=== PATIENT | female | born 1940 | race Caucasian/White ===

== ENCOUNTER 2016-08-26 01:34 | Observation (INO) ==
[2016-08-26 03:38] LABS: Red Blood Count 4.05 M/mcL (3.82-4.97)
[2016-08-26 03:39] LABS: Basophils # 0.1 K/mcL (0.0-0.2); Basophils % 0.8 %; Eosinophils # 0.1 K/mcL (0.0-0.6); Eosinophils % 1.1 %; Hematocrit 39.9 % (35.3-44.9); Hemoglobin 12.7 g/dL (11.5-15.4); Immature Granulocytes % 0.4 % (0-4); Lymphocytes # 1.5 K/mcL (0.6-4.6); Lymphocytes % 18.5 %; Mean Corpuscular HGB Conc 31.8 g/dL (31.6-35.5); Mean Corpuscular Hemoglobin 31.4 pg (28.0-33.3); Mean Corpuscular Volume 98.5 fL (83.0-100.0); Mean Platelet Volume 11.1 fL (9.4-12.4); Monocytes # 0.7 K/mcL (0.0-1.3); Monocytes % 8.6 %; Neutrophils # 5.6 K/mcL (1.6-8.9); Platelet Count 274 K/mcL (140-400); Red Cell Distribution Width 13.9 % (11.5-14.5); Segmented Neutrophils % 70.6 %
[2016-08-26 03:44] LABS: INR 2.3; Prothrombin Time 25.5 Seconds (9.4-12.1)
[2016-08-26 03:52] LABS: Alanine Aminotransferase 31 Units/L (0-55); Albumin 3.9 g/dL (3.5-5.0); Alkaline Phosphatase 63 Units/L (38-126); Aspartate Amino Transferase 32 Units/L (5-34); BUN/Creatinine Ratio 20 (6-26); Bilirubin,Total 0.5 mg/dL (0.2-1.2); Blood Urea Nitrogen 15 mg/dL (7-20); Carbon Dioxide 26 mEq/L (19-29); Chloride 106 mEq/L (98-109); Globulin 3.9 g/dL (2.4-3.5); Glucose 121 mg/dL (70-99); Osmolality,Calculated 290 (280-300); Sodium 139 mEq/L (136-145); Total Protein 7.8 g/dL (6.0-8.3); eGFR For African Americans > 60 (> 60); eGFR For Non-African Americans > 60 (> 60)
[2016-08-26] MEDS ORDERED: Nitroglycerin 0.4 MG TAB.SUBL SL PRN (04:15)
[2016-08-26] MEDS ORDERED: Aspirin 81 MG TAB.CHEW PO ONE (04:15)
--- NOTE | 2016-08-26 04:15 | Emergency Department Note ---
Disposition Clinical Impression: COPD exacerbation, Hypoxia CHF exacerbation Qualifiers: Congestive heart failure type: unspecified congestive heart failure type Qualified Code(s): I50.9 - Heart failure, unspecified Disposition: Admitted As Inpatient Condition: Good Time of Disposition: 05:43 Chest Pain HPI - General Chief Complaint: ED Chest Pain Stated Complaint: chest pain/sob Time Seen by Provider: 08/26/16 04:11 Source: patient, other Limitations: no limitations Vital Signs Reviewed: Yes Nursing Notes Reviewed: Yes - History of Present Illness HPI Narrative: 75 year old female with HX of midepigastric pain that has been getting worse over the past few days. 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 Tim states she has incresed exertional dyspnea and is 89% on RA. Tim states that she has diaphoresis and nausea associated with the chest pain which is described as pressure with radiation across the chest under her bilateral breasts. Tim deines fevers, cough, or vomiting. Currently on an any anticoagulation therapy and has not tried nitro therapy before arrival. No stent placements. Severity scale (1-10): 9 - Related Data Home Medications Medication Instructions Recorded Confirmed Amiodarone [Cordarone] 12/27/15 Amlodipine/Atorvastatin [Caduet 5 12/27/15 mg-10 mg Tablet] ClonazePAM [Clonazepam] 12/27/15 Enalapril Maleate [Vasotec] 12/27/15 Furosemide [Lasix] 12/27/15 Hydrochlorothiazide 12/27/15 [Hydrochlorothiazide] Levothyroxine [Synthroid] 12/27/15 Metoprolol [Lopressor] 12/27/15 Warfarin [Coumadin] 12/27/15 Previous Rx's Medication Instructions Recorded Amoxicillin 875 mg PO BID #20 tablet 04/10/16 Ondansetron [Zofran ODT] 8 mg SL TID #8 tab.rapdis 04/10/16 Levofloxacin [Levaquin] 750 mg PO DAILY #10 tablet 04/14/16 PredniSONE [Prednisone] 50 mg PO DAILY #5 tablet 04/14/16 Ondansetron HCl [Zofran] 4 mg PO QID #15 tablet 08/08/16 Phenazopyridine HCl [Pyridium] 200 mg PO TIDAC #6 tab 08/08/16 Allergies Allergy/AdvReac Type Severity Reaction Status Date / Time No Known Allergies Allergy Verified 08/26/16 01:35 Constitutional: Denies: fever, chills, weakness, weight change Eyes: Denies: eye pain, eye discharge, vision change ENT ED: Denies: ear pain, throat pain, dental pain, hearing loss, epistaxis, congestion, dysphagia Cardiovascular: Reports: chest pain, dyspnea on exertion. Denies: palpitations , edema, syncope Respiratory: Denies: cough, dyspnea, wheezes, hemoptysis, stridor Gastrointestinal: Reports: nausea. Denies: abdominal pain, vomiting, diarrhea, constipation, hematemesis, melena, hematochezia Genitourinary: Denies: dysuria, frequency, hematuria, discharge Musculoskeletal: Denies: back pain, neck pain, arthralgia, myalgia Integumentary: Denies: rash, abrasion, lesions Neurological: Denies: headache, weakness, numbness, paresthesias, confusion, abnormal gait, vertigo Psychiatric: Denies: anxiety, depression, suicidal thoughts, homicidal thoughts , auditory hallucinations, visual hallucinations Endocrine: Denies: fatigue Hematological/Lymphatic: Denies: easy bleeding, easy bruising Allergic/Immunologic: Denies: facial swelling, urticaria Chest Pain PMH - Past Medical History Medical history: Reports: COPD, DVT, hyperlipidemia, hypertension, myocardial infarction Surgical history: Reports: non-contributory, coronary bypass (CABG), pacemaker/ AICD Psychiatric history: Reports: anxiety MUSHROOM GROWER history: Reports: no MUSHROOM GROWER history - Social History Smoking Status: Former smoker Alcohol use: Reports: none Drug use: Reports: none Physical Exam - General Limitations: no limitations General appearance: alert - Head Head exam: atraumatic, normocephalic, normal inspection - Eye Eye exam: Present: normal appearance, PERRL, EOMI - Expanded Eye Exam Pupils: Left: reactive - ENT ENT exam: normal exam, normal oropharynx, mucous membranes moist - Expanded ENT Exam External ear exam: Present: normal external inspection Mouth exam: Present: normal external inspection Teeth exam: Present: normal inspection Throat exam: Present: normal inspection - Neck Neck exam: Present: normal inspection, full ROM, trachea midline - Chest Chest inspection: Present: normal inspection, symmetric chest wall rise - Respiratory Respiratory exam: Present: normal lung sounds bilaterally - Cardiovascular Cardiovascular exam: Present: regular rate, normal rhythm, normal heart sounds - Abdominal Exam Abdominal exam: Present: soft, Non-Tender. Absent: tenderness, distention, guarding, rebound, rigidity - Extremities Exam Extremities exam: Present: normal inspection, full ROM. Absent: tenderness, pedal edema - Expanded Upper Extremity Exam Shoulder exam: Present: normal inspection, full ROM Arm exam: Present: normal inspection, full ROM Elbow exam: Present: normal inspection, full ROM Forearm/Wrist exam: Present: normal inspection, full ROM Hand exam: Present: normal inspection, full ROM Vascular exam: Normal: capillary refill, radial pulse - Expanded Lower Extremity Exam Hip/Pelvis exam: Present: normal inspection, full ROM Upper leg exam: Present: normal inspection, full ROM Knee exam: Present: normal inspection, full ROM Lower leg exam: Present: normal inspection, full ROM Ankle exam: Present: normal inspection, full ROM Foot/toe exam: Present: normal inspection, full ROM Neurovascular/Tendon exam: Absent: motor deficit, sensory deficit, tendon deficit - Back Exam Back exam: Present: normal inspection, full ROM. Absent: tenderness - Neurological Exam Neurological exam: Present: alert, oriented X3 - Expanded Neurological Exam Patient oriented to: Present: person, place, time Coma Scale Eye Opening: Spontaneous Coma Scale Motor Response: Obeys Commands Coma Scale Verbal Response: Oriented Coma Scale Total: 15 - Psychiatric Psychiatric exam: Present: normal affect, normal mood - Skin Skin exam: Present: warm, dry, intact, normal color Course Course Narrative: tim is hypertensive in the room as well as bradycardic secondary to medication treatment with metoprolol. 89% on RA, placed on 2LNC. ASA and nitro for pain therapy. - Consultations Consultation #1: discussed case with Dr. Pan and he accepts tim for admission. Tim agrees to plan. Time: 05:42 Vital Signs Temperature 97.6 F 08/26/16 01:36 Pulse Rate 72 08/26/16 01:36 Respiratory Rate 20 08/26/16 01:36 Blood Pressure 174/87 08/26/16 01:36 O2 Sat by Pulse Oximetry 93 08/26/16 01:36 Temperature 97.6 F 08/26/16 01:36 Pulse Rate 88 08/26/16 04:39 Respiratory Rate 18 08/26/16 04:39 Blood Pressure 162/82 08/26/16 04:39 O2 Sat by Pulse Oximetry 96 08/26/16 04:39 Oxygen Delivery Oxygen Delivery Nasal Cannula Chest Pain - Lab Data Result diagrams: 08/26/16 03:15 08/26/16 03:15 Lab Results 08/26/16 08/26/16 08/26/16 Range/Units 03:15 03:15 03:15 WBC 8.0 (4.3-11.1) K/mcL RBC 4.05 (3.82-4.97) M/mcL Hgb 12.7 (11.5-15.4) g/dL Hct 39.9 (35.3-44.9) % MCV 98.5 (83.0-100.0) fL MCH 31.4 (28.0-33.3) pg MCHC 31.8 (31.6-35.5) g/dL RDW 13.9 (11.5-14.5) % Plt Count 274 (140-400) K/mcL MPV 11.1 (9.4-12.4) fL Immature Gran % 0.4 (0-4) % Seg Neutrophils % 70.6 % Lymphocytes % 18.5 % Monocytes % 8.6 % Eosinophils % 1.1 % Basophils % 0.8 % Neutrophils # 5.6 (1.6-8.9) K/mcL Lymphocytes # 1.5 (0.6-4.6) K/mcL Monocytes # 0.7 (0.0-1.3) K/mcL Eosinophils # 0.1 (0.0-0.6) K/mcL Basophils # 0.1 (0.0-0.2) K/mcL PT (9.4-12.1) Seconds INR APTT (26.0-36.0) Seconds Sodium 139 (136-145) mEq/L Potassium 4.0 (3.5-4.5) mEq/L Chloride 106 (98-109) mEq/L Carbon Dioxide 26 (19-29) mEq/L BUN 15 (7-20) mg/dL Creatinine 0.75 (0.57-1.11) mg/dL Est GFR ( Amer) > 60 (> 60) Est GFR (Non-Af Amer) > 60 (> 60) BUN/Creatinine Ratio 20 (6-26) Glucose 121 H (70-99) mg/dL Calculated Osmolality 290 (280-300) Calcium 9.0 (8.6-10.8) mg/dL Total Bilirubin 0.5 (0.2-1.2) mg/dL AST 32 (5-34) Units/L ALT 31 (0-55) Units/L Alkaline Phosphatase 63 (38-126) Units/L Troponin I 0.01 (0-0.03) ng/mL B-Natriuretic Peptide (0-100) pg/mL Serum Total Protein 7.8 (6.0-8.3) g/dL Albumin 3.9 (3.5-5.0) g/dL Globulin 3.9 H (2.4-3.5) g/dL Albumin/Globulin Ratio 1.0 L (1.1-2.2) 08/26/16 08/26/16 Range/Units 03:15 03:15 WBC (4.3-11.1) K/mcL RBC (3.82-4.97) M/mcL Hgb (11.5-15.4) g/dL Hct (35.3-44.9) % MCV (83.0-100.0) fL MCH (28.0-33.3) pg MCHC (31.6-35.5) g/dL RDW (11.5-14.5) % Plt Count (140-400) K/mcL MPV (9.4-12.4) fL Immature Gran % (0-4) % Seg Neutrophils % % Lymphocytes % % Monocytes % % Eosinophils % % Basophils % % Neutrophils # (1.6-8.9) K/mcL Lymphocytes # (0.6-4.6) K/mcL Monocytes # (0.0-1.3) K/mcL Eosinophils # (0.0-0.6) K/mcL Basophils # (0.0-0.2) K/mcL PT 25.5 H (9.4-12.1) Seconds INR 2.3 APTT 40.0 H (26.0-36.0) Seconds Sodium (136-145) mEq/L Potassium (3.5-4.5) mEq/L Chloride (98-109) mEq/L Carbon Dioxide (19-29) mEq/L BUN (7-20) mg/dL Creatinine (0.57-1.11) mg/dL Est GFR ( Amer) (> 60) Est GFR (Non-Af Amer) (> 60) BUN/Creatinine Ratio (6-26) Glucose (70-99) mg/dL Calculated Osmolality (280-300) Calcium (8.6-10.8) mg/dL Total Bilirubin (0.2-1.2) mg/dL AST (5-34) Units/L ALT (0-55) Units/L Alkaline Phosphatase (38-126) Units/L Troponin I (0-0.03) ng/mL B-Natriuretic Peptide 672 H (0-100) pg/mL Serum Total Protein (6.0-8.3) g/dL Albumin (3.5-5.0) g/dL Globulin (2.4-3.5) g/dL Albumin/Globulin Ratio (1.1-2.2) - EKG Data EKG attestation: Yes I reviewed and interpreted this EKG. EKG results narrative: NSR with rate of 66. nO STEMI. normal intervals. no old ekg. 0149 Attestation Statement - Attestation Attestation: I personally interviewed and examined this patient and my medical decision- making was reviewed with the ED Resident Physician, Dr. Blanco. I agree with the documented findings, disposition and treatment plan as described except to the extent set forth below. Patient is a 75-year-old white female who arrives complaining of shortness of breath with hypoxia and mild epigastric pain. Patient has a history of COPD as well as coronary artery disease. Patient denies any prior history of CHF. Patient was in no acute distress on arrival to the ED. Agree with patient's physical exam findings as documented. Patient was found after lab evaluation and portal chest x-ray just to have acute exacerbation of CHF. Patient with elevated BNP as well as pulmonary edema on chest x-ray. Have initiated diuretics IV. Will admit patient for further evaluation and treatment.
[2016-08-26] MEDS ORDERED: Furosemide 40 MG/4 ML VIAL IVP ONE (04:18)
[2016-08-26] MEDS ORDERED: Ipratropium/Albuterol Neb 3 ML IH ONE (05:09)
[2016-08-26] MEDS ORDERED: methylPREDNISolone 125 MG/2 ML VIAL IVP ONE (05:09)
[2016-08-26] MEDS ORDERED: Acetaminophen 325 MG TABLET PO PRN (07:39)
[2016-08-26] MEDS ORDERED: Naloxone 0.4 MG/ML INJ IVP PRN (07:39)
--- NOTE | 2016-08-26 09:19 | Internal Med History&Physical ---
Date of Encounter: 08/26/16 Time of Encounter: 08:30 Assessment and Plan (1) CHF exacerbation Current visit: Yes Status: Acute Patient with acute CHF. Likely combined. Will get 2-D echocardiogram. Continue IV Lasix. Patient is clinically improving. Trend troponins. Telemetry monitoring. Patient also had associated chest pain. This has now resolved. She does not want stress testing at this time. 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 Qualifiers: Congestive heart failure type: combined Qualified Code(s): I50.43 - Acute on chronic combined systolic (congestive) and diastolic (congestive) heart failure (2) Essential hypertension Current visit: Yes Status: Chronic Blood pressure is elevated. Will monitor and adjust medications accordingly. For now continue her antihypertensive regimen. (3) Hyperlipidemia Current visit: Yes Status: Chronic Patient does not appear to be on any statins at this time. We will check lipid profile. Qualifiers: Hyperlipidemia type: mixed hyperlipidemia Qualified Code(s): E78.2 - Mixed hyperlipidemia (4) Chronic anticoagulation Current visit: Yes Status: Chronic On Coumadin therapy. INR 2.3. We will continue Coumadin. Internal Medicine - H&P: HPI Chief complaint: Shortness of breath and chest pain Admitted From: Emergency Dept Plans for Post Hospital Care: Home History of present illness: Ms. Navarrete is a 75 year old female patient with a history of COPD, DVT, hyperlipidemia, hypertension, [place], VSD repair, pacemaker and AICD in situ presented to the ER with complaints of shortness of breath. Symptoms began last night. She developed pain in her lower rib region bilaterally and then also began to have shortness of breath. She denies any palpitations. No cough or sputum production. She says her shortness of breath was persistent whether she was lying down or sitting up. Denies any pedal edema. In the ER she received IV Lasix with improvement in her symptoms. Her chest pain is now resolved. Her shortness of breath is also much improved. She follows up with cardiology as outpatient. She is on anticoagulation with Coumadin. Past Med Surg Social Fam HX - Past Medical History Attestation: Yes The following information was validated with the patient. Source: patient Medical history: COPD, DVT, hyperlipidemia, hypertension, myocardial infarction Psychiatric history: anxiety - Past Surgical History Surgical History: non-contributory, coronary bypass (CABG), pacemaker/AICD, other (VSD repair) - Social History Smoking Status: Former smoker Smokeless Tobacco Status: No Alcohol use: none Drug use: none - Family History Father Living Status: Age at : 88 Cause of : cancer Hx Family Respiratory Disorders: No Hx Family Cancer: Yes Hx Family GI Disorders: No Hx Family Genitourinary Disorders: No Hx Family Endocrine Disorder: Yes (diabetes) Hx Family Musculoskeletal Disorders: No Hx Family Neuromuscular Disorders: No Hx Family Neurologic Disorders: No Hx Family HEENT Disorders: No Hx Family Autoimmune Disorders: No Hx Family Reproductive Disorders: No Hx Family Psychosocial Disorders: No Hx Family Medical Disorders: No Internal Medicine - H&P: Meds Amiodarone [Cordarone] 12/27/15 [History] Amlodipine/Atorvastatin [Caduet 5 mg-10 mg Tablet] 12/27/15 [History] ClonazePAM [Clonazepam] 12/27/15 [History] Enalapril Maleate [Vasotec] 12/27/15 [History] Furosemide [Lasix] 12/27/15 [History] Hydrochlorothiazide [Hydrochlorothiazide] 12/27/15 [History] Levothyroxine [Synthroid] 12/27/15 [History] Metoprolol [Lopressor] 12/27/15 [History] Warfarin [Coumadin] 12/27/15 [History] Amoxicillin 875 mg PO BID #20 tablet 04/10/16 [Rx] Ondansetron [Zofran ODT] 8 mg SL TID #8 tab.rapdis 04/10/16 [Rx] Levofloxacin [Levaquin] 750 mg PO DAILY #10 tablet 04/14/16 [Rx] PredniSONE [Prednisone] 50 mg PO DAILY #5 tablet 04/14/16 [Rx] Ondansetron HCl [Zofran] 4 mg PO QID #15 tablet 08/08/16 [Rx] Phenazopyridine HCl [Pyridium] 200 mg PO TIDAC #6 tab 08/08/16 [Rx] Allergies No Known Allergies Allergy (Verified 08/26/16 01:35) All Systems PM: A 10-system review of systems was performed and is negative for pertinent findings except as documented above in the HPI. - Constitutional Constitutional: no chills, no fever(s), no night sweats - EENT Eyes: no change in vision, no discharge, no pain, no photophobia Ears: no ear discharge, no ear pain, no tinnitus Nose, mouth and throat: no dysphagia, no nasal discharge, no neck pain, no sore throat - Cardiovascular Cardiovascular ROS IM: chest pain, dyspnea, orthopnea, no diaphoresis, no lightheadedness, no palpitations, no syncope - Respiratory Respiratory: no cough, no dyspnea, no wheezing, no excessive phlegm production - Gastrointestinal Gastrointestinal: no abdominal pain, no diarrhea, no hematemesis, no hematochezia, no melena, no nausea, no vomiting - Genitourinary Genitourinary: no change in urinary stream, no dysuria, no flank pain, no hematuria - Musculoskeletal Musculoskeletal ROS IM: no numbness, no tingling - Integumentary Integumentary IM: no rash, no unusual bruising - Neurological Neurological ROS: no confusion, no convulsions, no focal weakness, no numbness, no tingling, no tremor(s) - Hematologic/Lymphatic Hematologic/Lymphatic: no easy bruising - Constitutional Vitals: Temp Pulse Resp BP Pulse Ox 97.4 F L 70 20 148/67 97 08/26/16 08:00 08/26/16 08:00 08/26/16 08:00 08/26/16 08:00 08/26/16 08:00 General appearance: Present: cooperative, mild distress, A&O X 3, answers questions appropriately - Head Head exam: Present: atraumatic, normocephalic - Eye Eye exam: Present: EOMI, PERRL, conjuntiva pink, sclera anicteric - Neck Neck exam general surgery: Present: supple, trachea midline. Absent: lymphadenopathy - Respiratory Respiratory exam: Present: CTAB. Absent: accessory muscle use, rales, rhonchi, wheezes - Cardiovascular Cardiovascular exam: Present: RRR, +S1, +S2, systolic murmur. Absent: diastolic murmur, gallop, rubs - GI/Abdominal GI/Abdominal exam: Present: normal bowel sounds, soft, no peritoneal signs. Absent: distended, tenderness - Extremities Exam Extremities exam: Present: warm, radial pulses palpable and symetrical. Absent : calf tenderness, cyanotic, pedal edema - Neurological Exam Neurological exam: Present: CN II-XII intact, oriented X3, no focal deficits, strengths equal and symetr throughout. Absent: facial droop, speech deficit - Skin Skin exam: Present: dry, intact Additional comments: Healing lower extremity wounds Internal Med - H&P Results - Labs CBC & Chem 7: 08/26/16 03:15 08/26/16 03:15 - EKG Data EKG shows normal: sinus rhythm - EKG Data EKG comments: 08/26/16 09:21 Normal sinus rhythm without any acute ST segment changes. - Impressions Impressions Chest X-Ray 08/26/16 02:06 IMPRESSION: Mild pulmonary edema D/ / David Bates MD / David Bates MD Interpreting Provider: David Bates MD - Attending Attestation This document has been at least partially created by [employer] recognition technology by Dr. Bailey. Errors in grammar, wording or other phrases may exist. If errors are found after the documentation is signed, they will be addressed individually in the addendum section of this document when appropriate.
[2016-08-26] MEDS ORDERED: Ondansetron ODT 4 MG TAB.RAPDIS PO PRN (09:48)
[2016-08-26] MEDS: *HR* Amiodarone 200 MG TABLET PO SCH (10:37)
[2016-08-26] MEDS: clonazePAM 0.5 MG TABLET PO SCH ×2 (11:20→20:29)
[2016-08-26] MEDS: Furosemide 20 MG/2 ML VIAL IVP SCH (16:19)
[2016-08-26] MEDS ORDERED: Warfarin perPT PO PRN (18:00)
[2016-08-26] MEDS ORDERED: *HR* Warfarin 2.5 MG TABLET PO SCH (18:00)
--- NOTE | 2016-08-26 18:38 | Electrocardiograph Report ---
[place] [id number] Test Date: 2016-08-26 Pat Name: Patricia Navarrete Department: 104 Room: 3B24 Gender: Edi Analyst: TEETEE : 1940 Requested By: Sybil Irby Order Number: [id number] Reading MD: Sorin Us MD Measurements Intervals [place] Rate: 66 P: 74 HI: 216 QRS: 41 QRSD: 104 T: 99 QT: 427 QTc: 441 Interpretive Statements SINUS RHYTHM WITH FIRST DEGREE AV BLOCK WITH OCCASIONAL VENTRICULAR PREMATURE COMPLEXES Electronically Signed On 08-26-2016 18:37:20 EDT by Sorin Us MD
[2016-08-26] MEDS: Lisinopril 20 MG TABLET PO SCH (20:29)
[2016-08-26] MEDS ORDERED: clonazePAM 0.5 MG TABLET PO SCH (21:00)
[2016-08-26] MEDS ORDERED: Ketorolac 15 MG/ML VIAL IVP ONE (22:06)
[2016-08-26] MEDS ORDERED: Acetaminophen IV 1,000 MG/100 ML INFUS..BTL IVPB ONE (22:06)
[2016-08-26] MEDS: Melatonin 3 MG TABLET PO SCH (22:24)
[2016-08-27 07:08] LABS: INR 3.1; Prothrombin Time 34.5 Seconds (9.4-12.1)
[2016-08-27 07:18] LABS: Basophils % 0.1 %; Hematocrit 34.8 % (35.3-44.9); Immature Granulocytes % 0.8 % (0-4); Lymphocytes % 5.9 %; Mean Corpuscular HGB Conc 31.6 g/dL (31.6-35.5); Mean Corpuscular Hemoglobin 31.4 pg (28.0-33.3); Mean Corpuscular Volume 99.4 fL (83.0-100.0); Mean Platelet Volume 11.3 fL (9.4-12.4); Monocytes # 0.8 K/mcL (0.0-1.3); Monocytes % 4.8 %; Platelet Count 249 K/mcL (140-400); Red Cell Distribution Width 14.3 % (11.5-14.5); Segmented Neutrophils % 88.4 %
[2016-08-27 07:27] LABS: BUN/Creatinine Ratio 29 (6-26); Blood Urea Nitrogen 24 mg/dL (7-20); Carbon Dioxide 23 mEq/L (19-29); Chloride 106 mEq/L (98-109); Chol/HDL Ratio 3.4 (0-4.9); Cholesterol 161 mg/dL (< 200); Glucose 142 mg/dL (70-99); HDL Cholesterol 48 mg/dL (40-59); LDL Cholesterol,Calculated 99 mg/dL (0-99); Osmolality,Calculated 294 (280-300); Potassium 4.3 mEq/L (3.5-4.5); Sodium 139 mEq/L (136-145); Triglycerides 68 mg/dL (< 150); eGFR For African Americans > 60 (> 60); eGFR For Non-African Americans > 60 (> 60)
[2016-08-27] MEDS: Furosemide 20 MG/2 ML VIAL IVP SCH ×2 (08:36→18:06)
[2016-08-27] MEDS: hydroCHLOROthiazide 25 MG TABLET PO SCH (08:37)
[2016-08-27] MEDS: clonazePAM 0.5 MG TABLET PO SCH ×2 (08:37→20:42)
[2016-08-27] MEDS: *HR* Amiodarone 200 MG TABLET PO SCH (08:37)
[2016-08-27] MEDS: Lisinopril 20 MG TABLET PO SCH ×2 (08:37→20:41)
--- NOTE | 2016-08-27 09:15 | ECHO - Doppler Report ---
Echocardiogram Name: Patricia Navarrete Date of Study: 08/26/2016 Date: 1940 Ht: 59.0 in Medical Record#: [id number] Age: 75 Wt: 136.0 lb Gender: Female BSA: 1.57 Order #: [id number] Location: [facility] Room #: 3B24 Reading Physician: Joann Zavaleta DO Auto Repair Technician: Carlyn Montero RDCS Ordering Physician: Lilian Bailey MD Primary Physician: Ralf Perez MD Indications: Congestive heart failure Impressions: LVEF 45-50%. Not all LV wall segments were well visualized. 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 Left ventricle is mildly dilated. There is evidence of moderate diastolic dysfunction of the left ventricle. Normal right ventricular size and function. Mild aortic regurgitation. Mild-moderate mitral regurgitation. Mild tricuspid regurgitation. Mild pulmonic regurgitation. No pulmonary hypertension. Left Ventricular Wall Motion: Rest Echo Findings The mid inferior lateral and basal inferior lateral medina were hypokinetic. 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 The mid inferior and basal inferior medina were not visualized. All other wall segments showed normal motion. Findings: Study Quality * Technically adequate exam. ECG Findings * Normal sinus rhythm. Left Ventricle * Mildly dilated left ventricle. * Moderate left ventricular diastolic dysfunction. * LVEF 45-50%. * By history, patient is s/p repair of a VSD. No evidence on this study for a residual VSD. Right Ventricle * Normal right ventricular structure and function. Normal Lat S Jason. Subcostal view is not well visualized. Mitral Valve * Normal mitral valve structure. * No mitral stenosis. * Mild-moderate mitral regurgitation. Aortic Valve * Trileaflet aortic valve. * Normal aortic valve structure. * No aortic stenosis. * Mild aortic regurgitation. Tricuspid Valve * Tricuspid valve not well visualized. * Mild tricuspid regurgitation. * Estimated RA pressure is 3 mmHg. * Estimated RVSP is 33 mmHg. * No pulmonary hypertension. Pulmonic Valve * Pulmonic valve is not well visualized. * No pulmonic stenosis. * Mild pulmonic regurgitation. Pulmonary Artery * Pulmonary artery not well visualized. Right Atrium * Mildly dilated right atrium. Left Atrium * Severely dilated left atrium. Interatrial Septum * Interatrial septum not well evaluated. IVC * Normal IVC dimensions and inspiratory collapse. Pericardium * There is no pericardial effusion present. Aorta * Normally sized aortic root. History Hypertension Hypercholesteremia History of CAD/PTCA Myocardial Infarction Coronary Artery Bypass Graft Pacer/ICD Implant 07/18/2013 a Previous Echo was performed. Measurements: BP: 155/ 67 2D Normal Values RVIDd: 2.96 cm <2.7 cm IVSd: .96 cm 0.6 - 1.0 cm LVIDd: 5.58 cm 3.7 - 5.6 cm LVPWd: .99 cm 0.6 - 1.1 cm LVIDs: 3.07 cm 1.5 - 3.6 cm AO: 2.40 cm < 4.0 cm LA: 4.50 cm 2.0 - 4.0cm %FS: 45.00 cm >25 % LA volume: 67 Mitral Valve Peak E:1.14 m/sec Peak A:.59 m/sec E/A Ratio:1.9 Peak E' Lat Jason:8.38 cm/s Peak E' Med Jason:3.24 cm/s E/E' Lat Ratio:13.6 E/E' Med Ratio:35.2 Tricuspid Valve TV Regurg Peak Grad: 30.00mmHg TV Regurg Peak Jason: 2.75m/sec Updated by Joann Zavaleta on 08/27/2016 9:04:15 AM electronically signed on 08/27/2016 9:08:23 AM with status of Final [place] [employer] [place]: 1=Normal, 2=Hypokinesis, 3=Akinesis, 4=Dyskinesis, 5=Aneurysmal, 6=Hyperkinetic, X=Not Visualized (Blank)=Missing
--- NOTE | 2016-08-27 18:58 | Internal Med Progress Note ---
Date of Encounter: 08/27/16 Time of Encounter: 10:00 - Assessment and plan (1) COPD (chronic obstructive pulmonary disease) Current Visit: Yes Status: Acute Assessment and plan: Patient has history of COPD No exacerbation at this time. Continue medications. Nebulizers prn Qualifiers: COPD type: unspecified COPD Qualified Code(s): J44.9 - Chronic obstructive pulmonary disease, unspecified (2) CHF exacerbation Current Visit: Yes Status: Acute Assessment and plan: Patient with acute CHF. BNP is 672. Her troponins were negative 3. Lipid panel is within normal limits. She denies chest pain today, however she does report bilateral anterior lower rib pain associated with cough that began after she got a breathing treatment. He still declined a stress test today. Echocardiogram shows LVEF 45-50%. Not all LV wall segments were well visualized. 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 Left ventricle is mildly dilated. There is evidence of moderate diastolic dysfunction of the left ventricle, multi-valvular dysfunction, and no pulmonary hypertension. Outpatient follow-up with cardiology. Patient was up walking in the hallway today did not appear to have difficulty breathing. Telemetry Continue Lasix 20 mg IV twice a day Intake and output Qualifiers: Congestive heart failure type: combined Qualified Code(s): I50.43 - Acute on chronic combined systolic (congestive) and diastolic (congestive) heart failure (3) Essential hypertension Current Visit: Yes Status: Chronic Assessment and plan: Chronic. Continue home medications. Well controlled inpatient (4) Hyperlipidemia Current Visit: Yes Status: Chronic Assessment and plan: Lipid panel is within normal limits. Chronic. Patient is not on a statin at home. Qualifiers: Hyperlipidemia type: unspecified Qualified Code(s): E78.5 - Hyperlipidemia , unspecified (5) Chronic anticoagulation Current Visit: Yes Status: Chronic Assessment and plan: Patient is taking Coumadin. INRs 3.1. Continue to monitor Pharmacy dosing. INR daily. (6) Leukocytosis Current Visit: Yes Status: Acute Assessment and plan: Patient had sudden jump in white count today. 17.0 today. Neutrophils 15% Chest x-ray was negative for focal consolidation, pleural effusions, or pneumothorax. There is no acute cardiopulmonary process noted on x-ray. She is afebrile and vitals are within normal limits. She said that she developed a cough today with bilateral low anterior rib pain and shortness of breath. She is able to ambulate in the hallway. She does not appear to be in respiratory distress. She is not requiring supplemental oxygen to maintain her saturation. She is 95%. She is not receiving IV steroids. We will repeat CBC in the morning. Urine is being collected, micro-and culture also ordered. Patient has been given 1 g of Rocephin IV and will be given Levaquin 750 mg by mouth every 24 hours due to comorbidity of COPD. Patient's curb 65 score is 2. 1. BUN greater than 19, 1 for age >65. Qualifiers: Leukocytosis type: other Qualified Code(s): D72.828 - Other elevated white blood cell count - Time Spent With Patient less than 15 minutes - Subjective Interval history: Patient was seen and examined this morning at about 10 AM. She is a pleasant alert and oriented 75-year-old woman. She sitting on her bed. She says that she feels fine and she wants to go home. She reported anterior rib pain, shortness of breath, nonproductive cough all beginning today. She was given a breathing treatment and began having a nonproductive cough after the treatment. She does have a history of COPD. Her vitals have been stable. She was up walking in the hallway today without difficulty. Her lungs are clear and diminished throughout. I got a chest x-ray today that was negative for acute cardiopulmonary process, most specifically no focal consolidation. She had leukocytosis today white count jumped to 17. Unknown source at this time. Treated her with a gram of Rocephin IV and Levaquin 750 mg IV and urine is being collected, micro- and culture ordered as well.. - Constitutional Vitals: Temp Pulse Resp BP Pulse Ox 97.7 F 65 18 145/73 95 08/27/16 11:03 08/27/16 11:03 08/27/16 11:03 08/27/16 11:03 08/27/16 14:55 General appearance: Present: cooperative, mild distress, A&O X 3, pleasant, answers questions appropriately - Head Head exam: Present: normal inspection - Eye Eye exam: Present: normal appearance, conjuntiva pink - ENT ENT exam: Present: mucous membranes moist, normal exam - Neck Neck exam general surgery: Present: normal inspection. Absent: lymphadenopathy , tenderness - Respiratory Respiratory exam: Present: decreased breath sounds. Absent: chest wall tenderness, rales, respiratory distress, rhonchi, wheezes - Cardiovascular Cardiovascular exam: Present: RRR, +S1, +S2. Absent: diastolic murmur, systolic murmur - GI/Abdominal GI/Abdominal exam: Present: normal bowel sounds. Absent: hepatomegaly, splenomegaly, tenderness - Extremities Exam Extremities exam: Present: normal inspection, pedal edema, warm, radial pulses palpable and symetrical. Absent: tenderness - Neurological Exam Neurological exam: Present: alert, oriented X3, no focal deficits, strengths equal and symetr throughout. Absent: facial droop, speech deficit Internal Medicine: Result - Labs CBC & Chem 7: 08/27/16 06:06 08/27/16 06:06 Labs: Short CBC 08/27/16 Range/Units 06:06 WBC 17.0 H D (4.3-11.1) K/mcL Hgb 11.0 L D (11.5-15.4) g/dL Hct 34.8 L (35.3-44.9) % Plt Count 249 (140-400) K/mcL Neutrophils # 15.0 H (1.6-8.9) K/mcL BMP 08/27/16 06:06 Sodium 139 Potassium 4.3 Chloride 106 Carbon Dioxide 23 BUN 24 H Creatinine 0.84 Glucose 142 H Calcium 9.0 - ABG Interpretation ABG results: PT/INR, D-dimer PT 34.5 Seconds (9.4-12.1) H 08/27/16 06:06 - Impressions Impressions Chest X-Ray 08/27/16 11:28 IMPRESSION: No acute cardiopulmonary process. D/ / 08/27/2016 12:42:53 Lio Cleveland MD / vi Interpreting Provider: Lio Cleveland MD Consult Discharge Plan - Plan Referrals: Ralf Perez MD [Primary Care Provider] - 09/02/16 1:15 pm
[2016-08-27 19:33] LABS: Bilirubin,Urine Negative (Negative); Blood,Urine Negative (Negative); Clarity,Urine Clear (Clear); Color,Urine Yellow (Yellow); Glucose,Urine (UA) Normal (Normal); Ketones,Urine Negative (Negative); Leukocyte Esterase,Urine Negative (Negative); Nitrite,Urine Negative (Negative); Protein,Urine Negative (Neg-Trace); Urobilinogen,Urine Normal (Normal)
[2016-08-27] MEDS ORDERED: Levofloxacin 750 MG/150 ML 750 MG/150 ML BAG IVPB SCH (20:00)
[2016-08-27] MEDS: Melatonin 3 MG TABLET PO SCH (20:42)
[2016-08-28 05:13] LABS: Basophils % 0.2 %; Eosinophils % 0.2 %; Hematocrit 33.1 % (35.3-44.9); Hemoglobin 10.8 g/dL (11.5-15.4); Immature Granulocytes % 0.3 % (0-4); Lymphocytes # 2.6 K/mcL (0.6-4.6); Mean Corpuscular HGB Conc 32.6 g/dL (31.6-35.5); Mean Corpuscular Hemoglobin 32.3 pg (28.0-33.3); Mean Corpuscular Volume 99.1 fL (83.0-100.0); Mean Platelet Volume 11.6 fL (9.4-12.4); Monocytes # 0.9 K/mcL (0.0-1.3); Monocytes % 8.3 %; Neutrophils # 7.7 K/mcL (1.6-8.9); Platelet Count 236 K/mcL (140-400); Red Blood Count 3.34 M/mcL (3.82-4.97); Red Cell Distribution Width 14.6 % (11.5-14.5)
[2016-08-28 05:19] LABS: INR 3.2; Prothrombin Time 36.2 Seconds (9.4-12.1)
[2016-08-28 05:32] LABS: BUN/Creatinine Ratio 37 (6-26); Blood Urea Nitrogen 33 mg/dL (7-20); Calcium 8.4 mg/dL (8.6-10.8); Carbon Dioxide 25 mEq/L (19-29); Chloride 109 mEq/L (98-109); Glucose 92 mg/dL (70-99); Osmolality,Calculated 301 (280-300); Potassium 4.1 mEq/L (3.5-4.5); Sodium 142 mEq/L (136-145); eGFR For African Americans > 60 (> 60); eGFR For Non-African Americans > 60 (> 60)
[2016-08-28] MEDS: hydroCHLOROthiazide 25 MG TABLET PO SCH (09:17)
[2016-08-28] MEDS: Lisinopril 20 MG TABLET PO SCH (09:17)
[2016-08-28] MEDS: *HR* Amiodarone 200 MG TABLET PO SCH (09:18)
[2016-08-28] MEDS: Furosemide 20 MG/2 ML VIAL IVP SCH (09:20)
[2016-08-28] MEDS: clonazePAM 0.5 MG TABLET PO SCH (09:20)
[2016-08-28 11:46] VITALS: BP 138/71
--- NOTE | 2016-08-28 12:39 | Discharge Summary ---
Date of Encounter: 08/28/16 Time of Encounter: 08:30 - Discharge Diagnosis (1) COPD (chronic obstructive pulmonary disease) Priority: Primary Status: Chronic Comments: History COPD. Chronic. No exacerbation at this time. Well-controlled. Continue home medications Patient needs albuterol solution for nebulizer at home. Qualifiers: COPD type: unspecified COPD Qualified Code(s): J44.9 - Chronic obstructive pulmonary disease, unspecified (2) CHF exacerbation Priority: Secondary Status: Acute Comments: BNP was elevated on arrival. Her lungs are clear and diminished. She will continue her Lasix at home. Patient will follow up outpatient with cardiology. Patient ambulates without difficulty and does not require supplemental oxygen. Patient has no pedal or lower extremity edema. Qualifiers: Congestive heart failure type: combined Qualified Code(s): I50.43 - Acute on chronic combined systolic (congestive) and diastolic (congestive) heart failure (3) Essential hypertension Priority: Secondary Status: Chronic Comments: Chronic. Well controlled during inpatient stay. Continue home medications. (4) Hyperlipidemia Priority: Secondary Status: Chronic Comments: Chronic. Patient is not on a statin at home. I did discuss this with her and she declines. Qualifiers: Hyperlipidemia type: unspecified Qualified Code(s): E78.5 - Hyperlipidemia , unspecified (5) Chronic anticoagulation Priority: Secondary Status: Chronic Comments: Patient is taking Coumadin. INR was 3.2 today. Pharmacy has been dosing. Continue Coumadin dose at home. (6) Leukocytosis Priority: Secondary Status: Acute Comments: Today white count 11.2, neutrophils Berta 7.7.. She did receive IV antibiotics yesterday. Her chest x-ray was negative for focal consolidation, pleural effusions, pneumothorax. Patient remained afebrile and vitals were all within normal limits. She said she developed a cough with bilateral low anterior rib pain and shortness of breath. She is not requiring supplemental oxygen. Room air sat is between 9798%. She is not receiving IV steroids. Urine was negative and no culture was needed. Did treat her empirically for an early pneumonia. She will be sent home with Levaquin prescription. Qualifiers: Leukocytosis type: other Qualified Code(s): D72.828 - Other elevated white blood cell count (7) Community acquired pneumonia Priority: Secondary Status: Acute Comments: Patient developed nonproductive cough, bilateral lower anterior rib pain, and shortness of breath yesterday. She was afebrile and her vital signs remained stable. She had leukocytosis, white count was 17.0 with neutrophils 15%. Chest x-ray was negative for any acute cardiopulmonary process. Urine was negative. Her lungs were clear and diminished. She has a history of COPD, as well. I treated her with 1 g of Rocephin IV and Levaquin 750 mg by mouth which she will continue at home. Her carbs 65 score was 2. - Discharge Medications Prescriptions: Albuterol Neb [AccuNeb] 0.63 mg IH Q4H #40 inhsol Levofloxacin [Levaquin] 750 mg PO 9XD #9 tablet Home Medications: Amiodarone [Cordarone] 100 mg PO DAILY 12/27/15 [History] ClonazePAM [Clonazepam] 0.5 mg PO BID 12/27/15 [History] Enalapril Maleate [Vasotec] 20 mg PO BID 12/27/15 [History] Hydrochlorothiazide 12.5 mg PO DAILY 12/27/15 [History] Levothyroxine [Synthroid] 100 mcg PO DAILY 12/27/15 [History] Metoprolol [Lopressor] 75 mg PO BID 12/27/15 [History] Warfarin [Coumadin] 2.5 mg PO 6XW 12/27/15 [History] Ondansetron HCl [Zofran] 4 mg PO QID PRN 08/26/16 [History] Potassium Chloride [K-Tab ER] 20 meq PO TID 08/26/16 [History] Warfarin [Coumadin] 5 mg PO MO 08/26/16 [History] Albuterol Neb [AccuNeb] 0.63 mg IH Q4H #40 inhsol 08/28/16 [Rx] Levofloxacin [Levaquin] 750 mg PO 9XD #9 tablet 08/28/16 [Rx] Allergies/Adverse Reactions: Allergies No Known Allergies Allergy (Verified 08/26/16 01:35) Procedures/tests Complete & Pending: Procedures Performed prior 72 hours Category Date Time Status EV echocardiogram Routine Y 08/26/16 09:26 Completed Date of admission: 08/26/16 05:45 Primary care physician: Ralf Perez MD Discharging clinician: Marielos Lawler Anticipated date of discharge: 08/28/16 - Patient Status Disposition: Home, Self-Care Condition: Good Functional capacity at discharge: independent ambulation Overall status at discharge: patient is back to baseline - Discharge Instructions Instructions: Warfarin (By mouth), Chronic Hypertension (DC), Elevated INR (DC) , Hyperlipidemia (DC), Safe Use of Anticoagulants (DC) Follow Up With: Ralf Perez MD [Primary Care Provider] - 09/02/16 1:15 pm Additional Instructions: Follow-up appointments: If there is not an appointment listed below, please call your physician and schedule a follow-up appointment. If you have congestive heart failure and your symptoms return, make an appointment with your physician. Medication List: Carry an up to date list of medications you are taking at all time. We have given you an updated medication list including any new medications that you have been prescribed. Please provide that list to your primary provider Symptoms: If your condition changes or you experience any of the following symptoms, notify your physician immediately: Unusual or worsening pain, fever, persistent nausea and vomiting, bleeding, increase in swelling (especially in your legs), sudden weight gain, extreme dizziness, chest pain, increased drainage or redness from a wound or incision. Go to the emergency department if you experience a problem with breathing. Weights: If you have a history of swelling or shortness of breath, weigh yourself daily and notify your physician if you have a weight gain of two or more pounds in one day or 5 or more pounds in a week. If you experience any of the warning signs for stroke: Sudden numbness or weakness of the face, arm or leg; especially on one side of the body, sudden confusion, trouble speaking or understanding, sudden trouble seeing in one or both eyes, sudden trouble walking, dizziness, loss of balance or coordination, sudden sever headache with no cause; Call 911 or go to the emergency room. Stroke is a medical emergency. Some risk factors for stroke: Age, cigarette smoking, diabetes, excessive alcohol consumption, family history , high blood pressure, overweight, physical inactivity, prior stroke, heart attack, diagnosis of carotid artery stenosis or other artery disease. If you smoke, STOP: Smoking or tobacco use significantly increases your risk of heart and lung disease. Your chance of disease greatly increases if you continue to smoke. For more information, call the [employer] tobacco quit line for smoking cessation QUIT-NOW ( ) - Diet and Activity Activity: increase activity as tolerated Diet: advance to your usual diet Hospital course: Ms. Navarrete is a 75 year old female with history of COPD, CHF, hypertension, hyperlipidemia, and DVT. 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 She presented to the emergency room with sudden onset shortness of breath that began the night before she arrived. She developed pain in her lower rib region bilaterally and then also began to have shortness of breath. She denies chest pain or palpitations, cough or sputum production. She said that her shortness of breath was persistent and was unchanged with lying down or sitting up. She has no peripheral edema. In the emergency department she received Lasix and improved. Chest pain was resolved. The symptoms began again yesterday morning, accompanied by leukocytosis with a white count of 17.0 and neutrophils 15%. She also developed a moist cough. She had a breathing treatment which she complained made her cough more. She was ambulating in the hallways with staff. She has not required supplement oxygen to maintain her saturations. She remained afebrile and her vitals were all within normal limits. She did not appear to be toxic or ill in any way and states that she felt fine. I did treat her empirically for pneumonia. Her urine was negative and did not require a culture. I sent her home with albuterol for her nebulizer for wheezing when necessary. She says that she has not had any vials of albuterol for at least 3 years. I also sent her home on Levaquin 750 mg by mouth for 9 days and her comorbidity of COPD. Her white count is 11.2 today. The neutrophils have returned to normal at 7.7. She wants to go home. She says she does not want to stay here. She appears to be very well, she is alert and oriented, her lungs are clear and diminished, she is not requiring supplemental oxygen, she is able to ambulate. I did request that she did not return to work until she was cleared by her primary care physician and she agreed. Patient is stable for discharge. - Time Spent with Patient Total time spent providing and/or coordinating discharge services: Less than 30 minutes - Constitutional Vitals: Temp Pulse Resp BP Pulse Ox 97.7 F 60 17 138/71 93 08/28/16 11:44 04/28/17 11:44 08/28/16 11:44 08/28/16 11:44 08/28/16 11:44 General appearance: Present: cooperative, mild distress, A&O X 3, pleasant, answers questions appropriately - Head Head exam: Present: normal inspection - Eye Eye exam: Present: normal appearance, conjuntiva pink - ENT ENT exam: Present: mucous membranes moist, normal exam - Neck Neck exam general surgery: Present: normal inspection. Absent: lymphadenopathy , tenderness - Respiratory Respiratory exam: Present: CTAB. Absent: rales, respiratory distress, rhonchi, stridor, wheezes - Cardiovascular Cardiovascular exam: Present: RRR, +S1, +S2. Absent: diastolic murmur, systolic murmur - GI/Abdominal GI/Abdominal exam: Present: normal bowel sounds, soft. Absent: hepatomegaly, splenomegaly, tenderness - Extremities Exam Extremities exam: Present: warm, radial pulses palpable and symetrical. Absent : normal capillary refill, normal inspection, pedal edema, tenderness - Neurological Exam Neurological exam: Present: alert, oriented X3, no focal deficits, strengths equal and symetr throughout. Absent: facial droop, speech deficit
[2016-08-28] MEDS ORDERED: *HR* Warfarin 2 MG TABLET PO ONE (18:00)
== END 2016-08-28 13:40 | disposition home or self-care (01) ==
LOC: 3BNU 01:34 → EMEROO 01:34 → 3BNU 06:39
PROVIDERS: ADMIT Internal Medicine; ATTEND Registered Nurse

== ENCOUNTER 2017-05-18 11:27 | Observation (INO) ==
[2017-05-18 12:41] LABS: Basophils % 0.8 %; Eosinophils % 1.9 %; Hematocrit 38.5 % (35.3-44.9); Hemoglobin 12.4 g/dL (11.5-15.4); Immature Granulocytes % 0.2 % (0-4); Lymphocytes % 27.1 %; Mean Corpuscular HGB Conc 32.2 g/dL (31.6-35.5); Mean Corpuscular Hemoglobin 31.2 pg (28.0-33.3); Mean Corpuscular Volume 96.7 fL (83.0-100.0); Mean Platelet Volume 10.7 fL (9.4-12.4); Monocytes % 9.4 %; Platelet Count 238 K/mcL (140-400); Red Blood Count 3.98 M/mcL (3.82-4.97); Segmented Neutrophils % 60.6 %
[2017-05-18 12:42] LABS: Eosinophils # 0.1 K/mcL (0.0-0.6); INR 1.6; Lymphocytes # 1.4 K/mcL (0.6-4.6); Monocytes # 0.5 K/mcL (0.0-1.3); Neutrophils # 3.2 K/mcL (1.6-8.9); Prothrombin Time 17.3 Seconds (9.4-12.1)
[2017-05-18 12:45] LABS: Activated Partial Thrombo Time 32.9 Seconds (26.0-36.0)
[2017-05-18 12:54] LABS: BUN/Creatinine Ratio 16 (6-26); Blood Urea Nitrogen 12 mg/dL (8-23); Carbon Dioxide 29 mEq/L (23-29); Chloride 107 mEq/L (98-107); Glucose 106 mg/dL (70-105); Osmolality,Calculated 292 (280-300); Potassium 4.1 mEq/L (3.5-5.1); Sodium 141 mEq/L (136-145); eGFR For African Americans > 60 (> 60); eGFR For Non-African Americans > 60 (> 60)
--- NOTE | 2017-05-18 14:32 | Internal Med History&Physical ---
Date of Encounter: 05/18/17 Time of Encounter: 14:27 Assessment and Plan (1) Jaw pain Current visit: Yes Status: Acute Check 3 sets of troponin. Electrocardiogram shows ST segment elevation 1 mm in [place] [address]-depression in the one in [place]. however this was also evident in her prior EKG done last year. 10 troponin. Cardiology consult to confirm these EKG changes. (2) Paroxysmal A-fib Current visit: Yes Status: Acute Patient is on anticoagulation with Coumadin. INR is 1.6. Pharmacy to dose Internal Medicine - H&P: HPI Chief complaint: jaw pain History of present illness: Ms. Navarrete is a 76 year old female with history of cabbage presents to emergency room to the Charge [employer] all pain. After patient woke up this morning and was preparing breakfast she started experiencing pain original area lasted for a few minutes and resolved gradually after she took an aspirin. She also complained of pain in the right elbow. She was off pain during my interview. She was concerned because this pain was similar to prior pain that prompted cardiac intervention. She thought that she may have slipped into atrial fibrillation and that what caused her symptoms. She denies any fevers, chills. She denies any chest pain. Past Med Surg Social Fam HX - Past Medical History Medical history: COPD, DVT, hyperlipidemia, hypertension, myocardial infarction , thyroid disease Psychiatric history: anxiety - Past Surgical History Surgical History: non-contributory, coronary bypass (CABG), pacemaker/AICD, other (VSD repair) - Social History Smoking Status: Former smoker Smokeless Tobacco Status: No Alcohol use: none Drug use: none - Family History Father Living Status: Hx Family Respiratory Disorders: No Hx Family Cancer: Yes Hx Family GI Disorders: No Hx Family Endocrine Disorder: Yes (diabetes) Hx Family Neuromuscular Disorders: No Hx Family Neurologic Disorders: No Hx Family HEENT Disorders: No Hx Family Autoimmune Disorders: No Internal Medicine - H&P: Meds Amiodarone [Cordarone] 100 mg PO DAILY 12/27/15 [History] Enalapril Maleate [Vasotec] 20 mg PO BID 12/27/15 [History] Levothyroxine [Synthroid] 100 mcg PO DAILY 12/27/15 [History] Metoprolol [Lopressor] 75 mg PO BID 12/27/15 [History] Warfarin [Coumadin] 2.5 mg PO 6XW 12/27/15 [History] clonazePAM [Clonazepam] 0.5 mg PO BID 12/27/15 [History] hydroCHLOROthiazide [Hydrochlorothiazide] 12.5 mg PO DAILY 12/27/15 [History] Ondansetron HCl [Zofran] 4 mg PO QID PRN 08/26/16 [History] Potassium Chloride [K-Tab ER] 20 meq PO TID 08/26/16 [History] Warfarin [Coumadin] 5 mg PO MO 08/26/16 [History] Albuterol Neb [AccuNeb] 0.63 mg IH Q4H #40 inhsol 08/28/16 [Rx] levoFLOXacin [Levaquin] 750 mg PO DAILY #9 tablet 08/28/16 [Rx] Omeprazole [PriLOSEC] 40 mg PO DAILY #30 cap 11/26/16 [Rx] Ranitidine HCl [Zantac] 150 mg PO BID PRN #30 tablet 11/26/16 [Rx] 3 Allergy/AdvReac Type Severity Reaction Status Date / Time No Known Allergies Allergy Verified 05/18/17 11:32 All Systems PM: A 10-system review of systems was performed and is negative for pertinent findings except as documented above in the HPI. Review of systems: 10 point review of systems is negative except for HPI - Constitutional Vitals: Temp Pulse Resp BP Pulse Ox 97.8 F 66 16 145/73 97 05/18/17 11:28 05/18/17 13:00 05/18/17 14:01 05/18/17 14:01 05/18/17 13:00 Exam: Gen.: patient is alert oriented times 3 not in distress. Cardiac: normal S1 S2 no additional sounds are murmurs. Chest: clear to auscultation. Abdomen: soft nontender nondistended. Lower extremity no swelling mucous membranes: moist Internal Med - H&P Results - Labs CBC & Chem 7: 05/18/17 12:25 05/18/17 12:25
--- NOTE | 2017-05-18 15:28 | Emergency Department Note ---
Disposition Clinical Impression: Weakness Disposition: Admitted As Inpatient Condition: Good Referrals: Ralf Perez MD [Primary Care Provider] - Forms: ED Satisfaction Letter, Work/School Release Time of Disposition: 13:35 Chest Pain HPI - General Chief Complaint: ED General Medical Stated Complaint: Just don't feel right Time Seen by Provider: 05/18/17 11:42 Source: patient Limitations: no limitations Vital Signs Reviewed: Yes Nursing Notes Reviewed: Yes - History of Present Illness HPI Narrative: 76-year-old female presents emergency Department with concerns of increased weakness, fatigue, right-sided jaw pain and pain to the right upper extremity. Symptoms started earlier this morning after waking. They are associated with mild nausea but denies diaphoresis or shortness of breath. Patient states she felt acutely ill however it is improved by the time of evaluation the emergency department. Patient has a history of multiple vessel bypass, denies history of OH in the past. Patient took at 325 mg aspirin prior to arrival. Severity scale (1-10): 0 - Related Data Home Medications Medication Instructions Recorded Confirmed Amiodarone [Cordarone] 100 mg PO DAILY 12/27/15 08/26/16 Enalapril Maleate [Vasotec] 20 mg PO BID 12/27/15 08/26/16 Levothyroxine [Synthroid] 100 mcg PO DAILY 12/27/15 08/26/16 Metoprolol [Lopressor] 75 mg PO BID 12/27/15 08/26/16 Warfarin [Coumadin] 2.5 mg PO 6XW 12/27/15 08/26/16 clonazePAM [Clonazepam] 0.5 mg PO BID 12/27/15 08/26/16 hydroCHLOROthiazide 12.5 mg PO DAILY 12/27/15 08/26/16 [Hydrochlorothiazide] Ondansetron HCl [Zofran] 4 mg PO QID PRN 08/26/16 08/26/16 Potassium Chloride [K-Tab ER] 20 meq PO TID 08/26/16 08/26/16 Warfarin [Coumadin] 5 mg PO MO 08/26/16 08/26/16 Previous Rx's Medication Instructions Recorded Albuterol Neb [AccuNeb] 0.63 mg IH Q4H #40 inhsol 08/28/16 levoFLOXacin [Levaquin] 750 mg PO DAILY #9 tablet 08/28/16 Omeprazole [PriLOSEC] 40 mg PO DAILY #30 cap 11/26/16 Ranitidine HCl [Zantac] 150 mg PO BID PRN #30 tablet 11/26/16 Allergies Allergy/AdvReac Type Severity Reaction Status Date / Time No Known Allergies Allergy Verified 05/18/17 11:32 All systems ED: reviewed and negative except as stated. Review of Systems: As Per HPI Constitutional: Reports: weakness. Denies: fever, chills Cardiovascular: Reports: dyspnea on exertion. Denies: palpitations, syncope Respiratory: Denies: cough, dyspnea, wheezes Gastrointestinal: Reports: nausea. Denies: abdominal pain, vomiting, diarrhea Chest Pain PMH - Past Medical History Medical history: Reports: COPD, DVT, hyperlipidemia, hypertension, myocardial infarction, thyroid disease Surgical history: Reports: non-contributory, coronary bypass (CABG), pacemaker/ AICD, other Psychiatric history: Reports: anxiety [employer] history: Reports: no [employer] history - Social History Smoking Status: Former smoker Alcohol use: Reports: none Drug use: Reports: none Physical Exam General: Alert and in no acute distress Skin: Warm, dry, intact Head: Normocephalic and atraumatic Neck: Supple, trachea midline and no tenderness Cardiovascular: RRR, no murmur, normal perfusion Respiratory: CTAB, no wheezing, cough, or respiratory distress Musculoskeletal: Normal strength, no tenderness, swelling or deformity GI: Soft, nontender, nondistended. Bowel sounds present Neuro: A&O to person, place, time and situation. No focal deficits noted on exam Psychiatric: cooperative and appropriate mood and affect. - General Limitations: no limitations General appearance: alert, in no apparent distress Course Vital Signs Temperature 97.8 F 05/18/17 11:28 Pulse Rate 86 05/18/17 11:28 Respiratory Rate 18 05/18/17 11:28 Blood Pressure 160/96 05/18/17 11:28 O2 Sat by Pulse Oximetry 98 05/18/17 11:28 Temperature 98.4 F 05/18/17 14:31 Pulse Rate 61 05/18/17 14:31 Respiratory Rate 15 05/18/17 14:31 Blood Pressure 128/77 05/18/17 14:31 O2 Sat by Pulse Oximetry 96 05/18/17 15:02 Oxygen Delivery Oxygen Delivery Room Air Chest Pain - Medical Records Medical records reviewed: Yes I reviewed the patient's medical records. - Lab Data Lab results reviewed: Yes I reviewed the patient's lab results. Result diagrams: 05/18/17 12:25 05/18/17 12:25 Lab Results 05/18/17 05/18/17 05/18/17 Range/Units 12:25 12:25 12:25 WBC 5.2 (4.3-11.1) K/mcL RBC 3.98 (3.82-4.97) M/mcL Hgb 12.4 (11.5-15.4) g/dL Hct 38.5 (35.3-44.9) % MCV 96.7 (83.0-100.0) fL MCH 31.2 (28.0-33.3) pg MCHC 32.2 (31.6-35.5) g/dL RDW 14.0 (11.5-14.5) % Plt Count 238 (140-400) K/mcL MPV 10.7 (9.4-12.4) fL Immature Gran % 0.2 (0-4) % Seg Neutrophils % 60.6 % Lymphocytes % 27.1 % Monocytes % 9.4 % Eosinophils % 1.9 % Basophils % 0.8 % Neutrophils # 3.2 (1.6-8.9) K/mcL Lymphocytes # 1.4 (0.6-4.6) K/mcL Monocytes # 0.5 (0.0-1.3) K/mcL Eosinophils # 0.1 (0.0-0.6) K/mcL Basophils # 0.0 (0.0-0.2) K/mcL PT 17.3 H (9.4-12.1) Seconds INR 1.6 APTT 32.9 (26.0-36.0) Seconds Sodium 141 (136-145) mEq/L Potassium 4.1 (3.5-5.1) mEq/L Chloride 107 (98-107) mEq/L Carbon Dioxide 29 (23-29) mEq/L BUN 12 (8-23) mg/dL Creatinine 0.77 (0.60-1.20) mg/dL Est GFR ( Amer) > 60 (> 60) Est GFR (Non-Af Amer) > 60 (> 60) BUN/Creatinine Ratio 16 (6-26) Glucose 106 H (70-105) mg/dL Calculated Osmolality 292 (280-300) Calcium 9.0 (8.6-10.3) mg/dL Troponin I (< 0.04) ng/mL 05/18/17 Range/Units 12:25 WBC (4.3-11.1) K/mcL RBC (3.82-4.97) M/mcL Hgb (11.5-15.4) g/dL Hct (35.3-44.9) % MCV (83.0-100.0) fL MCH (28.0-33.3) pg MCHC (31.6-35.5) g/dL RDW (11.5-14.5) % Plt Count (140-400) K/mcL MPV (9.4-12.4) fL Immature Gran % (0-4) % Seg Neutrophils % % Lymphocytes % % Monocytes % % Eosinophils % % Basophils % % Neutrophils # (1.6-8.9) K/mcL Lymphocytes # (0.6-4.6) K/mcL Monocytes # (0.0-1.3) K/mcL Eosinophils # (0.0-0.6) K/mcL Basophils # (0.0-0.2) K/mcL PT (9.4-12.1) Seconds INR APTT (26.0-36.0) Seconds Sodium (136-145) mEq/L Potassium (3.5-5.1) mEq/L Chloride (98-107) mEq/L Carbon Dioxide (23-29) mEq/L BUN (8-23) mg/dL Creatinine (0.60-1.20) mg/dL Est GFR ( Amer) (> 60) Est GFR (Non-Af Amer) (> 60) BUN/Creatinine Ratio (6-26) Glucose (70-105) mg/dL Calculated Osmolality (280-300) Calcium (8.6-10.3) mg/dL Troponin I < 0.03 (< 0.04) ng/mL - Radiology Data Radiology results reviewed: Yes I reviewed the patient's radiology results. - EKG Data EKG attestation: Yes I reviewed and interpreted this EKG. EKG results narrative: ECG - interpreted by ED physician. Rate 75, normal sinus rhythm. ST elevation in leads [address] depression in leads 1 and aVL however patient does not have chest pain at this time and findings were present on previous EKG. Heart Score - Score History: Moderately Suspicious EKG: Non Specific repolarisation Disturbance Age: Greater than 65 Risk Factors: Equal/Greater than 3 risk factor or history of atherosclerotic disease Troponin: Less than normal limit HEART Score Total: 6
[2017-05-18] MEDS: Acetaminophen 325 MG TABLET PO PRN ×2 (17:55→23:00)
[2017-05-18] MEDS ORDERED: Warfarin perPT PO PRN (18:00)
[2017-05-18] MEDS ORDERED: *HR* Warfarin 2.5 MG TABLET PO ONE (18:00)
[2017-05-18] MEDS ORDERED: Ondansetron ODT 4 MG TAB.RAPDIS PO PRN (18:02)
[2017-05-18] MEDS: Albuterol Neb 0.63 MG/3 ML VIAL IH SCH ×2 (18:26→19:51)
[2017-05-18] MEDS ORDERED: Albuterol Neb 0.63 MG/3 ML VIAL IH PRN (21:15)
[2017-05-18] MEDS: clonazePAM 0.5 MG TABLET PO SCH (21:35)
[2017-05-19 07:23] LABS: INR 1.6; Prothrombin Time 17.8 Seconds (9.4-12.1)
[2017-05-19 07:46] LABS: BUN/Creatinine Ratio 19 (6-26); Blood Urea Nitrogen 13 mg/dL (8-23); Calcium 8.7 mg/dL (8.6-10.3); Carbon Dioxide 27 mEq/L (23-29); Chloride 107 mEq/L (98-107); Glucose 95 mg/dL (70-105); Magnesium 2.2 mg/dL (1.6-2.6); Osmolality,Calculated 288 (280-300); Potassium 3.7 mEq/L (3.5-5.1); Sodium 139 mEq/L (136-145); eGFR For African Americans > 60 (> 60); eGFR For Non-African Americans > 60 (> 60)
[2017-05-19 07:55] LABS: Thyroid Stimulating Hormone 1.024 mcIU/mL (0.340-5.600)
[2017-05-19] MEDS: clonazePAM 0.5 MG TABLET PO SCH ×2 (08:47→20:44)
[2017-05-19] MEDS: hydroCHLOROthiazide 25 MG TABLET PO SCH (08:48)
[2017-05-19] MEDS: Lisinopril 20 MG TABLET PO SCH (08:48)
[2017-05-19] MEDS: *HR* Amiodarone 200 MG TABLET PO SCH (09:01)
--- NOTE | 2017-05-19 10:26 | Cardiology Consult Note ---
Date of Encounter: 05/19/17 Time of Encounter: 09:00 Assessment and Plan (1) CAD (coronary artery disease) Current Visit: Yes Status: Acute Reports intermittent jaw pain for the past month. Troponin negative x3. No ST/T wave changes when compared to previous. Hx of CAD s/p CABG in 1996, last reported [facility] 2008--05/05 patent bypass grafts. Recommend stress test (inpt vs. outpt). Patient is unsure if she wants to proceed with testing. Consider starting long-acting nitrate. Will obtain echocardiogram to assess LVEF. Last known EF 45-50% August 2016. Continue betablocker, will resume home ASA. Hx of intolerance to statin therapy (myalgias). Further recommendations to follow. Qualifiers: Coronary Disease-Associated Artery/Lesion type: bypass graft [place] vs. transplanted heart: [place] heart Associated angina: with stable angina Qualified Code(s): I25.708 - Atherosclerosis of coronary artery bypass graft(s) , unspecified, with other forms of angina pectoris (2) Paroxysmal A-fib Current Visit: Yes Status: Acute Hx of atrial fibrillation s/p ablation. On coumadin therapy. No PAF noted during hospital stay. Discussion w patient/family: The assessment and plan as outlined above was discussed with the patient and/or family members who expressed understanding and agreement. All questions were answered. Thank you for involving us in the care of your patient. Please call with any questions. The patient will be discussed and reviewed with Dr. Aguilera; changes to be made accordingly. History of Present Illness Consult date: 05/19/17 Requesting physician: Sylvester Pichardo Consult reason: Chest pain Chief complaint: Jaw pain, abdominal discomfort History of present illness: Ms. Navarrete is a 76 year old female with PMHx significant for CMP, ICD, CAD, CABG and VSD repair in 1996, AF s/p ablation (Coumadin therapy), and VT who presented to the ED with complaints of "not feeling right." She reports her abdomen "felt funny" and this typically occurs when her heart is out of rhythm. She also reports intermittent jaw discomfort for the past month--symptoms are not related to exertion or rest. Reports takes an aspirin with symptoms and typically helps--symptoms similar to prior [place] presentation however not as severe. Denies recent ICD shock. Prior CV testing: per reports--[facility] in 2008, patent 1 of 3 bypass grafts. TTE 07/18/13: EF 45-50%. Mild PI. No pulmonary hypertension. 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 Device interrogation 03/30/17: all measurements are appropriate. One AT/AF episode on 02/07/17 x2 hours and 27 minutes. Past Med Surg Social Fam HX - Past Medical History Attestation: Yes The following information was validated with the patient. Source: patient, old records reviewed Medical history: atrial fibrillation, cardiomyopathy, COPD, coronary artery disease, DVT, hyperlipidemia, hypertension, myocardial infarction, thyroid disease Psychiatric history: anxiety - Past Surgical History Surgical History: coronary bypass (CABG), other (VSD repair), AICD - Social History Smoking Status: Former smoker Smokeless Tobacco Status: No Alcohol use: none Drug use: none - Family History Father Living Status: Hx Family Respiratory Disorders: No Hx Family Cancer: Yes Hx Family GI Disorders: No Hx Family Endocrine Disorder: Yes (diabetes) Hx Family Neuromuscular Disorders: No Hx Family Neurologic Disorders: No Hx Family HEENT Disorders: No Hx Family Autoimmune Disorders: No Medications and Allergies Amiodarone [Cordarone] 100 mg PO DAILY 12/27/15 [History] Enalapril Maleate [Vasotec] 20 mg PO BID 12/27/15 [History] Levothyroxine [Synthroid] 100 mcg PO QAM 12/27/15 [History] Metoprolol [Lopressor] 75 mg PO BID 12/27/15 [History] Warfarin [Coumadin] 2.5 mg PO MOTUWETHSA 12/27/15 [History] clonazePAM [Clonazepam] 0.5 mg PO BID 12/27/15 [History] hydroCHLOROthiazide [Hydrochlorothiazide] 12.5 mg PO DAILY 12/27/15 [History] Potassium Chloride [K-Tab ER] 20 meq PO TID 08/26/16 [History] Warfarin [Coumadin] 1.25 mg PO RIDER 08/26/16 [History] Omeprazole [PriLOSEC] 40 mg PO DAILY #30 cap 11/26/16 [Rx] Ranitidine HCl [Zantac] 150 mg PO BID PRN #30 tablet 11/26/16 [Rx] Benzonatate [Tessalon] 100 mg PO TID PRN 05/18/17 [History] Furosemide [Lasix] 20 mg PO DAILY PRN 05/18/17 [History] Ipratropium/Albuterol Neb [Duoneb] 3 ml IH Q6HR PRN 05/18/17 [History] Levofloxacin [Levaquin] 500 mg PO DAILY 05/18/17 [History] Aspirin 81 mg PO DAILY 05/19/17 [History] 3 Allergy/AdvReac Type Severity Reaction Status Date / Time No Known Allergies Allergy Verified 05/18/17 11:32 All Systems Review: A 10-system review of systems was performed and is negative for pertinent findings except as documented above in the HPI. - Cardiovascular Cardiovascular: as per HPI Physical Examination Vital Signs, Last 4 Hours Temp Pulse Resp BP Pulse Ox 05/19/17 07:34 98.0 F 62 16 134/68 95 General: Conversant, No Apparent Distress HEENT: Atraumatic, Normocephaly, Mucus Membranes Moist Cardiac: Reg Rate and Rhythm, Normal S1 and S2 Lungs: Normal Breath Sounds Neuro: Alert and responsive Abdomen: Soft Skin: No rashes noted on visualized skin Musculoskeletal: No Chest Wall Tenderness Extremities: No Edema, Normal Pulses Results 05/18/17 12:25 05/19/17 05:55 Lab Results 05/18/17 05/19/17 05/19/17 18:58 05:55 05:55 INR 1.6 Sodium 139 Potassium 3.7 Chloride 107 Carbon Dioxide 27 BUN 13 Creatinine 0.70 Glucose 95 Calcium 8.7 Magnesium 2.2 Troponin I < 0.03 TSH 1.024 Active Medications Acetaminophen (Tylenol) 650 mg PO Q6HR PRN PRN Reason: Fever Stop: 11/17/17 17:34 Last Admin: 05/18/17 23:00 Dose: 650 mg Albuterol Sulfate (Accuneb) 0.63 mg IH [id number] PRN PRN Reason: Shortness Of Breath/Wheezing Stop: 11/17/17 18:16 Amiodarone HCl (Cordarone) 100 mg PO DAILY [facility] Stop: 11/18/17 09:01 Last Admin: 05/19/17 09:01 Dose: 100 mg Clonazepam (Klonopin) 0.5 mg PO BID [facility] Stop: 11/17/17 21:01 Last Admin: 05/19/17 08:47 Dose: 0.5 mg Hydrochlorothiazide (Hydrochlorothiazide) 12.5 mg PO DAILY [facility] Stop: 11/18/17 09:01 Last Admin: 05/19/17 08:48 Dose: 12.5 mg Levothyroxine Sodium (Synthroid) 100 mcg PO 0630 [facility] Stop: 11/18/17 06:31 Last Admin: 05/19/17 05:39 Dose: 100 mcg Lisinopril (Zestril) 40 mg PO DAILY [facility] Stop: 11/18/17 09:01 Last Admin: 05/19/17 08:48 Dose: 40 mg Metoprolol Tartrate (Lopressor) 75 mg PO BID [facility] Stop: 11/17/17 17:46 Last Admin: 05/19/17 08:47 Dose: 75 mg Omeprazole (Prilosec) 40 mg PO DAILY [facility] Stop: 11/18/17 09:01 Last Admin: 05/19/17 08:49 Dose: 40 mg Ondansetron HCl (Zofran Odt) 4 mg PO QID PRN PRN Reason: Nausea Warfarin Sodium (Coumadin Perpt) 1 each PO DAILY@1800 PRN PRN Reason: SEE COMMENTS Stop: 11/17/17 18:01 - Imaging and Cardiology Echo: report reviewed Other Results: 12 hour tele: avg HR=62 SR. No significant event noted. - EKG Interpretation EKG results cardiology: personally reviewed Consult Discharge Plan - Plan Referrals: Ralf Perez MD [Primary Care Provider] - 05/26/17 1:15 pm
[2017-05-19] MEDS: Aspirin 81 MG TAB.CHEW PO SCH (11:33)
--- NOTE | 2017-05-19 12:19 | Electrocardiograph Report ---
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
--- NOTE | 2017-05-19 14:11 | Internal Med Progress Note ---
Date of Encounter: 05/19/17 Time of Encounter: 14:09 - Assessment and plan (1) Jaw pain Current Visit: Yes Status: Acute Assessment and plan: Chest pain resolved, 2 negative troponin. Assistance Coordinator was consulted. Patient declined a stress test. Pending echocardiogram (2) Paroxysmal A-fib Current Visit: Yes Status: Chronic Assessment and plan: Hospital well controlled, continue warfarin (3) CAD (coronary artery disease) Current Visit: Yes Status: Chronic Assessment and plan: Continue home medications Qualifiers: Coronary Disease-Associated Artery/Lesion type: bypass graft [place] vs. transplanted heart: [place] heart Associated angina: with stable angina Qualified Code(s): I25.708 - Atherosclerosis of coronary artery bypass graft(s) , unspecified, with other forms of angina pectoris (4) COPD (chronic obstructive pulmonary disease) Current Visit: No Status: Chronic Qualifiers: COPD type: unspecified COPD Qualified Code(s): J44.9 - Chronic obstructive pulmonary disease, unspecified - Time Spent With Patient 25 - 35 minutes - Subjective Interval history: Ms. Navarrete is a 76 year old female with history of cabbage presents to emergency room to the [facility] all pain. After patient woke up this morning and was preparing breakfast she started experiencing pain original area lasted for a few minutes and resolved gradually after she took an aspirin. She also complained of pain in the right elbow. She was off pain during my interview. She was concerned because this pain was similar to prior pain that prompted cardiac intervention. She thought that she may have slipped into atrial fibrillation and that what caused her symptoms. She denies any fevers, chills. She denies any chest pain. Patient is doing well, chest pain is soft. She had 2 negative troponin. Cardiology consult appreciated. Pending echocardiogram - Constitutional Vitals: Temp Pulse Resp BP Pulse Ox 98.0 F 62 16 134/68 95 05/19/17 07:34 05/19/17 07:34 05/19/17 07:34 05/19/17 07:34 05/19/17 07:34 General appearance: Present: cooperative, A&O X 3, pleasant Exam: CONSTITUTIONAL: patient appears as an age appropriate female in no acute distress. EYES Clear sclerae, bilateral pupils are equal, reactive to light. EMOI. RESPIRATORY: No accessory muscle use, bilateral clear to auscultation, no wheezing, no crackles/rales. CARDIOVASCULAR: Regular heart rate, normal S1 and S2, no murmurs GASTROINTESTINAL: bowel sounds present, soft, no tenderness. MUSCULOSKELETAL: Joints in normal range of motion, no clubbing, no edema, no cyanosis. Bilateral peripheral pulses 2+. NEUROLOGIC: CN II to XII are grossly intact, no focal neurological deficit. Internal Medicine: Result - Labs CBC & Chem 7: 05/18/17 12:25 05/19/17 05:55 Labs: BMP 05/19/17 05:55 Sodium 139 Potassium 3.7 Chloride 107 Carbon Dioxide 27 BUN 13 Creatinine 0.70 Glucose 95 Calcium 8.7 Cardiac Enzymes 05/18/17 Range/Units 18:58 Troponin I < 0.03 (< 0.04) ng/mL - ABG Interpretation ABG results: PT/INR, D-dimer PT 17.8 Seconds (9.4-12.1) H 05/19/17 05:55 Consult Discharge Plan - Plan Referrals: Ralf Perez MD [Primary Care Provider] - 05/26/17 1:15 pm
[2017-05-19] MEDS ORDERED: *HR* Warfarin 2.5 MG TABLET PO ONE (18:00)
[2017-05-19] MEDS: Acetaminophen 325 MG TABLET PO PRN (20:43)
[2017-05-20 05:22] LABS: INR 1.6; Prothrombin Time 17.9 Seconds (9.4-12.1)
[2017-05-20] MEDS ORDERED: Regadenoson 0.4 MG/5 ML SYRINGE IVP ONE (06:45)
--- NOTE | 2017-05-20 11:01 | Cardiology Progress Note ---
Date of Encounter: 05/20/17 Time of Encounter: 09:00 Assessment and Plan (1) CAD (coronary artery disease) Current Visit: Yes Status: Chronic Reports intermittent jaw pain for the past month. Troponin negative x3. No ST/T wave changes when compared to previous. Hx of CAD s/p CABG in 1996, last reported [facility] 2008--05/05 patent bypass grafts. Last known EF 45-50% August 2016. Continue betablocker, will resume home ASA. Hx of intolerance to statin therapy (myalgias). Prelim TTE reviewed with Dr. Aguilera, no significant changes from previous, EF 45%. Nuclear stress today today positive for infarct (consistent with hx) but negative for ischemia. No further inpatient testing recommend. Consider starting long-acting nitrate with recurrent symptoms in the outpatient setting. Qualifiers: Coronary Disease-Associated Artery/Lesion type: bypass graft [place] vs. transplanted heart: [place] heart Associated angina: with stable angina Qualified Code(s): I25.708 - Atherosclerosis of coronary artery bypass graft(s) , unspecified, with other forms of angina pectoris (2) Paroxysmal A-fib Current Visit: Yes Status: Chronic Hx of atrial fibrillation s/p ablation. On coumadin therapy, goal INR 2-3. Subtherapeutic today, 1.6. Coumadin dosing per pharmacy. No PAF noted during hospital stay. Discussion w patient/family: The assessment and plan as outlined above was discussed with the patient and/or family members who expressed understanding and agreement. All questions were answered. Thank you for involving us in the care of your patient. Please call with any questions. The patient was discussed and reviewed with Dr. Zavaleta, Cardiology will sign- off. Will coordinate appt in the outpatient setting. Subjective Principal diagnosis: Jaw pain, "not feeling right" Interval history: Seen and examined earlier this morning. No reported events overnight. Denies recurrent jaw pain. No abdominal discomfort. Denies any other CV symptoms upon exam this morning. Objective Vital Signs, Last 4 Hours Temp Pulse Resp BP Pulse Ox 05/20/17 08:12 97.4 F L 69 18 161/77 94 General: Conversant, No Apparent Distress HEENT: Atraumatic, Normocephaly, Mucus Membranes Moist Cardiac: Reg Rate and Rhythm, Normal S1 and S2 Lungs: Normal Breath Sounds Neuro: Alert and responsive Abdomen: Soft Skin: No rashes noted on visualized skin Musculoskeletal: No Chest Wall Tenderness Extremities: No Edema, Normal Pulses Results 05/18/17 12:25 05/19/17 05:55 Lab Results 05/20/17 04:41 INR 1.6 - Imaging and Cardiology Stress Test: report reviewed - EKG Interpretation EKG results cardiology: personally reviewed Consult Discharge Plan - Plan Referrals: Rafl Perez MD [Primary Care Provider] - 05/26/17 1:15 pm
[2017-05-20 11:02] VITALS: BP 167/66
[2017-05-20] MEDS: hydroCHLOROthiazide 25 MG TABLET PO SCH (11:08)
[2017-05-20] MEDS: *HR* Amiodarone 200 MG TABLET PO SCH (11:09)
[2017-05-20] MEDS: clonazePAM 0.5 MG TABLET PO SCH (11:09)
[2017-05-20] MEDS: Aspirin 81 MG TAB.CHEW PO SCH (11:09)
[2017-05-20] MEDS: Lisinopril 20 MG TABLET PO SCH (11:09)
--- NOTE | 2017-05-20 13:33 | Discharge Summary ---
Date of Encounter: 05/20/17 Time of Encounter: 13:31 - Discharge Diagnosis (1) Jaw pain Priority: Primary Status: Resolved Comments: Reports intermittent jaw pain for the past month. cardiology was consulted, ok to discharge folow up as outpatient Troponin negative x3. No ST/T wave changes when compared to previous. Hx of CAD s/p CABG in 1996, last reported [facility] 2008--05/05 patent bypass grafts. Last known EF 45-50% August 2016. Continue betablocker,resume home ASA. Hx of intolerance to statin therapy ( myalgias). Prelim TTE reviewed by Dr. Aguilera, no significant changes from previous, EF 45% . Nuclear stress today today positive for infarct (consistent with hx) but negative for ischemia. No further inpatient testing recommend. Consider starting long-acting nitrate with recurrent symptoms in the outpatient setting. (2) Paroxysmal A-fib Priority: Secondary Status: Chronic (3) CAD (coronary artery disease) Priority: Secondary Status: Chronic Qualifiers: Coronary Disease-Associated Artery/Lesion type: bypass graft [place] vs. transplanted heart: [place] heart Associated angina: with stable angina Qualified Code(s): I25.708 - Atherosclerosis of coronary artery bypass graft(s) , unspecified, with other forms of angina pectoris (4) COPD (chronic obstructive pulmonary disease) Priority: Secondary Status: Chronic Qualifiers: COPD type: unspecified COPD Qualified Code(s): J44.9 - Chronic obstructive pulmonary disease, unspecified - Discharge Medications Prescriptions: Metoprolol [Lopressor] 75 mg PO BID 30 Days #60 tablet Home Medications: Amiodarone [Cordarone] 100 mg PO DAILY 12/27/15 [History] Enalapril Maleate [Vasotec] 20 mg PO BID 12/27/15 [History] Levothyroxine [Synthroid] 100 mcg PO QAM 12/27/15 [History] Metoprolol [Lopressor] 75 mg PO BID 12/27/15 [History] Warfarin [Coumadin] 2.5 mg PO MOTUWETHSA 12/27/15 [History] clonazePAM [Clonazepam] 0.5 mg PO BID 12/27/15 [History] hydroCHLOROthiazide [Hydrochlorothiazide] 12.5 mg PO DAILY 12/27/15 [History] Potassium Chloride [K-Tab ER] 20 meq PO TID 08/26/16 [History] Warfarin [Coumadin] 1.25 mg PO RIDER 08/26/16 [History] Omeprazole [PriLOSEC] 40 mg PO DAILY #30 cap 11/26/16 [Rx] Ranitidine HCl [Zantac] 150 mg PO BID PRN #30 tablet 11/26/16 [Rx] Benzonatate [Tessalon] 100 mg PO TID PRN 05/18/17 [History] Furosemide [Lasix] 20 mg PO DAILY PRN 05/18/17 [History] Ipratropium/Albuterol Neb [Duoneb] 3 ml IH Q6HR PRN 05/18/17 [History] Levofloxacin [Levaquin] 500 mg PO DAILY 05/18/17 [History] Aspirin 81 mg PO DAILY 05/19/17 [History] Metoprolol [Lopressor] 75 mg PO BID 30 Days #60 tablet 05/20/17 [Rx] Allergies/Adverse Reactions: 3 Allergy/AdvReac Type Severity Reaction Status Date / Time No Known Allergies Allergy Verified 05/18/17 11:32 Procedures/tests Complete & Pending: Procedures Performed prior 72 hours Category Date Time Status NM gilbert perf SPECT multi [NM] Routine Exams 05/19/17 17:12 Taken ECG 12 lead ECG [ECG] Routine Y 05/18/17 11:39 Completed EV echocardiogram Routine Y 05/19/17 10:26 Completed SP pharm nuclear stress Routine Y 05/20/17 Completed Date of admission: 05/18/17 13:52 Primary care physician: Ralf Perez MD Consults: 05/18/17 14:34 Consult to Cardiology [CONS] Routine Comment: Consulting Provider: Cardiology Carole Reason for Consult: jaw pain Call Completed: No Discharging clinician: Sol Whipple Anticipated date of discharge: 05/20/17 - Patient Status Disposition: Home, Self-Care Condition: Good Overall status at discharge: patient is back to baseline - Discharge Instructions Follow Up With: Ralf Perez MD [Primary Care Provider] - 05/26/17 1:15 pm Forms: ED Satisfaction Letter, Work/School Release - Diet and Activity Diet: low fat, low cholesterol Interval History: patient wasa admitted for Jaw pain, resolved, negative trop, and TTE has nor changes, stress test is negative for ischemia Hospital course: Ms. Navarrete is a 76 year old female Reports intermittent jaw pain for the past month. cardiology was consulted, ok to discharge folow up as outpatient Troponin negative x3. No ST/T wave changes when compared to previous. Hx of CAD s/p CABG in 1996, last reported [facility] 2008--/ patent bypass grafts. Last known EF 45-50% August 2016. Continue betablocker,resume home ASA. Hx of intolerance to statin therapy ( myalgias). Prelim TTE reviewed by Dr. Aguilera, no significant changes from previous, EF 45% . Nuclear stress today today positive for infarct (consistent with hx) but negative for ischemia. No further inpatient testing recommend. Consider starting long-acting nitrate with recurrent symptoms in the outpatient setting. - Time Spent with Patient Total time spent providing and/or coordinating discharge services: Greater than 30 minutes - Constitutional Vitals: Temp Pulse Resp BP Pulse Ox 97.4 F L 63 16 167/66 96 05/20/17 11:02 05/20/17 11:02 05/20/17 11:02 05/20/17 11:02 05/20/17 11:02 General appearance: Present: cooperative, A&O X 3, pleasant Exam: CONSTITUTIONAL: patient appears as an age appropriate female in no acute distress. EYES Clear sclerae, bilateral pupils are equal, reactive to light. EMOI. RESPIRATORY: No accessory muscle use, bilateral clear to auscultation, no wheezing, no crackles/rales. CARDIOVASCULAR: Regular heart rate, normal S1 and S2, no murmurs GASTROINTESTINAL: bowel sounds present, soft, no tenderness. MUSCULOSKELETAL: Joints in normal range of motion, no clubbing, no edema, no cyanosis. Bilateral peripheral pulses 2+. NEUROLOGIC: CN II to XII are grossly intact, no focal neurological deficit.
[2017-05-20] MEDS ORDERED: *HR* Warfarin 3 MG TABLET PO ONE (18:00)
== END 2017-05-20 14:53 | disposition home or self-care (01) ==
LOC: 3BNU 11:27 → EMEROO 11:27 → SUATTDRO 13:52 → 3BNU 14:05
PROVIDERS: ADMIT Hospitalist; ATTEND Hospitalist

== ENCOUNTER 2017-06-05 08:48 | Observation (INO) ==
--- NOTE | 2017-06-05 09:03 | Emergency Department Note ---
Disposition Clinical Impression: Rectal bleeding Disposition: Admitted As Inpatient Condition: Good Time of Disposition: 11:20 GI Bleed HPI - General Chief complaint: ED GI Bleed Stated complaint: rectal bleeding Time Seen by Provider: 06/05/17 09:02 Source: patient Mode of arrival: ambulatory Limitations: no limitations Nursing Notes Reviewed: Yes Vital Signs Reviewed: Yes - History of Present Illness HPI Narrative: Patient is a 76-year-old female with past medical history of CAD, open-heart surgery, A. fib and is currently on Coumadin, GERD, history of recent UTI and is currently on Bactrim per her primary care physician. She presents today due to rectal bleeding. She states that she has had lower abdominal pain for the past month. She was seen by primary care physician and was diagnosed with UTI. She is currently taking Bactrim. She also states that last night, she had some epigastric pain that woke her up out of sleep and she described as a burning sensation similar to what she has when she has acid reflux. She took an [id number] antacid and states that the pain went away. This morning, she went to the restroom and states that she had large amount of red liquid blood in the toilet. After that, she states that she had a normal bowel movement without any additional bleeding. There has any chest pain, shortness of breath, nausea, vomiting, fevers. She does admit to some generalized fatigue and denies any lightheadedness, dizziness. - Related Data Home Medications Medication Instructions Recorded Confirmed Amiodarone [Cordarone] 100 mg PO DAILY 12/27/15 06/05/17 Enalapril Maleate [Vasotec] 20 mg PO BID 12/27/15 06/05/17 Levothyroxine [Synthroid] 100 mcg PO QAM 12/27/15 06/05/17 Metoprolol [Lopressor] 75 mg PO BID 12/27/15 06/05/17 Warfarin [Coumadin] 2.5 mg PO SUTUTHSA 12/27/15 06/05/17 clonazePAM [Clonazepam] 0.5 mg PO BID 12/27/15 06/05/17 hydroCHLOROthiazide 12.5 mg PO DAILY 12/27/15 06/05/17 [Hydrochlorothiazide] Potassium Chloride [K-Tab ER] 20 meq PO TID 08/26/16 06/05/17 Warfarin [Coumadin] 1.25 mg PO MOWEFR 08/26/16 06/05/17 Furosemide [Lasix] 20 mg PO DAILY PRN 05/18/17 06/05/17 Ipratropium/Albuterol Neb [Duoneb] 3 ml IH Q6HR PRN 05/18/17 06/05/17 Aspirin 81 mg PO DAILY 05/19/17 06/05/17 Sulfamethoxazole/Trimeth DS 1 tab PO BID 06/05/17 06/05/17 [Bactrim Ds] Previous Rx's Medication Instructions Recorded Omeprazole [PriLOSEC] 40 mg PO DAILY #30 cap 11/26/16 Ranitidine HCl [Zantac] 150 mg PO BID PRN #30 tablet 11/26/16 Allergies Allergy/AdvReac Type Severity Reaction Status Date / Time No Known Allergies Allergy Verified 05/18/17 11:32 All systems ED: reviewed and negative except as stated. Constitutional: Denies: fever Cardiovascular: Denies: chest pain Respiratory: Denies: dyspnea Gastrointestinal: Reports: abdominal pain, hematochezia. Denies: nausea, vomiting, diarrhea, constipation, hematemesis Genitourinary: Denies: urgency, dysuria, frequency Neurological: Denies: numbness, paresthesias Endocrine: Reports: fatigue Past Medical History - Past Medical History Attestation: Yes The following information was validated with the patient. Source: patient Medical history: Reports: atrial fibrillation, cardiomyopathy, COPD, coronary artery disease, DVT, hyperlipidemia, hypertension, myocardial infarction, thyroid disease Surgical history: Reports: coronary bypass (CABG), other (VSD repair), AICD Psychiatric history: Reports: anxiety CHILD PSYCHOLOGIST history: Reports: no CHILD PSYCHOLOGIST history - Social History Smoking Status: Former smoker Smokeless Tobacco Status: No Alcohol use: Reports: none Drug use: Reports: none Physical Exam - General Limitations: no limitations General appearance: alert - Head Head exam: atraumatic, normocephalic, normal inspection - Eye Eye exam: Present: normal appearance, PERRL, EOMI - ENT ENT exam: normal exam, normal oropharynx, mucous membranes moist - Neck Neck exam: Present: normal inspection, full ROM, trachea midline - Chest Chest inspection: Present: normal inspection, symmetric chest wall rise - Respiratory Respiratory exam: Present: normal lung sounds bilaterally - Cardiovascular Cardiovascular exam: Present: regular rate, normal rhythm, normal heart sounds - Abdominal Exam Abdominal exam: Present: soft, tenderness (Mild tenderness of the bilateral lower quadrants, suprapubic region). Absent: distention, guarding, rebound, rigidity - Neurological Exam Neurological exam: Present: alert, oriented X3 - Psychiatric Psychiatric exam: Present: normal affect, normal mood - Skin Skin exam: Present: warm, dry, intact, normal color Course Course Narrative: Vitals within normal limits on exam. Physical exam daily benign. She did have some mild tenderness of the bilateral lower quadrants and suprapubic region. Otherwise, lungs clear to auscultation, patient currently in A. fib, regular rate. Due to concern for ectal bleeding while on Coumadin, we will obtain basic blood work to assess for hemoglobin level, LFTs, lipase for abdominal pain , urinalysis for UTI, CT abdomen and pelvis with IV contrast to assess for any cause of bleeding. She does have a history of diverticulosis and this can be the reason for her rectal bleeding along with possible supratherapeutic INR due to antibiotics for UTI. 11:03 hemoglobin stable at this time. INR is 2.5. Vital stable this time. CT abdomen and pelvis shows no acute intra-abdominal process. Hemoccult study was positive, but there is no gross blood on examination. There was one small hemorrhoid present but no other masses appreciated. I discussed the results with the patient, due to concern over rectal bleeding while on Coumadin, admission for trending of her hemoglobin was offered. Patient was agreeable with this plan. We will place patient on Protonix drip and admit for further evaluation. Of note, patient states that she has not had a colonoscopy in the past despite her primary care physician recommending several times. 11:[address] Baum who accepted the patient, he requested I call surgery for scope if the patient needed it if Hgb changed or she had additional bleeding. Dr. Whaley was contacted, did not want to perform scope at this time. However, he stated that if there was a change in hemoglobin or if the patient had additional bleeding, he would be a consult for the patient. However, he did not want to consult order placed at this time. Patient will be admitted for further care. Of note, patient had left ventricular aneurysm, discussed with patient and she was aware of this, follows with cardiology, was told it is inoperable and receives medical mgmt only. Abdomen/Pelvis CT 06/05/17 09:14 IMPRESSION: 1. Left ventricular aneurysm. 2. Cardiomegaly status post open heart surgery. 3. Calcific atherosclerotic disease aorta. 4. No discrete small bowel or colonic finding to suggest etiology for rectal bleeding. 5. Remainder of the CT abdomen and pelvis appears unremarkable. D/ / Juan C Balbuena / Juan C Balbuena Interpreting Provider: Juan C Balbuena Vital Signs Temperature 97.3 F L 06/05/17 08:53 Pulse Rate 85 06/05/17 08:53 Respiratory Rate 18 06/05/17 08:53 Blood Pressure 135/80 06/05/17 08:53 O2 Sat by Pulse Oximetry 96 06/05/17 08:53 Temperature 97.3 F L 06/05/17 08:53 Pulse Rate 62 06/05/17 10:38 Respiratory Rate 18 06/05/17 11:59 Blood Pressure 130/75 06/05/17 11:59 O2 Sat by Pulse Oximetry 97 06/05/17 10:38 Oxygen Delivery Oxygen Delivery Room Air GI Bleed - [facility] Narrative Medical decision making narrative: Vitals within normal limits on exam. Physical exam daily benign. She did have some mild tenderness of the bilateral lower quadrants and suprapubic region. Otherwise, lungs clear to auscultation, patient currently in A. fib, regular rate. Due to concern for ectal bleeding while on Coumadin, we will obtain basic blood work to assess for hemoglobin level, LFTs, lipase for abdominal pain , urinalysis for UTI, CT abdomen and pelvis with IV contrast to assess for any cause of bleeding. She does have a history of diverticulosis and this can be the reason for her rectal bleeding along with possible supratherapeutic INR due to antibiotics for UTI. 11:03 hemoglobin stable at this time. INR is 2.5. Vital stable this time. CT abdomen and pelvis shows no acute intra-abdominal process. Hemoccult study was positive, but there is no gross blood on examination. There was one small hemorrhoid present but no other masses appreciated. I discussed the results with the patient, due to concern over rectal bleeding while on Coumadin, admission for trending of her hemoglobin was offered. Patient was agreeable with this plan. We will place patient on Protonix drip and admit for further evaluation. Of note, patient states that she has not had a colonoscopy in the past despite her primary care physician recommending several times. 11:[address] Baum who accepted the patient, he requested I call surgery for scope if the patient needed it if Hgb changed or she had additional bleeding. Dr. Whaley was contacted, did not want to perform scope at this time. However, he stated that if there was a change in hemoglobin or if the patient had additional bleeding, he would be a consult for the patient. However, he did not want to consult order placed at this time. Patient will be admitted for further care. - Medical Records Medical records reviewed: Yes I reviewed the patient's medical records. - Lab Data Lab results reviewed: Yes I reviewed the patient's lab results. Result diagrams: 06/05/17 09:22 06/05/17 09:22 Lab Results 06/05/17 06/05/17 06/05/17 Range/Units 09:18 09:22 09:22 WBC 6.9 (4.3-11.1) K/mcL RBC 4.15 (3.82-4.97) M/mcL Hgb 13.4 (11.5-15.4) g/dL Hct 39.4 (35.3-44.9) % MCV 94.9 (83.0-100.0) fL MCH 32.3 (28.0-33.3) pg MCHC 34.0 (31.6-35.5) g/dL RDW 14.6 H (11.5-14.5) % Plt Count 248 (140-400) K/mcL MPV 10.6 (9.4-12.4) fL Immature Gran % 0.4 (0-4) % Seg Neutrophils % 71.4 % Lymphocytes % 19.4 % Monocytes % 7.2 % Eosinophils % 0.9 % Basophils % 0.7 % Neutrophils # 4.9 (1.6-8.9) K/mcL Lymphocytes # 1.3 (0.6-4.6) K/mcL Monocytes # 0.5 (0.0-1.3) K/mcL Eosinophils # 0.1 (0.0-0.6) K/mcL Basophils # 0.1 (0.0-0.2) K/mcL PT 27.2 H (9.4-12.1) Seconds INR 2.5 APTT 39.8 H (26.0-36.0) Seconds Sodium (136-145) mEq/L Potassium (3.5-5.1) mEq/L Chloride (98-107) mEq/L Carbon Dioxide (23-29) mEq/L BUN (8-23) mg/dL Creatinine (0.60-1.20) mg/dL Est GFR ( Amer) (> 60) Est GFR (Non-Af Amer) (> 60) BUN/Creatinine Ratio (6-26) Glucose (70-105) mg/dL Calculated Osmolality (280-300) Lactic Acid (0.5-2.2) mmol/L Calcium (8.6-10.3) mg/dL Total Bilirubin (0.3-1.0) mg/dL Direct Bilirubin (0.0-0.2) mg/dL Indirect Bilirubin (0.0-1.2) mg/dL AST (13-39) Units/L ALT (7-52) Units/L Alkaline Phosphatase (34-104) Units/L Troponin I (< 0.04) ng/mL Serum Total Protein (6.4-8.9) g/dL Albumin (3.5-5.7) g/dL Globulin (2.4-3.5) g/dL Albumin/Globulin Ratio (1.1-2.2) Lipase (11-82) Units/L Urine Color (Yellow) Urine Clarity (Clear) Urine pH (5.0-8.0) pH Units Ur Specific [place] (1.010-1.025) Urine Protein (Neg-Trace) mg/dL Urine Glucose (UA) (Normal) mg/dL Urine Ketones (Negative) mg/dL Urine Blood (Negative) Urine Nitrite (Negative) Urine Bilirubin (Negative) Urine Urobilinogen (Normal) mg/dL Ur Leukocyte Esterase (Negative) Ur Culture Indicated? (NO) Stool Occult Blood (Negative) Blood Type A POSITIVE Antibody Screen NEGATIVE 06/05/17 06/05/17 06/05/17 Range/Units 09:22 09:22 09:22 WBC (4.3-11.1) K/mcL RBC (3.82-4.97) M/mcL Hgb (11.5-15.4) g/dL Hct (35.3-44.9) % MCV (83.0-100.0) fL MCH (28.0-33.3) pg MCHC (31.6-35.5) g/dL RDW (11.5-14.5) % Plt Count (140-400) K/mcL MPV (9.4-12.4) fL Immature Gran % (0-4) % Seg Neutrophils % % Lymphocytes % % Monocytes % % Eosinophils % % Basophils % % Neutrophils # (1.6-8.9) K/mcL Lymphocytes # (0.6-4.6) K/mcL Monocytes # (0.0-1.3) K/mcL Eosinophils # (0.0-0.6) K/mcL Basophils # (0.0-0.2) K/mcL PT (9.4-12.1) Seconds INR APTT (26.0-36.0) Seconds Sodium 136 (136-145) mEq/L Potassium 4.1 (3.5-5.1) mEq/L Chloride 103 (98-107) mEq/L Carbon Dioxide 28 (23-29) mEq/L BUN 12 (8-23) mg/dL Creatinine 0.83 (0.60-1.20) mg/dL Est GFR ( Amer) > 60 (> 60) Est GFR (Non-Af Amer) > 60 (> 60) BUN/Creatinine Ratio 14 (6-26) Glucose 110 H (70-105) mg/dL Calculated Osmolality 282 (280-300) Lactic Acid 0.8 (0.5-2.2) mmol/L Calcium 9.4 (8.6-10.3) mg/dL Total Bilirubin 0.5 (0.3-1.0) mg/dL Direct Bilirubin 0.1 (0.0-0.2) mg/dL Indirect Bilirubin 0.4 (0.0-1.2) mg/dL AST 24 (13-39) Units/L ALT 23 (7-52) Units/L Alkaline Phosphatase 63 (34-104) Units/L Troponin I < 0.03 (< 0.04) ng/mL Serum Total Protein 7.6 (6.4-8.9) g/dL Albumin 4.8 (3.5-5.7) g/dL Globulin 2.8 (2.4-3.5) g/dL Albumin/Globulin Ratio 1.7 (1.1-2.2) Lipase 38 (11-82) Units/L Urine Color (Yellow) Urine Clarity (Clear) Urine pH (5.0-8.0) pH Units Ur Specific [place] (1.010-1.025) Urine Protein (Neg-Trace) mg/dL Urine Glucose (UA) (Normal) mg/dL Urine Ketones (Negative) mg/dL Urine Blood (Negative) Urine Nitrite (Negative) Urine Bilirubin (Negative) Urine Urobilinogen (Normal) mg/dL Ur Leukocyte Esterase (Negative) Ur Culture Indicated? (NO) Stool Occult Blood (Negative) Blood Type Antibody Screen 06/05/17 06/05/17 Range/Units 09:53 10:07 WBC (4.3-11.1) K/mcL RBC (3.82-4.97) M/mcL Hgb (11.5-15.4) g/dL Hct (35.3-44.9) % MCV (83.0-100.0) fL MCH (28.0-33.3) pg MCHC (31.6-35.5) g/dL RDW (11.5-14.5) % Plt Count (140-400) K/mcL MPV (9.4-12.4) fL Immature Gran % (0-4) % Seg Neutrophils % % Lymphocytes % % Monocytes % % Eosinophils % % Basophils % % Neutrophils # (1.6-8.9) K/mcL Lymphocytes # (0.6-4.6) K/mcL Monocytes # (0.0-1.3) K/mcL Eosinophils # (0.0-0.6) K/mcL Basophils # (0.0-0.2) K/mcL PT (9.4-12.1) Seconds INR APTT (26.0-36.0) Seconds Sodium (136-145) mEq/L Potassium (3.5-5.1) mEq/L Chloride (98-107) mEq/L Carbon Dioxide (23-29) mEq/L BUN (8-23) mg/dL Creatinine (0.60-1.20) mg/dL Est GFR ( Amer) (> 60) Est GFR (Non-Af Amer) (> 60) BUN/Creatinine Ratio (6-26) Glucose (70-105) mg/dL Calculated Osmolality (280-300) Lactic Acid (0.5-2.2) mmol/L Calcium (8.6-10.3) mg/dL Total Bilirubin (0.3-1.0) mg/dL Direct Bilirubin (0.0-0.2) mg/dL Indirect Bilirubin (0.0-1.2) mg/dL AST (13-39) Units/L ALT (7-52) Units/L Alkaline Phosphatase (34-104) Units/L Troponin I (< 0.04) ng/mL Serum Total Protein (6.4-8.9) g/dL Albumin (3.5-5.7) g/dL Globulin (2.4-3.5) g/dL Albumin/Globulin Ratio (1.1-2.2) Lipase (11-82) Units/L Urine Color Yellow (Yellow) Urine Clarity Clear (Clear) Urine pH 6.0 (5.0-8.0) pH Units Ur Specific [place] 1.012 (1.010-1.025) Urine Protein Negative (Neg-Trace) mg/dL Urine Glucose (UA) Normal (Normal) mg/dL Urine Ketones Negative (Negative) mg/dL Urine Blood Negative (Negative) Urine Nitrite Negative (Negative) Urine Bilirubin Negative (Negative) Urine Urobilinogen Normal (Normal) mg/dL Ur Leukocyte Esterase Negative (Negative) Ur Culture Indicated? NO (NO) Stool Occult Blood Positive A (Negative) Blood Type Antibody Screen - EKG Data EKG attestation: Yes I reviewed and interpreted this EKG. EKG results narrative: 06/05/17 at 09:20. NSR. Rate 64. DE 273. QRS 105. QTC 409. ST elevation in lead 3 that is present on old EKG on 05/18/2017. There are also T-wave inversions in V5 and V6. S.B.A.R. - S.B.A.R. Situation: Demographics, MOA Background: Presenting Complaint, Relevant PMH, Meds, & Allergies Assessment: Vital Signs, Course and respsone to treatment, Exam Concerns, Patient/Family Expectation, Pertinant Lab Results, Outstanding Labs Recommendation: Barrier(s) to disposition, Recommendation based on pending studies, treatments, or consults S.B.A.R. Report Given to: Dr. Baum Attestation Statement - Attestation Attestation: I examined this patient and my medical decision-making was reviewed with the Resident Physician. I agree with the documented findings, disposition and treatment plan as described except to the extent set forth below. Findings consistent with possible rectal hemorrhage. Plan to admit for serial H&H. Discussed case with on-call surgeon at request hospitalist team. Hemoglobin is stable at this time, no active hemorrhage. Patient only admitted after initiation of Protonix infusion. Patient is stable and non-peritoneal at time of admission.
[2017-06-05 09:34] LABS: Basophils # 0.1 K/mcL (0.0-0.2); Basophils % 0.7 %; Eosinophils # 0.1 K/mcL (0.0-0.6); Eosinophils % 0.9 %; Hematocrit 39.4 % (35.3-44.9); Hemoglobin 13.4 g/dL (11.5-15.4); Immature Granulocytes % 0.4 % (0-4); Lymphocytes # 1.3 K/mcL (0.6-4.6); Lymphocytes % 19.4 %; Mean Corpuscular Hemoglobin 32.3 pg (28.0-33.3); Mean Corpuscular Volume 94.9 fL (83.0-100.0); Mean Platelet Volume 10.6 fL (9.4-12.4); Monocytes # 0.5 K/mcL (0.0-1.3); Monocytes % 7.2 %; Neutrophils # 4.9 K/mcL (1.6-8.9); Platelet Count 248 K/mcL (140-400); Red Blood Count 4.15 M/mcL (3.82-4.97); Red Cell Distribution Width 14.6 % (11.5-14.5); Segmented Neutrophils % 71.4 %
[2017-06-05 09:51] LABS: Alanine Aminotransferase 23 Units/L (7-52); Albumin 4.8 g/dL (3.5-5.7); Albumin/Globulin Ratio 1.7 (1.1-2.2); Alkaline Phosphatase 63 Units/L (34-104); Aspartate Amino Transferase 24 Units/L (13-39); BUN/Creatinine Ratio 14 (6-26); Bilirubin,Direct 0.1 mg/dL (0.0-0.2); Bilirubin,Indirect 0.4 mg/dL (0.0-1.2); Bilirubin,Total 0.5 mg/dL (0.3-1.0); Blood Urea Nitrogen 12 mg/dL (8-23); Calcium 9.4 mg/dL (8.6-10.3); Carbon Dioxide 28 mEq/L (23-29); Chloride 103 mEq/L (98-107); Globulin 2.8 g/dL (2.4-3.5); Glucose 110 mg/dL (70-105); Lipase 38 Units/L (11-82); Osmolality,Calculated 282 (280-300); Potassium 4.1 mEq/L (3.5-5.1); Sodium 136 mEq/L (136-145); Total Protein 7.6 g/dL (6.4-8.9); eGFR For African Americans > 60 (> 60); eGFR For Non-African Americans > 60 (> 60)
[2017-06-05 09:54] LABS: INR 2.5; Prothrombin Time 27.2 Seconds (9.4-12.1)
[2017-06-05 09:57] LABS: Activated Partial Thrombo Time 39.8 Seconds (26.0-36.0)
[2017-06-05 10:17] LABS: Bilirubin,Urine Negative (Negative); Blood,Urine Negative (Negative); Clarity,Urine Clear (Clear); Color,Urine Yellow (Yellow); Glucose,Urine (UA) Normal (Normal); Ketones,Urine Negative (Negative); Leukocyte Esterase,Urine Negative (Negative); Nitrite,Urine Negative (Negative); Protein,Urine Negative (Neg-Trace); Specific Gravity,Urine 1.012 (1.010-1.025); Urobilinogen,Urine Normal (Normal)
[2017-06-05] MEDS: Pantoprazole 40 MG in 0.9 % Sodium Chloride Mini Bag 100 ML IVC SCH ×2 (11:14→16:17)
[2017-06-05] MEDS ORDERED: Naloxone 0.4 MG/ML INJ IVP PRN (12:45)
[2017-06-05] MEDS ORDERED: Furosemide 20 MG TABLET PO PRN (12:55)
[2017-06-05] MEDS ORDERED: Ipratropium/Albuterol Neb 3 ML IH PRN (12:55)
--- NOTE | 2017-06-05 13:16 | Internal Med History&Physical ---
Date of Encounter: 06/05/17 Time of Encounter: 12:15 Assessment and Plan (1) Rectal bleeding Current visit: Yes Status: Acute Acute rectal bleeding with one episode this morning following epigastric pain last night. Pt. states she has an ulcer. Has had abdominal and pelvic pain for the last month and dx w/UTI. Reports using restroom this a.m. and large amount of red blood in toilet bowl. Reports BM shortly after w/o blood present. Fecal hemoccult positive for blood. Pt. 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 Hgb 13.4 and Hct 39.4 on admission. INR 2.5. Pt. typed and screened (A positive with negative antibody screen). Protonix drip started in ED and will continue. H/H in a.m. labs. GI consult discussed w/Dr. Whaley in ED and formal consult ordered. Cardiology consult ordered and discussed w/Dr. Zachary Alonzo regarding recommendations for continuation of anticoagulation d/t bleed today. I appreciate the consults. Pt. states she does not want colonoscopy while admitted. Pt. discussed w/Dr. Tran who is in agreement w/plan of care. Pt. is high risk for continued bleeding and further morbidity d/t anticoagulation, current sx, hx, and risk factors. Observation. (2) Recent urinary tract infection Current visit: Yes Status: Acute Acute UTI dx by PCP w/i past ten days. Placed on PO Bactrim. Pt. states that she still has sx and that she was told by Coumadin clinic that Bactrim will interfere w/her INR. Three days remaining in tx. Hold Bactrim and administer PO Macrobid 100 mg BIDWM x 7 days. Pt. to f/u w/PCP post-discharge if she continues to have sx. (3) HLD (hyperlipidemia) Current visit: Yes Status: Chronic Hx of chronic HLD. Pt. does not currently take statin. Lipid panel in a.m. labs. Consider adding statin based on lipid panel results. Qualifiers: Hyperlipidemia type: pure hypercholesterolemia Qualified Code(s): E78.00 - Pure hypercholesterolemia, unspecified; E78.0 - Pure hypercholesterolemia (4) HTN (hypertension) Current visit: Yes Status: Chronic Hx of chronic HTN. Monitor pt. and VS. continue patient's Vasotec, Lopressor, and hydrochlorothiazide. Qualifiers: Hypertension type: essential hypertension Qualified Code(s): I10 - Essential (primary) hypertension (5) Thyroid disease Current visit: Yes Status: Chronic Hx of chronic thyroid disease. Continue pts. Synthroid. TSH and Free T4 ordered in a.m. labs. (6) CAD (coronary artery disease) Current visit: Yes Status: Chronic Hx of chronic CAD. Continue patient's amiodarone, Vasotec, Lopressor, hydrochlorothiazide, and hold aspirin and Coumadin for now for recommendations from cardiology regarding anticoagulation continuation. Continuous cardiac monitoring. Qualifiers: Coronary Disease-Associated Artery/Lesion type: bypass graft [place] vs. transplanted heart: [place] heart Associated angina: with stable angina Qualified Code(s): I25.708 - Atherosclerosis of coronary artery bypass graft(s) , unspecified, with other forms of angina pectoris (7) COPD (chronic obstructive pulmonary disease) Current visit: Yes Status: Chronic Hx of chronic COPD. Stable. Qualifiers: COPD type: unspecified COPD Qualified Code(s): J44.9 - Chronic obstructive pulmonary disease, unspecified (8) Atrial fibrillation Current visit: Yes Status: Resolved Hx of atrial fibrillation. Pt. reports having ablation done several times with last one ten years ago. States she has not had any problems since. AICD in place. Continue pts. amiodarone. Continuous cardiac telemetry. Qualifiers: Atrial fibrillation type: unspecified Qualified Code(s): I48.91 - Unspecified atrial fibrillation (9) DVT prophylaxis Current visit: Yes Status: Acute Bilateral SCDs on LEs for DVT prophylaxis d/t current GI bleed. Cardiology to make recommendations regarding Coumadin status. Monitor pt. for signs of bleeding. Internal Medicine - H&P: HPI Chief complaint: GI bleeding Admitted From: Emergency Dept Plans for Post Hospital Care: Home History of present illness: Ms. 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 Patient states she has had lower abdominal pain for the past month and was diagnosed by her PCP with UTI. Was placed on by mouth Bactrim. States she still has urinary urgency and frequency. Reports last night she began having epigastric pain and this morning use the restroom and found large amount of red blood in toilet. Pt. states she had a bowel movement sometime later w/o any bleeding. States she has an ulcer but unclear where. Pt. states that she does not want colonoscopy while she is admitted and wants to leave tomorrow. Pt. denies nausea, vomiting, fever, chills , chest pain, palpitations, headache, changes in vision, cough, shortness of breath, weakness, fatigue, dizziness, lightheadedness, numbness, tingling, pre- syncope, or syncope. Past Med Surg Social Fam HX - Past Medical History Source: patient, old records reviewed Medical history: atrial fibrillation, cardiomyopathy, COPD, coronary artery disease, DVT (1996 causing NJ), hyperlipidemia, hypertension, myocardial infarction (1996), thyroid disease Psychiatric history: anxiety - Past Surgical History Surgical History: coronary bypass (CABG) (Triple), other (VSD repair), AICD - Social History Smoking Status: Former smoker Packs per day: 1 PPD - Reports quitting 15 years ago. Smokeless Tobacco Status: No Alcohol use: none Drug use: none Occupational status: retired Current living situation: Home, With Family Activity Level: Independent ambulation Recent Out of Country Travel Within the Last 8 Weeks: No Exposure or Possible Exposure to Illness During Travel: No - Family History Father Race: Family Member Ethnicity: Non- Living Status: Age at : 80 Cause of : Pancreatic cancer Hx Family Cancer: Yes (Pancreatic) Hx Family Endocrine Disorder: Yes (DM) Mother Race: Family Member Ethnicity: Non- Living Status: Age at : 94 Cause of : Old age Hx Family Neurologic Disorders: Yes (Dementia) Brother Race: Family Member Ethnicity: Non- Living Status: Hx Family Endocrine Disorder: Yes (DM) Sister Race: Family Member Ethnicity: Non- Living Status: Still Living Hx Family Medical Disorders: No Internal Medicine - H&P: Meds Amiodarone [Cordarone] 100 mg PO DAILY 12/27/15 [History] Enalapril Maleate [Vasotec] 20 mg PO BID 12/27/15 [History] Levothyroxine [Synthroid] 100 mcg PO QAM 12/27/15 [History] Metoprolol [Lopressor] 75 mg PO BID 12/27/15 [History] Warfarin [Coumadin] 2.5 mg PO SUTUTHSA 12/27/15 [History] clonazePAM [Clonazepam] 0.5 mg PO BID 12/27/15 [History] hydroCHLOROthiazide [Hydrochlorothiazide] 12.5 mg PO DAILY 12/27/15 [History] Potassium Chloride [K-Tab ER] 20 meq PO TID 08/26/16 [History] Warfarin [Coumadin] 1.25 mg PO MOWEFR 08/26/16 [History] Omeprazole [PriLOSEC] 40 mg PO DAILY #30 cap 11/26/16 [Rx] Ranitidine HCl [Zantac] 150 mg PO BID PRN #30 tablet 11/26/16 [Rx] Furosemide [Lasix] 20 mg PO DAILY PRN 05/18/17 [History] Ipratropium/Albuterol Neb [Duoneb] 3 ml IH Q6HR PRN 05/18/17 [History] Aspirin 81 mg PO DAILY 05/19/17 [History] Sulfamethoxazole/Trimeth DS [Bactrim Ds] 1 tab PO BID 06/05/17 [History] 3 Allergy/AdvReac Type Severity Reaction Status Date / Time No Known Allergies Allergy Verified 05/18/17 11:32 All Systems PM: A 10-system review of systems was performed and is negative for pertinent findings except as documented above in the HPI. - Constitutional Constitutional: no chills, no fever(s), no night sweats - EENT Eyes: no change in vision, no discharge, no pain, no photophobia Ears: no ear discharge, no ear pain, no tinnitus Nose, mouth and throat: no dysphagia, no nasal discharge, no neck pain, no sore throat - Breasts Breasts: as per HPI - Cardiovascular Cardiovascular ROS IM: no chest pain, no diaphoresis, no dyspnea, no lightheadedness, no palpitations, no syncope - Respiratory Respiratory: no cough, no dyspnea, no wheezing, no excessive phlegm production - Gastrointestinal Gastrointestinal: as per HPI, abdominal pain, hematochezia, no diarrhea, no hematemesis, no melena, no nausea, no vomiting - Genitourinary Genitourinary: as per HPI, urinary frequency, urinary urgency, no change in urinary stream, no dysuria, no flank pain, no hematuria Menstruation: as per HPI - Musculoskeletal Musculoskeletal ROS IM: no numbness, no tingling - Integumentary Integumentary IM: no rash, no unusual bruising - Neurological Neurological ROS: no confusion, no convulsions, no focal weakness, no numbness, no tingling, no tremor(s) - Psychiatric Psychiatric: as per HPI - Endocrine Endocrine IM: as per HPI - Hematologic/Lymphatic Hematologic/Lymphatic: no easy bruising - Allergic/Immunologic Allergic/Immunologic: as per HPI - Constitutional Vitals: Temp Pulse Resp BP Pulse Ox 97.3 F L 62 18 130/75 97 06/05/17 08:53 06/05/17 10:38 06/05/17 11:59 06/05/17 11:59 06/05/17 10:38 General appearance: Present: cooperative, A&O X 3, pleasant, no acute distress, obese, answers questions appropriately - Head Head exam: Present: atraumatic, normocephalic - Eye Eye exam: Present: PERRL, conjuntiva pink, sclera anicteric Pupils: Present: PERRL - ENT ENT exam: Present: normal exam - Neck Neck exam general surgery: Present: normal inspection, supple, trachea midline. Absent: lymphadenopathy - Respiratory Respiratory exam: Present: CTAB. Absent: accessory muscle use, rales, rhonchi, wheezes - Cardiovascular Cardiovascular exam: Present: RRR, +S1, +S2. Absent: diastolic murmur, gallop, rubs, systolic murmur - GI/Abdominal GI/Abdominal exam: Present: normal bowel sounds, soft, no peritoneal signs. Absent: distended, tenderness - Rectal Rectal exam: Present: deferred - Additional comments: exam deferred. - Extremities Exam Extremities exam: Present: warm, radial pulses palpable and symmetrical. Absent : calf tenderness, cyanotic, pedal edema - Back Exam Back exam: Present: normal inspection - Neurological Exam Neurological exam: Present: CN II-XII intact, oriented X3, no focal deficits. Absent: pronater drift, facial droop, speech deficit - Psychiatric Psychiatric exam: Present: normal affect, normal mood - Skin Skin exam: Present: dry, intact Internal Med - H&P Results - Labs CBC & Chem 7: 06/05/17 09:22 06/05/17 09:22 - EKG Data Prior EKG available for review: yes Interpretation IM: suggestive of ischemia EKG comments: 06/05/17 13:21 EKG dated 05/18/17 shows sinus rhythm with first-degree AV block, baseline artifact, inferior NJ of indeterminate. EKG dated 06/05/17 shows electronic atrial pacemaker, incomplete right bundle branch block, ST deviation, and moderate T-wave abnormality. Consider lateral ischemia. - Diagnostic Studies CT scan - abdomen Additional comments: Impressions Abdomen/Pelvis CT 06/05/17 09:14 IMPRESSION: 1. Left ventricular aneurysm. 2. Cardiomegaly status post open heart surgery. 3. Calcific atherosclerotic disease aorta. 4. No discrete small bowel or colonic finding to suggest etiology for rectal bleeding. 5. Remainder of the CT abdomen and pelvis appears unremarkable. D/ / Juan C Balbuena / Juan C Balbuena Interpreting Provider: Juan C Balbuena
[2017-06-05] MEDS: Nitrofurantoin (BID) 100 MG CAPSULE PO SCH (16:17)
[2017-06-05] MEDS ORDERED: Acetaminophen 325 MG TABLET PO PRN (18:47)
[2017-06-05] MEDS: Lisinopril 20 MG TABLET PO SCH (20:43)
[2017-06-05] MEDS: clonazePAM 0.5 MG TABLET PO SCH (20:43)
--- NOTE | 2017-06-05 21:20 | Event Note ---
Date of Encounter: 06/05/17 Time of Encounter: 20:00 Discussed with OSCAR and agreement with assessment and plan GI/surgery consult due to lower GI bleed; has never had an EGD/colonoscopy with history of GERD
[2017-06-06 05:04] LABS: Basophils % 0.6 %; Eosinophils % 1.5 %; Hematocrit 35.1 % (35.3-44.9); Immature Granulocytes % 0.2 % (0-4); Lymphocytes % 31.6 %; Mean Corpuscular HGB Conc 33.3 g/dL (31.6-35.5); Mean Corpuscular Hemoglobin 31.6 pg (28.0-33.3); Mean Corpuscular Volume 94.9 fL (83.0-100.0); Mean Platelet Volume 10.6 fL (9.4-12.4); Monocytes % 12.8 %; Platelet Count 213 K/mcL (140-400); Red Cell Distribution Width 14.5 % (11.5-14.5); Segmented Neutrophils % 53.3 %
[2017-06-06 05:05] LABS: Eosinophils # 0.1 K/mcL (0.0-0.6); Hemoglobin 11.7 g/dL (11.5-15.4); Lymphocytes # 1.5 K/mcL (0.6-4.6); Monocytes # 0.6 K/mcL (0.0-1.3); Neutrophils # 2.5 K/mcL (1.6-8.9)
[2017-06-06 05:09] LABS: INR 2.1
[2017-06-06 05:12] LABS: Activated Partial Thrombo Time 35.7 Seconds (26.0-36.0)
[2017-06-06 05:24] LABS: Hemoglobin A1C 5.9 %
[2017-06-06 05:28] LABS: Alanine Aminotransferase 19 Units/L (7-52); Albumin 4.1 g/dL (3.5-5.7); Albumin/Globulin Ratio 1.7 (1.1-2.2); Alkaline Phosphatase 52 Units/L (34-104); Aspartate Amino Transferase 21 Units/L (13-39); BUN/Creatinine Ratio 19 (6-26); Bilirubin,Total 0.7 mg/dL (0.3-1.0); Blood Urea Nitrogen 16 mg/dL (8-23); Calcium 8.9 mg/dL (8.6-10.3); Carbon Dioxide 23 mEq/L (23-29); Chloride 108 mEq/L (98-107); Chol/HDL Ratio 3.7 (0-4.9); Cholesterol 158 mg/dL (< 200); Globulin 2.4 g/dL (2.4-3.5); Glucose 112 mg/dL (70-105); HDL Cholesterol 43 mg/dL (40-59); LDL Cholesterol,Calculated 71 mg/dL (0-99); Magnesium 2.4 mg/dL (1.6-2.6); Osmolality,Calculated 288 (280-300); Potassium 4.3 mEq/L (3.5-5.1); Sodium 138 mEq/L (136-145); Total Protein 6.5 g/dL (6.4-8.9); Triglycerides 219 mg/dL (< 150); eGFR For African Americans > 60 (> 60); eGFR For Non-African Americans > 60 (> 60)
[2017-06-06] MEDS: Pantoprazole 40 MG VIAL IVP SCH ×2 (05:38→16:35)
[2017-06-06 05:39] LABS: Thyroid Stimulating Hormone 0.919 mcIU/mL (0.340-5.600)
[2017-06-06] MEDS: Nitrofurantoin (BID) 100 MG CAPSULE PO SCH ×2 (07:34→16:35)
[2017-06-06] MEDS: hydroCHLOROthiazide 25 MG TABLET PO SCH (07:34)
[2017-06-06] MEDS: Lisinopril 20 MG TABLET PO SCH ×2 (07:34→21:30)
[2017-06-06] MEDS: clonazePAM 0.5 MG TABLET PO SCH ×2 (07:34→21:30)
[2017-06-06] MEDS: *HR* Amiodarone 200 MG TABLET PO SCH (07:35)
--- NOTE | 2017-06-06 10:41 | Cardiology Consult Note ---
Date of Encounter: 06/06/17 Time of Encounter: 10:38 Assessment and Plan (1) Paroxysmal A-fib Current Visit: No Status: Chronic Due to current GI bleed would hold coumadin, hopefully temporarily. Restart when felt safe from GI standpoint. Discussion w patient/family: The assessment and plan as outlined above was discussed with the patient and/or family members who expressed understanding and agreement. All questions were answered. Thank you for involving us in the care of your patient. Please call with any questions. History of Present Illness Consult date: 06/06/17 Requesting physician: Jordan Cook Consult reason: Anticoagulation Chief complaint: Rectal bleeding History of present illness: Ms. Navarrete is a 76 year old female with h/o CAD, CM, S/P ICD, AF presents after an episode of rectal bleeding. we are asked to comment on anticoagulation which she appears to be on due to AF. Last documented episode to Af was on device check. Past Med Surg Social Fam HX - Past Medical History Medical history: atrial fibrillation, cardiomyopathy, COPD, coronary artery disease, DVT, hyperlipidemia, hypertension, myocardial infarction, thyroid disease Psychiatric history: anxiety - Past Surgical History Surgical History: coronary bypass (CABG), other (VSD repair), AICD - Social History Smoking Status: Former smoker Packs per day: 1 PPD - Reports quitting 15 years ago. Smokeless Tobacco Status: No Alcohol use: none Drug use: none - Family History Father Race: Family Member Ethnicity: Non- Living Status: Age at : 80 Cause of : Pancreatic cancer Hx Family Respiratory Disorders: No Hx Family Cancer: Yes (Pancreatic) Hx Family GI Disorders: No Hx Family Endocrine Disorder: Yes (DM) Hx Family Neuromuscular Disorders: No Hx Family Neurologic Disorders: No Hx Family HEENT Disorders: No Hx Family Autoimmune Disorders: No Mother Race: Family Member Ethnicity: Non- Living Status: Age at : 94 Cause of : Old age Hx Family Neurologic Disorders: Yes (Dementia) Brother Race: Family Member Ethnicity: Non- Living Status: Hx Family Endocrine Disorder: Yes (DM) Sister Race: Family Member Ethnicity: Non- Living Status: Still Living Hx Family Medical Disorders: No Medications and Allergies Amiodarone [Cordarone] 100 mg PO DAILY 12/27/15 [History] Enalapril Maleate [Vasotec] 20 mg PO BID 12/27/15 [History] Levothyroxine [Synthroid] 100 mcg PO QAM 12/27/15 [History] Metoprolol [Lopressor] 75 mg PO BID 12/27/15 [History] Warfarin [Coumadin] 2.5 mg PO SUTUTHSA 12/27/15 [History] clonazePAM [Clonazepam] 0.5 mg PO BID 12/27/15 [History] hydroCHLOROthiazide [Hydrochlorothiazide] 12.5 mg PO DAILY 12/27/15 [History] Potassium Chloride [K-Tab ER] 20 meq PO TID 08/26/16 [History] Warfarin [Coumadin] 1.25 mg PO MOWEFR 08/26/16 [History] Omeprazole [PriLOSEC] 40 mg PO DAILY #30 cap 11/26/16 [Rx] Ranitidine HCl [Zantac] 150 mg PO BID PRN #30 tablet 11/26/16 [Rx] Furosemide [Lasix] 20 mg PO DAILY PRN 05/18/17 [History] Ipratropium/Albuterol Neb [Duoneb] 3 ml IH Q6HR PRN 05/18/17 [History] Aspirin 81 mg PO DAILY 05/19/17 [History] Sulfamethoxazole/Trimeth DS [Bactrim Ds] 1 tab PO BID 06/05/17 [History] 3 Allergy/AdvReac Type Severity Reaction Status Date / Time No Known Allergies Allergy Verified 05/18/17 11:32 All Systems Review: A 10-system review of systems was performed and is negative for pertinent findings except as documented above in the HPI. Physical Examination Vital Signs, Last 4 Hours Temp Pulse Resp BP Pulse Ox 06/06/17 07:23 98.0 F 64 16 127/76 93 Results 06/06/17 04:48 06/06/17 04:48 Lab Results 06/06/17 06/06/17 06/06/17 04:48 04:48 04:48 WBC 4.7 Hgb 11.7 D Hct 35.1 L Plt Count 213 INR 2.1 APTT 35.7 Sodium 138 Potassium 4.3 Chloride 108 H Carbon Dioxide 23 BUN 16 Creatinine 0.86 Glucose 112 H Calcium 8.9 Magnesium 2.4 Total Bilirubin 0.7 AST 21 ALT 19 Alkaline Phosphatase 52 TSH 06/06/17 04:48 WBC Hgb Hct Plt Count INR APTT Sodium Potassium Chloride Carbon Dioxide BUN Creatinine Glucose Calcium Magnesium Total Bilirubin AST ALT Alkaline Phosphatase TSH 0.919 Consult Discharge Plan - Plan Referrals: Ralf Perez MD [Primary Care Provider] -
--- NOTE | 2017-06-06 13:35 | Internal Med Progress Note ---
<Omari Whipple - Last Filed: 06/06/17 14:07> Date of Encounter: 06/06/17 Time of Encounter: 13:30 - Assessment and plan (1) Acute GI bleeding Current Visit: Yes Status: Acute Assessment and plan: Patient had episode of large amount of red blood in toilet 2 days ago. Reports that she received 5 doses of Bactrim for UTI with controlled dose of Coumadin for history of NE, DVT and history of A. fib. Hemoglobin downtrending 11.7< 13.4. INR 2.1<2.5. Positive fecal occult blood test. Acute blood loss likely secondary to diverticular bleed. Pending GI consult for possible colonoscopy tomorrow. Start bowel prep tonight with nulytely; nothing by mouth after midnight. Hold Coumadin and add Vitamin K now and check INR in the morning. Patient is aware of plan and is agreeable. (2) Atrial fibrillation Current Visit: No Status: Resolved Assessment and plan: History of A. fib with ablation several times with last one 10 years ago. AICD is in place. Hold Coumadin for possible colonoscopy tomorrow. Cardiology consult and recommendations reviewed and appreciated. Qualifiers: Atrial fibrillation type: unspecified Qualified Code(s): I48.91 - Unspecified atrial fibrillation (3) Recent urinary tract infection Current Visit: No Status: Acute Assessment and plan: Patient has an acute UTI diagnosed by PCP and reports having taken 5 doses of Bactrim. The patient is educated on the contraindications of taking Bactrim with Coumadin, and she reports that her PCP is aware. Hold Bactrim due to GI bleed and on Coumadin. She is advised to not take Bactrim in the future. Continue Macrobid day #2, follow-up with outpatient PCP after discharge. (4) CAD (coronary artery disease) Current Visit: No Status: Chronic Assessment and plan: The patient has history of chronic CAD. Continue on amiodarone, Lopressor, hydrochlorothiazide. Hold Coumadin and aspirin due to acute blood loss secondary to diverticular bleed. Qualifiers: Coronary Disease-Associated Artery/Lesion type: bypass graft [place] vs. transplanted heart: [place] heart Associated angina: with stable angina Qualified Code(s): I25.708 - Atherosclerosis of coronary artery bypass graft(s) , unspecified, with other forms of angina pectoris (5) COPD (chronic obstructive pulmonary disease) Current Visit: No Status: Chronic Assessment and plan: History of chronic COPD. Stable. Qualifiers: COPD type: unspecified COPD Qualified Code(s): J44.9 - Chronic obstructive pulmonary disease, unspecified (6) HTN (hypertension) Current Visit: Yes Status: Chronic Qualifiers: Hypertension type: essential hypertension Qualified Code(s): I10 - Essential (primary) hypertension (7) Thyroid disease Current Visit: No Status: Chronic Assessment and plan: Continue with home medications. (8) DVT prophylaxis Current Visit: Yes Status: Acute Assessment and plan: Bilateral SCDs on lower extremities for DVT prophylaxis due to current acute GI bleed. - Time Spent With Patient Greater than 35 minutes - Subjective Interval history: 86-year-old female with past medical history of A. fib requiring ablation years ago, cardiomyopathy, COPD, CAD, previous DVT in 1996 causing NE, hyperlipidemia , hypertension, thyroid disease, triple bypass presents to the ED with chief complaint of GI bleeding. She is also recently treated with Bactrim for UTI with controlled Coumadin. Today, she reports no longer having urinary urgency or frequency. She continues to have epigastric pain. She has not had a bowel movement with blood today. Reports that she is going to have colonoscopy done tomorrow for GI. Reports that if she does not have the colonoscopy done tomorrow she will leave. Denies nausea, vomiting, fever, chills, chest pain, palpitations. - Constitutional Vitals: Temp Pulse Resp BP Pulse Ox 98.0 F 64 16 127/76 93 06/06/17 07:23 06/06/17 07:23 06/06/17 07:23 06/06/17 07:06/06/17 07:38 General appearance: Present: cooperative, A&O X 3, pleasant, no acute distress, obese, answers questions appropriately - Head Head exam: Present: atraumatic, normocephalic - Eye Eye exam: Present: PERRL, conjuntiva pink, sclera anicteric Pupils: Present: PERRL - Neck Neck exam general surgery: Present: supple, trachea midline. Absent: lymphadenopathy - Respiratory Respiratory exam: Present: CTAB. Absent: accessory muscle use, rales, rhonchi, wheezes - Cardiovascular Cardiovascular exam: Present: RRR, +S1, +S2. Absent: diastolic murmur, gallop, rubs, systolic murmur - GI/Abdominal GI/Abdominal exam: Present: normal bowel sounds, soft, no peritoneal signs. Absent: distended, tenderness - Extremities Exam Extremities exam: Present: warm, radial pulses palpable and symmetrical. Absent : calf tenderness, cyanotic, pedal edema - Neurological Exam Neurological exam: Present: CN II-XII intact, oriented X3, no focal deficits. Absent: pronater drift, facial droop, speech deficit - Skin Skin exam: Present: dry, intact Internal Medicine: Result - Labs CBC & Chem 7: 06/06/17 04:48 06/06/17 04:48 Labs: Short CBC 06/06/17 Range/Units 04:48 WBC 4.7 (4.3-11.1) K/mcL Hgb 11.7 D (11.5-15.4) g/dL Hct 35.1 L (35.3-44.9) % Plt Count 213 (140-400) K/mcL Neutrophils # 2.5 (1.6-8.9) K/mcL BMP 06/06/17 04:48 Sodium 138 Potassium 4.3 Chloride 108 H Carbon Dioxide 23 BUN 16 Creatinine 0.86 Glucose 112 H Calcium 8.9 Liver Function 06/06/17 Range/Units 04:48 Total Bilirubin 0.7 (0.3-1.0) mg/dL AST 21 (13-39) Units/L ALT 19 (7-52) Units/L Alkaline Phosphatase 52 (34-104) Units/L Albumin 4.1 (3.5-5.7) g/dL - ABG Interpretation ABG results: PT/INR, D-dimer PT 23.0 Seconds (9.4-12.1) H 06/06/17 04:48 Consult Discharge Plan - Plan Referrals: Ralf Perez MD [Primary Care Provider] - <Jordan Cook H - Last Filed: 06/06/17 15:17> Date of Encounter: 06/06/17 - Constitutional Vitals: Temp Pulse Resp BP Pulse Ox 98.0 F 64 16 127/76 93 06/06/17 07:23 06/06/17 07:23 06/06/17 07:23 06/06/17 07:23 06/06/17 07:38 Internal Medicine: Result - Labs CBC & Chem 7: 06/06/17 04:48 06/06/17 04:48 Labs: Short CBC 06/06/17 Range/Units 04:48 WBC 4.7 (4.3-11.1) K/mcL Hgb 11.7 D (11.5-15.4) g/dL Hct 35.1 L (35.3-44.9) % Plt Count 213 (140-400) K/mcL Neutrophils # 2.5 (1.6-8.9) K/mcL BMP 06/06/17 04:48 Sodium 138 Potassium 4.3 Chloride 108 H Carbon Dioxide 23 BUN 16 Creatinine 0.86 Glucose 112 H Calcium 8.9 Liver Function 06/06/17 Range/Units 04:48 Total Bilirubin 0.7 (0.3-1.0) mg/dL AST 21 (13-39) Units/L ALT 19 (7-52) Units/L Alkaline Phosphatase 52 (34-104) Units/L Albumin 4.1 (3.5-5.7) g/dL - ABG Interpretation ABG results: PT/INR, D-dimer PT 23.0 Seconds (9.4-12.1) H 06/06/17 04:48 - Attending Attestation Acute blood loss anemia secondary to possible diverticular bleed exacerbated by Coumadin and aspirin Hold Coumadin and neck sprain Clear liquids, bowel prep tonight and consult GI in the morning for possible endoscopy and colonoscopy Monitor CBC and consider transfusions Vitamin K given, recheck INR in the morning Continue IV fluids Protonix IV Nothing by mouth after midnight I examined this patient and my medical decision-making was reviewed with the Resident Physician. I agree with the documented findings, disposition and treatment plan as described except to the extent set forth below.
[2017-06-06] MEDS ORDERED: *HR* Phytonadione 5 MG TABLET PO ONE (13:44)
[2017-06-06] MEDS ORDERED: SODIUM CHLORIDE/NAHCO3/KCL/PEG 4,000 ML SOLN.RECON PO ONE (18:00)
[2017-06-06] MEDS ORDERED: GI Cocktail 40 ML EACH PO ONE (20:36)
[2017-06-06] MEDS ORDERED: Maalox Oral Soln 30 mL PO ONE (20:57)
[2017-06-07] MEDS: Pantoprazole 40 MG VIAL IVP SCH (05:20)
[2017-06-07 06:16] LABS: Basophils % 0.6 %; Eosinophils # 0.1 K/mcL (0.0-0.6); Eosinophils % 1.5 %; Hematocrit 35.9 % (35.3-44.9); Hemoglobin 11.5 g/dL (11.5-15.4); Immature Granulocytes % 0.4 % (0-4); Lymphocytes # 1.4 K/mcL (0.6-4.6); Mean Corpuscular Hemoglobin 31.2 pg (28.0-33.3); Mean Corpuscular Volume 97.3 fL (83.0-100.0); Monocytes # 0.5 K/mcL (0.0-1.3); Monocytes % 9.2 %; Neutrophils # 3.3 K/mcL (1.6-8.9); Platelet Count 211 K/mcL (140-400); Red Blood Count 3.69 M/mcL (3.82-4.97); Red Cell Distribution Width 14.3 % (11.5-14.5); Segmented Neutrophils % 62.3 %
[2017-06-07 06:23] LABS: INR 1.6; Prothrombin Time 16.9 Seconds (9.4-12.1)
[2017-06-07 06:55] LABS: Alanine Aminotransferase 27 Units/L (7-52); Albumin 4.1 g/dL (3.5-5.7); Albumin/Globulin Ratio 1.7 (1.1-2.2); Alkaline Phosphatase 57 Units/L (34-104); Aspartate Amino Transferase 28 Units/L (13-39); BUN/Creatinine Ratio 20 (6-26); Bilirubin,Total 0.8 mg/dL (0.3-1.0); Blood Urea Nitrogen 13 mg/dL (8-23); Calcium 8.9 mg/dL (8.6-10.3); Carbon Dioxide 27 mEq/L (23-29); Chloride 109 mEq/L (98-107); Globulin 2.4 g/dL (2.4-3.5); Glucose 110 mg/dL (70-105); Osmolality,Calculated 291 (280-300); Potassium 4.2 mEq/L (3.5-5.1); Sodium 140 mEq/L (136-145); Total Protein 6.5 g/dL (6.4-8.9); eGFR For African Americans > 60 (> 60); eGFR For Non-African Americans > 60 (> 60)
[2017-06-07] MEDS: Nitrofurantoin (BID) 100 MG CAPSULE PO SCH ×2 (10:12→18:11)
[2017-06-07] MEDS: clonazePAM 0.5 MG TABLET PO SCH ×2 (10:13→20:59)
[2017-06-07] MEDS: hydroCHLOROthiazide 25 MG TABLET PO SCH (10:13)
[2017-06-07] MEDS: Lisinopril 20 MG TABLET PO SCH ×2 (10:13→20:59)
[2017-06-07] MEDS: *HR* Amiodarone 200 MG TABLET PO SCH (10:13)
--- NOTE | 2017-06-07 10:45 | Gastroenterology Consult Note ---
<Elijah Omalley Chetna - Last Filed: 06/07/17 10:43> Date of Encounter: 06/07/17 Time of Encounter: 10:20 - Assessment and plan (1) Rectal bleeding Current Visit: Yes Status: Acute Assessment and plan: Pt with one episode of BRBPR. FOBT positive on admission. Hgb on admission was 13.4 and this AM Hgb 11.5. CT A/P with no discrete small bowel or colonic finding to suggest etiology for rectal bleeding. Pt completed bowel prep last night. Plan for colonoscopy today, keep NPO. (2) GERD (gastroesophageal reflux disease) Current Visit: Yes Status: Acute Assessment and plan: Continue omeprazole. Patient educated regarding lifestyle modifications including: (1) avoidance of foods that may precipitate reflux (eg, coffee, alcohol, chocolate, fatty foods). (2) avoidance of acidic foods that may precipitate heartburn (eg, citrus, carbonated drinks, spicy foods). (3) adoption of behaviors that may reduce esophageal acid exposure (see weight loss , smoking cessation, raising the head of the bed, and avoiding recumbency for 2- 3 hours after meals). Qualifiers: Esophagitis presence: esophagitis presence not specified Qualified Code(s) : K21.9 - Gastro-esophageal reflux disease without esophagitis (3) Chronic anticoagulation Current Visit: No Status: Chronic Assessment and plan: INR 2.5 on admission and 1.6 today. Continue to hold Coumadin for colonoscopy today. (4) Presence of combination internal cardiac defibrillator (ICD) and pacemaker Current Visit: Yes Status: Acute - Time Spent With Patient Total time spent is greater than 50% in coordination of care (as documented) at patient's floor/unit and/or counseling patient: GI History of Present Illness - Data of Consult Patient: new to practice Consult date: 06/07/17 Requesting Physician: Jordan Cook - Consult Narrative Reason for consult: BRBPR History of present illness: Ms. Navarrete is a 76 year old female with PMHx of Afib, cardiomyopathy, pacemaker /AICD, GERD, COPD, CAD, DVT in 1996 causing [place], HLD, HTN, thyroid disease and CABG who presented to the ED with complaint of GI bleeding. She reports lower abdominal pain for the past month, was diagnosed with UTI by PCP, and started on Bactrim. The night prior to admission she started having epigastric pain and the morning of admission had BM with large amount of bright red blood in bowl. She reports having a BM later without bleeding. On admission, fecal occult blood test was positive. She reports having an ulcer, but is unclear where. She denies fever, chills, chest pain, shortness of breath, weakness, fatigue, nausea , vomiting, hematemesis, melena. Reports that if she does not have the colonoscopy done today she will leave. Pt was prepped with Nulytely overnight for colonoscopy today. Hgb on admission was 13.4 and this AM Hgb 11.5. INR 2.5 on admission and 1.[address] A/P with no discrete small bowel or colonic finding to suggest etiology for rectal bleeding. Coumadin is on hold. Pt reports history of GERD, and states she is taking omeprazole which controls her symptoms well. Procedures: None NSAIDs: ASA Anticoagulation: Coumadin Past Med Surg Social Fam HX - Past Medical History Medical history: atrial fibrillation, cardiomyopathy, COPD, coronary artery disease, DVT, hyperlipidemia, hypertension, myocardial infarction, thyroid disease Psychiatric history: anxiety - Past Surgical History Surgical History: coronary bypass (CABG), other (VSD repair), AICD - Social History Smoking Status: Former smoker Packs per day: 1 PPD - Reports quitting 15 years ago. Smokeless Tobacco Status: No Alcohol use: none Drug use: none - Family History Father Race: Family Member Ethnicity: Non- Living Status: Age at : 80 Cause of : Pancreatic cancer Hx Family Respiratory Disorders: No Hx Family Cancer: Yes (Pancreatic) Hx Family GI Disorders: No Hx Family Endocrine Disorder: Yes (DM) Hx Family Neuromuscular Disorders: No Hx Family Neurologic Disorders: No Hx Family HEENT Disorders: No Hx Family Autoimmune Disorders: No Mother Race: Family Member Ethnicity: Non- Living Status: Age at : 94 Cause of : Old age Hx Family Neurologic Disorders: Yes (Dementia) Brother Race: Family Member Ethnicity: Non- Living Status: Hx Family Endocrine Disorder: Yes (DM) Sister Race: Family Member Ethnicity: Non- Living Status: Still Living Hx Family Medical Disorders: No - Gastrointestinal Gastrointestinal: Present: as per HPI - Constitutional Constitutional: as per HPI - EENT Eyes: as per HPI Ears: Present: as per HPI Nose, mouth and throat: Present: as per HPI - Cardiovascular Cardiovascular ROS: Present: as per HPI - Respiratory Respiratory IM: Present: as per HPI - Genitourinary Genitourinary: Absent: change in color, Urinary frequency - Neurological ROS Neurological GI: Present: as per HPI - Hematologic/Lymphatic Hematologic/Lymphatic pediatric: Present: as per HPI - Musculoskeletal Musculoskeletal ROS GI: Present: as per HPI - Integumentary Integumentary GI: Present: as per HPI - Psychiatric ROS Psychiatric GI: Present: as per HPI - Endocrine Endocrine IM: Present: as per HPI - Constitutional Vitals: Temp Pulse Resp BP Pulse Ox 97.8 F 69 14 148/71 94 06/07/17 07:33 06/07/17 07:33 06/07/17 07:33 06/07/17 07:33 06/07/17 07:33 General appearance: Present: cooperative, A&O X 3, no acute distress, answers questions appropriately - Head Head exam: Present: atraumatic, normocephalic - Eye Eye exam: Present: normal appearance, sclera anicteric - ENT ENT exam: Present: mucous membranes dry - Neck Neck exam general surgery: Present: normal inspection, trachea midline - Respiratory Respiratory exam: Present: CTAB. Absent: rales, rhonchi - Cardiovascular Cardiovascular exam: Present: RRR, +S1, +S2 Additional comments: AICD/pacemaker - GI/Abdominal GI/Abdominal exam: Present: soft, no peritoneal signs. Absent: distended, firm , guarding, tenderness - Rectal Rectal exam: Present: deferred - Extremities Exam Extremities exam: Present: warm - Neurological Exam Neurological exam: Present: no focal deficits - Psychiatric Psychiatric exam: Present: normal affect, normal mood - Skin Skin exam: Present: dry, intact, normal color, warm Results - Labs CBC & Chem 7: 06/07/17 05:39 06/07/17 05:39 Labs: Last Result Calcium 8.9 mg/dL (8.6-10.3) 06/07/17 05:39 Troponin I < 0.03 ng/mL (< 0.04) 06/05/17 09:22 Triglycerides 219 mg/dL (< 150) H 06/06/17 04:48 Stool Occult Blood Positive (Negative) A 06/05/17 09:53 Entire Visit Hgb 11.5 g/dL (11.5-15.4) 06/07/17 05:39 Hct 35.9 % (35.3-44.9) 06/07/17 05:39 PT 16.9 Seconds (9.4-12.1) H 06/07/17 05:39 Total Bilirubin 0.8 mg/dL (0.3-1.0) 06/07/17 05:39 AST 28 Units/L (13-39) 06/07/17 05:39 ALT 27 Units/L (7-52) 06/07/17 05:39 Lipase 38 Units/L (11-82) 06/05/17 09:22 - ABG ABG results: PT/INR, D-dimer PT 16.9 Seconds (9.4-12.1) H 06/07/17 05:39 Consult Discharge Plan - Plan Referrals: Ralf Perez MD [Primary Care Provider] - <Alexandria Carlos - Last Filed: 06/07/17 14:48> Date of Encounter: 06/07/17 Time of Encounter: 13:00 - Time Spent With Patient Total time spent is greater than 50% in coordination of care (as documented) at patient's floor/unit and/or counseling patient: GI History of Present Illness - Data of Consult Requesting Physician: Jordan Cook - Consult Narrative History of present illness: Ms. Navarrete is a 76 year old female - Constitutional Vitals: Temp Pulse Resp BP Pulse Ox 97.8 F 63 16 161/70 100 06/07/17 11:02 06/07/17 13:02 06/07/17 13:02 06/07/17 13:02 06/07/17 13:02 Results - Labs CBC & Chem 7: 06/07/17 05:39 06/07/17 05:39 Labs: Last Result Calcium 8.9 mg/dL (8.6-10.3) 06/07/17 05:39 Troponin I < 0.03 ng/mL (< 0.04) 06/05/17 09:22 Triglycerides 219 mg/dL (< 150) H 06/06/17 04:48 Stool Occult Blood Positive (Negative) A 06/05/17 09:53 Entire Visit Hgb 11.5 g/dL (11.5-15.4) 06/07/17 05:39 Hct 35.9 % (35.3-44.9) 06/07/17 05:39 PT 16.9 Seconds (9.4-12.1) H 06/07/17 05:39 Total Bilirubin 0.8 mg/dL (0.3-1.0) 06/07/17 05:39 AST 28 Units/L (13-39) 06/07/17 05:39 ALT 27 Units/L (7-52) 06/07/17 05:39 Lipase 38 Units/L (11-82) 06/05/17 09:22 - ABG ABG results: PT/INR, D-dimer PT 16.9 Seconds (9.4-12.1) H 06/07/17 05:39 - Attending Attestation I examined this patient and my medical decision-making was reviewed with the GLOBE MOUNTER. I agree with the documented findings, disposition and treatment plan as described except to the extent set forth below.
--- NOTE | 2017-06-07 10:47 | Internal Med Progress Note ---
<Omari Whipple - Last Filed: 06/07/17 15:19> Date of Encounter: 06/07/17 Time of Encounter: 11:00 - Assessment and plan (1) Acute GI bleeding Current Visit: Yes Status: Acute Assessment and plan: Acute blood loss secondary to diverticular bleed from mucosal ulceration. H/H stable, currently 11.5. INR 1.6 after receiving dose of vitamin K yesterday. Colonoscopy today reveals 2 nonbleeding polyps of the hepatic flexure that were removed with hot snare, resected and retrieved. A third 3 mm, nonbleeding polyp was found on ascending colon and treated with APC. Mucosal ulceration was biopsied and treated with APC Patient is advised to stay at hospital for monitoring due to subtherapeutic INR and finding of mucosal ulceration. Patient demonstrates understanding of treatment plan and is agreeable. Start cardiac diet. Continue IV fluids. Reconcile home medications. Monitor with a.m. labs (2) Subtherapeutic international normalized ratio (INR) Current Visit: Yes Status: Acute Assessment and plan: INR = 1.6 this a.m. Reconcile Coumadin home doses. 1.25mg MWF, 2.5mg STThSa Monitor PT/INR in the morning. (3) Recent urinary tract infection Current Visit: No Status: Acute Assessment and plan: Patient has an acute UTI diagnosed by PCP and reports having taken 5 doses of Bactrim. The patient is educated on the contraindications of taking Bactrim with Coumadin, and she reports that her PCP is aware. Hold Bactrim due to GI bleed and on Coumadin. She is advised to not take Bactrim in the future. Macrobid and PO medications held this AM pending colonoscopy/EGD. follow-up with outpatient PCP after discharge. (4) CAD (coronary artery disease) Current Visit: No Status: Chronic Assessment and plan: The patient has history of chronic CAD. Continue on amiodarone, Lopressor, hydrochlorothiazide. Hold Coumadin and aspirin due to acute blood loss secondary to diverticular bleed. Qualifiers: Coronary Disease-Associated Artery/Lesion type: bypass graft [place] vs. transplanted heart: [place] heart Associated angina: with stable angina Qualified Code(s): I25.708 - Atherosclerosis of coronary artery bypass graft(s) , unspecified, with other forms of angina pectoris (5) COPD (chronic obstructive pulmonary disease) Current Visit: No Status: Chronic Assessment and plan: History of chronic COPD. Stable. Qualifiers: COPD type: unspecified COPD Qualified Code(s): J44.9 - Chronic obstructive pulmonary disease, unspecified (6) HTN (hypertension) Current Visit: Yes Status: Chronic Assessment and plan: Stable. Home medications held due to pending colonoscopy/EGD. Qualifiers: Hypertension type: essential hypertension Qualified Code(s): I10 - Essential (primary) hypertension (7) Thyroid disease Current Visit: No Status: Chronic Assessment and plan: Continue with home medications. (8) DVT prophylaxis Current Visit: Yes Status: Acute Assessment and plan: Bilateral SCDs on lower extremities for DVT prophylaxis due to current acute GI bleed. - Subjective Interval history: 86-year-old female with past medical history of A. fib requiring ablation years ago, cardiomyopathy, COPD, CAD, previous DVT in 1996 causing [place], hyperlipidemia , hypertension, thyroid disease, triple bypass presents to the ED with chief complaint of GI bleeding. She is also recently treated with Bactrim for UTI with controlled Coumadin. She denies urinary urgency or frequency, hematuria. Confirms that she was NPO since midnight. Denies nausea, vomiting, fever, chills , chest pain, palpitations. Confirms multiple bowel movements last night. Ambulating well. - Constitutional Vitals: Temp Pulse Resp BP Pulse Ox 97.8 F 69 14 148/71 94 06/07/17 07:33 06/07/17 07:33 06/07/17 07:33 06/07/17 07:33 06/07/17 07:33 General appearance: Present: cooperative, A&O X 3, pleasant, no acute distress, obese, answers questions appropriately - Head Head exam: Present: atraumatic, normocephalic - Eye Eye exam: Present: PERRL, conjuntiva pink, sclera anicteric Pupils: Present: PERRL - Neck Neck exam general surgery: Present: supple, trachea midline. Absent: lymphadenopathy - Respiratory Respiratory exam: Present: CTAB. Absent: accessory muscle use, rales, rhonchi, wheezes - Cardiovascular Cardiovascular exam: Present: RRR, +S1, +S2. Absent: diastolic murmur, gallop, rubs, systolic murmur - GI/Abdominal GI/Abdominal exam: Present: diminished bowel sounds, soft, no peritoneal signs. Absent: distended, tenderness - Extremities Exam Extremities exam: Present: warm, radial pulses palpable and symmetrical. Absent : calf tenderness, cyanotic, pedal edema - Neurological Exam Neurological exam: Present: CN II-XII intact, oriented X3, no focal deficits. Absent: pronater drift, facial droop, speech deficit - Skin Skin exam: Present: dry, intact Internal Medicine: Result - Labs CBC & Chem 7: 06/07/17 05:39 06/07/17 05:39 Labs: Short CBC 06/07/17 Range/Units 05:39 WBC 5.3 (4.3-11.1) K/mcL Hgb 11.5 (11.5-15.4) g/dL Hct 35.9 (35.3-44.9) % Plt Count 211 (140-400) K/mcL Neutrophils # 3.3 (1.6-8.9) K/mcL BMP 06/07/17 05:39 Sodium 140 Potassium 4.2 Chloride 109 H Carbon Dioxide 27 BUN 13 Creatinine 0.66 Glucose 110 H Calcium 8.9 Liver Function 06/07/17 Range/Units 05:39 Total Bilirubin 0.8 (0.3-1.0) mg/dL AST 28 (13-39) Units/L ALT 27 (7-52) Units/L Alkaline Phosphatase 57 (34-104) Units/L Albumin 4.1 (3.5-5.7) g/dL - ABG Interpretation ABG results: PT/INR, D-dimer PT 16.9 Seconds (9.4-12.1) H 06/07/17 05:39 Consult Discharge Plan - Plan Referrals: Ralf Perez MD [Primary Care Provider] - <Jordan Cook H - Last Filed: 06/07/17 16:04> Date of Encounter: 06/07/17 - Constitutional Vitals: Temp Pulse Resp BP Pulse Ox 97.8 F 63 16 161/70 100 06/07/17 11:02 06/07/17 13:02 06/07/17 13:02 06/07/17 13:02 06/07/17 13:02 Internal Medicine: Result - Labs CBC & Chem 7: 06/07/17 05:39 06/07/17 05:39 Labs: Short CBC 06/07/17 Range/Units 05:39 WBC 5.3 (4.3-11.1) K/mcL Hgb 11.5 (11.5-15.4) g/dL Hct 35.9 (35.3-44.9) % Plt Count 211 (140-400) K/mcL Neutrophils # 3.3 (1.6-8.9) K/mcL BMP 06/07/17 05:39 Sodium 140 Potassium 4.2 Chloride 109 H Carbon Dioxide 27 BUN 13 Creatinine 0.66 Glucose 110 H Calcium 8.9 Liver Function 06/07/17 Range/Units 05:39 Total Bilirubin 0.8 (0.3-1.0) mg/dL AST 28 (13-39) Units/L ALT 27 (7-52) Units/L Alkaline Phosphatase 57 (34-104) Units/L Albumin 4.1 (3.5-5.7) g/dL - ABG Interpretation ABG results: PT/INR, D-dimer PT 16.9 Seconds (9.4-12.1) H 06/07/17 05:39 - Attending Attestation Acute blood loss anemia secondary to rectal bleed exacerbated by Coumadin and aspirin Not bleeding currently, colonoscopy performed, 3 polyps removed Resumed Coumadin and ASA Monitor blood counts, may discharge in the morning if stable I examined this patient and my medical decision-making was reviewed with the Resident Physician. I agree with the documented findings, disposition and treatment plan as described except to the extent set forth below.
[2017-06-07] MEDS ORDERED: 0.9 % Sodium Chloride 500 ML IVC SCH (13:15)
[2017-06-07] MEDS ORDERED: Propofol 500 MG/50 ML INFUS..BTL ONE (13:51)
--- NOTE | 2017-06-07 13:52 | Anesthesia Evaluation PreOp ---
Date of Encounter: 06/07/17 Time of Encounter: 13:49 - Past History Planned Operation: colonoscopy Cardiac History: [place] (1996), HTN, Hyperlipidemia, Arrhythmia (A fib), Cardiac Surgery (1996 - CABG, VSD repair), Pacemaker/ICD (AICD - initially placed 1996 ( replaced since then, checked every 3 months); will have interrogated today), Other (DVT 1996) Pulmonary History: Former smoker (quit 12 years ago) PODIATRIC ASSISTANT History: Denies Any Significant HX Other Medical History: Denies Any Significant HX Anesthesia History: No Prior Anesthetic Complications Alcohol Use: none Drug use: none Medications and Allergies Amiodarone [Cordarone] 100 mg PO DAILY 12/27/15 [History] Enalapril Maleate [Vasotec] 20 mg PO BID 12/27/15 [History] Levothyroxine [Synthroid] 100 mcg PO QAM 12/27/15 [History] Metoprolol [Lopressor] 75 mg PO BID 12/27/15 [History] Warfarin [Coumadin] 2.5 mg PO SUTUTHSA 12/27/15 [History] clonazePAM [Clonazepam] 0.5 mg PO BID 12/27/15 [History] hydroCHLOROthiazide [Hydrochlorothiazide] 12.5 mg PO DAILY 12/27/15 [History] Potassium Chloride [K-Tab ER] 20 meq PO TID 08/26/16 [History] Warfarin [Coumadin] 1.25 mg PO MOWEFR 08/26/16 [History] Omeprazole [PriLOSEC] 40 mg PO DAILY #30 cap 11/26/16 [Rx] Ranitidine HCl [Zantac] 150 mg PO BID PRN #30 tablet 11/26/16 [Rx] Furosemide [Lasix] 20 mg PO DAILY PRN 05/18/17 [History] Ipratropium/Albuterol Neb [Duoneb] 3 ml IH Q6HR PRN 05/18/17 [History] Aspirin 81 mg PO DAILY 05/19/17 [History] Sulfamethoxazole/Trimeth DS [Bactrim Ds] 1 tab PO BID 06/05/17 [History] 3 Allergy/AdvReac Type Severity Reaction Status Date / Time No Known Allergies Allergy Verified 05/18/17 11:32 - Meds/Allergy Pre-op Review Medications Reviewed: Yes Allergies Reviewed: Yes Beta Blockers on Current Med List: Yes If Beta Blockers taken, Date/Time (Last Dose taken): 06-06-17 metoprolol 21:30 Anesthesia Results - Labs 06/07/17 05:39 06/07/17 05:39 - Imaging EKG: report reviewed, image reviewed (electronic atrial pacemaker) Anesthesia Exam Last Vital Signs Temp 97.8 F 06/07/17 11:02 Pulse 63 06/07/17 13:02 Resp 16 06/07/17 13:02 BP 161/70 06/07/17 13:02 Pulse Ox 100 06/07/17 13:02 Weight: 63 kg NPO (# of Hours): > 8 hrs - HEENT Pupil (Motor): Pupils equal, EOMI Mallampati: III Teeth: Normal Oral Opening: Greater than 3 - PODIATRIC ASSISTANT LOC: Oriented - Cardiac Rhythm: Regular - Pulmonary Breath Sounds: bilateral Clear Respiratory Effort: Symmetrical Anesthesia Assess/Plan ASA Score: 3 Modified Flushing Scale for Level of Consciousness: Cooperative, oriented, and tranquil Anesthetic Plan: MAC Monitoring Plan: Standard Monitors Recovery Plan: PACU
[2017-06-07] MEDS ORDERED: Famotidine 20 MG TABLET PO PRN ×2 (15:25→15:45)
[2017-06-07] MEDS: Aspirin 81 MG TAB.CHEW PO SCH (15:58)
[2017-06-07] MEDS ORDERED: *HR* Warfarin 2.5 MG TABLET PO SCH (18:00)
[2017-06-08 06:23] LABS: Basophils % 0.5 %; Eosinophils # 0.1 K/mcL (0.0-0.6); Hematocrit 36.5 % (35.3-44.9); Hemoglobin 12.1 g/dL (11.5-15.4); Immature Granulocytes % 0.3 % (0-4); Lymphocytes # 1.6 K/mcL (0.6-4.6); Mean Corpuscular HGB Conc 33.2 g/dL (31.6-35.5); Mean Corpuscular Hemoglobin 31.9 pg (28.0-33.3); Mean Corpuscular Volume 96.3 fL (83.0-100.0); Mean Platelet Volume 10.8 fL (9.4-12.4); Monocytes # 0.6 K/mcL (0.0-1.3); Monocytes % 8.3 %; Neutrophils # 5.3 K/mcL (1.6-8.9); Platelet Count 210 K/mcL (140-400); Red Blood Count 3.79 M/mcL (3.82-4.97); Red Cell Distribution Width 14.2 % (11.5-14.5); Segmented Neutrophils % 68.9 %
[2017-06-08 06:36] LABS: INR 1.1; Prothrombin Time 12.3 Seconds (9.4-12.1)
[2017-06-08 06:44] LABS: Alanine Aminotransferase 24 Units/L (7-52); Albumin 4.3 g/dL (3.5-5.7); Albumin/Globulin Ratio 1.8 (1.1-2.2); Alkaline Phosphatase 59 Units/L (34-104); Aspartate Amino Transferase 24 Units/L (13-39); BUN/Creatinine Ratio 25 (6-26); Bilirubin,Total 0.7 mg/dL (0.3-1.0); Blood Urea Nitrogen 16 mg/dL (8-23); Calcium 8.9 mg/dL (8.6-10.3); Carbon Dioxide 25 mEq/L (23-29); Chloride 107 mEq/L (98-107); Globulin 2.4 g/dL (2.4-3.5); Glucose 106 mg/dL (70-105); Osmolality,Calculated 284 (280-300); Potassium 4.3 mEq/L (3.5-5.1); Sodium 136 mEq/L (136-145); Total Protein 6.7 g/dL (6.4-8.9); eGFR For African Americans > 60 (> 60); eGFR For Non-African Americans > 60 (> 60)
[2017-06-08 07:38] VITALS: BP 156/73
[2017-06-08] MEDS: Nitrofurantoin (BID) 100 MG CAPSULE PO SCH (07:58)
[2017-06-08] MEDS: *HR* Amiodarone 200 MG TABLET PO SCH (07:58)
[2017-06-08] MEDS: Aspirin 81 MG TAB.CHEW PO SCH (07:58)
[2017-06-08] MEDS: hydroCHLOROthiazide 25 MG TABLET PO SCH (08:00)
[2017-06-08] MEDS: clonazePAM 0.5 MG TABLET PO SCH (08:01)
[2017-06-08] MEDS: Lisinopril 20 MG TABLET PO SCH (08:02)
--- NOTE | 2017-06-08 08:48 | Discharge Summary ---
<Omari Whipple - Last Filed: 06/08/17 09:02> Date of Encounter: 06/08/17 Time of Encounter: 08:45 - Discharge Diagnosis (1) Acute GI bleeding Priority: Primary Status: Acute (2) Subtherapeutic international normalized ratio (INR) Priority: Secondary Status: Acute (3) Recent urinary tract infection Priority: Secondary Status: Acute (4) CAD (coronary artery disease) Priority: Secondary Status: Chronic Qualifiers: Coronary Disease-Associated Artery/Lesion type: bypass graft [place] vs. transplanted heart: [place] heart Associated angina: with stable angina Qualified Code(s): I25.708 - Atherosclerosis of coronary artery bypass graft(s) , unspecified, with other forms of angina pectoris (5) COPD (chronic obstructive pulmonary disease) Priority: Secondary Status: Chronic Qualifiers: COPD type: unspecified COPD Qualified Code(s): J44.9 - Chronic obstructive pulmonary disease, unspecified (6) HTN (hypertension) Priority: Secondary Status: Chronic Qualifiers: Hypertension type: essential hypertension Qualified Code(s): I10 - Essential (primary) hypertension (7) Thyroid disease Priority: Secondary Status: Chronic (8) History of atrial fibrillation Priority: Secondary Status: Acute (9) History of DVT (deep vein thrombosis) Priority: Secondary Status: Acute - Discharge Medications Prescriptions: Enoxaparin [Lovenox] 90 mg SQ Q12HR #6 syr Nitrofurantoin (BID) [Macrobid] 100 mg PO BID 4 Days #8 capsule Home Medications: Amiodarone [Cordarone] 100 mg PO DAILY 12/27/15 [History] Enalapril Maleate [Vasotec] 20 mg PO BID 12/27/15 [History] Levothyroxine [Synthroid] 100 mcg PO QAM 12/27/15 [History] Metoprolol [Lopressor] 75 mg PO BID 12/27/15 [History] Warfarin [Coumadin] 2.5 mg PO SUTUTHSA 12/27/15 [History] clonazePAM [Clonazepam] 0.5 mg PO BID 12/27/15 [History] hydroCHLOROthiazide [Hydrochlorothiazide] 12.5 mg PO DAILY 12/27/15 [History] Potassium Chloride [K-Tab ER] 20 meq PO TID 08/26/16 [History] Warfarin [Coumadin] 1.25 mg PO MOWEFR 08/26/16 [History] Omeprazole [PriLOSEC] 40 mg PO DAILY #30 cap 11/26/16 [Rx] Ranitidine HCl [Zantac] 150 mg PO BID PRN #30 tablet 11/26/16 [Rx] Furosemide [Lasix] 20 mg PO DAILY PRN 05/18/17 [History] Ipratropium/Albuterol Neb [Duoneb] 3 ml IH Q6HR PRN 05/18/17 [History] Aspirin 81 mg PO DAILY 05/19/17 [History] Enoxaparin [Lovenox] 90 mg SQ Q12HR #6 syr 06/08/17 [Rx] Nitrofurantoin (BID) [Macrobid] 100 mg PO BID 4 Days #8 capsule 06/08/17 [Rx] Nitrofurantoin (BID) [Macrobid] 100 mg PO BIDWM 4 Days #8 capsule 06/08/17 [Rx] Allergies/Adverse Reactions: 3 Allergy/AdvReac Type Severity Reaction Status Date / Time No Known Allergies Allergy Verified 05/18/17 11:32 Date of admission: 06/05/17 11:24 Primary care physician: Ralf Perez MD Consults: 06/05/17 12:48 Consult to Gastroenterology [CONS] Routine Consulting Provider: Gastroenterology [facility] Reason for Consult: Patient being admitted for GI bleed this morning. Reports bright blood in toilet following epigastric pain last night. States she has hx of ulcer. States she had a bowel movement after episode w/o bleeding. ED spoke osvaldo/Dr. Whaley regarding this pt. Call Completed: Yes Consult to Luncheonette Manager [CONS] Routine Reason for SW Consult: Please assess patient for possible home needs for post -discharge planning 06/05/17 12:51 Consult to Cardiology [CONS] Routine Comment: Consulting Provider: Cardiology [facility] Reason for Consult: Patient being admitted for GI bleed this morning. Reports bright blood in toilet following epigastric pain last night. States she has hx of ulcer. States she had a bowel movement after episode w/o bleeding. ED spoke osvaldo/Dr. Whaley regarding this pt. Concern is for patient being on Coumadin currently for hx of CA caused by blood clot and hx of Afib. INR 2.5 on admission. Pt. reports she has appt. Wednesday at Coumadin clinic. Recommendation from cardiology for pts. Coumadin d/t current GI bleed today. Hgb 13.4 and Hct 39.4 on admission. Call Completed: Yes Discharging clinician: Omari Whipple Anticipated date of discharge: 06/08/17 - Patient Status Disposition: Home, Self-Care Condition: Good Functional capacity at discharge: independent ambulation Overall status at discharge: patient is back to baseline - Discharge Instructions Follow Up With: Ralf Perez MD [Primary Care Provider] - 06/14/17 9:45 am ([facility] Clinic Appt. WednesdayJune 11 at 1:00. Thank you) Additional Instructions: Follow up with PCP and at [facility]mad[facility] Clinic for subtherapeutic INR. - Diet and Activity Activity: resume usual activities as tolerated Diet: advance to your usual diet Hospital course: Ms. Navarrete is a 76 year old female with past medical history of A. fib requiring ablation 10 years ago, cardiomyopathy, COPD, CAD, history of DVT in 1996 causing CA, hyperlipidemia, hypertension, thyroid disease, triple bypass presents to emergency room with chief complaint of GI bleeding including one episode of large amount of red blood in stool. She reported that she was being treated for UTI with Bactrim. Denied any subsequent episode of bloody stool. Denied any headaches, weakness, dizziness, blurry vision, CP, SOB, palpitations. Admits to abdominal pain prior to bloody stool. Also admits to history of peptic ulcers. At ED, CT of abdomen/pelvis demonstrated left ventricular aneurysm, calcific arthrosclerotic disease the lower duct, no discrete small bowel or colonic findings to suggest etiology of rectal bleeding. H&H stable throughout her admission. The patient received dose of vitamin K and completed colonoscopy on 06/07/17. Colonoscopy revealed 2 nonbleeding polyps at that hepatic flexure, which were removed, resected and retrieved. Another 3 mm, nonbleeding polyp In Ascending Colon and Treated with APC. Mucosal Ulceration was noted, biopsied and treated with APC. INR currently subtherapeutic (1.1<1.6<2.1<2.5). Today, patient is asymptomatic, denies any active bleeding, denies headaches, blurred vision, dizziness, weakness. She has no acute complaints. Patient currently has subtherapeutic INR, which increases her risk of stroke. The risk of leaving today with subtherapeutic INR is explained to her extensively, but patient insists that she will follow-up closely at the Coumadin Clinic and is adamant about leaving today. She demonstrates history of compliance with medication and close follow-up with her medical health. Instruction on using Lovenox SQ for bridging was given. Conditional discharge with close follow-up with PCP and Coumadin clinic. Patient demonstrates understanding of medical plan. - Time Spent with Patient Total time spent providing and/or coordinating discharge services: Greater than 30 minutes - Constitutional Vitals: Temp Pulse Resp BP Pulse Ox 97.9 F 67 18 156/73 97 06/08/17 07:37 06/08/17 07:37 06/08/17 07:37 06/08/17 07:37 06/08/17 07:37 General appearance: Present: cooperative, A&O X 3, pleasant, no acute distress, obese, answers questions appropriately - Head Head exam: Present: atraumatic, normocephalic - Eye Eye exam: Present: PERRL, conjuntiva pink, sclera anicteric Pupils: Present: PERRL - Neck Neck exam general surgery: Present: supple, trachea midline. Absent: lymphadenopathy - Respiratory Respiratory exam: Present: CTAB. Absent: accessory muscle use, rales, rhonchi, wheezes - Cardiovascular Cardiovascular exam: Present: RRR, +S1, +S2. Absent: diastolic murmur, gallop, rubs, systolic murmur - GI/Abdominal GI/Abdominal exam: Present: normal bowel sounds, soft, no peritoneal signs. Absent: distended, tenderness - Extremities Exam Extremities exam: Present: warm, radial pulses palpable and symmetrical. Absent : calf tenderness, cyanotic, pedal edema - Neurological Exam Neurological exam: Present: CN II-XII intact, oriented X3, no focal deficits. Absent: pronater drift, facial droop, speech deficit - Skin Skin exam: Present: dry, intact <Ang Nayak T - Last Filed: 06/08/17 12:15> Date of Encounter: 06/08/17 Date of admission: 06/05/17 11:24 Primary care physician: Ralf Perez MD Consults: 06/05/17 12:48 Consult to Gastroenterology [CONS] Routine Consulting Provider: Gastroenterology [place] Reason for Consult: Patient being admitted for GI bleed this morning. Reports bright blood in toilet following epigastric pain last night. States she has hx of ulcer. States she had a bowel movement after episode w/o bleeding. ED spoke w/Dr. Whaley regarding this pt. Call Completed: Yes Consult to Luncheonette Manager [CONS] Routine Reason for SW Consult: Please assess patient for possible home needs for post -discharge planning 06/05/17 12:51 Consult to Cardiology [CONS] Routine Comment: Consulting Provider: Cardiology [facility] Reason for Consult: Patient being admitted for GI bleed this morning. Reports bright blood in toilet following epigastric pain last night. States she has hx of ulcer. States she had a bowel movement after episode w/o bleeding. ED spoke w/Dr. Whaley regarding this pt. Concern is for patient being on Coumadin currently for hx of CA caused by blood clot and hx of Afib. INR 2.5 on admission. Pt. reports she has appt. Wednesday at Coumadin clinic. Recommendation from cardiology for pts. Coumadin d/t current GI bleed today. Hgb 13.4 and Hct 39.4 on admission. Call Completed: Yes Hospital course: Ms. Navarrete is a 76 year old female - Time Spent with Patient Total time spent providing and/or coordinating discharge services: - Constitutional Vitals: Temp Pulse Resp BP Pulse Ox 97.9 F 67 18 156/73 97 06/08/17 07:37 06/08/17 07:37 06/08/17 07:37 06/08/17 07:37 06/08/17 07:37 - Attending Attestation I examined this patient and my medical decision-making was reviewed with the Resident Physician. I agree with the documented findings, disposition and treatment plan as described except to the extent set forth below Seen and examined at bedside Hb is stable, s/p colonoscopy with no evidence of bleed, mucosal ulceration which was auterized and polypectomy Clinically and hemodynamically stable Physical exam is unremarkable Safe to discharge home on current meds, warfarin and therapeutic chucho, RN to teach patient how to inject Follow up in INR clinic on Wednesday for INR check Plan of care discussed , verbalized understanding Rest of details as in resident physician's documentation
[2017-06-08] MEDS ORDERED: *HR* Enoxaparin 100 MG/ML SYRINGE SQ ONE (09:39)
[2017-06-08] MEDS ORDERED: *HR* Warfarin 2.5 MG TABLET PO SCH (18:00)
--- NOTE | 2017-06-08 19:24 | Electrocardiograph Report ---
[address] [place] [id number] Test Date: 2017-06-05 Pat Name: Patricia Navarrete Department: 103 Room: 3A35 Gender: F Street Inspector: DARRYN : 1940 Requested By: Donato Ball Order Number: [id number] Reading MD: Sorin Us MD Measurements Intervals [place] Rate: 64 P: 256 MT: 273 QRS: 6 QRSD: 105 T: 150 QT: 399 QTc: 409 Interpretive Statements ELECTRONIC ATRIAL PACEMAKER INCOMPLETE RIGHT BUNDLE BRANCH BLOCK LATERAL ISCHEMIA Electronically Signed On 06-08-2017 19:22:42 EST by Sorin Us MD
== END 2017-06-08 11:08 | disposition home or self-care (01) ==
LOC: EMEROO 08:48 → 3ANU 08:48 → SUATTDRO 11:24 → 3ANU 12:38
PROVIDERS: ADMIT Internal Medicine; ATTEND Internal Medicine

== ENCOUNTER 2017-09-14 15:05 | Observation (INO) ==
[2017-09-14 18:13] LABS: Basophils % 0.6 %; Eosinophils # 0.1 K/mcL (0.0-0.6); Eosinophils % 1.6 %; Hematocrit 36.4 % (35.3-44.9); Hemoglobin 12.6 g/dL (11.5-15.4); Immature Granulocytes % 0.1 % (0-4); Lymphocytes # 2.2 K/mcL (0.6-4.6); Mean Corpuscular HGB Conc 34.6 g/dL (31.6-35.5); Mean Corpuscular Hemoglobin 33.6 pg (28.0-33.3); Mean Corpuscular Volume 97.1 fL (83.0-100.0); Mean Platelet Volume 10.7 fL (9.4-12.4); Monocytes # 0.7 K/mcL (0.0-1.3); Monocytes % 9.6 %; Platelet Count 240 K/mcL (140-400); Red Blood Count 3.75 M/mcL (3.82-4.97); Red Cell Distribution Width 12.7 % (11.5-14.5); Segmented Neutrophils % 57.1 %
[2017-09-14 18:26] LABS: INR 2.7; Prothrombin Time 29.3 Seconds (9.4-12.1)
[2017-09-14 18:29] LABS: Activated Partial Thrombo Time 39.8 Seconds (26.0-36.0)
--- NOTE | 2017-09-14 18:36 | Emergency Department Note ---
Disposition Clinical Impression: Palpitations Disposition: Admitted As Inpatient Condition: Good Referrals: Ralf Perez MD [Primary Care Provider] - Forms: ED Satisfaction Letter Time of Disposition: 18:51 Arrhythmia/Palpitations HPI - General Chief Complaint: ED Arrhythmia/Palpitations Stated Complaint: AFIB Time Seen by Provider: 09/14/17 18:15 Source: patient Limitations: no limitations Nursing Notes Reviewed: Yes Vital Signs Reviewed: Yes - History of Present Illness HPI Narrative: This is a 76 year-old female with history of HTN and AF, s/p pacer/defib,who presents with intermittent palpitations, associated with nausea and generalized weakness, for the past week. She was seen here yesterday with similar symptoms and diagnosed with atrial fibrillation. She declined admission then, but is now requesting admission. She denies an associated chest pain, dyspnea, leg pain or swelling. - Related Data Home Medications Medication Instructions Recorded Confirmed Amiodarone [Cordarone] 100 mg PO DAILY 12/27/15 06/05/17 Enalapril Maleate [Vasotec] 20 mg PO BID 12/27/15 06/05/17 Levothyroxine [Synthroid] 100 mcg PO QAM 12/27/15 06/05/17 Metoprolol [Lopressor] 75 mg PO BID 12/27/15 06/05/17 Warfarin [Coumadin] 2.5 mg PO SUTUTHSA 12/27/15 06/05/17 clonazePAM [Clonazepam] 0.5 mg PO BID 12/27/15 06/05/17 hydroCHLOROthiazide 12.5 mg PO DAILY 12/27/15 06/05/17 [Hydrochlorothiazide] Potassium Chloride [K-Tab ER] 20 meq PO TID 08/26/16 06/05/17 Warfarin [Coumadin] 1.25 mg PO MOWEFR 08/26/16 06/05/17 Furosemide [Lasix] 20 mg PO DAILY PRN 05/18/17 06/05/17 Ipratropium/Albuterol Neb [Duoneb] 3 ml IH Q6HR PRN 05/18/17 06/05/17 Aspirin 81 mg PO DAILY 05/19/17 06/05/17 Previous Rx's Medication Instructions Recorded Omeprazole [PriLOSEC] 40 mg PO DAILY #30 cap 11/26/16 Ranitidine HCl [Zantac] 150 mg PO BID PRN #30 tablet 11/26/16 Enoxaparin [Lovenox] 90 mg SQ Q12HR #6 syr 06/08/17 Nitrofurantoin (BID) [Macrobid] 100 mg PO BID 4 Days #8 capsule 06/08/17 Nitrofurantoin (BID) [Macrobid] 100 mg PO BIDWM 4 Days #8 capsule 06/08/17 Allergies Allergy/AdvReac Type Severity Reaction Status Date / Time No Known Allergies Allergy Verified 09/14/17 17:46 All systems ED: reviewed and negative except as stated. Constitutional: Denies: fever Cardiovascular: Reports: palpitations. Denies: chest pain, edema, syncope Respiratory: Denies: dyspnea Gastrointestinal: Reports: nausea (intermittent). Denies: abdominal pain, vomiting Past Medical History - Past Medical History Medical history: Reports: atrial fibrillation, cardiomyopathy, COPD, coronary artery disease, DVT, hyperlipidemia, hypertension, myocardial infarction, thyroid disease, other Surgical history: Reports: coronary bypass (CABG), other (VSD repair), AICD Psychiatric history: Reports: anxiety AEROPHYSICS ENGINEER history: Reports: no AEROPHYSICS ENGINEER history - Social History Smoking Status: Former smoker Smokeless Tobacco Status: No Alcohol use: Reports: none Drug use: Reports: none Physical Exam - General Limitations: no limitations General appearance: alert - Head Head exam: atraumatic, normocephalic - Eye Eye exam: Present: normal appearance - ENT ENT exam: normal exam - Neck Neck exam: Present: normal inspection - Respiratory Respiratory exam: Present: normal lung sounds bilaterally. Absent: wheezes - Cardiovascular Cardiovascular exam: Present: regular rate, irregular rhythm - Abdominal Exam Abdominal exam: Present: soft, Non-Tender. Absent: distention - Extremities Exam Extremities exam: Present: normal inspection. Absent: calf tenderness - Neurological Exam Neurological exam: Present: alert, oriented X3, CN II-XII intact. Absent: motor sensory deficit - Psychiatric Psychiatric exam: Present: normal affect, normal mood - Skin Skin exam: Present: warm, dry, intact Course - Reevaluation(s) Reevaluation #1: Patient remains stable, chest pain free. Time: 18:51 - Consultations Consultation #1: Disussed with Dr. Hall. Patient accepted for admission. Time: 18:51 Vital Signs Temperature 97.7 F 09/14/17 15:12 Pulse Rate 69 09/14/17 15:12 Respiratory Rate 15 09/14/17 15:12 Blood Pressure 167/91 09/14/17 15:12 O2 Sat by Pulse Oximetry 96 09/14/17 15:12 Temperature 97.7 F 09/14/17 17:52 Pulse Rate 73 09/14/17 18:30 Respiratory Rate 20 09/14/17 18:30 Blood Pressure 149/69 09/14/17 18:30 O2 Sat by Pulse Oximetry 96 09/14/17 18:30 Oxygen Delivery Oxygen Delivery Room Air Arrhythmia/Palpitations - Lab Data Result diagrams: 09/14/17 17:34 09/14/17 17:34 Lab Results 09/14/17 09/14/17 09/14/17 Range/Units 17:34 17:34 17:34 WBC 7.0 (4.3-11.1) K/mcL RBC 3.75 L (3.82-4.97) M/mcL Hgb 12.6 (11.5-15.4) g/dL Hct 36.4 (35.3-44.9) % MCV 97.1 (83.0-100.0) fL MCH 33.6 H (28.0-33.3) pg MCHC 34.6 (31.6-35.5) g/dL RDW 12.7 (11.5-14.5) % Plt Count 240 (140-400) K/mcL MPV 10.7 (9.4-12.4) fL Immature Gran % 0.1 (0-4) % Seg Neutrophils % 57.1 % Lymphocytes % 31.0 % Monocytes % 9.6 % Eosinophils % 1.6 % Basophils % 0.6 % Neutrophils # 4.0 (1.6-8.9) K/mcL Lymphocytes # 2.2 (0.6-4.6) K/mcL Monocytes # 0.7 (0.0-1.3) K/mcL Eosinophils # 0.1 (0.0-0.6) K/mcL Basophils # 0.0 (0.0-0.2) K/mcL PT 29.3 H (9.4-12.1) Seconds INR 2.7 APTT 39.8 H (26.0-36.0) Seconds Sodium 140 (136-145) mEq/L Potassium 4.2 (3.5-5.1) mEq/L Chloride 108 H (98-107) mEq/L Carbon Dioxide 23 (23-29) mEq/L BUN 14 (8-23) mg/dL Creatinine 0.78 (0.60-1.20) mg/dL Est GFR ( Amer) > 60 (> 60) Est GFR (Non-Af Amer) > 60 (> 60) BUN/Creatinine Ratio 18 (6-26) Glucose 101 (70-105) mg/dL Calculated Osmolality 291 (280-300) Calcium 9.3 (8.6-10.3) mg/dL Magnesium 2.2 (1.6-2.6) mg/dL Troponin I 0.03 (< 0.04) ng/mL TSH 0.453 (0.340-5.600) mcIU/mL - EKG Data EKG attestation: Yes I reviewed and interpreted this EKG. EKG results narrative: Paged rhythm at 67. EKG from yesterday showed atrial fibrillation at 81.
[2017-09-14 18:38] LABS: BUN/Creatinine Ratio 18 (6-26); Blood Urea Nitrogen 14 mg/dL (8-23); Calcium 9.3 mg/dL (8.6-10.3); Carbon Dioxide 23 mEq/L (23-29); Chloride 108 mEq/L (98-107); Glucose 101 mg/dL (70-105); Magnesium 2.2 mg/dL (1.6-2.6); Osmolality,Calculated 291 (280-300); Potassium 4.2 mEq/L (3.5-5.1); Sodium 140 mEq/L (136-145); Troponin I 0.03 ng/mL (< 0.04); eGFR For African Americans > 60 (> 60); eGFR For Non-African Americans > 60 (> 60)
[2017-09-14 18:52] LABS: Thyroid Stimulating Hormone 0.453 mcIU/mL (0.340-5.600)
--- NOTE | 2017-09-14 22:03 | Internal Med History&Physical ---
<Omari Whipple - Last Filed: 09/14/17 22:24> Date of Encounter: 09/14/17 Time of Encounter: 21:00 Internal Medicine - H&P: HPI Chief complaint: Palpitations Admitted From: Emergency Dept Plans for Post Hospital Care: Home History of present illness: Ms. Navarrete is a 76 year old female PMHx HTN, s/p CABG, s/p pacer/defib on coumadin, recently diagnosed A. Fib, hypothyroidism, presents for intermittent palpitations with nausea and left-sided lower extremity weakness for the last several months. She reports that symptoms have persisted and she decided to come in for further evaluation. Patient was seen yesterday for similar symptoms yesterday, but decided to leave AMA. She comes back today for unresolved symptoms. She reports palpitations occur without exertion, and her abdomen "feels funny" during those episodes. Denies CP, SOB, cough, n/v, recent illness. Does have history of heartburn and reports episodes of palpitations make it worse. No symptoms. Past Med Surg Social Fam HX - Past Medical History Medical history: arthritis, atrial fibrillation, cardiomyopathy, COPD, coronary artery disease, DVT, hyperlipidemia, hypertension, myocardial infarction, thyroid disease, other Psychiatric history: anxiety - Past Surgical History Surgical History: coronary bypass (CABG), other, AICD - Social History Smoking Status: Former smoker Smokeless Tobacco Status: No Alcohol use: none Drug use: none - Family History Father Family Member Ethnicity: Non- Living Status: Hx Family Respiratory Disorders: No Hx Family Cancer: Yes (Pancreatic) Hx Family GI Disorders: No Hx Family Endocrine Disorder: Yes (DM) Hx Family Neuromuscular Disorders: No Hx Family Neurologic Disorders: No Hx Family HEENT Disorders: No Hx Family Autoimmune Disorders: No Mother Family Member Ethnicity: Non- Living Status: Hx Family Neurologic Disorders: Yes (Dementia) Brother Family Member Ethnicity: Non- Living Status: Hx Family Endocrine Disorder: Yes (DM) Sister Family Member Ethnicity: Non- Living Status: Still Living Internal Medicine - H&P: Meds Amiodarone [Cordarone] 100 mg PO DAILY 12/27/15 [History] Enalapril Maleate [Vasotec] 20 mg PO BID 12/27/15 [History] Levothyroxine [Synthroid] 100 mcg PO QAM 12/27/15 [History] Metoprolol [Lopressor] 75 mg PO BID 12/27/15 [History] Warfarin [Coumadin] 3.75 mg PO MOTH 12/27/15 [History] clonazePAM [Clonazepam] 0.5 mg PO BID 12/27/15 [History] hydroCHLOROthiazide [Hydrochlorothiazide] 12.5 mg PO DAILY 12/27/15 [History] Potassium Chloride [K-Tab ER] 20 meq PO TID 08/26/16 [History] Warfarin [Coumadin] 2.5 mg PO SUTUWEFRSA 08/26/16 [History] Omeprazole [PriLOSEC] 40 mg PO DAILY #30 cap 11/26/16 [Rx] Ranitidine HCl [Zantac] 150 mg PO BID PRN #30 tablet 11/26/16 [Rx] Furosemide [Lasix] 20 mg PO DAILY PRN 05/18/17 [History] Aspirin 81 mg PO DAILY 05/19/17 [History] 3 Allergy/AdvReac Type Severity Reaction Status Date / Time No Known Allergies Allergy Verified 09/14/17 17:46 All Systems PM: A 10-system review of systems was performed and is negative for pertinent findings except as documented above in the HPI. - Constitutional Constitutional: no chills, no fever(s), no night sweats - EENT Eyes: no change in vision, no discharge, no pain, no photophobia Ears: no ear discharge, no ear pain, no tinnitus Nose, mouth and throat: no dysphagia, no nasal discharge, no neck pain, no sore throat - Cardiovascular Cardiovascular ROS IM: palpitations, no chest pain, no diaphoresis, no dyspnea, no lightheadedness, no syncope - Respiratory Respiratory: no cough, no dyspnea, no wheezing, no excessive phlegm production - Gastrointestinal Gastrointestinal: no abdominal pain, no diarrhea, no hematemesis, no hematochezia, no melena, no nausea, no vomiting - Genitourinary Genitourinary: no change in urinary stream, no dysuria, no flank pain, no hematuria - Musculoskeletal Musculoskeletal ROS IM: muscle weakness, no numbness, no tingling - Integumentary Integumentary IM: no rash, no unusual bruising - Neurological Neurological ROS: no confusion, no convulsions, no focal weakness, no numbness, no tingling, no tremor(s) - Hematologic/Lymphatic Hematologic/Lymphatic: no easy bruising - Constitutional Vitals: Temp Pulse Resp BP Pulse Ox 98.0 F 73 16 152/85 96 09/14/17 20:54 09/14/17 20:54 09/14/17 20:54 09/14/17 20:54 09/14/17 20:54 General appearance: Present: A&O X 3, no acute distress, answers questions appropriately - Head Head exam: Present: atraumatic, normocephalic - Eye Eye exam: Present: EOMI, conjuntiva pink, sclera anicteric - Neck Neck exam general surgery: Present: full ROM, supple, trachea midline. Absent: lymphadenopathy - Respiratory Respiratory exam: Present: CTAB. Absent: accessory muscle use, rales, rhonchi, wheezes - Cardiovascular Cardiovascular exam: Present: RRR, +S1, +S2. Absent: diastolic murmur, gallop, rubs, systolic murmur - GI/Abdominal GI/Abdominal exam: Present: normal bowel sounds, soft, no peritoneal signs. Absent: distended, tenderness - Extremities Exam Extremities exam: Present: warm, radial pulses palpable and symmetrical. Absent : calf tenderness, cyanotic, pedal edema - Neurological Exam Neurological exam: Present: CN II-XII intact, oriented X3, no focal deficits. Absent: pronater drift, facial droop, speech deficit - Skin Skin exam: Present: dry, intact Internal Med - H&P Results - Labs CBC & Chem 7: 09/14/17 17:34 09/14/17 17:34 - Assessment and plan (1) Atrial fibrillation Current Visit: Yes Status: Resolved Assessment and plan: intermittent palpitations for last 5 months associated with weakness and nausea for the last week. EKG independently read showing A. fib, s/p pacemaker Admit for observation Patient was recently diagnosed with A. Fib and follows Dr. Aguilera. She has pacemaker/defibrillator for a reported ventricular arrhythmia in the past. On Coumadin, INR = 2.7. History of prior [place], s/p CABG. last echo 05/2017 with EF = 40-45% and severe LV dysfunction Stress test also performed in 05/2017 with EF 71%, no acute ischemia troponin negative x1, no chest pain Repeat echo in the setting of new onset of symptoms. Consult cardiology for recommendations of management of symptomatic A.fib Qualifiers: Atrial fibrillation type: unspecified Qualified Code(s): I48.91 - Unspecified atrial fibrillation (2) HTN (hypertension) Current Visit: No Status: Chronic Assessment and plan: Stable. Continue Home medications Qualifiers: Hypertension type: essential hypertension Qualified Code(s): I10 - Essential (primary) hypertension (3) Thyroid disease Current Visit: No Status: Chronic Assessment and plan: Continue home synthroid (4) DVT prophylaxis Current Visit: No Status: Acute Assessment and plan: Countinue warfarin (5) Palpitations Current Visit: Yes Status: Acute Assessment and plan: secondary to A. Fib. Treat per above. - Time Spent With Patient Total time spent is greater than 50% in coordination of care (as documented) at patient's floor/unit and/or counseling patient: Greater than 35 minutes <Viola Rothman - Last Filed: 09/15/17 02:54> Date of Encounter: 09/15/17 Internal Medicine - H&P: HPI History of present illness: Ms. Navarrete is a 76 year old female All Systems PM: A 10-system review of systems was performed and is negative for pertinent findings except as documented above in the HPI. - Constitutional Vitals: Temp Pulse Resp BP Pulse Ox 98.0 F 67 16 135/72 93 09/15/17 02:45 09/15/17 02:45 09/15/17 02:45 09/15/17 02:45 09/15/17 02:45 Internal Med - H&P Results - Labs CBC & Chem 7: 09/14/17 17:34 09/14/17 17:34 Labs: Cardiac Enzymes 09/14/17 Range/Units 22:24 Troponin I < 0.03 (< 0.04) ng/mL - Attending Attestation I have seen and examined patient independently. I have discussed with resident physician Dr. Whipple regarding the management plan. Agree with the documentation. - Assessment and plan (1) HTN (hypertension) Current Visit: No Status: Chronic Qualifiers: Hypertension type: essential hypertension Qualified Code(s): I10 - Essential (primary) hypertension (2) Thyroid disease Current Visit: No Status: Chronic (3) DVT prophylaxis Current Visit: No Status: Acute (4) Atrial fibrillation Current Visit: Yes Status: Resolved Qualifiers: Atrial fibrillation type: unspecified Qualified Code(s): I48.91 - Unspecified atrial fibrillation (5) Palpitations Current Visit: Yes Status: Acute - Time Spent With Patient Total time spent is greater than 50% in coordination of care (as documented) at patient's floor/unit and/or counseling patient:
[2017-09-14] MEDS ORDERED: Naloxone 0.4 MG/ML INJ IVP PRN (22:12)
[2017-09-14] MEDS ORDERED: Acetaminophen 325 MG TABLET PO PRN (22:12)
[2017-09-14] MEDS ORDERED: Famotidine 20 MG TABLET PO PRN (22:14)
[2017-09-14] MEDS ORDERED: Furosemide 20 MG TABLET PO PRN (22:14)
[2017-09-14] MEDS ORDERED: *HR* Warfarin 2.5 MG TABLET PO ONE (23:30)
[2017-09-14] MEDS: Lisinopril 20 MG TABLET PO SCH (23:31)
[2017-09-14] MEDS: clonazePAM 0.5 MG TABLET PO SCH (23:32)
[2017-09-15 07:14] LABS: Basophils % 0.5 %; Eosinophils % 2.2 %; Hematocrit 35.3 % (35.3-44.9); Hemoglobin 11.8 g/dL (11.5-15.4); Immature Granulocytes % 0.2 % (0-4); Lymphocytes % 24.9 %; Mean Corpuscular HGB Conc 33.4 g/dL (31.6-35.5); Mean Corpuscular Hemoglobin 32.6 pg (28.0-33.3); Mean Corpuscular Volume 97.5 fL (83.0-100.0); Mean Platelet Volume 11.1 fL (9.4-12.4); Monocytes % 11.7 %; Platelet Count 233 K/mcL (140-400); Red Blood Count 3.62 M/mcL (3.82-4.97); Red Cell Distribution Width 12.9 % (11.5-14.5); Segmented Neutrophils % 60.5 %
[2017-09-15 07:15] LABS: Eosinophils # 0.1 K/mcL (0.0-0.6); Lymphocytes # 1.4 K/mcL (0.6-4.6); Monocytes # 0.7 K/mcL (0.0-1.3); Neutrophils # 3.5 K/mcL (1.6-8.9)
[2017-09-15 07:32] LABS: BUN/Creatinine Ratio 19 (6-26); Blood Urea Nitrogen 16 mg/dL (8-23); Calcium 8.9 mg/dL (8.6-10.3); Carbon Dioxide 26 mEq/L (23-29); Chloride 111 mEq/L (98-107); Glucose 106 mg/dL (70-105); Osmolality,Calculated 302 (280-300); Potassium 4.5 mEq/L (3.5-5.1); Sodium 145 mEq/L (136-145); eGFR For African Americans > 60 (> 60); eGFR For Non-African Americans > 60 (> 60)
[2017-09-15 07:58] LABS: INR 2.7; Prothrombin Time 29.4 Seconds (9.4-12.1)
[2017-09-15] MEDS ORDERED: Aspirin 81 MG TAB.CHEW PO SCH (09:00)
[2017-09-15] MEDS ORDERED: hydroCHLOROthiazide 25 MG TABLET PO SCH (09:00)
[2017-09-15] MEDS ORDERED: Lisinopril 20 MG TABLET PO SCH (09:00)
[2017-09-15] MEDS ORDERED: clonazePAM 0.5 MG TABLET PO SCH (09:00)
[2017-09-15] MEDS: clonazePAM 0.5 MG TABLET PO SCH (09:09)
[2017-09-15] MEDS: Lisinopril 20 MG TABLET PO SCH (09:10)
[2017-09-15] MEDS ORDERED: *HR* Amiodarone 200 MG TABLET PO SCH (09:30)
--- NOTE | 2017-09-15 10:13 | Cardiology Consult Note ---
<Maxine Wood - Last Filed: 09/15/17 10:18> Date of Encounter: 09/15/17 Time of Encounter: 09:45 Assessment and Plan (1) Paroxysmal A-fib Current Visit: No Status: Chronic Per cardiology: -Known history of PAF s/p ablation. -On amiodarone and BB in outpatient setting. On coumadin for anticoagulation. -ADmitted with weakness and fluttering. -Device check reviewed from 09/13/17 with 31 rate controlled a.fib events on device. -K, TSH within normal limits. -Will discuss and review with regarding medication adjustments for a.fib. (2) Ischemic cardiomyopathy Current Visit: Yes Status: Acute Per cardiology: -Known ischemic cardiomyopathy. -Has ICD. -TTE 05/19/17: LVEF 40-45%, mildly dilated LV, severe segmental LV systolic dysfunction, moderate LVDD, severely dilated LA -ON BB and Saurav inhibitor. -Euvolemic on exam. -Also history of VT-on amio. Device check without evidence of ventricular arrythmia. -Will continue to monitor. (3) CAD (coronary artery disease) Current Visit: No Status: Chronic Per cardiology: -Known CAD s/p CABG. -per reports--[facility] in 2008, patent 1 of 3 bypass grafts. -Regadenoson nuclear 05/20/17: gated EF=71%, large sized, severe intensity, fixed inferior and inferoseptal defect suggestive of prior infarct, perfusion imaging negative for ischemia. -ON asa, BB. Not on statin due to intolerance. -Denies chest pain. -No acute ischemic ECG changes. -Will continue to monitor. Qualifiers: Coronary Disease-Associated Artery/Lesion type: bypass graft [place] vs. transplanted heart: [place] heart Associated angina: without angina Qualified Code(s): I25.810 - Atherosclerosis of coronary artery bypass graft(s) without angina pectoris Discussion w patient/family: The assessment and plan as outlined above was discussed with the patient who expressed understanding and agreement. All questions were answered. Thank you for involving us in the care of your patient. Please call with any questions. Discussed and reviewed with . History of Present Illness Consult date: 09/14/17 Requesting physician: Omari Whipple Consult reason: a.fib Chief complaint: weakness, fluttering History of present illness: Ms. Navarrete is a 76 year old female with a relevant past medical history of CAD s/p CABG, VSD repair, ischemic cardiomyopathy s/o ICD placement, a.fib s/p ablation, HTN, DVT, GI bleed who originally presented to [facility] on 09/13/17 with complaints of weakness and "fluttering," ER performed device check which showed episodes of rate controlled a.fib. Patient decided to go home, however returned back to [facility] on 09/14/17 with the same complaints. Patient reports weakness, some nausea, and "fluttering" in chest. Denies chest pain. Denies shortness of breath. Past Med Surg Social Fam HX - Past Medical History Attestation: Yes The following information was validated with the patient. Source: patient, old records reviewed Medical history: arthritis, atrial fibrillation, cardiomyopathy, COPD, coronary artery disease, DVT, GI bleed, hyperlipidemia, hypertension, myocardial infarction, thyroid disease, other Psychiatric history: anxiety - Past Surgical History Surgical History: coronary bypass (CABG), other, AICD - Social History Smoking Status: Former smoker Smokeless Tobacco Status: No Alcohol use: none Drug use: none - Family History Father Family Member Ethnicity: Non- Living Status: Hx Family Respiratory Disorders: No Hx Family Cancer: Yes (Pancreatic) Hx Family GI Disorders: No Hx Family Endocrine Disorder: Yes (DM) Hx Family Neuromuscular Disorders: No Hx Family Neurologic Disorders: No Hx Family HEENT Disorders: No Hx Family Autoimmune Disorders: No Mother Family Member Ethnicity: Non- Living Status: Hx Family Neurologic Disorders: Yes (Dementia) Brother Family Member Ethnicity: Non- Living Status: Hx Family Endocrine Disorder: Yes (DM) Sister Family Member Ethnicity: Non- Living Status: Still Living Medications and Allergies Amiodarone [Cordarone] 100 mg PO DAILY 12/27/15 [History] Enalapril Maleate [Vasotec] 20 mg PO BID 12/27/15 [History] Levothyroxine [Synthroid] 100 mcg PO QAM 12/27/15 [History] Metoprolol [Lopressor] 75 mg PO BID 12/27/15 [History] Warfarin [Coumadin] 3.75 mg PO MOTH 12/27/15 [History] clonazePAM [Clonazepam] 0.5 mg PO BID 12/27/15 [History] hydroCHLOROthiazide [Hydrochlorothiazide] 12.5 mg PO DAILY 12/27/15 [History] Potassium Chloride [K-Tab ER] 20 meq PO TID 08/26/16 [History] Warfarin [Coumadin] 2.5 mg PO SUTUWEFRSA 08/26/16 [History] Omeprazole [PriLOSEC] 40 mg PO DAILY #30 cap 11/26/16 [Rx] Ranitidine HCl [Zantac] 150 mg PO BID PRN #30 tablet 11/26/16 [Rx] Furosemide [Lasix] 20 mg PO DAILY PRN 05/18/17 [History] Aspirin 81 mg PO DAILY 05/19/17 [History] 3 Allergy/AdvReac Type Severity Reaction Status Date / Time No Known Allergies Allergy Verified 09/14/17 17:46 All Systems Review: The remainder of the systems were reviewed and are negative - Constitutional Constitutional: weakness - Cardiovascular Cardiovascular: as per HPI, palpitations Physical Examination Vital Signs, Last 4 Hours Temp Pulse Resp BP Pulse Ox 09/15/17 06:44 98.2 F 71 14 145/85 94 General: Conversant, No Apparent Distress HEENT: Atraumatic, Normocephaly, Mucus Membranes Moist Neck: No JVD, Normal carotid pulses Cardiac: Normal S1 and S2, No Murmur, Other (Irregularly irregular) Lungs: Normal Breath Sounds, No Wheeze, Rales, Rhonchi Neuro: Alert and responsive, No focal deficits noted Abdomen: Soft, Non-Tender Skin: No rashes noted on visualized skin Musculoskeletal: No Chest Wall Tenderness Extremities: No Clubbing, No Cyanosis, No Edema, Normal Pulses Results 09/15/17 06:33 09/15/17 06:33 Lab Results Current Medications Acetaminophen (Tylenol) 650 mg PO Q6HR PRN PRN Reason: Mild Pain/Fever Stop: 03/16/18 22:13 Amiodarone HCl (Cordarone) 100 mg PO DAILY [facility] Stop: 03/17/18 09:31 Last Admin: 09/15/17 09:59 Dose: 100 mg Aspirin (Aspirin) 81 mg PO DAILY [facility] Stop: 03/17/18 09:01 Last Admin: 09/15/17 09:10 Dose: 81 mg Clonazepam (Klonopin) 0.5 mg PO BID [facility] Stop: 03/16/18 23:11 Last Admin: 09/15/17 09:09 Dose: 0.5 mg Famotidine (Pepcid) 20 mg PO BID PRN PRN Reason: Dyspepsia Last Admin: 09/14/17 23:31 Dose: 20 mg Furosemide (Lasix) 20 mg PO DAILY PRN PRN Reason: Edema Stop: 03/16/18 22:15 Hydrochlorothiazide (Hydrochlorothiazide) 12.5 mg PO DAILY [facility] Stop: 03/17/18 09:01 Last Admin: 09/15/17 09:10 Dose: 12.5 mg Levothyroxine Sodium (Synthroid) 100 mcg PO QAM [facility] Stop: 03/17/18 09:01 Last Admin: 09/15/17 09:10 Dose: 100 mcg Lisinopril (Zestril) 20 mg PO BID [facility] Stop: 03/16/18 23:16 Last Admin: 09/15/17 09:10 Dose: 20 mg Metoprolol Tartrate (Lopressor) 75 mg PO BID [facility] Stop: 03/16/18 23:12 Last Admin: 09/15/17 09:10 Dose: 75 mg Naloxone HCl (Narcan) 0.4 mg IVP Q2MIN PRN PRN Reason: SEE COMMENTS Stop: 03/16/18 22:13 Omeprazole (Prilosec) 40 mg PO DAILY [facility] Stop: 03/17/18 09:01 Last Admin: 09/15/17 09:10 Dose: 40 mg Potassium Chloride (Potassium Chloride) 20 meq PO TID [facility] Stop: 03/16/18 23:16 Last Admin: 09/15/17 09:10 Dose: 20 meq Warfarin Sodium (Coumadin Perpt) 1 each PO DAILY@1800 PRN PRN Reason: SEE COMMENTS Stop: 03/17/18 18:01 Warfarin Sodium (Coumadin) 2.5 mg PO SUTUWEFRSA@1800 [facility] Stop: 03/17/18 18:01 Warfarin Sodium (Coumadin) 3.75 mg PO MOTH@1800 [facility] Stop: 03/18/18 18:01 Laboratory Tests 09/14/17 09/14/17 09/15/17 17:34 22:24 06:33 Hgb 11.8 INR Potassium Creatinine Troponin I 0.03 < 0.03 TSH 0.453 09/15/17 09/15/17 06:33 06:33 Hgb INR 2.7 Potassium 4.5 Creatinine 0.85 Troponin I TSH - Imaging and Cardiology Chest Xray: report reviewed Echo: report reviewed Cardiac cath: report reviewed - EKG Interpretation EKG results cardiology: personally reviewed (ECG with a.fib, HR 67.), other ( Telemetry reviewed with average HR previous 12 hours noted to be 69, a.fib, intermittent paced rhythm. PVCS noted.) Consult Discharge Plan - Plan Referrals: Ralf Perez MD [Primary Care Provider] - 09/22/17 1:15 pm <Vick Barrios - Last Filed: 09/15/17 12:26> Date of Encounter: 09/15/17 - Attending Attestation I have personally performed a face to face evaluation on this patient. I have reviewed and agree with the care plan. History and Exam by me shows: 76 YOF with known ICM s/p stress test recent with no ischemia and EF 45% presents with PAF on coumadin. Has had increased breakthrough episodes. Agree with increasing amiodarone to 200 mg daily and follow with Cardiology/ amiodarone clinic. No further testing required Assessment and Plan Discussion w patient/family: The assessment and plan as outlined above was discussed with the patient and/or family members who expressed understanding and agreement. All questions were answered. Thank you for involving us in the care of your patient. Please call with any questions. History of Present Illness History of present illness: Ms. Navarrete is a 76 year old female All Systems Review: The remainder of the systems were reviewed and are negative Physical Examination Vital Signs, Last 4 Hours Temp Pulse Resp BP Pulse Ox 09/15/17 11:39 98.1 F 73 14 173/69 94 Results 09/15/17 06:33 09/15/17 06:33 Lab Results 09/14/17 09/15/17 09/15/17 22:24 06:33 06:33 WBC 5.8 Hgb 11.8 Hct 35.3 Plt Count 233 INR 2.7 Sodium Potassium Chloride Carbon Dioxide BUN Creatinine Glucose Calcium Troponin I < 0.03 09/15/17 06:33 WBC Hgb Hct Plt Count INR Sodium 145 Potassium 4.5 Chloride 111 H Carbon Dioxide 26 BUN 16 Creatinine 0.85 Glucose 106 H Calcium 8.9 Troponin I
[2017-09-15] MEDS ORDERED: *HR* Amiodarone 200 MG TABLET PO ONE (11:15)
--- NOTE | 2017-09-15 14:38 | Internal Med Progress Note ---
Date of Encounter: 09/15/17 Time of Encounter: 14:37 - Assessment and plan (1) HTN (hypertension) Current Visit: No Status: Chronic Qualifiers: Hypertension type: essential hypertension Qualified Code(s): I10 - Essential (primary) hypertension (2) Thyroid disease Current Visit: No Status: Chronic (3) DVT prophylaxis Current Visit: No Status: Acute (4) Atrial fibrillation Current Visit: Yes Status: Resolved Qualifiers: Atrial fibrillation type: unspecified Qualified Code(s): I48.91 - Unspecified atrial fibrillation (5) Palpitations Current Visit: Yes Status: Acute - Time Spent With Patient Total time spent is greater than 50% in coordination of care (as documented) at patient's floor/unit and/or counseling patient: - Constitutional Vitals: Temp Pulse Resp BP Pulse Ox 98.1 F 73 14 173/69 94 09/15/17 11:39 09/15/17 11:39 09/15/17 11:39 09/15/17 11:39 09/15/17 11:39 General appearance: Present: A&O X 3, no acute distress, answers questions appropriately - Head Head exam: Present: atraumatic, normocephalic - Eye Eye exam: Present: PERRL, conjuntiva pink, sclera anicteric Pupils: Present: PERRL - Neck Neck exam general surgery: Present: supple, trachea midline. Absent: lymphadenopathy - Respiratory Respiratory exam: Present: CTAB. Absent: accessory muscle use, rales, rhonchi, wheezes - Cardiovascular Cardiovascular exam: Present: RRR, +S1, +S2. Absent: diastolic murmur, gallop, rubs, systolic murmur - GI/Abdominal GI/Abdominal exam: Present: normal bowel sounds, soft, no peritoneal signs. Absent: distended, tenderness - Extremities Exam Extremities exam: Present: warm, radial pulses palpable and symmetrical. Absent : calf tenderness, cyanotic, pedal edema - Neurological Exam Neurological exam: Present: CN II-XII intact, oriented X3, no focal deficits. Absent: pronater drift, facial droop, speech deficit - Skin Skin exam: Present: dry, intact Internal Medicine: Result - Labs CBC & Chem 7: 09/15/17 06:33 09/15/17 06:33 Labs: Short CBC 09/15/17 Range/Units 06:33 WBC 5.8 (4.3-11.1) K/mcL Hgb 11.8 (11.5-15.4) g/dL Hct 35.3 (35.3-44.9) % Plt Count 233 (140-400) K/mcL Neutrophils # 3.5 (1.6-8.9) K/mcL BMP 09/15/17 06:33 Sodium 145 Potassium 4.5 Chloride 111 H Carbon Dioxide 26 BUN 16 Creatinine 0.85 Glucose 106 H Calcium 8.9 Cardiac Enzymes 09/14/17 Range/Units 22:24 Troponin I < 0.03 (< 0.04) ng/mL - ABG Interpretation ABG results: PT/INR, D-dimer PT 29.4 Seconds (9.4-12.1) H 09/15/17 06:33 Consult Discharge Plan - Plan Referrals: Ralf Perez MD [Primary Care Provider] - 09/22/17 1:15 pm
[2017-09-15 15:00] VITALS: BP 117/61
--- NOTE | 2017-09-15 16:09 | Discharge Summary ---
- NOTES TO OUTPATIENT PROVIDER Notes to Outpatient Provider: History of PAF, admitted with intermittent palpitations, nausea and BLE weakness. Found to be in A-fib. F/u with cardiology in 2-3 weeks Orders not resulted at time of discharge: Pending orders 09/16/17 04:00 PT/INR [Prothrombin Time INR] [COAG] AM 0400 09/17/17 04:00 PT/INR [Prothrombin Time INR] [COAG] AM 0400 09/18/17 04:00 PT/INR [Prothrombin Time INR] [COAG] AM 0400 09/19/17 04:00 PT/INR [Prothrombin Time INR] [COAG] AM 0400 09/20/17 04:00 PT/INR [Prothrombin Time INR] [COAG] AM 0400 Date of Encounter: 09/15/17 Time of Encounter: 16:06 - Discharge Diagnosis (1) Atrial fibrillation Priority: Primary Status: Resolved Assessment and Plan: Patient presents with weakness, and palpitations. Known history of PAF, follows with Dr. Aguilera. Patient has pacemaker/defibrillator tissue past ventricular arrhythmias, on Coumadin. Recent interrogation of the device on with 31 rate controlled A. fib events noted. The patient had an uneventful hospital course. Cardiology was consult to help with management of PAF. Recommendations from cardiology were to increase amiodarone from 100 mg to 200 mg daily. 200 mg daily prior to having ablation and reports that it helped with rate control. Cardiology has signed off the patient is to follow- up as an outpatient. The patient is currently on Coumadin and therapeutic. Discontinue Coumadin dose at home. The patient is medically stable for discharge. Additionally, she has been instructed to return to the ED should she experience shortness of breath, chest pain and continue palpitations. Known h/o PAF s/p ablation; admitted with weakness and palpitations potassium and TSH within normal limits A-fib, Has remained rate controlled since admission. Continues to have intermittent palpitations On Amiodarone, cardiology consulted and recommends increasing Amiodarone to 200mg daily, Cardio has signed off. She has pacemaker/defibrillator for a reported ventricular arrhythmia in the past. On Coumadin, INR = 2.7. last echo 05/2017 with EF = 40-45% and severe LV dysfunction Stress test also performed in 05/2017 with EF 71%, no acute ischemia troponin negative , no chest pain throughout stay Qualifiers: Atrial fibrillation type: unspecified Qualified Code(s): I48.91 - Unspecified atrial fibrillation (2) HTN (hypertension) Priority: Primary Status: Chronic Assessment and Plan: Hypertension is resolved, continue anti-HTN medications on discharge Qualifiers: Hypertension type: essential hypertension Qualified Code(s): I10 - Essential (primary) hypertension (3) Thyroid disease Priority: Secondary Status: Chronic (4) DVT prophylaxis Priority: Secondary Status: Acute (5) Palpitations Priority: Secondary Status: Acute Assessment and Plan: Palpitations secondary to a-fib. See assessment and plan above Hospital course: Ms. Navarrete is a 76 year old female Please see assessment and plan for hospital course Discharge discussed with: patient, nurse, applications sales consultant - Time Spent with Patient Total time spent providing and/or coordinating discharge services: Less than 30 minutes - Discharge Medications Prescriptions: Amiodarone [Cordarone] 200 mg PO DAILY 30 Days #30 tablet Home Medications: Enalapril Maleate [Vasotec] 20 mg PO BID 12/27/15 [History] Levothyroxine [Synthroid] 100 mcg PO QAM 12/27/15 [History] Metoprolol [Lopressor] 75 mg PO BID 12/27/15 [History] Warfarin [Coumadin] 3.75 mg PO MOTH 12/27/15 [History] clonazePAM [Clonazepam] 0.5 mg PO BID 12/27/15 [History] hydroCHLOROthiazide [Hydrochlorothiazide] 12.5 mg PO DAILY 12/27/15 [History] Potassium Chloride [K-Tab ER] 20 meq PO TID 08/26/16 [History] Warfarin [Coumadin] 2.5 mg PO SUTUWEFRSA 08/26/16 [History] Omeprazole [PriLOSEC] 40 mg PO DAILY #30 cap 11/26/16 [Rx] Ranitidine HCl [Zantac] 150 mg PO BID PRN #30 tablet 11/26/16 [Rx] Furosemide [Lasix] 20 mg PO DAILY PRN 05/18/17 [History] Aspirin 81 mg PO DAILY 05/19/17 [History] Amiodarone [Cordarone] 200 mg PO DAILY 30 Days #30 tablet 09/15/17 [Rx] Allergies/Adverse Reactions: 3 Allergy/AdvReac Type Severity Reaction Status Date / Time No Known Allergies Allergy Verified 09/14/17 17:46 Date of admission: 09/14/17 20:09 Primary care physician: Ralf Perez MD Consults: 09/14/17 22:27 Consult to Cardiology [CONS] Routine Comment: Consulting Provider: Cardiology Garita Reason for Consult: Symptomatic Atrial Fibrillation, s/p pacemaker Call Completed: No 09/15/17 08:56 Consult to Nurse Navigator [CONS] Routine Comment: last echo 05/2017 with EF = 40-45% and severe LV d Discharging clinician: Barak Rowe Anticipated date of discharge: 09/15/17 - Constitutional Vitals: Temp Pulse Resp BP Pulse Ox 97.8 F 62 14 117/61 96 09/15/17 14:59 09/15/17 14:59 09/15/17 14:59 09/15/17 14:59 09/15/17 14:59 General appearance: Present: A&O X 3, no acute distress, answers questions appropriately - Head Head exam: Present: atraumatic, normocephalic - Eye Eye exam: Present: PERRL, conjuntiva pink, sclera anicteric Pupils: Present: PERRL - Neck Neck exam general surgery: Present: supple, trachea midline. Absent: lymphadenopathy - Respiratory Respiratory exam: Present: CTAB. Absent: accessory muscle use, rales, rhonchi, wheezes - Cardiovascular Cardiovascular exam: Present: irregular rhythm, +S1, +S2. Absent: diastolic murmur, gallop, rubs, systolic murmur - GI/Abdominal GI/Abdominal exam: Present: normal bowel sounds, soft, no peritoneal signs. Absent: distended, tenderness - Extremities Exam Extremities exam: Present: warm, radial pulses palpable and symmetrical. Absent : calf tenderness, cyanotic, pedal edema - Neurological Exam Neurological exam: Present: CN II-XII intact, oriented X3, no focal deficits. Absent: pronater drift, facial droop, speech deficit - Skin Skin exam: Present: dry, intact - Patient Status Disposition: Home, Self-Care Condition: Good Overall status at discharge: patient is back to baseline - Discharge Instructions Follow Up With: Ralf Perez MD [Primary Care Provider] - 09/22/17 1:15 pm
--- NOTE | 2017-09-15 16:16 | Electrocardiograph Report ---
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
[2017-09-15] MEDS ORDERED: Warfarin perPT PO PRN (18:00)
[2017-09-15] MEDS ORDERED: *HR* Warfarin 2.5 MG TABLET PO SCH ×2 (18:00)
[2017-09-16] MEDS ORDERED: *HR* Amiodarone 200 MG TABLET PO SCH (09:00)
[2017-09-16] MEDS ORDERED: *HR* Warfarin 2.5 MG TABLET PO SCH ×3 (18:00)
== END 2017-09-15 19:08 | disposition home or self-care (01) ==
LOC: 3BNU 15:05 → EMEROO 15:05 → 3BNU 20:37
PROVIDERS: ADMIT Internal Medicine; ATTEND Internal Medicine

== ENCOUNTER 2017-09-17 22:49 | Observation (INO) ==
[2017-09-17 23:12] LABS: Basophils # 0.1 K/mcL (0.0-0.2); Basophils % 0.6 %; Eosinophils # 0.1 K/mcL (0.0-0.6); Eosinophils % 1.6 %; Hematocrit 36.7 % (35.3-44.9); Hemoglobin 12.6 g/dL (11.5-15.4); Immature Granulocytes % 0.2 % (0-4); Lymphocytes % 29.4 %; Mean Corpuscular HGB Conc 34.3 g/dL (31.6-35.5); Mean Corpuscular Hemoglobin 33.1 pg (28.0-33.3); Mean Corpuscular Volume 96.3 fL (83.0-100.0); Monocytes % 10.5 %; Neutrophils # 5.2 K/mcL (1.6-8.9); Platelet Count 239 K/mcL (140-400); Red Blood Count 3.81 M/mcL (3.82-4.97); Red Cell Distribution Width 12.8 % (11.5-14.5); Segmented Neutrophils % 57.7 %
[2017-09-17 23:13] LABS: Lymphocytes # 2.7 K/mcL (0.6-4.6)
[2017-09-17 23:35] LABS: BUN/Creatinine Ratio 23 (6-26); Blood Urea Nitrogen 16 mg/dL (8-23); Carbon Dioxide 24 mEq/L (23-29); Chloride 106 mEq/L (98-107); Glucose 128 mg/dL (70-105); Osmolality,Calculated 287 (280-300); Potassium 3.8 mEq/L (3.5-5.1); Sodium 137 mEq/L (136-145); eGFR For African Americans > 60 (> 60); eGFR For Non-African Americans > 60 (> 60)
[2017-09-17 23:36] LABS: Troponin I < 0.03 ng/mL (< 0.04)
[2017-09-17] MEDS ORDERED: Furosemide 40 MG/4 ML VIAL IVP ONE (23:36)
[2017-09-17] MEDS ORDERED: Isovue-370 500 ML INFUS..BTL IV ONE (23:48)
[2017-09-17 23:56] LABS: INR 2.7; Prothrombin Time 29.3 Seconds (9.4-12.1)
[2017-09-18 00:26] LABS: Bilirubin,Urine Negative (Negative); Blood,Urine Negative (Negative); Clarity,Urine Clear (Clear); Color,Urine Yellow (Yellow); Glucose,Urine (UA) Normal (Normal); Ketones,Urine Negative (Negative); Leukocyte Esterase,Urine Negative (Negative); Nitrite,Urine Negative (Negative); Protein,Urine Negative (Neg-Trace); Specific Gravity,Urine 1.022 (1.010-1.025); Urobilinogen,Urine Normal (Normal)
[2017-09-18] MEDS ORDERED: Nitroglycerin 1 INCH/GM PACKET TP ONE (01:45)
[2017-09-18] MEDS ORDERED: Aspirin 81 MG TAB.CHEW PO ONE (01:53)
--- NOTE | 2017-09-18 01:57 | Emergency Department Note ---
Disposition Clinical Impression: ST segment changes on electrocardiogram Acute exacerbation of CHF (congestive heart failure) Qualifiers: Heart failure type: systolic Qualified Code(s): I50.23 - Acute on chronic systolic (congestive) heart failure Disposition: Admitted As Inpatient Condition: Good General Adult HPI - General Chief complaint: ED Shortness of Breath/Dyspnea Stated complaint: SOB Time Seen by Provider: 09/17/17 22:51 Source: patient, EMS Limitations: no limitations Nursing Notes Reviewed: Yes Vital Signs Reviewed: Yes - History of Present Illness HPI Narrative: 76-year-old female presents emergency department with concern for shortness of breath. Patient states that she has been in the hospital twice over the last week. She says she has been to the emergency department 3 times, has left once AMA. Patient states that she has recently been diagnosed with atrial fibrillation. States that she has not taken her Lasix all week. Denies any increase in lower extremity swelling. is frustrated as is to as they have had several visits to the hospital and patient's symptoms have not resolved. Patient denies any fever, cough, nausea, vomiting, lower extremity swelling, dysuria, hematuria, urinary frequency. Patient does report some lower costal rib pain. Pain Scale: 0 - Related Data Home Medications Medication Instructions Recorded Confirmed Enalapril Maleate [Vasotec] 20 mg PO BID 12/27/15 09/18/17 Levothyroxine [Synthroid] 100 mcg PO QAM 12/27/15 09/18/17 Metoprolol [Lopressor] 75 mg PO BID 12/27/15 09/18/17 Warfarin [Coumadin] 3.75 mg PO MOTH 12/27/15 09/18/17 clonazePAM [Clonazepam] 0.5 mg PO BID 12/27/15 09/18/17 hydroCHLOROthiazide 12.5 mg PO DAILY 12/27/15 09/18/17 [Hydrochlorothiazide] Potassium Chloride [K-Tab ER] 20 meq PO TID 08/26/16 09/18/17 Warfarin [Coumadin] 2.5 mg PO SUTUWEFRSA 08/26/16 09/18/17 Furosemide [Lasix] 20 mg PO DAILY PRN 05/18/17 09/18/17 Aspirin 81 mg PO DAILY 05/19/17 09/18/17 Previous Rx's Medication Instructions Recorded Omeprazole [PriLOSEC] 40 mg PO DAILY #30 cap 11/26/16 raNITIdine HCl [Zantac] 150 mg PO BID PRN #30 tablet 11/26/16 Amiodarone [Cordarone] 200 mg PO DAILY 30 Days #30 tablet 09/15/17 Allergies Allergy/AdvReac Type Severity Reaction Status Date / Time No Known Allergies Allergy Verified 09/18/17 09:44 All systems ED: reviewed and negative except as stated. Review of Systems: As Per HPI Constitutional: Denies: fever Cardiovascular: Reports: chest pain. Denies: syncope Respiratory: Reports: dyspnea. Denies: cough, wheezes Gastrointestinal: Denies: nausea, vomiting Genitourinary: Denies: urgency, dysuria, frequency Musculoskeletal: Denies: back pain, neck pain Integumentary: Denies: rash Neurological: Denies: headache, weakness, numbness, paresthesias Endocrine: Denies: fatigue Past Medical History - Past Medical History Medical history: Reports: arthritis, atrial fibrillation, cardiomyopathy, COPD, coronary artery disease, DVT, GI bleed, hyperlipidemia, hypertension, myocardial infarction, thyroid disease, other Surgical history: Reports: coronary bypass (CABG), other, AICD Psychiatric history: Reports: anxiety 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 Absent: respiratory distress, accessory muscle use - Cardiovascular Cardiovascular exam: Present: regular rate, irregular rhythm - Abdominal Exam Abdominal exam: Present: soft, Non-Tender. Absent: distention, guarding, rebound - Extremities Exam Extremities exam: Present: normal capillary refill - Back Exam Back exam: Absent: CVA tenderness (R), CVA tenderness (L) - Neurological Exam Neurological exam: Present: alert, oriented X3, CN II-XII intact Course Vital Signs Temperature 97.8 F 09/17/17 22:56 Pulse Rate 84 09/17/17 22:56 Respiratory Rate 18 09/17/17 22:56 Blood Pressure 165/107 09/17/17 22:56 O2 Sat by Pulse Oximetry 96 09/17/17 22:56 Temperature 98.1 F 09/19/17 10:58 Pulse Rate 61 09/19/17 10:58 Respiratory Rate 18 09/19/17 10:58 Blood Pressure 127/74 09/19/17 10:58 O2 Sat by Pulse Oximetry 93 09/19/17 10:58 Oxygen Delivery Oxygen Delivery Room Air Medical Decision Making - [facility] Narrative Medical decision making narrative: 76-year-old female presents emergency department with concern for increasing shortness of breath. Patient has been admitted to the hospital twice in recent history. Chest x-ray reveals cardiomegaly with mild interstitial pulmonary edema that was new from a prior study. Patient given 40 mg of Lasix IV. Patient had good urine output here in the emergency department. Electrocardiogram revealed lateral ST segment depressions that were new from a previous electrocardiogram. Troponin was negative. BNP was in the 800s. Urine and not revealing any signs of infection. CTA was obtained of the chest to rule out pulmonary embolus as patient was having shortness of breath and had a new diagnosis of pulmonary embolus was complaining of some pleuritic type costal chest pain. CTA did not reveal any evidence of PE. It did however confirm pulmonary edema. Spoke with family and patient at bedside and they agreed with the plan for admission. Patient was admitted to the hospitalist. Patient was provided with nitro paste prior to sending him to the floor. Chest X-Ray 09/17/17 22:52 IMPRESSION: Cardiomegaly with mild interstitial pulmonary edema, new since the prior study. D/ / Celina Sorenson Cha, MD / Celina Sorenson Cha, MD Interpreting Provider: Celina Sorenson Cha, MD Chest CTA 09/18/17 23:48 IMPRESSION: Findings suggestive of of pulmonary edema and small bilateral pleural effusions. No evidence of acute pulmonary emboli. 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 Correlate with dedicated echocardiogram. Small hiatal hernia with nonspecific thickening of the herniated stomach. D/ / Cedrick Cleveland MD / Cedrick Cleveland MD Interpreting Provider: Cedrick Cleveland MD - Lab Data Result diagrams: 09/18/17 04:56 09/18/17 04:56 Lab Results 09/17/17 09/17/17 09/17/17 Range/Units 23:00 23:00 23:00 WBC 9.0 D (4.3-11.1) K/mcL RBC 3.81 L (3.82-4.97) M/mcL Hgb 12.6 (11.5-15.4) g/dL Hct 36.7 (35.3-44.9) % MCV 96.3 (83.0-100.0) fL MCH 33.1 (28.0-33.3) pg MCHC 34.3 (31.6-35.5) g/dL RDW 12.8 (11.5-14.5) % Plt Count 239 (140-400) K/mcL MPV 11.0 (9.4-12.4) fL Immature Gran % 0.2 (0-4) % Seg Neutrophils % 57.7 % Lymphocytes % 29.4 % Monocytes % 10.5 % Eosinophils % 1.6 % Basophils % 0.6 % Neutrophils # 5.2 (1.6-8.9) K/mcL Lymphocytes # 2.7 (0.6-4.6) K/mcL Monocytes # 1.0 (0.0-1.3) K/mcL Eosinophils # 0.1 (0.0-0.6) K/mcL Basophils # 0.1 (0.0-0.2) K/mcL PT (9.4-12.1) Seconds INR Sodium 137 (136-145) mEq/L Potassium 3.8 (3.5-5.1) mEq/L Chloride 106 (98-107) mEq/L Carbon Dioxide 24 (23-29) mEq/L BUN 16 (8-23) mg/dL Creatinine 0.71 (0.60-1.20) mg/dL Est GFR ( Amer) > 60 (> 60) Est GFR (Non-Af Amer) > 60 (> 60) BUN/Creatinine Ratio 23 (6-26) Glucose 128 H (70-105) mg/dL Calculated Osmolality 287 (280-300) Calcium 9.0 (8.6-10.3) mg/dL Troponin I < 0.03 (< 0.04) ng/mL B-Natriuretic Peptide 862 H (Less than 100) pg/mL Urine Color (Yellow) Urine Clarity (Clear) Urine pH (5.0-8.0) pH Units Ur Specific Lambert (1.010-1.025) Urine Protein (Neg-Trace) mg/dL Urine Glucose (UA) (Normal) mg/dL Urine Ketones (Negative) mg/dL Urine Blood (Negative) Urine Nitrite (Negative) Urine Bilirubin (Negative) Urine Urobilinogen (Normal) mg/dL Ur Leukocyte Esterase (Negative) 09/17/17 09/17/17 Range/Units 23:41 23:57 WBC (4.3-11.1) K/mcL RBC (3.82-4.97) M/mcL Hgb (11.5-15.4) g/dL Hct (35.3-44.9) % MCV (83.0-100.0) fL MCH (28.0-33.3) pg MCHC (31.6-35.5) g/dL RDW (11.5-14.5) % Plt Count (140-400) K/mcL MPV (9.4-12.4) fL Immature Gran % (0-4) % Seg Neutrophils % % Lymphocytes % % Monocytes % % Eosinophils % % Basophils % % Neutrophils # (1.6-8.9) K/mcL Lymphocytes # (0.6-4.6) K/mcL Monocytes # (0.0-1.3) K/mcL Eosinophils # (0.0-0.6) K/mcL Basophils # (0.0-0.2) K/mcL PT 29.3 H (9.4-12.1) Seconds INR 2.7 Sodium (136-145) mEq/L Potassium (3.5-5.1) mEq/L Chloride (98-107) mEq/L Carbon Dioxide (23-29) mEq/L BUN (8-23) mg/dL Creatinine (0.60-1.20) mg/dL Est GFR ( Amer) (> 60) Est GFR (Non-Af Amer) (> 60) BUN/Creatinine Ratio (6-26) Glucose (70-105) mg/dL Calculated Osmolality (280-300) Calcium (8.6-10.3) mg/dL Troponin I (< 0.04) ng/mL B-Natriuretic Peptide (Less than 100) pg/mL Urine Color Yellow (Yellow) Urine Clarity Clear (Clear) Urine pH 6.0 (5.0-8.0) pH Units Ur Specific Lambert 1.022 (1.010-1.025) Urine Protein Negative (Neg-Trace) mg/dL Urine Glucose (UA) Normal (Normal) mg/dL Urine Ketones Negative (Negative) mg/dL Urine Blood Negative (Negative) Urine Nitrite Negative (Negative) Urine Bilirubin Negative (Negative) Urine Urobilinogen Normal (Normal) mg/dL Ur Leukocyte Esterase Negative (Negative) - EKG Data EKG #1 EKG attestation: Yes I reviewed and interpreted this EKG. EKG results narrative: August 2017 22:54 Ventricular rate 85 bpm, no P waves, QRS orthodox 95 ms, QT 367 ms, QTC 409 ms, normal axis. Atrial fibrillation with ST depressions noted in the lateral leads. Also noted some ST segment depression in septal leads this electrocardiogram has been changed from 09/14/2017. Attestation Statement - Attestation Attestation: I, Zachary Shetty, examined this patient and my medical decision-making was reviewed with the AIRLINE OPERATIONS AGENT/PA/Advanced Practice Nurse/Resident Physician. I agree with the documented findings, disposition and treatment plan as described except to the extent set forth below. 76-year-old female presents emergency Department with increased shortness of breath. Patient states she has a history of congestive heart failure and has gained greater than 3 pounds. She reports shortness of breath with exertion. This feels similar to her previous CHF exacerbation. Patient recently admitted twice over the past week and diagnosed with new-onset atrial fibrillation. Patient denies recent syncopal event. Patient has mild congestion on chest x- ray. She will be admitted to the hospital for further care and evaluation.
[2017-09-18] MEDS ORDERED: Naloxone 0.4 MG/ML INJ IVP PRN (03:36)
--- NOTE | 2017-09-18 03:51 | Internal Med History&Physical ---
Date of Encounter: 09/18/17 Time of Encounter: 03:20 Internal Medicine - H&P: HPI Chief complaint: shortness of breath Admitted From: Home Plans for Post Hospital Care: Home History of present illness: Ms. Navarrete is a 76 year old female with PMH of CHF, Afib on Coumadin, ischemic cardiomyopathy s/p ICD placement, CAD, thyroid disease, HTN who presented to the ER for evaluation of shortness of breath. Pt was recently discharged from the hospital on 09/15/17 after being workup for paroxysmal Afib. She reports of not taking her home dose of lasix since her hospital discharge and has not been compliant with her diet. Reported of being short of breath since yesterday with orthopnea. States her shortness of breath worsened after she had pizza for dinner which prompted her visit to the ER. She received IV lasix in the ER with significant improvement in her respiratory symptoms. During my evaluation, she reports of having good urine output after lasix administration and is saturating well on room air. Denies any headache, chest pain, palpitations, abd pain, n/v, fever, or chills at this time. Extensive dietary counseling was provided. Pt advised to continue with fluid restriction, and na restricted diet after discharge. Pt advised to compliant with her lasix dose after discharge Past Med Surg Social Fam HX - Past Medical History Medical history: arthritis, atrial fibrillation, cardiomyopathy, COPD, coronary artery disease, DVT, GI bleed, hyperlipidemia, hypertension, myocardial infarction, thyroid disease, other Psychiatric history: anxiety - Past Surgical History Surgical History: coronary bypass (CABG), other, AICD - Social History Smoking Status: Former smoker Smokeless Tobacco Status: No Alcohol use: none Drug use: none - Family History Father Family Member Ethnicity: Non- Living Status: Hx Family Respiratory Disorders: No Hx Family Cancer: Yes (Pancreatic) Hx Family GI Disorders: No Hx Family Endocrine Disorder: Yes (DM) Hx Family Neuromuscular Disorders: No Hx Family Neurologic Disorders: No Hx Family HEENT Disorders: No Hx Family Autoimmune Disorders: No Mother Family Member Ethnicity: Non- Living Status: Hx Family Neurologic Disorders: Yes (Dementia) Brother Family Member Ethnicity: Non- Living Status: Hx Family Endocrine Disorder: Yes (DM) Sister Family Member Ethnicity: Non- Living Status: Still Living Internal Medicine - H&P: Meds Enalapril Maleate [Vasotec] 20 mg PO BID 12/27/15 [History] Levothyroxine [Synthroid] 100 mcg PO QAM 12/27/15 [History] Metoprolol [Lopressor] 75 mg PO BID 12/27/15 [History] Warfarin [Coumadin] 3.75 mg PO MOTH 12/27/15 [History] clonazePAM [Clonazepam] 0.5 mg PO BID 12/27/15 [History] hydroCHLOROthiazide [Hydrochlorothiazide] 12.5 mg PO DAILY 12/27/15 [History] Potassium Chloride [K-Tab ER] 20 meq PO TID 08/26/16 [History] Warfarin [Coumadin] 2.5 mg PO SUTUWEFRSA 08/26/16 [History] Omeprazole [PriLOSEC] 40 mg PO DAILY #30 cap 11/26/16 [Rx] raNITIdine HCl [Zantac] 150 mg PO BID PRN #30 tablet 11/26/16 [Rx] Furosemide [Lasix] 20 mg PO DAILY PRN 05/18/17 [History] Aspirin 81 mg PO DAILY 05/19/17 [History] Amiodarone [Cordarone] 200 mg PO DAILY 30 Days #30 tablet 09/15/17 [Rx] 3 Allergy/AdvReac Type Severity Reaction Status Date / Time No Known Allergies Allergy Verified 09/14/17 17:46 All Systems PM: A 10-system review of systems was performed and is negative for pertinent findings except as documented above in the HPI. - Constitutional Constitutional: as per HPI, no anorexia, no chills, no excessive sweating, no fatigue, no falls, no lethargy, no malaise, no night sweats - Constitutional Vitals: Temp Pulse Resp BP Pulse Ox 97.5 F L 80 18 143/85 93 09/18/17 03:00 09/18/17 03:00 09/18/17 03:00 09/18/17 03:00 09/18/17 03:00 General appearance: Present: A&O X 3, no acute distress, answers questions appropriately - Head Head exam: Present: atraumatic, normocephalic - Eye Eye exam: Present: conjuntiva pink, sclera anicteric - Respiratory Respiratory exam: Absent: respiratory distress, wheezes (bibasilar rales) - Cardiovascular Cardiovascular exam: Present: irregular rhythm, +S1, +S2. Absent: bradycardia, tachycardia - GI/Abdominal GI/Abdominal exam: Present: normal bowel sounds, soft, no peritoneal signs. Absent: distended, tenderness - Extremities Exam Extremities exam: Present: warm, radial pulses palpable and symmetrical. Absent : calf tenderness, pedal edema - Neurological Exam Neurological exam: Present: oriented X3 Internal Med - H&P Results - Labs CBC & Chem 7: 09/17/17 23:00 09/17/17 23:00 - Impressions ITS Impressions Chest CTA 09/18/17 23:48 IMPRESSION: Findings suggestive of of pulmonary edema and small bilateral pleural effusions. No evidence of acute pulmonary emboli. 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 Correlate with dedicated echocardiogram. Small hiatal hernia with nonspecific thickening of the herniated stomach. D/ / Cedrick Cleveland MD / Cedrick Cleveland MD Interpreting Provider: Cedrick Cleveland MD - Assessment and plan (1) CHF exacerbation Current Visit: Yes Status: Acute Assessment and plan: Dyspnea secondary to CHF exacerbation CHF exacerbation secondary to noncompliance Pt educated about dietary and med compliance continue IV lasix 2D echo from May 2017: LVEF of 40-45% with severe segmental LV systolic dysfunction monitor daily weights, strict I/Os, fluid restriction diet closely monitor respiratory status O2 supplementation as needed Qualifiers: Heart failure type: systolic Qualified Code(s): I50.23 - Acute on chronic systolic (congestive) heart failure (2) Atrial fibrillation Current Visit: No Status: Chronic Assessment and plan: Rate controlled with Amiodarone, will continue anticoagulated with Coumadin pharmacy to dose coumadin monitor INR, goal INR: 2-3 Qualifiers: Atrial fibrillation type: chronic Qualified Code(s): I48.2 - Chronic atrial fibrillation (3) Ischemic cardiomyopathy Current Visit: No Status: Chronic (4) CAD (coronary artery disease) Current Visit: No Status: Chronic Assessment and plan: no signs of angina present continue home dose of ASA, BB Qualifiers: Coronary Disease-Associated Artery/Lesion type: bypass graft [place] vs. transplanted heart: [place] heart Associated angina: without angina Qualified Code(s): I25.810 - Atherosclerosis of coronary artery bypass graft(s) without angina pectoris (5) Essential hypertension Current Visit: No Status: Chronic Assessment and plan: BP within acceptable range continue home meds (6) Thyroid disease Current Visit: No Status: Chronic Assessment and plan: continue home dose of levothyroxine (7) DVT prophylaxis Current Visit: No Status: Acute Assessment and plan: anticoagulated with coumadin - Time Spent With Patient Total time spent is greater than 50% in coordination of care (as documented) at patient's floor/unit and/or counseling patient:
[2017-09-18] MEDS ORDERED: Famotidine 20 MG TABLET PO PRN (03:53)
[2017-09-18] MEDS: Acetaminophen 325 MG TABLET PO PRN ×3 (04:29→21:47)
[2017-09-18 05:39] LABS: Basophils % 0.4 %; Eosinophils # 0.1 K/mcL (0.0-0.6); Eosinophils % 0.8 %; Hematocrit 33.4 % (35.3-44.9); Hemoglobin 11.2 g/dL (11.5-15.4); Immature Granulocytes % 0.3 % (0-4); Lymphocytes # 2.1 K/mcL (0.6-4.6); Lymphocytes % 28.2 %; Mean Corpuscular HGB Conc 33.5 g/dL (31.6-35.5); Mean Corpuscular Hemoglobin 31.9 pg (28.0-33.3); Mean Corpuscular Volume 95.2 fL (83.0-100.0); Mean Platelet Volume 11.2 fL (9.4-12.4); Monocytes # 0.8 K/mcL (0.0-1.3); Monocytes % 10.6 %; Neutrophils # 4.4 K/mcL (1.6-8.9); Platelet Count 229 K/mcL (140-400); Red Blood Count 3.51 M/mcL (3.82-4.97); Segmented Neutrophils % 59.7 %
[2017-09-18 05:45] LABS: INR 2.9; Prothrombin Time 31.8 Seconds (9.4-12.1)
[2017-09-18 06:06] LABS: BUN/Creatinine Ratio 21 (6-26); Blood Urea Nitrogen 14 mg/dL (8-23); Calcium 8.9 mg/dL (8.6-10.3); Carbon Dioxide 25 mEq/L (23-29); Chloride 105 mEq/L (98-107); Glucose 106 mg/dL (70-105); Magnesium 2.3 mg/dL (1.6-2.6); Osmolality,Calculated 287 (280-300); Phosphorous 3.1 mg/dL (2.7-4.5); Potassium 3.6 mEq/L (3.5-5.1); Sodium 138 mEq/L (136-145); eGFR For African Americans > 60 (> 60); eGFR For Non-African Americans > 60 (> 60)
[2017-09-18] MEDS ORDERED: Furosemide 40 MG/4 ML VIAL IVP SCH (09:00)
[2017-09-18] MEDS: *HR* Amiodarone 200 MG TABLET PO SCH (09:35)
[2017-09-18] MEDS: hydroCHLOROthiazide 25 MG TABLET PO SCH (09:35)
[2017-09-18] MEDS: Aspirin 81 MG TAB.CHEW PO SCH (09:36)
[2017-09-18] MEDS: clonazePAM 0.5 MG TABLET PO SCH ×2 (09:36→21:48)
[2017-09-18] MEDS: Lisinopril 20 MG TABLET PO SCH ×2 (09:36→21:48)
[2017-09-18] MEDS: Furosemide 40 MG/4 ML VIAL IVP SCH (17:47)
[2017-09-18] MEDS ORDERED: *HR* Warfarin 2.5 MG TABLET PO ONE (18:00)
[2017-09-18] MEDS ORDERED: Warfarin perPT PO PRN (18:00)
[2017-09-19 06:17] LABS: INR 2.6; Prothrombin Time 28.4 Seconds (9.4-12.1)
[2017-09-19] MEDS: Lisinopril 20 MG TABLET PO SCH (09:05)
[2017-09-19] MEDS: hydroCHLOROthiazide 25 MG TABLET PO SCH (09:05)
[2017-09-19] MEDS: Furosemide 40 MG/4 ML VIAL IVP SCH (09:06)
[2017-09-19] MEDS: *HR* Amiodarone 200 MG TABLET PO SCH (09:06)
[2017-09-19] MEDS: Aspirin 81 MG TAB.CHEW PO SCH (09:06)
[2017-09-19] MEDS: clonazePAM 0.5 MG TABLET PO SCH (09:06)
--- NOTE | 2017-09-19 10:06 | Discharge Summary ---
- NOTES TO OUTPATIENT PROVIDER Notes to Outpatient Provider: Follow with cardiology within the next 4 weeks Orders not resulted at time of discharge: Pending orders 09/20/17 04:00 INR/PT [Prothrombin Time INR] [COAG] AM 0400 09/21/17 04:00 INR/PT [Prothrombin Time INR] [COAG] AM 0400 Date of Encounter: 09/19/17 Time of Encounter: 09:45 - Discharge Diagnosis (1) CHF exacerbation Priority: Primary Status: Acute Assessment and Plan: Precipitated by noncompliance with diuretics. -Known ischemic cardiomyopathy. -Has ICD. -TTE 05/19/17: LVEF 40-45%, mildly dilated LV, severe segmental LV systolic dysfunction, moderate LVDD, severely dilated LA -ON BB and Saurav inhibitor. With intravenous diuresis, patient's body weight went from 63.56 kg on admission to 61.85 kg today. Plan is to maintain oral diuresis. Qualifiers: Heart failure type: systolic Qualified Code(s): I50.23 - Acute on chronic systolic (congestive) heart failure (2) Essential hypertension Priority: Secondary Status: Chronic Assessment and Plan: BP within acceptable range continue home meds (3) CAD (coronary artery disease) Priority: Primary Status: Chronic Assessment and Plan: -Known CAD s/p CABG. -per reports--[facility] in 2008, patent 1 of 3 bypass grafts. -Regadenoson nuclear 05/20/17: gated EF=71%, large sized, severe intensity, fixed inferior and inferoseptal defect suggestive of prior infarct, perfusion imaging negative for ischemia. -ON asa, BB. Not on statin due to intolerance. No acute ST-T wave changes or other evidence of ACS. Qualifiers: Coronary Disease-Associated Artery/Lesion type: bypass graft [place] vs. transplanted heart: [place] heart Associated angina: without angina Qualified Code(s): I25.810 - Atherosclerosis of coronary artery bypass graft(s) without angina pectoris (4) Thyroid disease Priority: Secondary Status: Chronic Assessment and Plan: continue home dose of levothyroxine (5) Atrial fibrillation Priority: Primary Status: Chronic Assessment and Plan: Rate controlled during this admission. Presently on Coumadin. Qualifiers: Atrial fibrillation type: chronic Qualified Code(s): I48.2 - Chronic atrial fibrillation (6) Ischemic cardiomyopathy Priority: Primary Status: Chronic Assessment and Plan: See above (7) Ventricular arrhythmia Priority: Secondary Status: Acute Assessment and Plan: Continue Amiodarone Hospital course: Ms. Navarrete is a 76 year old female known ischemic cardiomyopathy, congestive heart failure ejection fraction 40-45%, ventricular arrhythmia on amiodarone, atrial fibrillation who was supposedly on prn Lasix but noncompliant with her diuretic regimen presented to the emergency room with dyspnea on exertion which on imaging was suggestive of bilateral pulmonary edema and central venous congestion on CT chest. IV diuresis was initiated with excellent response. Patient was educated on the need for adherence with her medical regimen. She was maintained on her beta blockers and SAURAV inhibitor. She is also on amiodarone for ventricular arrhythmia. Cardiology saw the patient consultation with no new recommendations. Considering patient is on room air, ambulatory and feeling well, we will release her home with her original home medication regimen. She was advised to take extra dose of Lasix if weight changes by 3 pounds. Discharge discussed with: patient - Time Spent with Patient Total time spent providing and/or coordinating discharge services: Greater than 30 minutes - Discharge Medications Home Medications: Enalapril Maleate [Vasotec] 20 mg PO BID 12/27/15 [History] Levothyroxine [Synthroid] 100 mcg PO QAM 12/27/15 [History] Metoprolol [Lopressor] 75 mg PO BID 12/27/15 [History] Warfarin [Coumadin] 3.75 mg PO MOTH 12/27/15 [History] clonazePAM [Clonazepam] 0.5 mg PO BID 12/27/15 [History] hydroCHLOROthiazide [Hydrochlorothiazide] 12.5 mg PO DAILY 12/27/15 [History] Potassium Chloride [K-Tab ER] 20 meq PO TID 08/26/16 [History] Warfarin [Coumadin] 2.5 mg PO SUTUWEFRSA 08/26/16 [History] Omeprazole [PriLOSEC] 40 mg PO DAILY #30 cap 11/26/16 [Rx] raNITIdine HCl [Zantac] 150 mg PO BID PRN #30 tablet 11/26/16 [Rx] Furosemide [Lasix] 20 mg PO DAILY PRN 05/18/17 [History] Aspirin 81 mg PO DAILY 05/19/17 [History] Amiodarone [Cordarone] 200 mg PO DAILY 30 Days #30 tablet 09/15/17 [Rx] Allergies/Adverse Reactions: 3 Allergy/AdvReac Type Severity Reaction Status Date / Time No Known Allergies Allergy Verified 09/18/17 09:44 Date of admission: 09/18/17 02:32 Primary care physician: Ralf Perez MD Consults: 09/18/17 03:57 Consult to Nutrition [CONS] Routine Comment: Consulting Provider: NUTRITION Reason for Dietary Consult: Diet Education Other:: diet education for CHF Discharging clinician: Carlie Humphrey Anticipated date of discharge: 09/19/17 - Constitutional Vitals: Temp Pulse Resp BP Pulse Ox 97.6 F 69 17 128/74 92 09/19/17 06:52 09/19/17 06:52 09/19/17 06:52 09/19/17 06:52 09/19/17 09:17 General appearance: Present: A&O X 3, no acute distress, answers questions appropriately Exam: Physical exam Gen: Comfortable, laying in bed, in no visible distress HEENT: Normocephalic, atraumatic. No conjunctival icterus. Moist oral mucosa. Neck: Supple Lungs: Clear to auscultation, no foreign sounds Heart: Normal S1-S2, no murmurs rubs or gallops Abdomen: Normoactive bowel sounds, no guarding rigidity or tenderness Extremities: No edema clubbing or cyanosis Neuro: Alert oriented 3, no focal deficits Skin: No skin lesions - Patient Status Disposition: Home, Self-Care Condition: Good Functional capacity at discharge: independent ambulation Overall status at discharge: patient is back to baseline - Discharge Instructions Follow Up With: Ralf Perez MD [Primary Care Provider] - Additional Instructions: Take 20 mg by mouth Lasix on days if weight is 3 pounds above 137 pounds. - Diet and Activity Activity: resume usual activities as tolerated Diet: low fat, low cholesterol
[2017-09-19 11:00] VITALS: BP 127/74
[2017-09-19] MEDS ORDERED: *HR* Warfarin 2.5 MG TABLET PO ONE (18:00)
--- NOTE | 2017-09-20 14:18 | Electrocardiograph Report ---
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
== END 2017-09-19 11:50 | disposition home or self-care (01) ==
LOC: EMEROO 22:49 → 2ANU 22:49
PROVIDERS: ADMIT Internal Medicine; ATTEND Internal Medicine

== ENCOUNTER 2017-12-16 21:20 | Observation (INO) ==
--- NOTE | 2017-12-16 22:34 | Emergency Department Note ---
Disposition Clinical Impression: COPD exacerbation CHF exacerbation Qualifiers: Heart failure type: systolic Qualified Code(s): I50.23 - Acute on chronic systolic (congestive) heart failure Disposition: Admitted As Inpatient Condition: Undetermined General Adult HPI - General Chief complaint: ED Upper Respiratory Infection Stated complaint: sorethroat,cough, congestion Time Seen by Provider: 12/16/17 22:17 Source: patient Limitations: no limitations - History of Present Illness HPI Narrative: 77yo female presents to [facility] complaining that 2 days ago she had a CT after they made her swallow liquid and after her doctor told her she had a pneumonia. Patient has a non-productive cough, sore throat from coughing. Patient has been taking her doxycycline the past 2 days and using tylenol for pain in her throat. Patient states she has COPD, denies home oxygen, quit smoking 15 years ago. hx of CHF. Patient states she has not gotten better and wants a stronger antibiotic. Patient denies fever, chills, nausea/vomiting, shortness of breath, chest pain. Patient states that swallowing make throat better. Pain Scale: 0 - Related Data Home Medications Medication Instructions Recorded Confirmed Amiodarone 09/25/17 Aspirin 09/25/17 Bactrim 09/25/17 Clonazepam 09/25/17 Coumadin 09/25/17 Crestor 09/25/17 Enalapril Maleate 09/25/17 Hydrochlorothiazide 09/25/17 Ipratropium/Albuterol Neb 09/25/17 Lasix 09/25/17 Levothyroxine Sodium 09/25/17 Metoprolol 09/25/17 Omeprazole 09/25/17 Potassium Chloride 09/25/17 Ranitidine HCl 09/25/17 Vasotec 09/25/17 Previous Rx's Medication Instructions Recorded Benzonatate [Tessalon] 200 mg PO TID PRN #20 capsule 09/25/17 Clindamycin HCl 300 mg PO TID #30 capsule 09/25/17 Allergies Allergy/AdvReac Type Severity Reaction Status Date / Time nitrofurantoin AdvReac Diarrhea Verified 09/27/17 21:32 [From Macrobid] [id number] Reductase AdvReac Muscle Pain Verified 09/27/17 21:32 Inhibitor [Statins] sulfamethoxazole AdvReac See Verified 09/27/17 21:32 [From Bactrim] Comments trimethoprim [From Bactrim] AdvReac See Verified 09/27/17 21:32 Comments Constitutional: Denies: fever, chills ENT ED: Reports: throat pain Cardiovascular: Denies: chest pain Respiratory: Reports: cough Gastrointestinal: Denies: nausea, vomiting Past Medical History - Past Medical History Medical history: Reports: atrial fibrillation, CHF, hypertension, myocardial infarction, other Surgical history: Reports: coronary bypass (CABG), other, AICD Psychiatric history: Reports: anxiety LUMBER MARKER history: Reports: no LUMBER MARKER history - Social History Smoking Status: Former smoker Smokeless Tobacco Status: No Alcohol use: Reports: none Drug use: Reports: none Physical Exam - General Limitations: no limitations General appearance: alert, in no apparent distress - Chest Chest inspection: Present: symmetric chest wall rise, other (old scars) - Respiratory Respiratory exam: Present: other (left-sided crackles) - Cardiovascular Cardiovascular exam: Present: regular rate, normal rhythm, normal heart sounds - Neurological Exam Neurological exam: Present: alert, oriented X3 - Psychiatric Psychiatric exam: Present: normal affect, normal mood Course Vital Signs Temperature 97.8 F 12/16/17 21:36 Pulse Rate 76 12/16/17 21:36 Respiratory Rate 16 12/16/17 21:36 Blood Pressure 154/86 12/16/17 21:36 O2 Sat by Pulse Oximetry 95 12/16/17 21:36 Temperature 97.8 F 12/16/17 21:36 Pulse Rate 65 12/16/17 23:52 Respiratory Rate 12 12/16/17 23:52 Blood Pressure 153/68 12/16/17 23:52 O2 Sat by Pulse Oximetry 96 12/16/17 23:52 Oxygen Delivery Oxygen Delivery Room Air Medical Decision Making - Lab Data Result diagrams: 12/16/17 22:44 12/16/17 22:44 Lab Results 12/16/17 12/16/17 12/16/17 Range/Units 22:44 22:44 22:44 WBC 5.2 (4.3-11.1) K/mcL RBC 3.60 L (3.82-4.97) M/mcL Hgb 11.9 (11.5-15.4) g/dL Hct 35.7 (35.3-44.9) % MCV 99.2 (83.0-100.0) fL MCH 33.1 (28.0-33.3) pg MCHC 33.3 (31.6-35.5) g/dL RDW 16.1 H (11.5-14.5) % Plt Count 247 (140-400) K/mcL MPV 10.5 (9.4-12.4) fL Immature Gran % 0.4 (0-4) % Seg Neutrophils % 57.4 % Lymphocytes % 28.1 % Monocytes % 12.1 % Eosinophils % 1.0 % Basophils % 1.0 % Neutrophils # 3.0 (1.6-8.9) K/mcL Lymphocytes # 1.5 (0.6-4.6) K/mcL Monocytes # 0.6 (0.0-1.3) K/mcL Eosinophils # 0.1 (0.0-0.6) K/mcL Basophils # 0.1 (0.0-0.2) K/mcL Sodium 138 (136-145) mEq/L Potassium 3.5 (3.5-5.1) mEq/L Chloride 103 (98-107) mEq/L Carbon Dioxide 27 (23-29) mEq/L BUN 17 (8-23) mg/dL Creatinine 1.02 (0.60-1.20) mg/dL Est GFR ( Amer) > 60 (> 60) Est GFR (Non-Af Amer) 53 L (> 60) BUN/Creatinine Ratio 17 (6-26) Glucose 111 H (70-105) mg/dL Calculated Osmolality 288 (280-300) Calcium 9.1 (8.6-10.3) mg/dL B-Natriuretic Peptide 889 H (Less than 100) pg/mL
--- NOTE | 2017-12-16 22:37 | Emergency Department Note ---
Disposition Clinical Impression: COPD exacerbation CHF exacerbation Qualifiers: Heart failure type: systolic Qualified Code(s): I50.23 - Acute on chronic systolic (congestive) heart failure Disposition: Admitted As Inpatient Condition: Undetermined Referrals: Ralf Perez MD [Primary Care Provider] - Forms: ED Satisfaction Letter Time of Disposition: 23:55 General Adult HPI - General Chief complaint: ED Upper Respiratory Infection Stated complaint: sorethroat,cough, congestion Time Seen by Provider: 12/16/17 22:17 Source: patient Mode of arrival: ambulatory Limitations: no limitations Nursing Notes Reviewed: Yes Vital Signs Reviewed: Yes - History of Present Illness HPI Narrative: 77-year-old female who was recently diagnosed with a pneumonia after CT scan and chest x-ray demonstrates bilateral pleural effusion with worsen one side versus the other. The patient states she has been coughing. She denies any fevers, associated shortness of breath. The patient denies any other complaints at this time. She states that she was started on doxycycline by mouth for this possible pneumonia. The patient states that she wants something stronger as her cough and symptoms have not improved. The patient states that she has a known history of congestive heart failure. She denies any lower extremity swelling. The patient denies any chest pain. She is otherwise resting comfortably in the room at this time and answering all questions. She is nontoxic appearing. She is not hypoxic or tachycardic on evaluation. She does have bilateral lower lobe Rales on auscultation. Pain Scale: 0 - Related Data Home Medications Medication Instructions Recorded Confirmed Amiodarone 09/25/17 Aspirin 09/25/17 Bactrim 09/25/17 Clonazepam 09/25/17 Coumadin 09/25/17 Crestor 09/25/17 Enalapril Maleate 09/25/17 Hydrochlorothiazide 09/25/17 Ipratropium/Albuterol Neb 09/25/17 Lasix 09/25/17 Levothyroxine Sodium 09/25/17 Metoprolol 09/25/17 Omeprazole 09/25/17 Potassium Chloride 09/25/17 Ranitidine HCl 09/25/17 Vasotec 09/25/17 Previous Rx's Medication Instructions Recorded Benzonatate [Tessalon] 200 mg PO TID PRN #20 capsule 09/25/17 Clindamycin HCl 300 mg PO TID #30 capsule 09/25/17 Allergies Allergy/AdvReac Type Severity Reaction Status Date / Time nitrofurantoin AdvReac Diarrhea Verified 09/27/17 21:32 [From Macrobid] Yzqukwm-Bnn-Rer Reductase AdvReac Muscle Pain Verified 09/27/17 21:32 Inhibitor [Statins] sulfamethoxazole AdvReac See Verified 09/27/17 21:32 [From Bactrim] Comments trimethoprim [From Bactrim] AdvReac See Verified 09/27/17 21:32 Comments All systems ED: reviewed and negative except as stated. Constitutional: Denies: fever, chills ENT ED: Denies: dysphagia Cardiovascular: Denies: chest pain, dyspnea on exertion Respiratory: Reports: cough, sputum production. Denies: dyspnea Gastrointestinal: Denies: abdominal pain, nausea, vomiting Genitourinary: Denies: urgency, dysuria Musculoskeletal: Denies: back pain Integumentary: Denies: rash Neurological: Denies: headache Past Medical History - Past Medical History Attestation: Yes The following information was validated with the patient. Source: patient, old records reviewed Medical history: Reports: atrial fibrillation, CHF, hypertension, myocardial infarction, other Surgical history: Reports: coronary bypass (CABG), other, AICD Psychiatric history: Reports: anxiety HYDROLOGIC MODELER history: Reports: no HYDROLOGIC MODELER history - Social History Smoking Status: Never smoker Smokeless Tobacco Status: No Alcohol use: Reports: none Drug use: Reports: none Physical Exam - General Limitations: no limitations General appearance: alert, in no apparent distress - Head Head exam: atraumatic, normocephalic, normal inspection - Eye Eye exam: Present: normal appearance, PERRL, EOMI - ENT ENT exam: normal exam, normal oropharynx, mucous membranes moist - Neck Neck exam: Present: normal inspection, full ROM, trachea midline - Chest Chest inspection: Present: normal inspection, symmetric chest wall rise - Respiratory Respiratory exam: Present: other (Rales bilateral lower lobes). Absent: respiratory distress - Cardiovascular Cardiovascular exam: Present: regular rate, normal rhythm, normal heart sounds - Abdominal Exam Abdominal exam: Present: soft, Non-Tender. Absent: tenderness, distention, guarding, rebound, rigidity - Extremities Exam Extremities exam: Present: normal inspection, full ROM. Absent: tenderness, pedal edema - Neurological Exam Neurological exam: Present: alert, oriented X3 - Skin Skin exam: Present: warm, dry, intact, normal color Course Vital Signs Temperature 97.8 F 12/16/17 21:36 Pulse Rate 76 12/16/17 21:36 Respiratory Rate 16 12/16/17 21:36 Blood Pressure 154/86 12/16/17 21:36 O2 Sat by Pulse Oximetry 95 12/16/17 21:36 Temperature 97.8 F 12/16/17 21:36 Pulse Rate 65 12/16/17 23:52 Respiratory Rate 12 12/16/17 23:52 Blood Pressure 153/68 12/16/17 23:52 O2 Sat by Pulse Oximetry 96 12/16/17 23:52 Oxygen Delivery Oxygen Delivery Room Air Medical Decision Making - MDM Narrative Medical decision making narrative: Patient's workup in the emergency department and streets findings consistent with congestive heart failure. The patient has been expressing worsening symptoms. Patient's BNP is elevated. Chest x-ray appears worse compared to previous chest x-ray. We will admit the patient to the hospital at this time with worsening symptoms. Patient made aware and agrees to plan. The patient will be provided IV Lasix here in the emergency department. No further questions or concerns noted at this time. Accepted by Dr. Kim. - Lab Data Lab results reviewed: Yes I reviewed the patient's lab results. Result diagrams: 12/16/17 22:44 12/16/17 22:44 Lab Results 12/16/17 12/16/17 12/16/17 Range/Units 22:44 22:44 22:44 WBC 5.2 (4.3-11.1) K/mcL RBC 3.60 L (3.82-4.97) M/mcL Hgb 11.9 (11.5-15.4) g/dL Hct 35.7 (35.3-44.9) % MCV 99.2 (83.0-100.0) fL MCH 33.1 (28.0-33.3) pg MCHC 33.3 (31.6-35.5) g/dL RDW 16.1 H (11.5-14.5) % Plt Count 247 (140-400) K/mcL MPV 10.5 (9.4-12.4) fL Immature Gran % 0.4 (0-4) % Seg Neutrophils % 57.4 % Lymphocytes % 28.1 % Monocytes % 12.1 % Eosinophils % 1.0 % Basophils % 1.0 % Neutrophils # 3.0 (1.6-8.9) K/mcL Lymphocytes # 1.5 (0.6-4.6) K/mcL Monocytes # 0.6 (0.0-1.3) K/mcL Eosinophils # 0.1 (0.0-0.6) K/mcL Basophils # 0.1 (0.0-0.2) K/mcL Sodium 138 (136-145) mEq/L Potassium 3.5 (3.5-5.1) mEq/L Chloride 103 (98-107) mEq/L Carbon Dioxide 27 (23-29) mEq/L BUN 17 (8-23) mg/dL Creatinine 1.02 (0.60-1.20) mg/dL Est GFR ( Amer) > 60 (> 60) Est GFR (Non-Af Amer) 53 L (> 60) BUN/Creatinine Ratio 17 (6-26) Glucose 111 H (70-105) mg/dL Calculated Osmolality 288 (280-300) Calcium 9.1 (8.6-10.3) mg/dL B-Natriuretic Peptide 889 H (Less than 100) pg/mL - Radiology Data Radiology results reviewed: Yes I reviewed the patient's radiology results. Chest X-Ray 12/16/17 22:34 IMPRESSION: Findings most consistent with mild congestive heart failure. D/ / Aditya Vergara MD / Aditya Vergara MD Interpreting Provider: Aditya Vergara MD
[2017-12-16 22:53] LABS: Basophils # 0.1 K/mcL (0.0-0.2); Eosinophils # 0.1 K/mcL (0.0-0.6); Hematocrit 35.7 % (35.3-44.9); Hemoglobin 11.9 g/dL (11.5-15.4); Immature Granulocytes % 0.4 % (0-4); Lymphocytes # 1.5 K/mcL (0.6-4.6); Lymphocytes % 28.1 %; Mean Corpuscular HGB Conc 33.3 g/dL (31.6-35.5); Mean Corpuscular Hemoglobin 33.1 pg (28.0-33.3); Mean Corpuscular Volume 99.2 fL (83.0-100.0); Mean Platelet Volume 10.5 fL (9.4-12.4); Monocytes # 0.6 K/mcL (0.0-1.3); Monocytes % 12.1 %; Platelet Count 247 K/mcL (140-400); Red Cell Distribution Width 16.1 % (11.5-14.5); Segmented Neutrophils % 57.4 %
[2017-12-16 23:12] LABS: BUN/Creatinine Ratio 17 (6-26); Blood Urea Nitrogen 17 mg/dL (8-23); Calcium 9.1 mg/dL (8.6-10.3); Carbon Dioxide 27 mEq/L (23-29); Chloride 103 mEq/L (98-107); Glucose 111 mg/dL (70-105); Osmolality,Calculated 288 (280-300); Potassium 3.5 mEq/L (3.5-5.1); Sodium 138 mEq/L (136-145); eGFR For Non-African Americans 53 (> 60)
[2017-12-16] MEDS ORDERED: Furosemide 40 MG/4 ML VIAL IVP ONE (23:31)
--- NOTE | 2017-12-17 00:50 | Emergency Department Note ---
Disposition Clinical Impression: COPD exacerbation CHF exacerbation Qualifiers: Heart failure type: systolic Qualified Code(s): I50.23 - Acute on chronic systolic (congestive) heart failure Disposition: Admitted As Inpatient Condition: Undetermined General Adult HPI - General Chief complaint: ED Upper Respiratory Infection Stated complaint: sorethroat,cough, congestion Time Seen by Provider: 12/16/17 22:17 Source: patient Mode of arrival: ambulatory Limitations: no limitations - History of Present Illness Pain Scale: 0 - Related Data Home Medications Medication Instructions Recorded Confirmed Amiodarone 09/25/17 Aspirin 09/25/17 Bactrim 09/25/17 Clonazepam 09/25/17 Coumadin 09/25/17 Crestor 09/25/17 Enalapril Maleate 09/25/17 Hydrochlorothiazide 09/25/17 Ipratropium/Albuterol Neb 09/25/17 Lasix 09/25/17 Levothyroxine Sodium 09/25/17 Metoprolol 09/25/17 Omeprazole 09/25/17 Potassium Chloride 09/25/17 Ranitidine HCl 09/25/17 Vasotec 09/25/17 Previous Rx's Medication Instructions Recorded Benzonatate [Tessalon] 200 mg PO TID PRN #20 capsule 09/25/17 Clindamycin HCl 300 mg PO TID #30 capsule 09/25/17 Allergies Allergy/AdvReac Type Severity Reaction Status Date / Time nitrofurantoin AdvReac Diarrhea Verified 09/27/17 21:32 [From Macrobid] Avslbbb-Acn-Pgb Reductase AdvReac Muscle Pain Verified 09/27/17 21:32 Inhibitor [Statins] sulfamethoxazole AdvReac See Verified 09/27/17 21:32 [From Bactrim] Comments trimethoprim [From Bactrim] AdvReac See Verified 09/27/17 21:32 Comments Constitutional: Denies: fever, chills ENT ED: Denies: dysphagia Cardiovascular: Denies: chest pain, dyspnea on exertion Respiratory: Reports: cough, sputum production. Denies: dyspnea Gastrointestinal: Denies: abdominal pain, nausea, vomiting Genitourinary: Denies: urgency, dysuria Musculoskeletal: Denies: back pain Integumentary: Denies: rash Neurological: Denies: headache Past Medical History - Past Medical History Medical history: Reports: atrial fibrillation, CHF, hypertension, myocardial infarction, other Surgical history: Reports: coronary bypass (CABG), other, AICD Psychiatric history: Reports: anxiety CHIEF RISK OFFICER history: Reports: no CHIEF RISK OFFICER history - Social History Smoking Status: Never smoker Smokeless Tobacco Status: No Alcohol use: Reports: none Drug use: Reports: none Physical Exam - General Limitations: no limitations General appearance: alert, in no apparent distress Course Vital Signs Temperature 97.8 F 12/16/17 21:36 Pulse Rate 76 12/16/17 21:36 Respiratory Rate 16 12/16/17 21:36 Blood Pressure 154/86 12/16/17 21:36 O2 Sat by Pulse Oximetry 95 12/16/17 21:36 Temperature 97.8 F 12/16/17 21:36 Pulse Rate 65 12/16/17 23:52 Respiratory Rate 12 12/16/17 23:52 Blood Pressure 153/68 12/16/17 23:52 O2 Sat by Pulse Oximetry 96 12/16/17 23:52 Oxygen Delivery Oxygen Delivery Room Air Medical Decision Making - Lab Data Result diagrams: 12/16/17 22:44 12/16/17 22:44 Lab Results 12/16/17 12/16/17 12/16/17 Range/Units 22:44 22:44 22:44 WBC 5.2 (4.3-11.1) K/mcL RBC 3.60 L (3.82-4.97) M/mcL Hgb 11.9 (11.5-15.4) g/dL Hct 35.7 (35.3-44.9) % MCV 99.2 (83.0-100.0) fL MCH 33.1 (28.0-33.3) pg MCHC 33.3 (31.6-35.5) g/dL RDW 16.1 H (11.5-14.5) % Plt Count 247 (140-400) K/mcL MPV 10.5 (9.4-12.4) fL Immature Gran % 0.4 (0-4) % Seg Neutrophils % 57.4 % Lymphocytes % 28.1 % Monocytes % 12.1 % Eosinophils % 1.0 % Basophils % 1.0 % Neutrophils # 3.0 (1.6-8.9) K/mcL Lymphocytes # 1.5 (0.6-4.6) K/mcL Monocytes # 0.6 (0.0-1.3) K/mcL Eosinophils # 0.1 (0.0-0.6) K/mcL Basophils # 0.1 (0.0-0.2) K/mcL Sodium 138 (136-145) mEq/L Potassium 3.5 (3.5-5.1) mEq/L Chloride 103 (98-107) mEq/L Carbon Dioxide 27 (23-29) mEq/L BUN 17 (8-23) mg/dL Creatinine 1.02 (0.60-1.20) mg/dL Est GFR ( Amer) > 60 (> 60) Est GFR (Non-Af Amer) 53 L (> 60) BUN/Creatinine Ratio 17 (6-26) Glucose 111 H (70-105) mg/dL Calculated Osmolality 288 (280-300) Calcium 9.1 (8.6-10.3) mg/dL B-Natriuretic Peptide 889 H (Less than 100) pg/mL Critical Care Time Critical Care Time: Yes Total Critical Care Time: 35 Attestation: Critical care performed: Time is exclusive of separately billable procedures. Time includes: direct patient care, patient reassessment, coordination of patient care, interpretation of data (laboratory data, radiology data, and respiratory data), review of patient's medical records, medical consultation and documentation of patient care. Procedures included in critical care time: Procedures excluded from critical care time: Attestation Statement - Attestation Attestation: I examined this patient and my medical decision-making was reviewed with the Resident Physician. I agree with the documented findings, disposition and treatment plan as described except to the extent set forth below. Patient presents to the ED with chief complaint of dry cough. Onset several days ago. Patient had some outpatient studies done that showed some effusions and possible pneumonia. She has been on doxycycline for 2 days and is requesting something stronger. On examination she has rales and crackles in her bases. She is ambulatory in no distress. Plan. The patient's workup shows her to be in congestive heart failure. Elevated BNP and chest x-ray shows poor edema. Patient will be admitted.
[2017-12-17] MEDS ORDERED: Albuterol 2.5 MG/3 ML NEBULIZER IH PRN (01:27)
--- NOTE | 2017-12-17 03:17 | Internal Med History&Physical ---
Date of Encounter: 12/17/17 Time of Encounter: 03:15 Internal Medicine - H&P: HPI Chief complaint: dry cough Admitted From: Home Plans for Post Hospital Care: Home History of present illness: Ms. Navarrete is a 77 year old woman with a relevant past medical history of CAD s /p CABG, VSD repair, ischemic cardiomyopathy s/p ICD placement, a.fib s/p ablation, HTN, DVT, GI bleed who has been admitted to [facility] on multiple occasions for cardiac related issues. She presents today with the complaint of a bothersome non-productive cough over the last week accompanied by shortness of breath and sensation of congestion in her chest. On the outpatient side she was given oral doxycycline due to the concern for a repsiratory tract infection but she did not get any benefit from this. In the ER while she was not in acute distress, she was found to have pulmonary vascular congestion on CXR and prior CT imaging showed bilateral pleural effusions. Her BNP was >800. She received 1 dose of 40mg furosemide and was admitted for observation. On my assessment the patient was walking around the hallway in no acute distress and without supplemental oxygen. She states that her chief complaint is really just a bothersome cough and that her shortness of breath was transient and his low longer present. She denies chest pain at any time and states that her ICD has not fired. She feels well and wishes to possibly go home in the morning once observed. Past Med Surg Social Fam HX - Past Medical History Medical history: atrial fibrillation, CHF, hypertension, myocardial infarction, other Additional medical history: cardiac ablasions, irregular heart rate Psychiatric history: anxiety - Past Surgical History Surgical History: coronary bypass (CABG), other, AICD Additional surgical history: heart stents - Social History Smoking Status: Never smoker Smokeless Tobacco Status: No Alcohol use: none Drug use: none - Family History Father Family Member Ethnicity: Non- Living Status: Hx Family Respiratory Disorders: No Hx Family Cancer: Yes (Pancreatic) Hx Family GI Disorders: No Hx Family Endocrine Disorder: Yes (DM) Hx Family Neuromuscular Disorders: No Hx Family Neurologic Disorders: No Hx Family HEENT Disorders: No Hx Family Autoimmune Disorders: No Mother Family Member Ethnicity: Non- Living Status: Hx Family Neurologic Disorders: Yes (Dementia) Brother Family Member Ethnicity: Non- Living Status: Hx Family Endocrine Disorder: Yes (DM) Sister Family Member Ethnicity: Non- Living Status: Still Living Internal Medicine - H&P: Meds Amiodarone 09/25/17 [History] Aspirin 09/25/17 [History] Bactrim 09/25/17 [History] Benzonatate [Tessalon] 200 mg PO TID PRN #20 capsule 09/25/17 [Rx] Clindamycin HCl 300 mg PO TID #30 capsule 09/25/17 [Rx] Clonazepam 09/25/17 [History] Coumadin 09/25/17 [History] Crestor 09/25/17 [History] Enalapril Maleate 09/25/17 [History] Hydrochlorothiazide 09/25/17 [History] Ipratropium/Albuterol Neb 09/25/17 [History] Lasix 09/25/17 [History] Levothyroxine Sodium 09/25/17 [History] Metoprolol 09/25/17 [History] Omeprazole 09/25/17 [History] Potassium Chloride 09/25/17 [History] Ranitidine HCl 09/25/17 [History] Vasotec 09/25/17 [History] 3 Allergy/AdvReac Type Severity Reaction Status Date / Time nitrofurantoin AdvReac Diarrhea Verified 09/27/17 21:32 [From Macrobid] Mitovto-Six-Vsa Reductase AdvReac Muscle Pain Verified 09/27/17 21:32 Inhibitor [Statins] sulfamethoxazole AdvReac See Verified 09/27/17 21:32 [From Bactrim] Comments trimethoprim [From Bactrim] AdvReac See Verified 09/27/17 21:32 Comments All Systems PM: A 10-system review of systems was performed and is negative for pertinent findings except as documented above in the HPI. - Constitutional Vitals: Temp Pulse Resp BP Pulse Ox 98 F 83 15 126/75 90 12/17/17 02:46 12/17/17 02:46 12/17/17 02:46 12/17/17 02:46 12/17/17 02:46 Exam: Vitals: Reviewed General: No acute distress, ambulatory Skin: Warm and supple HEENT: Moist mucous membranes. No conjunctivae pallor. Neck: No lymphadenopathy. No JVD. Chest: Reduced thoracic expansion with crackles auscultated in both lung bases. Heart: Normal S1 & S2; rhythmic. Abdomen: Non-distended, soft and non-tender to palpation. Extremities: Trace pedal edema with multiple varicose veins noted. Neurological: Awake, alert and oriented to person, place and time. No focal deficits. Psych: Affect appropriate. Internal Med - H&P Results - Labs CBC & Chem 7: 12/16/17 22:44 12/16/17 22:44 - Assessment and plan (1) CHF exacerbation Current Visit: Yes Status: Acute Assessment and plan: Reports an increased salt intake over the last few weeks which likely has contributed to her fluid retention. She improved with IV diuretics. Will continue again during the day and check a repeat BNP. She is hemodynamically stable and can likely go home today after checking an echo for re-eval of her EF. Continue beta blockers and ACEI. Qualifiers: Heart failure type: systolic Qualified Code(s): I50.23 - Acute on chronic systolic (congestive) heart failure (2) History of DVT (deep vein thrombosis) Current Visit: No Status: Acute (3) CAD (coronary artery disease) Current Visit: Yes Status: Chronic Assessment and plan: Will continue ASA and statin therapy. No signs of acute ischemia at this time. Has ICD in place for ischemic cardiomyopathy. Qualifiers: Coronary Disease-Associated Artery/Lesion type: bypass graft [place] vs. transplanted heart: [place] heart Associated angina: without angina Qualified Code(s): I25.810 - Atherosclerosis of coronary artery bypass graft(s) without angina pectoris (4) COPD (chronic obstructive pulmonary disease) Current Visit: Yes Status: Chronic Assessment and plan: No signs of acute exacerbation. Albuterol prn. Qualifiers: COPD type: unspecified COPD Qualified Code(s): J44.9 - Chronic obstructive pulmonary disease, unspecified (5) Paroxysmal A-fib Current Visit: Yes Status: Chronic Assessment and plan: -Known history of PAF s/p ablation. -On amiodarone and BB in outpatient setting. On warfarin for anticoagulation. - Time Spent With Patient Total time spent is greater than 50% in coordination of care (as documented) at patient's floor/unit and/or counseling patient: Greater than 35 minutes
[2017-12-17 04:32] LABS: INR 1.8; Prothrombin Time 20.1 Seconds (9.4-12.1)
[2017-12-17] MEDS ORDERED: Ondansetron 4 MG/2 ML VIAL IVP PRN (08:09)
[2017-12-17] MEDS: Famotidine 20 MG TABLET PO SCH ×2 (08:31→20:16)
[2017-12-17] MEDS: Furosemide 40 MG/4 ML VIAL IVP SCH ×2 (08:31→17:53)
[2017-12-17] MEDS: Metoprolol XL (24 HR) Succ 50 MG TAB.ER.24H PO SCH (08:31)
[2017-12-17] MEDS: Aspirin 81 MG TAB.CHEW PO SCH (08:31)
[2017-12-17] MEDS: *HR* Amiodarone 200 MG TABLET PO SCH (08:31)
[2017-12-17] MEDS: clonazePAM 1 MG TABLET PO SCH ×2 (08:31→20:16)
[2017-12-17] MEDS: Lisinopril 20 MG TABLET PO SCH (08:31)
[2017-12-17] MEDS: Acetaminophen 325 MG TABLET PO PRN ×2 (08:32→15:15)
--- NOTE | 2017-12-17 08:32 | Electrocardiograph Report ---
[place] [id number] Test Date: 2017-12-16 Pat Name: Patricia Navarrete Department: Room: [facility] Gender: F [employer]ycl[employer] Sorter: : 1940 Requested By: Carlyn See Order Number: [id number] Reading MD: Kalpesh Aguilera Measurements Intervals [place] Rate: 65 P: 100 ME: 59 QRS: 73 QRSD: 124 T: 155 QT: 427 QTc: 464 Interpretive Statements Ventricular-paced complexes No further rhythm analysis attempted due to paced rhythm Electronically Signed On 12-17-2017 8:30:46 EDT by Kalpesh Aguilera
[2017-12-17] MEDS ORDERED: Furosemide 40 MG/4 ML VIAL IVP SCH (09:00)
[2017-12-17] MEDS ORDERED: Ipratropium/Albuterol Neb 3 ML IH PRN (10:39)
--- NOTE | 2017-12-17 11:01 | Internal Med Progress Note ---
Date of Encounter: 12/17/17 Time of Encounter: 10:45 - Assessment and plan (1) CHF exacerbation Current Visit: Yes Status: Acute Assessment and plan: Acute exacerbation of chronic systolic CHF with LVEF 40% with h/o ischemic cardiomyopathy s/p AICD Symptoms now improved Continue IV Lasix, Toprol-XL, Zestril, Coumadin Continue O2 as needed Chest x-ray - pulmonary edema BNP - 889 Echocardiogram - pending Cardiac telemetry, labs in a.m., fluid restriction, daily weight Anticipate discharge home with home health services in 24 hours Qualifiers: Heart failure type: systolic Qualified Code(s): I50.23 - Acute on chronic systolic (congestive) heart failure (2) CAD (coronary artery disease) Current Visit: Yes Status: Chronic Assessment and plan: Coronary artery disease s/p CABG - stable, no anginal symptoms Continue home dose of ASA, Zocor, Toprol-XL Qualifiers: Coronary Disease-Associated Artery/Lesion type: bypass graft [place] vs. transplanted heart: [place] heart Associated angina: without angina Qualified Code(s): I25.810 - Atherosclerosis of coronary artery bypass graft(s) without angina pectoris (3) COPD (chronic obstructive pulmonary disease) Current Visit: Yes Status: Chronic Assessment and plan: COPD, stable, no acute exacerbation Continue home dose of Symbicort, DuoNeb breathing treatment as needed Qualifiers: COPD type: unspecified COPD Qualified Code(s): J44.9 - Chronic obstructive pulmonary disease, unspecified (4) Paroxysmal A-fib Current Visit: Yes Status: Chronic Assessment and plan: Known h/o A. fib - s/p ablation Continue home dose of Amiodarone, Toprol-XL Continue Coumadin for anticoagulation (5) History of DVT (deep vein thrombosis) Current Visit: No Status: Acute Assessment and plan: H/o DVT, stable Continue home Coumadin for anticoagulation. Pharmacy to dose Coumadin Monitor INR/PT - Time Spent With Patient 25 - 35 minutes - Subjective Interval history: Examined this morning. Patient is awake and alert. Not in any distress. Sitting comfortably in bed. Denies chest pain. States her shortness of breath has improved. Complains of mild persistent cough. No abdominal pain or vomiting. Tolerating oral diet. No fever. Hemodynamically stable. Patient wants to go home as soon as possible. Admitted for acute exacerbation of CHF. Continue IV Lasix. Patient has good diuresis. Anticipate discharge home in 24 hours. - Constitutional Vitals: Temp Pulse Resp BP Pulse Ox 99.1 F 64 18 126/58 91 12/17/17 07:06 12/17/17 07:06 12/17/17 07:06 12/17/17 07:06 12/17/17 07:06 General appearance: Present: cooperative, A&O X 3, pleasant, no acute distress, answers questions appropriately - Head Head exam: Present: atraumatic - Eye Eye exam: Present: EOMI - ENT ENT exam: Present: mucous membranes moist - Neck Neck exam general surgery: Present: supple - Respiratory Respiratory exam: Present: decreased breath sounds (Slightly decreased in both bases. Otherwise clear to auscultation) - Cardiovascular Cardiovascular exam: Present: RRR, +S1, +S2, systolic murmur - GI/Abdominal GI/Abdominal exam: Present: soft, no peritoneal signs. Absent: distended, guarding, tenderness - Extremities Exam Extremities exam: Absent: calf tenderness, pedal edema, tenderness - Neurological Exam Neurological exam: Present: alert, oriented X3, no focal deficits. Absent: speech deficit Internal Medicine: Result - Labs CBC & Chem 7: 12/16/17 22:44 12/16/17 22:44 - ABG Interpretation ABG results: PT/INR, D-dimer PT 20.1 Seconds (9.4-12.1) H 12/17/17 03:54 Consult Discharge Plan - Plan Referrals: Ralf Perez MD [Primary Care Provider] -
[2017-12-17] MEDS: Budesonide/Formoterol 80/4.5 MDI IH SCH ×2 (11:26→23:02)
[2017-12-17] MEDS ORDERED: Warfarin perPT PO PRN (18:00)
[2017-12-17] MEDS ORDERED: *HR* Warfarin 2.5 MG TABLET PO ONE ×2 (18:00)
[2017-12-17] MEDS ORDERED: NON-FORMULARY MEDICATION 1 EACH EACH (Fluticasone/Salmeterol [Advair 250-50 Diskus] 1 PUFF IH SCH (21:00)
[2017-12-17] MEDS ORDERED: NON-FORMULARY MEDICATION 1 EACH EACH (Ranitidine Hcl [Acid Reducer] 150 MG) PO SCH (21:00)
[2017-12-18 06:58] LABS: Mean Corpuscular HGB Conc 33.3 g/dL (31.6-35.5); Mean Corpuscular Hemoglobin 33.1 pg (28.0-33.3); Mean Corpuscular Volume 99.4 fL (83.0-100.0); Mean Platelet Volume 11.1 fL (9.4-12.4); Platelet Count 266 K/mcL (140-400); Red Blood Count 3.62 M/mcL (3.82-4.97)
[2017-12-18 07:03] LABS: INR 1.7
[2017-12-18 07:11] LABS: BUN/Creatinine Ratio 15 (6-26); Blood Urea Nitrogen 15 mg/dL (8-23); Calcium 8.9 mg/dL (8.6-10.3); Carbon Dioxide 28 mEq/L (23-29); Chloride 105 mEq/L (98-107); Glucose 129 mg/dL (70-105); Osmolality,Calculated 281 (280-300); Sodium 134 mEq/L (136-145); eGFR For Non-African Americans 53 (> 60)
[2017-12-18] MEDS: Famotidine 20 MG TABLET PO SCH (07:25)
[2017-12-18] MEDS: Metoprolol XL (24 HR) Succ 50 MG TAB.ER.24H PO SCH (07:25)
[2017-12-18] MEDS: Aspirin 81 MG TAB.CHEW PO SCH (07:25)
[2017-12-18] MEDS: clonazePAM 1 MG TABLET PO SCH (07:25)
[2017-12-18] MEDS: Furosemide 40 MG/4 ML VIAL IVP SCH (07:26)
[2017-12-18] MEDS: *HR* Amiodarone 200 MG TABLET PO SCH (07:26)
[2017-12-18] MEDS: Lisinopril 20 MG TABLET PO SCH (07:26)
[2017-12-18 07:59] VITALS: BP 143/75
--- NOTE | 2017-12-18 10:07 | Discharge Summary ---
Orders not resulted at time of discharge: Pending orders 12/19/17 04:00 PT/INR [Prothrombin Time INR] [COAG] AM 0400 12/20/17 04:00 PT/INR [Prothrombin Time INR] [COAG] AM 0400 Date of Encounter: 12/18/17 Time of Encounter: 20:00 - Discharge Diagnosis (1) CHF exacerbation Priority: Primary Status: Acute Comments: Acute exacerbation of chronic systolic CHF with LVEF 40% with h/o ischemic cardiomyopathy s/p AICD Symptoms now improved - patient is at baseline Continue Lasix, Toprol-XL, Zestril and Coumadin on discharge Chest x-ray - pulmonary edema BNP - 889 Echocardiogram (05/19/2017) - LVEF 40%, mildly dilated LV, systolic dysfunction , dilated LA Repeat Echocardiogram - report pending Continue 1500 mL fluid restriction and salt restriction Patient insists on being discharged home today. Stable for discharge home today. Follow-up with PCP and cardiology as outpatient. Return if symptoms worsen. Qualifiers: Heart failure type: systolic Qualified Code(s): I50.23 - Acute on chronic systolic (congestive) heart failure (2) CAD (coronary artery disease) Priority: Primary Status: Chronic Comments: Coronary artery disease s/p CABG - stable, no anginal symptoms Continue home dose of ASA, Zocor, Toprol-XL Qualifiers: Coronary Disease-Associated Artery/Lesion type: bypass graft [place] vs. transplanted heart: [place] heart Associated angina: without angina Qualified Code(s): I25.810 - Atherosclerosis of coronary artery bypass graft(s) without angina pectoris (3) COPD (chronic obstructive pulmonary disease) Priority: Primary Status: Chronic Comments: COPD, stable, no acute exacerbation Continue home dose of Symbicort, DuoNeb breathing treatment Qualifiers: COPD type: unspecified COPD Qualified Code(s): J44.9 - Chronic obstructive pulmonary disease, unspecified (4) Paroxysmal A-fib Priority: Primary Status: Chronic Comments: Known h/o A. fib - s/p ablation, rate controlled Continue home dose of Amiodarone, Toprol-XL Continue Coumadin for anticoagulation (5) History of DVT (deep vein thrombosis) Priority: Secondary Status: Acute Comments: H/o DVT, stable Continue home Coumadin for anticoagulation Monitor INR/PT as outpatient Hospital course: Ms. Navarrete is a 77 year old female with past medical history of A. fib, CHF, ischemic cardiomyopathy, CAD s/p CABG, s/p AICD, HTN, DVT, h/o GI bleed. Patient presented with complaints of cough and shortness of breath. Patient was recently treated for a respiratory tract infection. Initial CT revealed bilateral pleural effusions. No obvious consolidation. Her BNP peptide was greater than 800. Patient is not home O2 dependent. Patient was admitted for acute exacerbation of systolic CHF with LVEF 40%. Repeat echocardiogram is pending. Patient's last echo was in May 2017 which revealed dilated LV, dilated LA and LV EF 40%. Patient was started on IV Lasix during her stay. She was also on breathing treatments. We continued all her home medications. Patient tolerated all her meds well. She had good diuresis. Her symptoms have now resolved. Patient is tolerating oral diet well and voiding well. Examined this morning. Patient is awake and alert. Not in any distress. Denies chest pain or shortness of breath. Denies cough. States she feels better, and insists on being discharged home today. Patient seems back to baseline state. Patient's labs and vitals are all fairly within normal limits. Advised to continue all home medications. Patient is being discharged on Toprol XL and Zestril. No other acute events or complications during her stay in the hospital. She has been advised to follow up with primary care physician and cardiology as outpatient. Patient has been explained about her condition and plan of care in detail. She understood and agreed. No unanswered questions. No family members at discharge. Stable for discharge home today. - Time Spent with Patient Total time spent providing and/or coordinating discharge services: Greater than 30 minutes - Discharge Medications Prescriptions: Aspirin 81 mg PO DAILY #30 tab.chew Lisinopril [Zestril] 20 mg PO DAILY #30 tablet Metoprolol XL (24 HR) Succ [Toprol Xl] 50 mg PO DAILY #30 tab.er.24h Simvastatin [Zocor] 5 mg PO HS #30 tablet Home Medications: Albuterol Sulfate [Ventolin Hfa] 2 puff IH Q6H PRN 12/17/17 [History] Amiodarone [Cordarone] 200 mg PO DAILY 12/17/17 [History] Doxycycline Hyclate [Vibramycin] 100 mg PO BID 12/17/17 [History] Fluticasone/Salmeterol [Advair 250-50 Diskus] 1 puff IH BID 12/17/17 [History] Furosemide [Lasix] 40 mg PO BID 12/17/17 [History] Ipratropium/Albuterol Neb [Duoneb] 3 ml IH Q6HR PRN 12/17/17 [History] Levothyroxine [Synthroid] 100 mcg PO DAILY 12/17/17 [History] Omeprazole [PriLOSEC] 40 mg PO DAILY 12/17/17 [History] Potassium Chloride [K-Tab ER] 80 meq PO DAILY 12/17/17 [History] Ranitidine HCl [Acid Seam Steamer] 150 mg PO BID 12/17/17 [History] Warfarin [Coumadin] 1.25 mg PO MOFR 12/17/17 [History] Warfarin [Coumadin] 2.5 mg PO SUTUWETHSA 12/17/17 [History] clonazePAM [Klonopin] 1 mg PO BID 12/17/17 [History] Aspirin 81 mg PO DAILY #30 tab.chew 12/18/17 [Rx] Lisinopril [Zestril] 20 mg PO DAILY #30 tablet 12/18/17 [Rx] Metoprolol XL (24 HR) Succ [Toprol Xl] 50 mg PO DAILY #30 tab.er.24h 12/18/17 [ Rx] Simvastatin [Zocor] 5 mg PO HS #30 tablet 12/18/17 [Rx] Allergies/Adverse Reactions: 3 Allergy/AdvReac Type Severity Reaction Status Date / Time nitrofurantoin AdvReac Diarrhea Verified 09/27/17 21:32 [From Macrobid] Zcatksx-Ysz-Twr Reductase AdvReac Muscle Pain Verified 09/27/17 21:32 Inhibitor [Statins] sulfamethoxazole AdvReac See Verified 09/27/17 21:32 [From Bactrim] Comments trimethoprim [From Bactrim] AdvReac See Verified 09/27/17 21:32 Comments Date of admission: 12/17/17 00:45 Primary care physician: Ralf Perez MD Discharging clinician: Barry Ortega Anticipated date of discharge: 12/18/17 - Constitutional Vitals: Temp Pulse Resp BP Pulse Ox 98.0 F 62 18 143/75 95 12/18/17 07:58 12/18/17 07:58 12/18/17 07:58 12/18/17 07:58 12/18/17 07:58 General appearance: Present: cooperative, A&O X 3, pleasant, no acute distress, answers questions appropriately - Head Head exam: Present: atraumatic - Eye Eye exam: Present: EOMI - ENT ENT exam: Present: mucous membranes moist - Neck Neck exam general surgery: Present: supple - Respiratory Respiratory exam: Present: CTAB - Cardiovascular Cardiovascular exam: Present: +S1, +S2. Absent: tachycardia - GI/Abdominal GI/Abdominal exam: Present: soft, no peritoneal signs. Absent: distended, firm , guarding, tenderness - Extremities Exam Extremities exam: Present: pedal edema (Mild bilateral). Absent: calf tenderness, tenderness - Neurological Exam Neurological exam: Present: alert, oriented X3, no focal deficits. Absent: speech deficit - Patient Status Disposition: Home, Self-Care Condition: Good Functional capacity at discharge: independent ambulation Overall status at discharge: patient is back to baseline - Discharge Instructions Instructions: Heart Failure (DC), Chronic Obstructive Pulmonary Disease (DC), Chronic Hypertension (DC) Follow Up With: Ralf Perez MD [Primary Care Provider] - (Web Request Sent 12/18/17) Kalpesh Aguilera DO [Partnered Physician] - - Diet and Activity Activity: increase activity as tolerated, resume usual activities as tolerated Diet: low salt diet, other (Cardiac diet with 1500 mL fluid restriction)
== END 2017-12-18 10:32 | disposition home or self-care (01) ==
LOC: 2ANU 21:20 → EMEROOARM 21:20 → 2ANU 12-17 01:53
PROVIDERS: ADMIT Family Medicine; ATTEND Family Medicine

== ENCOUNTER 2018-02-18 13:31 | Observation (INO) ==
[2018-02-18] MEDS ORDERED: Nitroglycerin 0.4 MG TAB.SUBL SL ONE (13:49)
--- NOTE | 2018-02-18 13:50 | Emergency Department Note ---
Disposition Clinical Impression: Chest pain Qualifiers: Chest pain type: unspecified Qualified Code(s): R07.9 - Chest pain, unspecified Congestive heart failure Qualifiers: Heart failure type: unspecified Heart failure chronicity: unspecified Qualified Code(s): I50.9 - Heart failure, unspecified Chronic kidney disease Qualifiers: Chronic kidney disease stage: stage 3 (moderate) Qualified Code(s): N18.3 - Chronic kidney disease, stage 3 (moderate) Disposition: Admitted As Inpatient Condition: Fair Time of Disposition: 19:32 General Adult HPI - General Chief complaint: ED Shortness of Breath/Dyspnea Stated complaint: DALTON,chest tightness Time Seen by Provider: 02/18/18 13:38 - History of Present Illness Pain Scale: 8 - Related Data Home Medications Medication Instructions Recorded Confirmed RX: Albuterol Sulfate [Ventolin 2 puff IH Q6H PRN 12/17/17 02/18/18 Hfa] RX: Amiodarone [Cordarone] 200 mg PO DAILY 12/17/17 02/18/18 RX: Fluticasone/Salmeterol [Advair 1 puff IH BID 12/17/17 02/18/18 250-50 Diskus] RX: Furosemide [Lasix] 40 mg PO BID 12/17/17 02/18/18 RX: Ipratropium/Albuterol Neb 3 ml IH Q6HR PRN 12/17/17 02/18/18 [Duoneb] RX: Levothyroxine [Synthroid] 100 mcg PO DAILY 12/17/17 02/18/18 RX: Omeprazole [PriLOSEC] 40 mg PO DAILY 12/17/17 02/18/18 RX: Potassium Chloride [K-Tab ER] 40 meq PO BID 12/17/17 02/18/18 RX: Ranitidine HCl [Acid Tool And Die Maker Level Five] 150 mg PO BID PRN 12/17/17 02/18/18 RX: Warfarin [Coumadin] 1.25 mg PO MOTUWETHFRSA 12/17/17 02/18/18 RX: Warfarin [Coumadin] 2.5 mg PO RIDER 12/17/17 02/18/18 RX: clonazePAM [Klonopin] 1 mg PO BID 12/17/17 02/18/18 Enalapril Maleate [Vasotec] 20 mg PO BID 02/18/18 02/18/18 RX: Metoprolol XL (24 HR) Succ 75 mg PO BID 02/18/18 02/18/18 [Toprol Xl] Rosuvastatin Calcium 5 mg PO Q48H 02/18/18 02/18/18 Previous Rx's Medication Instructions Recorded RX: Aspirin 81 mg PO DAILY #30 tab.chew 12/18/17 RX: Simvastatin [Zocor] 5 mg PO HS #30 tablet 12/18/17 Allergies Allergy/AdvReac Type Severity Reaction Status Date / Time nitrofurantoin AdvReac Diarrhea Verified 02/18/18 13:45 [From Macrobid] Tvjbwqu-Jrj-Cqd Reductase AdvReac Muscle Pain Verified 02/18/18 13:45 Inhibitor [Statins] sulfamethoxazole AdvReac See Verified 02/18/18 13:45 [From Bactrim] Comments trimethoprim [From Bactrim] AdvReac See Verified 02/18/18 13:45 Comments Past Medical History - Past Medical History Medical history: Reports: atrial fibrillation, CHF, hypertension, myocardial infarction, other Surgical history: Reports: coronary bypass (CABG), other, AICD Psychiatric history: Reports: anxiety 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 - Social History Smoking Status: Never smoker Smokeless Tobacco Status: No Alcohol use: Reports: none Drug use: Reports: none Physical Exam - General General appearance: alert, in no apparent distress Course Vital Signs Temperature 98.0 F 02/18/18 13:33 Pulse Rate 81 02/18/18 13:33 Respiratory Rate 16 02/18/18 13:33 Blood Pressure 168/92 02/18/18 13:33 O2 Sat by Pulse Oximetry 93 02/18/18 13:33 Temperature 98.2 F 02/18/18 19:09 Pulse Rate 68 02/18/18 19:09 Respiratory Rate 16 02/18/18 19:09 Blood Pressure 143/77 02/18/18 19:09 O2 Sat by Pulse Oximetry 95 02/18/18 19:09 Oxygen Delivery Oxygen Delivery Room Air Medical Decision Making - Lab Data Result diagrams: 02/18/18 14:07 02/18/18 14:07 Lab Results 02/18/18 02/18/18 02/18/18 Range/Units 14:07 14:07 14:07 WBC 10.9 (4.3-11.1) K/mcL RBC 3.43 L (3.82-4.97) M/mcL Hgb 11.0 L (11.5-15.4) g/dL Hct 33.8 L (35.3-44.9) % MCV 98.5 (83.0-100.0) fL MCH 32.1 (28.0-33.3) pg MCHC 32.5 (31.6-35.5) g/dL RDW 15.7 H (11.5-14.5) % Plt Count 220 (140-400) K/mcL MPV 11.1 (9.4-12.4) fL Immature Gran % 0.4 (0-4) % Seg Neutrophils % 70.0 % Lymphocytes % 19.0 % Monocytes % 9.8 % Eosinophils % 0.6 % Basophils % 0.2 % Neutrophils # 7.6 (1.6-8.9) K/mcL Lymphocytes # 2.1 (0.6-4.6) K/mcL Monocytes # 1.1 (0.0-1.3) K/mcL Eosinophils # 0.1 (0.0-0.6) K/mcL Basophils # 0.0 (0.0-0.2) K/mcL PT 24.1 H (9.4-12.1) Seconds INR 2.1 APTT 35.8 (26.0-36.0) Seconds Sodium (136-145) mEq/L Potassium (3.5-5.1) mEq/L Chloride (98-107) mEq/L Carbon Dioxide (23-29) mEq/L BUN (8-23) mg/dL Creatinine (0.60-1.20) mg/dL Est GFR ( Amer) (> 60) Est GFR (Non-Af Amer) (> 60) BUN/Creatinine Ratio (6-26) Glucose (70-105) mg/dL Calculated Osmolality (280-300) Calcium (8.6-10.3) mg/dL Troponin I (< 0.04) ng/mL B-Natriuretic Peptide 908 H (Less than 100) pg/mL Lipase (11-82) Units/L 02/18/18 02/18/18 Range/Units 14:07 14:07 WBC (4.3-11.1) K/mcL RBC (3.82-4.97) M/mcL Hgb (11.5-15.4) g/dL Hct (35.3-44.9) % MCV (83.0-100.0) fL MCH (28.0-33.3) pg MCHC (31.6-35.5) g/dL RDW (11.5-14.5) % Plt Count (140-400) K/mcL MPV (9.4-12.4) fL Immature Gran % (0-4) % Seg Neutrophils % % Lymphocytes % % Monocytes % % Eosinophils % % Basophils % % Neutrophils # (1.6-8.9) K/mcL Lymphocytes # (0.6-4.6) K/mcL Monocytes # (0.0-1.3) K/mcL Eosinophils # (0.0-0.6) K/mcL Basophils # (0.0-0.2) K/mcL PT (9.4-12.1) Seconds INR APTT (26.0-36.0) Seconds Sodium 139 (136-145) mEq/L Potassium 4.0 (3.5-5.1) mEq/L Chloride 104 (98-107) mEq/L Carbon Dioxide 27 (23-29) mEq/L BUN 28 H (8-23) mg/dL Creatinine 1.29 H (0.60-1.20) mg/dL Est GFR ( Amer) 49 L (> 60) Est GFR (Non-Af Amer) 40 L (> 60) BUN/Creatinine Ratio 22 (6-26) Glucose 107 H (70-105) mg/dL Calculated Osmolality 294 (280-300) Calcium 8.6 (8.6-10.3) mg/dL Troponin I 0.04 H* (< 0.04) ng/mL B-Natriuretic Peptide (Less than 100) pg/mL Lipase 26 (11-82) Units/L Attestation Statement - Attestation Attestation: I examined this patient and my medical decision-making was reviewed with the Resident Physician. I agree with the documented findings, disposition and treatment plan as described except to the extent set forth below. Zzvr-[id number]-svas time provided Patient complains of chest discomfort and dyspnea. She takes Coumadin. Appears in no acute distress on exam. Recently had a steroid shot for back pain. Triage note and vitals reviewed by me
--- NOTE | 2018-02-18 14:00 | Emergency Department Note ---
Disposition Clinical Impression: Chest pain Qualifiers: Chest pain type: unspecified Qualified Code(s): R07.9 - Chest pain, unspecified Congestive heart failure Qualifiers: Heart failure type: unspecified Heart failure chronicity: unspecified Qualified Code(s): I50.9 - Heart failure, unspecified Chronic kidney disease Qualifiers: Chronic kidney disease stage: unspecified stage Qualified Code(s): N18.9 - Chronic kidney disease, unspecified Disposition: Admitted As Inpatient Condition: Fair Referrals: Ralf Perez MD [Primary Care Provider] - Forms: ED Satisfaction Letter Time of Disposition: 15:24 General Adult HPI - General Chief complaint: ED Shortness of Breath/Dyspnea Stated complaint: DALTON,chest tightness Time Seen by Provider: 02/18/18 13:38 Source: patient Mode of arrival: ambulatory Limitations: no limitations Nursing Notes Reviewed: Yes Vital Signs Reviewed: Yes - History of Present Illness HPI Narrative: 77 year old female with a history of CAD, A. fib, hypertension with a history of heart attacks in the past presents for evaluation of chest pain or shortness of breath. Patient states symptom onset started approximately 2 days ago. Prior to that point the patient stated that she got a steroid shot for her back. Patient notes pain that is in the anterior part of her chest and wraps around each side into her back. Patient denies any nausea vomiting or diaphoresis. Patient does note some dyspnea related the pain. Denies any fevers or cough. States she takes Coumadin as well as having a pacemaker. Pain Scale: 8 - Related Data Home Medications Medication Instructions Recorded Confirmed Albuterol Sulfate [Ventolin Hfa] 2 puff IH Q6H PRN 12/17/17 12/17/17 Amiodarone [Cordarone] 200 mg PO DAILY 12/17/17 12/17/17 Doxycycline Hyclate [Vibramycin] 100 mg PO BID 12/17/17 12/17/17 Fluticasone/Salmeterol [Advair 1 puff IH BID 12/17/17 12/17/17 250-50 Diskus] Furosemide [Lasix] 40 mg PO BID 12/17/17 12/17/17 Ipratropium/Albuterol Neb [Duoneb] 3 ml IH Q6HR PRN 12/17/17 12/17/17 Levothyroxine [Synthroid] 100 mcg PO DAILY 12/17/17 12/17/17 Omeprazole [PriLOSEC] 40 mg PO DAILY 12/17/17 12/17/17 Potassium Chloride [K-Tab ER] 80 meq PO DAILY 12/17/17 12/17/17 Ranitidine HCl [Acid Driver/Merchandiser] 150 mg PO BID 12/17/17 12/17/17 Warfarin [Coumadin] 1.25 mg PO MOFR 12/17/17 12/17/17 Warfarin [Coumadin] 2.5 mg PO SUTUWETHSA 12/17/17 12/17/17 clonazePAM [Klonopin] 1 mg PO BID 12/17/17 12/17/17 Previous Rx's Medication Instructions Recorded Aspirin 81 mg PO DAILY #30 tab.chew 12/18/17 Lisinopril [Zestril] 20 mg PO DAILY #30 tablet 12/18/17 Metoprolol XL (24 HR) Succ [Toprol 50 mg PO DAILY #30 tab.er.24h 12/18/17 Xl] Simvastatin [Zocor] 5 mg PO HS #30 tablet 12/18/17 Allergies Allergy/AdvReac Type Severity Reaction Status Date / Time nitrofurantoin AdvReac Diarrhea Verified 02/18/18 13:45 [From Macrobid] Qshrylb-Viz-Plv Reductase AdvReac Muscle Pain Verified 02/18/18 13:45 Inhibitor [Statins] sulfamethoxazole AdvReac See Verified 02/18/18 13:45 [From Bactrim] Comments trimethoprim [From Bactrim] AdvReac See Verified 02/18/18 13:45 Comments All systems ED: reviewed and negative except as stated. Constitutional: Denies: fever Cardiovascular: Reports: chest pain Respiratory: Reports: dyspnea. 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 Absent: respiratory distress - Cardiovascular Cardiovascular exam: Present: normal rhythm, irregular rhythm. Absent: systolic murmur - Abdominal Exam Abdominal exam: Present: soft, Non-Tender - Extremities Exam Extremities exam: Present: normal inspection. Absent: pedal edema - Back Exam Back exam: Present: normal inspection - Neurological Exam Neurological exam: Present: alert, oriented X3, CN II-XII intact - Skin Skin exam: Present: warm, dry, intact, normal color Course Course Narrative: Patient presents for concerns of chest pain and dyspnea. Patient is currently anticoagulated history reveals a history of A. fib and pacemaker. Patient will get pretty pulmonary evaluation with EKG troponin chest x-ray. Symptomatic treatment with nitroglycerin. Disposition likely admission. - Reevaluation(s) Reevaluation #1: Patient seen and examined. Patient's resting comfortably. Denies any needs at this time. Plan of care discussed with her at bedside. Patient will be admitted. Time: 15:22 Vital Signs Temperature 98.0 F 02/18/18 13:33 Pulse Rate 81 02/18/18 13:33 Respiratory Rate 16 02/18/18 13:33 Blood Pressure 168/92 02/18/18 13:33 O2 Sat by Pulse Oximetry 93 02/18/18 13:33 Temperature 98.0 F 02/18/18 13:33 Pulse Rate 73 02/18/18 14:37 Respiratory Rate 20 02/18/18 14:37 Blood Pressure 111/70 02/18/18 14:37 O2 Sat by Pulse Oximetry 94 02/18/18 14:37 Oxygen Delivery Oxygen Delivery Room Air Medical Decision Making - [facility] Narrative Medical decision making narrative: Patient presents for concerns of chest pain and dyspnea. The patient's ED workup is significant for heart failure in the setting of an elevated troponin. Patient describes symptoms of heart failure. Patient does not require any oxygen supplementation. Patient declined any nitroglycerin. Patient was given a dose of diuretics IV in the ED. Patient troponin was elevated likely in the setting of demand ischemia in heart failure exacerbation. Patient would likely need serial troponins as well as continued cardiopulmonary monitoring. Patient had a recent echo which showed an EF of 45%. Patient was not given aspirin as she is artery anticoagulated with Coumadin and is therapeutic. Patient h emoglobin appears stable. Kidney function is at baseline as well. - Medical Records Medical records reviewed: Yes I reviewed the patient's medical records. 12/18 Impressions: LVEF 45%. Segmental left ventricular systolic dysfunction. Indeterminate diastolic function. Atypical septal motion consistent with post-operative status. Severely dilated left atrium. Normal right ventricular size with mild hypokinesis. Mild aortic regurgitation. Moderate mitral regurgitation. Mild pulmonary hypertension. A device lead was visualized in the right atrium and right ventricle. - Lab Data Lab results reviewed: Yes I reviewed the patient's lab results. Result diagrams: 02/18/18 14:07 02/18/18 14:07 Lab Results 02/18/18 02/18/18 02/18/18 Range/Units 14:07 14:07 14:07 WBC 10.9 (4.3-11.1) K/mcL RBC 3.43 L (3.82-4.97) M/mcL Hgb 11.0 L (11.5-15.4) g/dL Hct 33.8 L (35.3-44.9) % MCV 98.5 (83.0-100.0) fL MCH 32.1 (28.0-33.3) pg MCHC 32.5 (31.6-35.5) g/dL RDW 15.7 H (11.5-14.5) % Plt Count 220 (140-400) K/mcL MPV 11.1 (9.4-12.4) fL Immature Gran % 0.4 (0-4) % Seg Neutrophils % 70.0 % Lymphocytes % 19.0 % Monocytes % 9.8 % Eosinophils % 0.6 % Basophils % 0.2 % Neutrophils # 7.6 (1.6-8.9) K/mcL Lymphocytes # 2.1 (0.6-4.6) K/mcL Monocytes # 1.1 (0.0-1.3) K/mcL Eosinophils # 0.1 (0.0-0.6) K/mcL Basophils # 0.0 (0.0-0.2) K/mcL PT 24.1 H (9.4-12.1) Seconds INR 2.1 APTT 35.8 (26.0-36.0) Seconds Sodium (136-145) mEq/L Potassium (3.5-5.1) mEq/L Chloride (98-107) mEq/L Carbon Dioxide (23-29) mEq/L BUN (8-23) mg/dL Creatinine (0.60-1.20) mg/dL Est GFR ( Amer) (> 60) Est GFR (Non-Af Amer) (> 60) BUN/Creatinine Ratio (6-26) Glucose (70-105) mg/dL Calculated Osmolality (280-300) Calcium (8.6-10.3) mg/dL Troponin I (< 0.04) ng/mL B-Natriuretic Peptide 908 H (Less than 100) pg/mL Lipase (11-82) Units/L 02/18/18 02/18/18 Range/Units 14:07 14:07 WBC (4.3-11.1) K/mcL RBC (3.82-4.97) M/mcL Hgb (11.5-15.4) g/dL Hct (35.3-44.9) % MCV (83.0-100.0) fL MCH (28.0-33.3) pg MCHC (31.6-35.5) g/dL RDW (11.5-14.5) % Plt Count (140-400) K/mcL MPV (9.4-12.4) fL Immature Gran % (0-4) % Seg Neutrophils % % Lymphocytes % % Monocytes % % Eosinophils % % Basophils % % Neutrophils # (1.6-8.9) K/mcL Lymphocytes # (0.6-4.6) K/mcL Monocytes # (0.0-1.3) K/mcL Eosinophils # (0.0-0.6) K/mcL Basophils # (0.0-0.2) K/mcL PT (9.4-12.1) Seconds INR APTT (26.0-36.0) Seconds Sodium 139 (136-145) mEq/L Potassium 4.0 (3.5-5.1) mEq/L Chloride 104 (98-107) mEq/L Carbon Dioxide 27 (23-29) mEq/L BUN 28 H (8-23) mg/dL Creatinine 1.29 H (0.60-1.20) mg/dL Est GFR ( Amer) 49 L (> 60) Est GFR (Non-Af Amer) 40 L (> 60) BUN/Creatinine Ratio 22 (6-26) Glucose 107 H (70-105) mg/dL Calculated Osmolality 294 (280-300) Calcium 8.6 (8.6-10.3) mg/dL Troponin I 0.04 H* (< 0.04) ng/mL B-Natriuretic Peptide (Less than 100) pg/mL Lipase 26 (11-82) Units/L - Radiology Data Radiology results reviewed: Yes I reviewed the patient's radiology results. Chest X-Ray 02/18/18 13:49 IMPRESSION: No significant interval change when compared to 12/16/2017. Mild vascular congestion and tiny pleural effusions persist. D/ / 02/18/2018 14:10:46 Nora Melo / sweta Interpreting Provider: Nora Melo - EKG Data EKG #1 EKG attestation: Yes I reviewed and interpreted this EKG. Rate: normal Rhythm: A.Fib Hughes/QRS: normal ST segment depression in: I T wave inversions noted in: I, aVL, v2, v3 When compared to previous EKG there are: changes noted Interpretation: nonspecific ST-T wave changes S.B.ANing - S.MariumANing Situation: Demographics Background: Presenting Complaint Assessment: Vital Signs, Course and respsone to treatment, Patient/Family Expectation Recommendation: Barrier(s) to disposition, Recommendation based on pending studies, treatments, or consults S.B.A.RKecia Report Given to: Hospitalist Judy Repor Time: 15:16
[2018-02-18 14:35] LABS: Basophils % 0.2 %; Eosinophils # 0.1 K/mcL (0.0-0.6); Eosinophils % 0.6 %; Hematocrit 33.8 % (35.3-44.9); Immature Granulocytes % 0.4 % (0-4); Lymphocytes # 2.1 K/mcL (0.6-4.6); Mean Corpuscular HGB Conc 32.5 g/dL (31.6-35.5); Mean Corpuscular Hemoglobin 32.1 pg (28.0-33.3); Mean Corpuscular Volume 98.5 fL (83.0-100.0); Mean Platelet Volume 11.1 fL (9.4-12.4); Monocytes # 1.1 K/mcL (0.0-1.3); Monocytes % 9.8 %; Neutrophils # 7.6 K/mcL (1.6-8.9); Platelet Count 220 K/mcL (140-400); Red Blood Count 3.43 M/mcL (3.82-4.97); Red Cell Distribution Width 15.7 % (11.5-14.5)
[2018-02-18 14:41] LABS: INR 2.1; Prothrombin Time 24.1 Seconds (9.4-12.1)
[2018-02-18 14:44] LABS: Activated Partial Thrombo Time 35.8 Seconds (26.0-36.0)
[2018-02-18 14:45] LABS: Calcium 8.6 mg/dL (8.6-10.3)
[2018-02-18 14:49] LABS: Troponin I 0.04 ng/mL (< 0.04)
[2018-02-18] MEDS ORDERED: Furosemide 40 MG/4 ML VIAL IVP ONE (15:09)
[2018-02-18] MEDS ORDERED: Naloxone 0.4 MG/ML INJ IVP PRN (15:32)
--- NOTE | 2018-02-18 15:45 | Internal Med History&Physical ---
Date of Encounter: 02/18/18 Time of Encounter: 15:42 Internal Medicine - H&P: HPI Chief complaint: chest discomfort Admitted From: Home Plans for Post Hospital Care: Home History of present illness: Ms. Navarrete is a 77 year old female A. fib, HFREF, ischemic cardiomyopathy, CAD s/p CABG, s/p AICD, HTN, DVT, h/o GI bleed presented to the emergency department with chest discomfort. As per patient her chest discomfort started 3 days ago after she was evaluated at the spine doctors and received a steroid injection in her back for leg pain. Her chest discomfort is located in the right upper chest without radiation. She also feels pain underneath bilateral lower ribs without radiation. Pain is not exacerbated by deep breathing, she denies wheezing or cough. Denies sick contacts, fever, chills or recent antibiotic use. She reports that she is still able to walk as she did at her baseline, denies calf tenderness, leg swelling, PND or orthopnea. She has been admitted in December for acute heart failure exacerbation and reports that her symptoms are similar to her symptoms mentioned she was admitted in December. She denies dysuria, heat or cold intolerance, nausea, vomiting, diarrhea. she is compliant with her medications and follow ups. Past Med Surg Social Fam HX - Past Medical History Medical history: atrial fibrillation, CHF, hypertension, myocardial infarction, other Additional medical history: cardiac ablasions, irregular heart rate Psychiatric history: anxiety - Past Surgical History Surgical History: coronary bypass (CABG), other, AICD Additional surgical history: heart stents - Social History Smoking Status: Never smoker Smokeless Tobacco Status: No Alcohol use: none Drug use: none - Family History Father Family Member Ethnicity: Non- Living Status: Hx Family Respiratory Disorders: No Hx Family Cancer: Yes (Pancreatic) Hx Family GI Disorders: No Hx Family Endocrine Disorder: Yes (DM) Hx Family Neuromuscular Disorders: No Hx Family Neurologic Disorders: No Hx Family HEENT Disorders: No Hx Family Autoimmune Disorders: No Mother Family Member Ethnicity: Non- Living Status: Hx Family Neurologic Disorders: Yes (Dementia) Brother Family Member Ethnicity: Non- Living Status: Hx Family Endocrine Disorder: Yes (DM) Sister Family Member Ethnicity: Non- Living Status: Still Living Internal Medicine - H&P: Meds Albuterol Sulfate [Ventolin Hfa] 2 puff IH Q6H PRN 12/17/17 [History] Amiodarone [Cordarone] 200 mg PO DAILY 12/17/17 [History] Doxycycline Hyclate [Vibramycin] 100 mg PO BID 12/17/17 [History] Fluticasone/Salmeterol [Advair 250-50 Diskus] 1 puff IH BID 12/17/17 [History] Furosemide [Lasix] 40 mg PO BID 12/17/17 [History] Ipratropium/Albuterol Neb [Duoneb] 3 ml IH Q6HR PRN 12/17/17 [History] Levothyroxine [Synthroid] 100 mcg PO DAILY 12/17/17 [History] Omeprazole [PriLOSEC] 40 mg PO DAILY 12/17/17 [History] Potassium Chloride [K-Tab ER] 80 meq PO DAILY 12/17/17 [History] Ranitidine HCl [Acid Evs Tech] 150 mg PO BID 12/17/17 [History] Warfarin [Coumadin] 1.25 mg PO MOTUWETHFRSA 12/17/17 [History] Warfarin [Coumadin] 2.5 mg PO RIDER 12/17/17 [History] clonazePAM [Klonopin] 1 mg PO BID 12/17/17 [History] Aspirin 81 mg PO DAILY #30 tab.chew 12/18/17 [Rx] Lisinopril [Zestril] 20 mg PO DAILY #30 tablet 12/18/17 [Rx] Metoprolol XL (24 HR) Succ [Toprol Xl] 50 mg PO DAILY #30 tab.er.24h 12/18/17 [Rx] Simvastatin [Zocor] 5 mg PO HS #30 tablet 12/18/17 [Rx] Allergy/AdvReac Type Severity Reaction Status Date / Time nitrofurantoin AdvReac Diarrhea Verified 02/18/18 13:45 [From Macrobid] Ocnwlva-Vhq-Pct Reductase AdvReac Muscle Pain Verified 02/18/18 13:45 Inhibitor [Statins] sulfamethoxazole AdvReac See Verified 02/18/18 13:45 [From Bactrim] Comments trimethoprim [From Bactrim] AdvReac See Verified 02/18/18 13:45 Comments All Systems PM: review of systems was performed and is negative for pertinent findings except as documented above in the HPI. - Constitutional Vitals: Temp Pulse Resp BP Pulse Ox 98.0 F 62 20 126/72 95 02/18/18 13:33 02/18/18 15:00 02/18/18 15:00 02/18/18 15:00 02/18/18 15:00 Exam: General: Patient is alert, oriented, no acute distress, speaks in full sentences Head: atraumatic, normocephalic, Eye: normal appearance, PERRL, no scleral icterus, no conjunctival injection ENT: mucous membranes moist, normal external ear exam Neck: normal inspection, trachea midline, full ROM, no carotid bruits Chest: normal inspection, symmetric chest rise Respiratory: Good respiratory effort. Bilateral breath sounds are clear without wheezing, has crackles iinfrascapulalrly BLT, Cardiovascular: Regular rate and rhythm. s1 and s2 No clicks, rubs, gallops, or murmors. Abdomen: Bowel sounds present normoactive x-4 quadrants. Abdomen is soft, nondistended. no Epigastric tenderness. No guarding or rebound. No organomegaly noted, obese musculoskeletal: Spontaneously moving all extremities. no edema, no calf tenderness Skin: warm, dry, intact. Neuro: Alert and oriented x4. Sensation light touch intact. Cranial nerves 2- 12 is intact. Not aphasic, gait is steady, rapid hand movements intact, [id number] intact, Psych: Patient's affect is normal Internal Med - H&P Results - Labs CBC & Chem 7: 02/18/18 14:07 02/18/18 14:07 Labs: Short CBC 02/18/18 Range/Units 14:07 WBC 10.9 (4.3-11.1) K/mcL Hgb 11.0 L (11.5-15.4) g/dL Hct 33.8 L (35.3-44.9) % Plt Count 220 (140-400) K/mcL Neutrophils # 7.6 (1.6-8.9) K/mcL BMP 02/18/18 14:07 Sodium 139 Potassium 4.0 Chloride 104 Carbon Dioxide 27 BUN 28 H Creatinine 1.29 H Glucose 107 H Calcium 8.6 Cardiac Enzymes 02/18/18 Range/Units 14:07 Troponin I 0.04 H* (< 0.04) ng/mL - Impressions ITS Impressions Chest X-Ray 02/18/18 13:49 IMPRESSION: No significant interval change when compared to 12/16/2017. Mild vascular congestion and tiny pleural effusions persist. D/ / 02/18/2018 14:10:46 Nora Melo / sweta Interpreting Provider: Nora Melo - Assessment and plan (1) Chest pain Current Visit: Yes Status: Acute Assessment and plan: will rule out ACS 1st troponin is 0.04 in setting of CKD one dose of ASA 325 mg now will follow troponin and ekg Q6H consider heparin drip if new EKG changes, or if troponin trends up currently CP free NTG PRN for CP lipid panel in AM, TSH continue home medications if not CI Qualifiers: Chest pain type: unspecified Qualified Code(s): R07.9 - Chest pain, unspecified (2) Acute on chronic HFrEF (heart failure with reduced ejection fraction) Current Visit: Yes Status: Acute Assessment and plan: BNP 908 troponin mildly elevated 0.04 lasix 40 mg IV BID continue BB, zocor, ASA hold MARU in light of ARF fluid restriction strict i/O CXR: MPRESSION: No significant interval change when compared to 12/16/2017. Mild vascular congestion and tiny pleural effusions persist. TTE on 12/17 Impressions: LVEF 45%. Segmental left ventricular systolic dysfunction. Indeterminate diastolic function. Atypical septal motion consistent with post-operative status. Severely dilated left atrium. Normal right ventricular size with mild hypokinesis. Mild aortic regurgitation. Moderate mitral regurgitation. Mild pulmonary hypertension. A device lead was visualized in the right atrium and right ventricle. (3) PAF (paroxysmal atrial fibrillation) Current Visit: Yes Status: Acute Assessment and plan: rate controlled continue coumadin (4) COPD (chronic obstructive pulmonary disease) Current Visit: Yes Status: Acute Assessment and plan: continue home medications not in acute exacerbation Qualifiers: COPD type: unspecified COPD Qualified Code(s): J44.9 - Chronic obstructive pulmonary disease, unspecified (5) Acute renal failure (ARF) Current Visit: Yes Status: Acute Assessment and plan: ARF on CKD 3 hold ACEI strict I/O will continue IV lasix 40 mg BID for CHF exacerbation will watch renal functions closely UA Qualifiers: Acute renal failure type: unspecified Qualified Code(s): N17.9 - Acute kidney failure, unspecified (6) Goals of care, counseling/discussion Current Visit: Yes Status: Acute Assessment and plan: i discussed code status in length with patient- we spoke about intubation, CPR and mechanical ventilation risks and benefits discussed in depth. she does not want to be on artificial life support and would liek her code status to be DNR CCA DNI (7) DVT prophylaxis Current Visit: Yes Status: Acute Assessment and plan: on coumadin - Time Spent With Patient Total time spent is greater than 50% in coordination of care (as documented) at patient's floor/unit and/or counseling patient:
[2018-02-18 16:15] LABS: INR 2.2; Prothrombin Time 24.4 Seconds (9.4-12.1)
[2018-02-18 16:17] LABS: Activated Partial Thrombo Time 34.7 Seconds (26.0-36.0)
[2018-02-18 16:27] LABS: Magnesium 2.4 mg/dL (1.6-2.6)
[2018-02-18] MEDS ORDERED: Aspirin 325 MG TABLET PO ONE (16:53)
[2018-02-18] MEDS ORDERED: Ipratropium/Albuterol Neb 3 ML IH PRN (16:57)
[2018-02-18] MEDS ORDERED: Nitroglycerin 0.4 MG TAB.SUBL SL PRN (17:00)
[2018-02-18] MEDS: Famotidine 20 MG TABLET PO SCH (17:19)
[2018-02-18] MEDS ORDERED: ROSUVASTATIN CALCIUM 5 MG PO SCH (17:45)
[2018-02-18] MEDS: *HR* Warfarin 1 MG TABLET PO SCH (18:27)
[2018-02-18] MEDS ORDERED: GI Cocktail 40 ML EACH PO ONE (18:40)
[2018-02-18] MEDS ORDERED: Acetaminophen 325 MG TABLET PO PRN (19:53)
[2018-02-18] MEDS: Furosemide 40 MG/4 ML VIAL IVP SCH (20:07)
[2018-02-18] MEDS ORDERED: clonazePAM 1 MG TABLET PO PRN (21:00)
[2018-02-19 02:34] LABS: Hematocrit 32.7 % (35.3-44.9); Hemoglobin 10.7 g/dL (11.5-15.4); Mean Corpuscular HGB Conc 32.7 g/dL (31.6-35.5); Mean Corpuscular Hemoglobin 31.5 pg (28.0-33.3); Mean Corpuscular Volume 96.2 fL (83.0-100.0); Mean Platelet Volume 10.9 fL (9.4-12.4); Platelet Count 205 K/mcL (140-400); Red Cell Distribution Width 15.3 % (11.5-14.5)
[2018-02-19 02:41] LABS: Albumin 3.6 g/dL (3.5-5.7); Albumin/Globulin Ratio 1.6 (1.1-2.2); Bilirubin,Total 0.7 mg/dL (0.3-1.0); Calcium 8.5 mg/dL (8.6-10.3); Chol/HDL Ratio 3.3 (0-4.9); Globulin 2.3 g/dL (2.4-3.5); Potassium 3.4 mEq/L (3.5-5.1); Total Protein 5.9 g/dL (6.4-8.9)
[2018-02-19] MEDS: Budesonide/Formoterol 80/4.5 MDI IH SCH ×2 (05:42→15:59)
--- NOTE | 2018-02-19 07:40 | Internal Med Progress Note ---
Hospitalist Progress Note - Encounter Date of Encounter: 02/19/18 Time of Encounter: 07:41 - Subjective Interval History: patient was seen and examined at bedside. reports feeling much better than yesterday. he SOB and pain under her ribs has improved is johnnie to ambulate around her room. tolerating PO diet denies palpitations, N/V/D. - Exam Vitals: Temp Pulse Resp BP Pulse Ox 97.9 F 66 16 120/62 96 02/19/18 03:43 02/19/18 03:43 02/19/18 03:43 02/19/18 03:43 02/19/18 03:43 Exam: General: Patient is alert, oriented, no acute distress, speaks in full sentences Head: atraumatic, normocephalic, Eye: normal appearance, PERRL, no scleral icterus, no conjunctival injection ENT: mucous membranes moist, normal external ear exam Neck: normal inspection, trachea midline, full ROM, no carotid bruits Chest: normal inspection, symmetric chest rise Respiratory: Good respiratory effort. Bilateral breath sounds are clear without wheezing, has crackles iinfrascapulalrly BLT, Cardiovascular: Regular rate and rhythm. s1 and s2 No clicks, rubs, gallops, or murmors. Abdomen: Bowel sounds present normoactive x-4 quadrants. Abdomen is soft, nondistended. no Epigastric tenderness. No guarding or rebound. No organomegaly noted, obese musculoskeletal: Spontaneously moving all extremities. no edema, no calf tenderness Skin: warm, dry, intact. Neuro: Alert and oriented x4. Sensation light touch intact. Cranial nerves 2- 12 is intact. Not aphasic, gait is steady, rapid hand movements intact, [id number] intact, Psych: Patient's affect is normal - Assessment and Plan (1) Chest pain Current Visit: Yes Status: Acute Assessment and Plan: will rule out ACS 1st troponin is 0.04 in setting of CKD - trended down to <0.03 x 2 was loaded with ASA continue home dose BB, ASA and statins currently CP free NTG PRN for CP TSH WNL (2) Acute on chronic HFrEF (heart failure with reduced ejection fraction) Current Visit: Yes Status: Acute Assessment and Plan: BNP 908 troponin mildly elevated 0.04 IV lasix starte- creatinine trended up wll decreased dose from BID to IV lasix daily continue BB, zocor, ASA hold MARU in light of ARF fluid restriction strict i/O CXR: MPRESSION: No significant interval change when compared to 12/16/2017. Mild vascular congestion and tiny pleural effusions persist. TTE on 12/17 Impressions: LVEF 45%. Segmental left ventricular systolic dysfunction. Indeterminate diastolic function. Atypical septal motion consistent with post-operative status. Severely dilated left atrium. Normal right ventricular size with mild hypokinesis. Mild aortic regurgitation. Moderate mitral regurgitation. Mild pulmonary hypertension. A device lead was visualized in the right atrium and right ventricle. (3) PAF (paroxysmal atrial fibrillation) Current Visit: Yes Status: Acute Assessment and Plan: rate controlled continue coumadin (4) COPD (chronic obstructive pulmonary disease) Current Visit: Yes Status: Acute Assessment and Plan: continue home medications not in acute exacerbation (5) Acute renal failure (ARF) Current Visit: Yes Status: Acute Assessment and Plan: ARF on CKD 3 hold ACEI strict I/O decrease IV lasix to 40 mg Qday for CHF exacerbation will watch renal functions closely renal US UA pending (6) Goals of care, counseling/discussion Current Visit: Yes Status: Acute Assessment and Plan: i discussed code status in length with patient- we spoke about intubation, CPR and mechanical ventilation risks and benefits discussed in depth. she does not want to be on artificial life support and would liek her code status to be DNR CCA DNI (7) DVT prophylaxis Current Visit: Yes Status: Acute Assessment and Plan: on coumadin - Time Spent with Patient Total time spent is greater than 50% in coordination of care (as documented) at patient's floor/unit and/or counseling patient: Internal Medicine: Result - Labs CBC & Chem 7: 02/19/18 02:11 02/19/18 02:11 Labs: Short CBC 02/18/18 02/19/18 Range/Units 14:07 02:11 WBC 10.9 8.5 (4.3-11.1) K/mcL Hgb 11.0 L 10.7 L (11.5-15.4) g/dL Hct 33.8 L 32.7 L (35.3-44.9) % Plt Count 220 205 (140-400) K/mcL Neutrophils # 7.6 (1.6-8.9) K/mcL BMP 02/18/18 02/19/18 14:07 02:11 Sodium 139 140 Potassium 4.0 3.4 L Chloride 104 103 Carbon Dioxide 27 29 BUN 28 H 26 H Creatinine 1.29 H 1.31 H Glucose 107 H 122 H Calcium 8.6 8.5 L Cardiac Enzymes 02/18/18 02/18/18 02/19/18 Range/Units 14:07 20:06 02:11 Troponin I 0.04 H* 0.03 0.03 (< 0.04) ng/mL Liver Function 02/19/18 Range/Units 02:11 Total Bilirubin 0.7 (0.3-1.0) mg/dL AST 14 (13-39) Units/L ALT 16 (7-52) Units/L Alkaline Phosphatase 47 (34-104) Units/L Albumin 3.6 (3.5-5.7) g/dL - ABG Interpretation ABG results: PT/INR, D-dimer PT 24.4 Seconds (9.4-12.1) H 02/18/18 15:51 - Impressions Impressions Chest X-Ray 02/18/18 13:49 IMPRESSION: No significant interval change when compared to 12/16/2017. Mild vascular congestion and tiny pleural effusions persist. D/ / 02/18/2018 14:10:46 Nora Melo / sweta Interpreting Provider: Nora Melo Consult Discharge Plan - Plan Referrals: Ralf Perez MD [Primary Care Provider] - (1) Chest pain Qualifiers: Chest pain type: unspecified Qualified Code(s): R07.9 - Chest pain, unspecified (4) COPD (chronic obstructive pulmonary disease) Qualifiers: COPD type: unspecified COPD Qualified Code(s): J44.9 - Chronic obstructive pulmonary disease, unspecified (5) Acute renal failure (ARF) Qualifiers: Acute renal failure type: unspecified Qualified Code(s): N17.9 - Acute kidney failure, unspecified
[2018-02-19] MEDS: Famotidine 20 MG TABLET PO SCH ×2 (07:49→17:15)
[2018-02-19] MEDS: Furosemide 40 MG/4 ML VIAL IVP SCH (07:49)
[2018-02-19] MEDS ORDERED: *HR* Amiodarone 200 MG TABLET PO SCH ×2 (09:00)
[2018-02-19] MEDS ORDERED: Aspirin 81 MG TAB.CHEW PO SCH (09:00)
[2018-02-19] MEDS: Metoprolol XL (24 HR) Succ 50 MG TAB.ER.24H PO SCH ×2 (09:35→20:10)
[2018-02-19 14:03] LABS: Bilirubin,Urine Negative (Negative); Blood,Urine Negative (Negative); Clarity,Urine Clear (Clear); Color,Urine Yellow (Yellow); Glucose,Urine (UA) Normal (Normal); Ketones,Urine Negative (Negative); Leukocyte Esterase,Urine Small (Negative); Nitrite,Urine Negative (Negative); PH,Urine 7.5 pH Units (5.0-8.0); Protein,Urine Trace mg/dL (Neg-Trace); Specific Gravity,Urine 1.014 (1.010-1.025); Urobilinogen,Urine Normal (Normal)
[2018-02-19 14:06] LABS: Bacteria,Urine None Seen per hpf (None-Few); Hyaline Casts,Urine None Seen per lpf (None-Few); RBC,Urine 0-3 per hpf (0-3); Squamous Epithelial Cell,Urine Moderate per lpf (None-Few)
[2018-02-19] MEDS: *HR* Warfarin 1 MG TABLET PO SCH (17:15)
--- NOTE | 2018-02-19 19:09 | Electrocardiograph Report ---
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
[2018-02-19] MEDS ORDERED: Pantoprazole 40 MG VIAL IVP SCH (21:00)
[2018-02-20 05:16] LABS: Calcium 8.9 mg/dL (8.6-10.3); Potassium 3.8 mEq/L (3.5-5.1)
[2018-02-20] MEDS: Famotidine 20 MG TABLET PO SCH (06:34)
[2018-02-20 07:15] VITALS: BP 134/74
--- NOTE | 2018-02-20 07:26 | Discharge Summary ---
- NOTES TO OUTPATIENT PROVIDER Notes to Outpatient Provider: follow renal functions Orders not resulted at time of discharge: Pending orders 02/18/18 18:00 ECG 12 lead ECG [ECG] Q6H 02/19/18 00:00 ECG 12 lead ECG [ECG] Q6H 02/19/18 13:40 Culture,Urine [RM] Stat UA w. reflex culture [Urinalysis Reflex Cult & Micro] [URIN] Stat Date of Encounter: 02/20/18 Time of Encounter: 07:22 - Discharge Diagnosis (1) Chest pain Priority: Primary Status: Acute Qualifiers: Chest pain type: unspecified Qualified Code(s): R07.9 - Chest pain, unspecified (2) Acute on chronic HFrEF (heart failure with reduced ejection fraction) Priority: Secondary Status: Acute (3) PAF (paroxysmal atrial fibrillation) Priority: Secondary Status: Acute (4) COPD (chronic obstructive pulmonary disease) Priority: Secondary Status: Acute Qualifiers: COPD type: unspecified COPD Qualified Code(s): J44.9 - Chronic obstructive pulmonary disease, unspecified (5) Acute renal failure (ARF) Priority: Secondary Status: Acute Qualifiers: Acute renal failure type: unspecified Qualified Code(s): N17.9 - Acute kidney failure, unspecified (6) Goals of care, counseling/discussion Priority: Secondary Status: Acute (7) DVT prophylaxis Priority: Secondary Status: Acute Hospital course: Ms. Navarrete is a 77 year old female A. fib, HFREF, ischemic cardiomyopathy, CAD s/p CABG, s/p AICD, HTN, DVT, h/o GI bleed presented to the emergency department with chest discomfort. As per patient her chest discomfort started 3 days ago after she was evaluated at the spine doctors and received a steroid injection in her back for leg pain. Her chest discomfort is located in the right upper chest without radiation. She also feels pain underneath bilateral lower ribs without radiation. Pain is not exacerbated by deep breathing, she denies wheezing or cough. Denies sick contacts, fever, chills or recent antibiotic use. She reports that she is still able to walk as she did at her baseline, denies calf tenderness, leg swelling, PND or orthopnea. She has been admitted in December for acute heart failure exacerbation and reports that her symptoms are similar to her symptoms mentioned she was admitted in December. She denies dysuria, heat or cold intolerance, nausea, vomiting, diarrhea. patient presented with above presentation and was admitted for Chest pain rule out ACS and acute HFREF. EKG on admission showed Atrial fibrillation. BNP was 908, troponin was mildly elevated at 0.04 but it was cycled and it was <0.03 x2 times. she was treated with IV lasix. creatinine on admission was elevated however around recent baseline at 1.29. ACEI was held with improvement in her creatinine function. ACEI dosage was reduced to once daily. for PCP and cardiology team to titrate as per discretion. she was counseled on compliance and is to follow up for with her PCP and contracts analyst. Discharge discussed with: patient, nurse - Time Spent with Patient Total time spent providing and/or coordinating discharge services: Less than 30 minutes - Discharge Medications Home Medications: Albuterol Sulfate [Ventolin Hfa] 2 puff IH Q6H PRN 12/17/17 [History] Amiodarone [Cordarone] 200 mg PO DAILY 12/17/17 [History] Fluticasone/Salmeterol [Advair 250-50 Diskus] 1 puff IH BID 12/17/17 [History] Furosemide [Lasix] 40 mg PO BID 12/17/17 [History] Ipratropium/Albuterol Neb [Duoneb] 3 ml IH Q6HR PRN 12/17/17 [History] Levothyroxine [Synthroid] 100 mcg PO DAILY 12/17/17 [History] Omeprazole [PriLOSEC] 40 mg PO DAILY 12/17/17 [History] Potassium Chloride [K-Tab ER] 40 meq PO BID 12/17/17 [History] Ranitidine HCl [Acid Medical Staff Services Manager] 150 mg PO BID PRN 12/17/17 [History] Warfarin [Coumadin] 1.25 mg PO MOTUWETHFRSA 12/17/17 [History] Warfarin [Coumadin] 2.5 mg PO RIDER 12/17/17 [History] clonazePAM [Klonopin] 1 mg PO BID 12/17/17 [History] Aspirin 81 mg PO DAILY #30 tab.chew 12/18/17 [Rx] Simvastatin [Zocor] 5 mg PO HS #30 tablet 12/18/17 [Rx] Metoprolol XL (24 HR) Succ [Toprol Xl] 75 mg PO BID 02/18/18 [History] Rosuvastatin Calcium 5 mg PO Q48H 02/18/18 [History] Enalapril Maleate [Vasotec] 20 mg PO DAILY #0 02/20/18 [Rx] Allergies/Adverse Reactions: Allergy/AdvReac Type Severity Reaction Status Date / Time nitrofurantoin AdvReac Diarrhea Verified 02/18/18 13:45 [From Macrobid] Ccfbebv-Jdu-Bfe Reductase AdvReac Muscle Pain Verified 02/18/18 13:45 Inhibitor [Statins] sulfamethoxazole AdvReac See Verified 02/18/18 13:45 [From Bactrim] Comments trimethoprim [From Bactrim] AdvReac See Verified 02/18/18 13:45 Comments Date of admission: 02/18/18 15:44 Primary care physician: Ralf Perez MD - Constitutional Vitals: Temp Pulse Resp BP Pulse Ox 97.5 F L 74 16 134/74 97 02/20/18 07:15 02/20/18 07:15 02/20/18 07:15 02/20/18 07:15 02/20/18 07:15 Exam: General: Patient is alert, oriented, no acute distress, speaks in full sentences Head: atraumatic, normocephalic, Eye: normal appearance, PERRL, no scleral icterus, no conjunctival injection ENT: mucous membranes moist, normal external ear exam Neck: normal inspection, trachea midline, full ROM, no carotid bruits Chest: normal inspection, symmetric chest rise Respiratory: Good respiratory effort. Bilateral breath sounds are clear without wheezing, has crackles no crackles Cardiovascular: Regular rate and rhythm. s1 and s2 No clicks, rubs, gallops, or murmors. Abdomen: Bowel sounds present normoactive x-4 quadrants. Abdomen is soft, nondistended. no Epigastric tenderness. No guarding or rebound. No organ omegaly noted, obese musculoskeletal: Spontaneously moving all extremities. no edema, no calf tenderness Skin: warm, dry, intact. Neuro: Alert and oriented x4. Sensation light touch intact. Cranial nerves 2- 12 is intact. Not aphasic, gait is steady, rapid hand movements intact, [id number] intact, Psych: Patient's affect is normal - Patient Status Disposition: Home, Self-Care Condition: Fair Functional capacity at discharge: independent ambulation Overall status at discharge: patient is progressing back to baseline - Discharge Instructions Follow Up With: Ralf Perez MD [Primary Care Provider] - - Diet and Activity Activity: increase activity as tolerated Diet: advance to your usual diet
[2018-02-20] MEDS ORDERED: Furosemide 40 MG/4 ML VIAL IVP SCH (09:00)
[2018-02-20] MEDS ORDERED: Budesonide/Formoterol 80/4.5 MDI IH SCH (10:00)
[2018-02-20] MEDS ORDERED: *HR* Warfarin 2.5 MG TABLET PO SCH (17:37)
== END 2018-02-20 09:11 | disposition home or self-care (01) ==
LOC: 3BNU 13:31 → EMEROOARM 13:31 → 3BNU 16:21
PROVIDERS: ADMIT Internal Medicine; ATTEND Internal Medicine

== ENCOUNTER 2019-02-09 20:20 | Observation (INO) ==
[2019-02-09] MEDS ORDERED: Ipratropium/Albuterol Neb 3 ML IH ONE (20:56)
[2019-02-09] MEDS ORDERED: methylPREDNISolone 125 MG/2 ML VIAL IVP ONE (20:56)
[2019-02-09 22:30] LABS: Basophils # 0.1 K/mcL (0.0-0.2); Basophils % 0.6 %; Eosinophils # 0.1 K/mcL (0.0-0.6); Eosinophils % 0.6 %; Hemoglobin 10.6 g/dL (11.5-15.4); Immature Granulocytes % 0.5 % (0-4); Lymphocytes # 0.9 K/mcL (0.6-4.6); Lymphocytes % 9.1 %; Mean Corpuscular HGB Conc 32.1 g/dL (31.6-35.5); Mean Corpuscular Hemoglobin 31.5 pg (28.0-33.3); Mean Corpuscular Volume 97.9 fL (83.0-100.0); Mean Platelet Volume 10.8 fL (9.4-12.4); Monocytes % 10.2 %; Neutrophils # 7.4 K/mcL (1.6-8.9); Platelet Count 283 K/mcL (140-400); Red Blood Count 3.37 M/mcL (3.82-4.97); Red Cell Distribution Width 15.5 % (11.5-14.5); White Blood Count 9.4 K/mcL (4.3-11.1)
[2019-02-09 22:49] LABS: BUN/Creatinine Ratio 17 (6-26); Blood Urea Nitrogen 18 mg/dL (8-23); Calcium 8.8 mg/dL (8.6-10.3); Carbon Dioxide 23 mEq/L (23-29); Chloride 104 mEq/L (98-107); Glucose 133 mg/dL (70-105); Osmolality,Calculated 286 (280-300); Potassium 4.2 mEq/L (3.5-5.1); Sodium 136 mEq/L (136-145); eGFR For African Americans > 60 (> 60); eGFR For Non-African Americans 51 (> 60)
[2019-02-10] MEDS ORDERED: cefTRIAXone 1,000 MG in Water for inj. (sterile) 10 ML IVP ONE
[2019-02-10] MEDS ORDERED: Azithromycin 500 MG in 0.9 % Sodium Chloride 250 ML IVPB ONE
[2019-02-10] MEDS ORDERED: Furosemide 40 MG/4 ML VIAL IVP ONE
[2019-02-10] MEDS ORDERED: Naloxone 0.4 MG/ML INJ IVP PRN (02:58)
[2019-02-10 04:23] LABS: Basophils % 0.1 %; Hematocrit 33.6 % (35.3-44.9); Hemoglobin 10.8 g/dL (11.5-15.4); Immature Granulocytes % 0.3 % (0-4); Lymphocytes # 0.4 K/mcL (0.6-4.6); Lymphocytes % 5.2 %; Mean Corpuscular HGB Conc 32.1 g/dL (31.6-35.5); Mean Corpuscular Hemoglobin 31.3 pg (28.0-33.3); Mean Corpuscular Volume 97.4 fL (83.0-100.0); Mean Platelet Volume 10.5 fL (9.4-12.4); Monocytes # 0.1 K/mcL (0.0-1.3); Monocytes % 1.1 %; Platelet Count 290 K/mcL (140-400); Red Blood Count 3.45 M/mcL (3.82-4.97); Red Cell Distribution Width 15.2 % (11.5-14.5); Segmented Neutrophils % 93.3 %; White Blood Count 7.5 K/mcL (4.3-11.1)
[2019-02-10 04:31] LABS: INR 3.3; Prothrombin Time 37.3 Seconds (9.4-12.1)
[2019-02-10 04:33] LABS: Activated Partial Thrombo Time 44.4 Seconds (26.0-36.0)
[2019-02-10 04:41] LABS: Alanine Aminotransferase 13 Units/L (7-52); Albumin 4.1 g/dL (3.5-5.7); Albumin/Globulin Ratio 1.3 (1.1-2.2); Alkaline Phosphatase 88 Units/L (34-104); Aspartate Amino Transferase 18 Units/L (13-39); BUN/Creatinine Ratio 15 (6-26); Bilirubin,Total 0.6 mg/dL (0.3-1.0); Blood Urea Nitrogen 16 mg/dL (8-23); Calcium 8.9 mg/dL (8.6-10.3); Carbon Dioxide 26 mEq/L (23-29); Chloride 102 mEq/L (98-107); Globulin 3.2 g/dL (2.4-3.5); Glucose 210 mg/dL (70-105); Osmolality,Calculated 299 (280-300); Potassium 3.7 mEq/L (3.5-5.1); Sodium 141 mEq/L (136-145); Total Protein 7.3 g/dL (6.4-8.9); eGFR For African Americans > 60 (> 60); eGFR For Non-African Americans 50 (> 60)
[2019-02-10] MEDS: Ipratropium/Albuterol Neb 3 ML IH SCH ×2 (04:44→10:23)
[2019-02-10 04:47] LABS: Platelet Estimate Normal (Normal)
[2019-02-10 04:48] LABS: Reactive Lymphocytes Present (Not Present)
[2019-02-10] MEDS ORDERED: MethylPREDNISolone 40 MG/ML VIAL IVP SCH (06:00)
[2019-02-10] MEDS ORDERED: *HR* Warfarin 1 MG TABLET PO SCH (06:15)
[2019-02-10] MEDS ORDERED: ROSUVASTATIN CALCIUM 5 MG PO SCH (06:15)
[2019-02-10] MEDS ORDERED: Furosemide 20 MG TABLET PO SCH (08:00)
[2019-02-10] MEDS ORDERED: Aspirin 81 MG TAB.CHEW PO SCH (09:00)
[2019-02-10] MEDS ORDERED: Lisinopril 20 MG TABLET PO SCH (09:00)
[2019-02-10] MEDS ORDERED: cefTRIAXone 1,000 MG in Water for inj. (sterile) 10 ML IVP SCH (09:00)
[2019-02-10] MEDS ORDERED: clonazePAM 1 MG TABLET PO SCH (09:00)
[2019-02-10] MEDS ORDERED: *HR* Amiodarone 200 MG TABLET PO SCH (09:00)
[2019-02-10] MEDS ORDERED: Azithromycin 500 MG in 0.9 % Sodium Chloride 250 ML IVPB SCH (09:00)
[2019-02-10 11:28] VITALS: BP 167/83
[2019-02-10] MEDS ORDERED: Warfarin perPT PO PRN (18:00)
[2019-02-11] MEDS ORDERED: Azithromycin 500 MG in 0.9 % Sodium Chloride 250 ML IVPB SCH (00:01)
[2019-02-12] MEDS ORDERED: *HR* Warfarin 2.5 MG TABLET PO SCH (06:07)
== END 2019-02-10 13:10 | disposition home or self-care (01) ==
LOC: 3BNU 20:20 → EMEROOARM 20:20 → SUATTDRO 02-10 02:05 → 3BNU 02-10 02:30
PROVIDERS: ADMIT Internal Medicine; ATTEND Family Medicine

== ENCOUNTER 2019-02-14 08:38 | Inpatient (IN) ==
[2019-02-14 09:36] LABS: Basophils % 0.1 %; Eosinophils % 0.1 %; Hematocrit 28.2 % (35.3-44.9); Lymphocytes # 0.6 K/mcL (0.6-4.6); Lymphocytes % 4.8 %; Mean Corpuscular HGB Conc 35.5 g/dL (31.6-35.5); Mean Corpuscular Hemoglobin 35.6 pg (28.0-33.3); Mean Corpuscular Volume 100.4 fL (83.0-100.0); Mean Platelet Volume 10.4 fL (9.4-12.4); Monocytes # 1.2 K/mcL (0.0-1.3); Monocytes % 9.1 %; Neutrophils # 10.7 K/mcL (1.6-8.9); Nucleated Red Blood Cells 0.2 /100 WBC (0); Platelet Count 336 K/mcL (140-400); Red Blood Count 2.81 M/mcL (3.82-4.97); Segmented Neutrophils % 84.9 %; White Blood Count 12.6 K/mcL (4.3-11.1)
[2019-02-14 10:05] LABS: BUN/Creatinine Ratio 21 (6-26); Blood Urea Nitrogen 21 mg/dL (8-23); Calcium 8.6 mg/dL (8.6-10.3); Carbon Dioxide 25 mEq/L (23-29); Chloride 101 mEq/L (98-107); Glucose 103 mg/dL (70-105); Osmolality,Calculated 287 (280-300); Potassium 4.3 mEq/L (3.5-5.1); Sodium 137 mEq/L (136-145); Troponin I 0.04 ng/mL (< 0.04); eGFR For African Americans > 60 (> 60); eGFR For Non-African Americans 53 (> 60)
[2019-02-14] MEDS ORDERED: cefTRIAXone 1,000 MG in 0.9 % Sodium Chloride Mini Bag 100 ML IVPB ONE (10:51)
[2019-02-14] MEDS ORDERED: Azithromycin 500 MG in 0.9 % Sodium Chloride 250 ML IVPB ONE (10:51)
[2019-02-14] MEDS ORDERED: Naloxone 0.4 MG/ML INJ IVP PRN (11:17)
[2019-02-14] MEDS ORDERED: Ondansetron 4 MG/2 ML VIAL IVP PRN (11:17)
[2019-02-14] MEDS ORDERED: Ipratropium/Albuterol Neb 3 ML IH PRN (11:47)
[2019-02-14] MEDS: Cefepime HCl 2,000 MG in 0.9 % Sodium Chloride Mini Bag 100 ML IVPB SCH (14:51)
[2019-02-14] MEDS: MethylPREDNISolone 40 MG/ML VIAL IVP SCH (14:51)
[2019-02-14] MEDS: Ipratropium/Albuterol Neb 3 ML IH SCH ×4 (15:19→23:52)
[2019-02-14] MEDS: Furosemide 40 MG TABLET PO SCH (16:19)
[2019-02-14] MEDS ORDERED: Cefepime HCl 1,000 MG in Water for inj. (sterile) 10 ML IVP SCH (18:00)
[2019-02-14] MEDS ORDERED: Warfarin perPT PO PRN (18:00)
[2019-02-14] MEDS: Acetaminophen 325 MG TABLET PO PRN (18:41)
[2019-02-14] MEDS: Budesonide/Formoterol 80/4.5 1 PUFF INH IH SCH (20:05)
[2019-02-14] MEDS: clonazePAM 1 MG TABLET PO SCH (20:51)
[2019-02-14] MEDS ORDERED: ENALAPRIL MALEATE 20 MG PO SCH (21:00)
[2019-02-15] MEDS: MethylPREDNISolone 40 MG/ML VIAL IVP SCH ×2 (00:53→10:09)
[2019-02-15] MEDS: Cefepime HCl 2,000 MG in 0.9 % Sodium Chloride Mini Bag 100 ML IVPB SCH ×3 (00:57→17:32)
[2019-02-15] MEDS: Ipratropium/Albuterol Neb 3 ML IH SCH ×5 (03:58→20:03)
[2019-02-15 06:21] LABS: INR 2.6; Prothrombin Time 29.8 Seconds (9.4-12.1)
[2019-02-15 06:36] LABS: Alanine Aminotransferase 16 Units/L (7-52); Albumin 3.4 g/dL (3.5-5.7); Albumin/Globulin Ratio 1.1 (1.1-2.2); Alkaline Phosphatase 62 Units/L (34-104); Aspartate Amino Transferase 16 Units/L (13-39); BUN/Creatinine Ratio 19 (6-26); Bilirubin,Total 0.7 mg/dL (0.3-1.0); Blood Urea Nitrogen 20 mg/dL (8-23); Calcium 8.6 mg/dL (8.6-10.3); Carbon Dioxide 22 mEq/L (23-29); Chloride 106 mEq/L (98-107); Glucose 228 mg/dL (70-105); Osmolality,Calculated 294 (280-300); Potassium 4.6 mEq/L (3.5-5.1); Sodium 137 mEq/L (136-145); Total Protein 6.4 g/dL (6.4-8.9); eGFR For African Americans > 60 (> 60); eGFR For Non-African Americans 51 (> 60)
[2019-02-15 07:19] LABS: Eosinophils % 0.1 %; White Blood Count 9.6 K/mcL (4.3-11.1)
[2019-02-15 07:21] LABS: Hematocrit 27.2 % (35.3-44.9); Hemoglobin 9.5 g/dL (11.5-15.4); Immature Granulocytes % 0.6 % (0-4); Immature Platelets 13.3 % (1.1-6.1); Lymphocytes # 0.5 K/mcL (0.6-4.6); Mean Corpuscular HGB Conc 34.9 g/dL (31.6-35.5); Mean Corpuscular Hemoglobin 36.3 pg (28.0-33.3); Mean Corpuscular Volume 103.8 fL (83.0-100.0); Mean Platelet Volume 13.6 fL (9.4-12.4); Monocytes # 0.4 K/mcL (0.0-1.3); Monocytes % 4.1 %; Platelet Count 184 K/mcL (140-400); Red Blood Count 2.62 M/mcL (3.82-4.97); Red Cell Distribution Width 17.4 % (11.5-14.5); Segmented Neutrophils % 90.2 %
[2019-02-15 07:43] LABS: Neutrophils # 8.7 K/mcL (1.6-8.9)
[2019-02-15] MEDS: Budesonide/Formoterol 80/4.5 1 PUFF INH IH SCH ×2 (08:08→20:04)
[2019-02-15] MEDS: clonazePAM 1 MG TABLET PO SCH ×2 (08:56→20:24)
[2019-02-15] MEDS: Aspirin 81 MG TAB.CHEW PO SCH (08:56)
[2019-02-15] MEDS: Furosemide 40 MG TABLET PO SCH ×2 (08:56→17:31)
[2019-02-15] MEDS: *HR* Amiodarone 200 MG TABLET PO SCH (08:56)
[2019-02-15] MEDS: Lisinopril 20 MG TABLET PO SCH (08:56)
[2019-02-15] MEDS ORDERED: Azithromycin 250 MG TABLET PO SCH (09:00)
[2019-02-15] MEDS ORDERED: Azithromycin 500 MG in 0.9 % Sodium Chloride 250 ML IVPB SCH (09:00)
[2019-02-15] MEDS ORDERED: Menthol 9.1 MG LOZENGE PO PRN (09:06)
[2019-02-15] MEDS: Doxycycline 100 MG CAPSULE PO SCH ×2 (10:09→20:23)
[2019-02-15] MEDS ORDERED: Albuterol 2.5 MG/3 ML NEBULIZER IH PRN (10:28)
[2019-02-15] MEDS: Acetaminophen 325 MG TABLET PO PRN (12:35)
[2019-02-15] MEDS: amLODIPine 5 MG TABLET PO SCH (14:41)
[2019-02-15] MEDS: predniSONE 20 MG TABLET PO SCH ×2 (17:31→18:21)
[2019-02-15] MEDS ORDERED: *HR* Warfarin 2.5 MG TABLET PO ONE (18:00)
[2019-02-15] MEDS ORDERED: Melatonin 3 MG TABLET PO PRN (20:38)
[2019-02-16] MEDS: Ipratropium/Albuterol Neb 3 ML IH SCH ×4 (00:03→11:23)
[2019-02-16 05:11] LABS: INR 2.2; Prothrombin Time 24.9 Seconds (9.4-12.1)
[2019-02-16 05:20] LABS: BUN/Creatinine Ratio 28 (6-26); Blood Urea Nitrogen 27 mg/dL (8-23); Calcium 8.6 mg/dL (8.6-10.3); Carbon Dioxide 23 mEq/L (23-29); Chloride 105 mEq/L (98-107); Glucose 230 mg/dL (70-105); Osmolality,Calculated 294 (280-300); Potassium 4.3 mEq/L (3.5-5.1); Sodium 136 mEq/L (136-145); eGFR For African Americans > 60 (> 60); eGFR For Non-African Americans 57 (> 60)
[2019-02-16 05:28] LABS: % Iron Saturation 14 % (15-50); Iron 44 mcg/dL (50-170); Transferrin 221 mg/dL (203-362)
[2019-02-16 05:38] LABS: Ferritin 152 ng/mL (10-120)
[2019-02-16] MEDS: Cefepime HCl 2,000 MG in 0.9 % Sodium Chloride Mini Bag 100 ML IVPB SCH (05:43)
[2019-02-16 05:44] LABS: Folate 11.3 ng/mL (3.0-16.0)
[2019-02-16 06:52] LABS: Basophils % 0.1 %; Hematocrit 29.7 % (35.3-44.9); Hemoglobin 9.5 g/dL (11.5-15.4); Immature Granulocytes % 0.8 % (0-4); Lymphocytes # 0.4 K/mcL (0.6-4.6); Lymphocytes % 2.5 %; Mean Corpuscular Hemoglobin 32.4 pg (28.0-33.3); Mean Corpuscular Volume 101.4 fL (83.0-100.0); Mean Platelet Volume 10.5 fL (9.4-12.4); Monocytes # 0.7 K/mcL (0.0-1.3); Monocytes % 4.4 %; Nucleated Red Blood Cells 0.2 /100 WBC (0); Platelet Count 335 K/mcL (140-400); Red Blood Count 2.93 M/mcL (3.82-4.97); Red Cell Distribution Width 16.6 % (11.5-14.5); Segmented Neutrophils % 92.2 %; White Blood Count 16.2 K/mcL (4.3-11.1)
[2019-02-16 07:08] LABS: Neutrophils # 14.9 K/mcL (1.6-8.9)
[2019-02-16 07:11] LABS: Platelet Estimate Normal (Normal)
[2019-02-16] MEDS: Budesonide/Formoterol 80/4.5 1 PUFF INH IH SCH (07:57)
[2019-02-16] MEDS: Doxycycline 100 MG CAPSULE PO SCH (08:05)
[2019-02-16] MEDS: amLODIPine 5 MG TABLET PO SCH (08:05)
[2019-02-16] MEDS: *HR* Amiodarone 200 MG TABLET PO SCH (08:05)
[2019-02-16] MEDS: Aspirin 81 MG TAB.CHEW PO SCH (08:06)
[2019-02-16] MEDS: Furosemide 40 MG TABLET PO SCH (08:06)
[2019-02-16] MEDS: clonazePAM 1 MG TABLET PO SCH (08:06)
[2019-02-16] MEDS: predniSONE 20 MG TABLET PO SCH (08:06)
[2019-02-16] MEDS: Lisinopril 20 MG TABLET PO SCH (08:06)
[2019-02-16] MEDS ORDERED: Cyanocobalamin (B-12) 1,000 MCG/ML VIAL SQ SCH (09:00)
[2019-02-16 10:55] VITALS: BP 169/74
[2019-02-16 12:02] LABS: Estimated Average Glucose 160 mg/dl
[2019-02-16] MEDS ORDERED: *HR* Warfarin 2.5 MG TABLET PO ONE (18:00)
== END 2019-02-16 14:37 | disposition home or self-care (01) | DRG 193 ==
LOC: EMEROOARM 08:38 → 2ANU 08:38 → SUATTDRO 11:31 → 2ANU 12:28
PROVIDERS: ADMIT Internal Medicine; ATTEND Internal Medicine

== ENCOUNTER 2019-08-12 12:24 | Observation (INO) ==
[2019-08-12 13:23] LABS: Basophils % 0.1 %; Hematocrit 35.3 % (35.3-44.9); Hemoglobin 10.7 g/dL (11.5-15.4); Immature Granulocytes % 0.4 % (0-4); Lymphocytes # 0.6 K/mcL (0.6-4.6); Lymphocytes % 6.3 %; Mean Corpuscular HGB Conc 30.3 g/dL (31.6-35.5); Mean Corpuscular Hemoglobin 29.2 pg (28.0-33.3); Mean Corpuscular Volume 96.4 fL (83.0-100.0); Mean Platelet Volume 10.5 fL (9.4-12.4); Monocytes # 0.7 K/mcL (0.0-1.3); Monocytes % 7.6 %; Platelet Count 402 K/mcL (140-400); Red Blood Count 3.66 M/mcL (3.82-4.97); Segmented Neutrophils % 85.6 %; White Blood Count 9.4 K/mcL (4.3-11.1)
[2019-08-12 13:32] LABS: Prothrombin Time 33.9 Seconds (9.4-12.1)
[2019-08-12 13:34] LABS: Activated Partial Thrombo Time 35.2 Seconds (26.0-36.0)
[2019-08-12 13:39] LABS: Albumin 4.3 g/dL (3.5-5.7); Albumin/Globulin Ratio 1.5 (1.1-2.2); Bilirubin,Direct 0.1 mg/dL (0.0-0.2); Bilirubin,Indirect 0.6 mg/dL (0.0-1.0); Bilirubin,Total 0.7 mg/dL (0.3-1.0); Calcium 9.1 mg/dL (8.6-10.3); Globulin 2.8 g/dL (2.4-3.5); Magnesium 2.2 mg/dL (1.6-2.6); Phosphorous 3.2 mg/dL (2.7-4.5); Potassium 4.2 mEq/L (3.5-5.1); Total Protein 7.1 g/dL (6.4-8.9); Troponin I 0.04 ng/mL (< 0.04)
[2019-08-12] MEDS ORDERED: Nitroglycerin 0.4 MG TAB.SUBL SL ONE (13:46)
[2019-08-12] MEDS ORDERED: Furosemide 40 MG/4 ML VIAL IVP ONE (13:59)
[2019-08-12] MEDS ORDERED: Ondansetron ODT 4 MG TAB.RAPDIS SL PRN (15:28)
[2019-08-12] MEDS ORDERED: Acetaminophen 325 MG TABLET PO PRN (15:28)
[2019-08-12] MEDS: Budesonide/Formoterol 160/4.5 1 PUFF INH IH SCH ×2 (15:37→21:24)
[2019-08-12] MEDS: predniSONE 10 MG TABLET PO SCH (17:29)
[2019-08-12] MEDS: Aspirin 81 MG TAB.CHEW PO SCH (17:29)
[2019-08-12] MEDS ORDERED: Warfarin perPT PO PRN (18:00)
[2019-08-12] MEDS ORDERED: *HR* Warfarin 2.5 MG TABLET PO ONE (18:34)
[2019-08-12] MEDS: Furosemide 40 MG/4 ML VIAL IVP SCH (20:30)
[2019-08-12] MEDS: clonazePAM 1 MG TABLET PO SCH (20:30)
[2019-08-13 06:20] LABS: Hematocrit 32.8 % (35.3-44.9); Hemoglobin 10.4 g/dL (11.5-15.4); Immature Granulocytes % 0.5 % (0-4); Lymphocytes # 0.9 K/mcL (0.6-4.6); Lymphocytes % 10.9 %; Mean Corpuscular HGB Conc 31.7 g/dL (31.6-35.5); Mean Corpuscular Hemoglobin 30.3 pg (28.0-33.3); Mean Corpuscular Volume 95.6 fL (83.0-100.0); Mean Platelet Volume 10.5 fL (9.4-12.4); Monocytes # 0.9 K/mcL (0.0-1.3); Monocytes % 11.3 %; Neutrophils # 6.3 K/mcL (1.6-8.9); Platelet Count 387 K/mcL (140-400); Red Blood Count 3.43 M/mcL (3.82-4.97); Red Cell Distribution Width 18.6 % (11.5-14.5); Segmented Neutrophils % 77.3 %; White Blood Count 8.2 K/mcL (4.3-11.1)
[2019-08-13 06:25] LABS: INR 2.1; Prothrombin Time 23.8 Seconds (9.4-12.1)
[2019-08-13 06:42] LABS: Calcium 9.1 mg/dL (8.6-10.3); Magnesium 2.4 mg/dL (1.6-2.6); Potassium 3.3 mEq/L (3.5-5.1)
[2019-08-13 06:45] LABS: Troponin I 0.04 ng/mL (< 0.04)
[2019-08-13] MEDS: Budesonide/Formoterol 160/4.5 1 PUFF INH IH SCH (07:58)
[2019-08-13] MEDS ORDERED: *HR* Amiodarone 200 MG TABLET PO SCH (09:00)
[2019-08-13] MEDS: Furosemide 40 MG/4 ML VIAL IVP SCH (09:10)
[2019-08-13] MEDS: clonazePAM 1 MG TABLET PO SCH (09:11)
[2019-08-13] MEDS: Aspirin 81 MG TAB.CHEW PO SCH (09:11)
[2019-08-13] MEDS: predniSONE 10 MG TABLET PO SCH (09:11)
[2019-08-13] MEDS ORDERED: lisinopriL 20 MG TABLET PO SCH (10:00)
[2019-08-13 10:46] VITALS: BP 146/71
== END 2019-08-13 13:27 | disposition home or self-care (01) ==
LOC: 2NNU 12:24 → EMEROOARM 12:24 → 2NENU 14:47
PROVIDERS: ADMIT Student in an Organized Health Care Education/Training Program; ATTEND Student in an Organized Health Care Education/Training Program

== ENCOUNTER 2020-07-01 10:22 | Observation (INO) ==
[2020-07-01] MEDS ORDERED: Isovue-370 500 ML BOTTLE IVP ONE (11:00)
[2020-07-01 11:25] LABS: Basophils # 0.1 K/mcL (0.0-0.2); Basophils % 0.8 %; Eosinophils # 0.1 K/mcL (0.0-0.6); Eosinophils % 0.8 %; Hematocrit 33.4 % (35.3-44.9); Hemoglobin 10.4 g/dL (11.5-15.4); Immature Granulocytes % 0.3 % (0-4); Lymphocytes # 0.7 K/mcL (0.6-4.6); Mean Corpuscular HGB Conc 31.1 g/dL (31.6-35.5); Mean Corpuscular Volume 99.7 fL (83.0-100.0); Mean Platelet Volume 10.4 fL (9.4-12.4); Monocytes # 0.6 K/mcL (0.0-1.3); Monocytes % 9.4 %; Neutrophils # 4.7 K/mcL (1.6-8.9); Platelet Count 263 K/mcL (140-400); Red Blood Count 3.35 M/mcL (3.82-4.97); Red Cell Distribution Width 16.4 % (11.5-14.5); Segmented Neutrophils % 76.7 %; White Blood Count 6.1 K/mcL (4.3-11.1)
[2020-07-01 11:32] LABS: INR 1.9; Prothrombin Time 21.4 Seconds (9.4-12.1)
[2020-07-01 11:45] LABS: Bilirubin,Urine Negative (Negative); Blood,Urine Negative (Negative); Clarity,Urine Clear (Clear); Color,Urine Yellow (Yellow); Glucose,Urine (UA) Normal (Normal); Hyaline Casts,Urine Many per lpf (None Seen); Ketones,Urine Negative (Negative); Leukocyte Esterase,Urine Negative (Negative); Mucus,Urine Few per lpf (None-Few); Nitrite,Urine Negative (Negative); Protein,Urine 50 mg/dL (Neg-Trace); RBC,Urine 0-3 per hpf (0-3); Specific Gravity,Urine 1.026 (1.010-1.025); Squamous Epithelial Cell,Urine Few per hpf (None-Few); Urobilinogen,Urine Normal (Normal); WBC,Urine 0-3 per hpf (0-3)
[2020-07-01 12:02] LABS: Calcium 8.7 mg/dL (8.6-10.3); Potassium 4.8 mEq/L (3.5-5.1); Troponin I 0.03 ng/mL (< 0.04)
[2020-07-01] MEDS ORDERED: Furosemide 40 MG/4 ML VIAL IVP ONE (12:35)
[2020-07-01] MEDS ORDERED: Ondansetron 4 MG/2 ML VIAL IVP PRN (14:49)
[2020-07-01] MEDS ORDERED: Acetaminophen 325 MG TABLET PO PRN (14:49)
[2020-07-01] MEDS ORDERED: Naloxone 0.4 MG/ML INJ IVP PRN (14:49)
[2020-07-01] MEDS ORDERED: *HR* Warfarin 0.5 MG TABLET PO ONE (18:00)
[2020-07-01] MEDS ORDERED: Perflutren Lipid Microsphere 1.3 ML in 0.9 % Sodium Chloride 8.7 ML IVP PRN (18:09)
[2020-07-01] MEDS ORDERED: Ipratropium/Albuterol Neb 3 ML IH PRN (18:23)
[2020-07-01] MEDS ORDERED: *HR* Warfarin 1 MG TABLET PO ONE (19:00)
[2020-07-01 19:19] LABS: Troponin I 0.04 ng/mL (< 0.04)
[2020-07-01] MEDS: clonazePAM 1 MG TABLET PO SCH (19:50)
[2020-07-02 01:07] LABS: Basophils % 0.7 %; Eosinophils % 0.7 %; Hematocrit 32.2 % (35.3-44.9); Hemoglobin 10.2 g/dL (11.5-15.4); Immature Granulocytes % 0.2 % (0-4); Lymphocytes # 1.2 K/mcL (0.6-4.6); Lymphocytes % 20.1 %; Mean Corpuscular HGB Conc 31.7 g/dL (31.6-35.5); Mean Corpuscular Hemoglobin 31.2 pg (28.0-33.3); Mean Corpuscular Volume 98.5 fL (83.0-100.0); Monocytes # 0.7 K/mcL (0.0-1.3); Monocytes % 12.4 %; Neutrophils # 3.9 K/mcL (1.6-8.9); Platelet Count 257 K/mcL (140-400); Red Blood Count 3.27 M/mcL (3.82-4.97); Red Cell Distribution Width 16.1 % (11.5-14.5); Segmented Neutrophils % 65.9 %
[2020-07-02 01:17] LABS: INR 1.7; Prothrombin Time 19.4 Seconds (9.4-12.1)
[2020-07-02 02:02] LABS: Folate 9.3 ng/mL (3.0-16.0)
[2020-07-02 03:53] LABS: Albumin 3.7 g/dL (3.5-5.7); Albumin/Globulin Ratio 1.2 (1.1-2.2); Bilirubin,Direct 0.2 mg/dL (0.0-0.2); Bilirubin,Indirect 0.6 mg/dL (0.0-1.0); Bilirubin,Total 0.8 mg/dL (0.3-1.0); Calcium 8.8 mg/dL (8.6-10.3); Magnesium 2.1 mg/dL (1.6-2.6); Potassium 3.6 mEq/L (3.5-5.1); Total Protein 6.7 g/dL (6.4-8.9)
[2020-07-02] MEDS ORDERED: *HR* Heparin 5,000 UNIT/ML VIAL IVP PRN ×4 (07:24→20:00)
[2020-07-02] MEDS ORDERED: *HR* Heparin 5,000 UNIT/ML VIAL IVP ONE (07:24)
[2020-07-02] MEDS ORDERED: Heparin 25,000UNIT/250ML 1/2NS 25,000 UNIT/250 ML IV.SOLN IVC SCH ×2 (07:30→20:00)
[2020-07-02] MEDS: clonazePAM 1 MG TABLET PO SCH ×2 (08:54→20:13)
[2020-07-02] MEDS ORDERED: Pantoprazole 40 MG VIAL IVP SCH (09:00)
[2020-07-02] MEDS ORDERED: *HR* Amiodarone 200 MG TABLET PO SCH (09:00)
[2020-07-02] MEDS ORDERED: Aspirin 81 MG TAB.CHEW PO SCH (09:00)
[2020-07-02] MEDS ORDERED: Furosemide 40 MG/4 ML VIAL IVP SCH ×2 (09:00→21:00)
[2020-07-02] MEDS ORDERED: *HR* Enoxaparin 60 MG/0.6 ML SYRINGE SQ ONE (13:15)
[2020-07-02 13:42] LABS: INR 1.5; Prothrombin Time 17.6 Seconds (9.4-12.1)
[2020-07-02 13:43] LABS: Heparin anti-factor XA UFH 0.04 IU/mL (0.30-0.70)
[2020-07-02 13:47] LABS: Mean Corpuscular HGB Conc 31.4 g/dL (31.6-35.5); Mean Corpuscular Hemoglobin 31.3 pg (28.0-33.3); Mean Corpuscular Volume 99.7 fL (83.0-100.0); Mean Platelet Volume 11.3 fL (9.4-12.4); Platelet Count 262 K/mcL (140-400); Red Blood Count 3.51 M/mcL (3.82-4.97); Red Cell Distribution Width 16.2 % (11.5-14.5); White Blood Count 5.9 K/mcL (4.3-11.1)
[2020-07-02] MEDS ORDERED: Furosemide 40 MG/4 ML VIAL IVP ONE (13:54)
[2020-07-02 15:01] LABS: Hematocrit 33.1 % (35.3-44.9); Hemoglobin 10.4 g/dL (11.5-15.4); Mean Corpuscular HGB Conc 31.4 g/dL (31.6-35.5); Mean Corpuscular Hemoglobin 31.3 pg (28.0-33.3); Mean Corpuscular Volume 99.7 fL (83.0-100.0); Mean Platelet Volume 10.7 fL (9.4-12.4); Platelet Count 262 K/mcL (140-400); Red Blood Count 3.32 M/mcL (3.82-4.97); Red Cell Distribution Width 16.2 % (11.5-14.5); White Blood Count 5.5 K/mcL (4.3-11.1)
[2020-07-02] MEDS ORDERED: *HR* Warfarin 4 MG TABLET PO ONE (18:00)
[2020-07-02] MEDS ORDERED: Warfarin perPT PO PRN (18:00)
[2020-07-03 01:34] LABS: Basophils % 0.5 %; Eosinophils # 0.1 K/mcL (0.0-0.6); Eosinophils % 1.1 %; Hematocrit 33.4 % (35.3-44.9); Hemoglobin 10.6 g/dL (11.5-15.4); Immature Granulocytes % 0.2 % (0-4); Lymphocytes # 1.3 K/mcL (0.6-4.6); Lymphocytes % 19.5 %; Mean Corpuscular HGB Conc 31.7 g/dL (31.6-35.5); Mean Corpuscular Hemoglobin 31.7 pg (28.0-33.3); Mean Platelet Volume 10.6 fL (9.4-12.4); Monocytes # 0.9 K/mcL (0.0-1.3); Monocytes % 14.2 %; Neutrophils # 4.2 K/mcL (1.6-8.9); Platelet Count 272 K/mcL (140-400); Red Blood Count 3.34 M/mcL (3.82-4.97); Red Cell Distribution Width 16.2 % (11.5-14.5); Segmented Neutrophils % 64.5 %; White Blood Count 6.5 K/mcL (4.3-11.1)
[2020-07-03 01:45] LABS: INR 1.6; Prothrombin Time 18.1 Seconds (9.4-12.1)
[2020-07-03 02:17] LABS: BUN/Creatinine Ratio 18 (6-26); Blood Urea Nitrogen 18 mg/dL (8-23); Calcium 8.7 mg/dL (8.6-10.3); Carbon Dioxide 24 mEq/L (23-29); Chloride 105 mEq/L (98-107); Glucose 108 mg/dL (70-105); Magnesium 2.3 mg/dL (1.6-2.6); Osmolality,Calculated 288 (280-300); Potassium 3.9 mEq/L (3.5-5.1); Sodium 138 mEq/L (136-145); eGFR For African Americans > 60 (> 60); eGFR For Non-African Americans 55 (> 60)
[2020-07-03 03:51] VITALS: BP 148/72
[2020-07-03] MEDS ORDERED: *HR* Enoxaparin 60 MG/0.6 ML SYRINGE SQ SCH (06:00)
[2020-07-03] MEDS ORDERED: Iron Sucrose Complex 250 MG in 0.9 % Sodium Chloride 250 ML IVPB SCH (09:00)
[2020-07-03] MEDS ORDERED: Cyanocobalamin (B-12) 1,000 MCG TABLET PO SCH (09:00)
== END 2020-07-03 08:36 | disposition left against medical advice (07) ==
LOC: EMEROOARM 10:22 → 2ANU 10:22 → SUATTDRO 13:35 → 2ANU 14:37
PROVIDERS: ADMIT Pharmacist; ATTEND Pharmacist

== ENCOUNTER 2020-07-03 16:53 | Observation (INO) ==
[2020-07-03 19:28] LABS: Basophils % 0.7 %; Eosinophils # 0.1 K/mcL (0.0-0.6); Eosinophils % 0.8 %; Hemoglobin 11.1 g/dL (11.5-15.4); Immature Granulocytes % 0.3 % (0-4); Lymphocytes # 1.4 K/mcL (0.6-4.6); Mean Corpuscular HGB Conc 31.7 g/dL (31.6-35.5); Mean Corpuscular Hemoglobin 31.4 pg (28.0-33.3); Mean Corpuscular Volume 99.2 fL (83.0-100.0); Mean Platelet Volume 10.3 fL (9.4-12.4); Monocytes # 0.8 K/mcL (0.0-1.3); Monocytes % 13.2 %; Neutrophils # 3.8 K/mcL (1.6-8.9); Platelet Count 274 K/mcL (140-400); Red Blood Count 3.53 M/mcL (3.82-4.97); White Blood Count 6.1 K/mcL (4.3-11.1)
[2020-07-03 19:34] LABS: INR 1.4
[2020-07-03 19:37] LABS: Activated Partial Thrombo Time 32.1 Seconds (26.0-36.0)
[2020-07-03 19:52] LABS: Amorphous Sediment,Urine Few per hpf (None-Few); Bacteria,Urine Few per hpf (None-Few); Bilirubin,Urine Negative (Negative); Blood,Urine Negative (Negative); Clarity,Urine Turbid (Clear); Color,Urine Light-Yellow (Yellow); Glucose,Urine (UA) Normal (Normal); Hyaline Casts,Urine Few per lpf (None Seen); Ketones,Urine Negative (Negative); Leukocyte Esterase,Urine Negative (Negative); Mucus,Urine Few per lpf (None-Few); Nitrite,Urine Negative (Negative); PH,Urine 6.5 pH Units (5.0-8.0); Protein,Urine 70 mg/dL (Neg-Trace); RBC,Urine 0-3 per hpf (0-3); Specific Gravity,Urine 1.023 (1.010-1.025); Squamous Epithelial Cell,Urine Few per hpf (None-Few); Urobilinogen,Urine Normal (Normal); WBC,Urine 0-3 per hpf (0-3)
[2020-07-03 20:03] LABS: Alanine Aminotransferase 12 Units/L (7-52); Albumin 4.2 g/dL (3.5-5.7); Albumin/Globulin Ratio 1.2 (1.1-2.2); Alkaline Phosphatase 53 Units/L (34-104); Aspartate Amino Transferase 20 Units/L (13-39); BUN/Creatinine Ratio 16 (6-26); Bilirubin,Direct 0.1 mg/dL (0.0-0.2); Bilirubin,Indirect 0.7 mg/dL (0.0-1.0); Bilirubin,Total 0.8 mg/dL (0.3-1.0); Blood Urea Nitrogen 17 mg/dL (8-23); Calcium 9.3 mg/dL (8.6-10.3); Carbon Dioxide 25 mEq/L (23-29); Chloride 104 mEq/L (98-107); Globulin 3.4 g/dL (2.4-3.5); Glucose 89 mg/dL (70-105); Lipase 51 Units/L (11-82); Osmolality,Calculated 287 (280-300); Potassium 4.2 mEq/L (3.5-5.1); Sodium 138 mEq/L (136-145); Total Protein 7.6 g/dL (6.4-8.9); Troponin I 0.16 ng/mL (< 0.04); eGFR For African Americans > 60 (> 60); eGFR For Non-African Americans 50 (> 60)
[2020-07-03] MEDS ORDERED: *HR* Heparin 5,000 UNIT/ML VIAL IVP PRN ×2 (20:35)
[2020-07-03] MEDS ORDERED: *HR* Heparin 5,000 UNIT/ML VIAL IVP ONE (20:35)
[2020-07-03] MEDS ORDERED: Heparin 25,000UNIT/250ML 1/2NS 25,000 UNIT/250 ML IV.SOLN IVC SCH (20:45)
[2020-07-03] MEDS ORDERED: Acetaminophen 325 MG TABLET PO PRN (21:57)
[2020-07-03] MEDS ORDERED: Melatonin 3 MG TABLET PO PRN (21:57)
[2020-07-03] MEDS ORDERED: Naloxone 0.4 MG/ML INJ IVP PRN (21:57)
[2020-07-03] MEDS ORDERED: Ondansetron 4 MG/2 ML VIAL IVP PRN (21:57)
[2020-07-04 05:28] LABS: Basophils % 0.4 %; Eosinophils # 0.1 K/mcL (0.0-0.6); Eosinophils % 1.1 %; Hematocrit 29.1 % (35.3-44.9); Immature Granulocytes % 0.4 % (0-4); Lymphocytes # 0.9 K/mcL (0.6-4.6); Lymphocytes % 16.6 %; Mean Corpuscular HGB Conc 32.3 g/dL (31.6-35.5); Mean Corpuscular Hemoglobin 32.2 pg (28.0-33.3); Mean Corpuscular Volume 99.7 fL (83.0-100.0); Mean Platelet Volume 10.5 fL (9.4-12.4); Monocytes # 0.7 K/mcL (0.0-1.3); Monocytes % 13.9 %; Neutrophils # 3.6 K/mcL (1.6-8.9); Platelet Count 244 K/mcL (140-400); Red Blood Count 2.92 M/mcL (3.82-4.97); Red Cell Distribution Width 16.1 % (11.5-14.5); Segmented Neutrophils % 67.6 %; White Blood Count 5.3 K/mcL (4.3-11.1)
[2020-07-04 05:40] LABS: Hemoglobin 9.4 g/dL (11.5-15.4)
[2020-07-04 05:43] LABS: Albumin 3.4 g/dL (3.5-5.7); Albumin/Globulin Ratio 1.4 (1.1-2.2); Bilirubin,Total 0.5 mg/dL (0.3-1.0); Calcium 8.4 mg/dL (8.6-10.3); Globulin 2.5 g/dL (2.4-3.5); Magnesium 2.1 mg/dL (1.6-2.6); Phosphorous 3.6 mg/dL (2.7-4.5); Potassium 4.1 mEq/L (3.5-5.1); Total Protein 5.9 g/dL (6.4-8.9)
[2020-07-04] MEDS ORDERED: Aspirin 81 MG TAB.CHEW PO SCH (09:00)
[2020-07-04] MEDS ORDERED: clonazePAM 1 MG TABLET PO SCH (09:00)
[2020-07-04] MEDS ORDERED: Metoprolol XL (24 HR) Succ 50 MG TAB.ER.24H PO SCH (10:08)
[2020-07-04] MEDS ORDERED: Aspirin Enteric Coated 81 MG Tablet PO SCH (10:15)
[2020-07-04] MEDS ORDERED: Furosemide 40 MG TABLET PO SCH (10:15)
[2020-07-04] MEDS ORDERED: lisinopriL 20 MG TABLET PO SCH (10:15)
[2020-07-04] MEDS ORDERED: Furosemide 20 MG TABLET PO SCH (10:15)
[2020-07-04] MEDS ORDERED: *HR* Amiodarone 200 MG TABLET PO SCH (10:15)
[2020-07-04 10:42] VITALS: BP 107/68
[2020-07-04] MEDS ORDERED: Isosorbide MONOnitrate (24 HR) 30 MG TAB.ER.24H PO SCH (11:30)
== END 2020-07-04 15:47 | disposition home or self-care (01) ==
LOC: 2ANU 16:53 → EMEROOARM 16:53 → SUATTDRO 22:08 → 2ANU 22:51
PROVIDERS: ADMIT Internal Medicine; ATTEND Internal Medicine

== ENCOUNTER 2020-07-29 11:47 | Observation (INO) ==
[2020-07-29 12:33] LABS: Basophils % 0.5 %; Eosinophils # 0.1 K/mcL (0.0-0.6); Eosinophils % 1.2 %; Hemoglobin 11.2 g/dL (11.5-15.4); Immature Granulocytes % 0.3 % (0-4); Lymphocytes # 1.2 K/mcL (0.6-4.6); Lymphocytes % 15.9 %; Mean Corpuscular HGB Conc 31.1 g/dL (31.6-35.5); Mean Corpuscular Hemoglobin 30.7 pg (28.0-33.3); Mean Corpuscular Volume 98.6 fL (83.0-100.0); Mean Platelet Volume 10.9 fL (9.4-12.4); Monocytes # 1.1 K/mcL (0.0-1.3); Monocytes % 14.8 %; Neutrophils # 4.9 K/mcL (1.6-8.9); Platelet Count 316 K/mcL (140-400); Red Blood Count 3.65 M/mcL (3.82-4.97); Red Cell Distribution Width 16.5 % (11.5-14.5); Segmented Neutrophils % 67.3 %; White Blood Count 7.3 K/mcL (4.3-11.1)
[2020-07-29 12:56] LABS: Calcium 9.1 mg/dL (8.6-10.3); Troponin I 0.03 ng/mL (< 0.04)
[2020-07-29] MEDS ORDERED: Furosemide 40 MG/4 ML VIAL IVP ONE (13:18)
[2020-07-29 14:56] LABS: INR 3.6; Prothrombin Time 40.5 Seconds (9.4-12.1)
[2020-07-29] MEDS ORDERED: Naloxone 0.4 MG/ML INJ IVP PRN (15:51)
[2020-07-29 17:54] LABS: Adenovirus Not Detected (Not Detect); Bordetella Pertussis Not Detected (Not Detect); Chlamydophila pneumoniae Not Detected (Not Detect); Coronavirus 229E Not Detected (Not Detect); Coronavirus HKU1 Not Detected (Not Detect); Coronavirus NL63 Not Detected (Not Detect); Coronavirus OC43 Not Detected (Not Detect); Human Metapneumovirus Not Detected (Not Detect); Human Rhinovirus/Enterovirus Not Detected (Not Detect); Influenza A Subtype 2009 H1 Not Detected (Not Detect); Influenza B Not Detected (Not Detect); Mycoplasma pneumoniae Not Detected (Not Detect); Parainfluenza Virus 1 Not Detected (Not Detect); Parainfluenza Virus 2 Not Detected (Not Detect); Parainfluenza Virus 3 Not Detected (Not Detect); Parainfluenza Virus 4 Not Detected (Not Detect); Respiratory Syncytial Virus Not Detected (Not Detect); SARS-CoV-2 Not Detected (Not Detect)
[2020-07-29] MEDS ORDERED: Warfarin perPT PO PRN (18:00)
[2020-07-29] MEDS: Melatonin 3 MG TABLET PO PRN (22:49)
[2020-07-30 06:00] LABS: Hematocrit 30.9 % (35.3-44.9); Hemoglobin 9.7 g/dL (11.5-15.4); Mean Corpuscular HGB Conc 31.4 g/dL (31.6-35.5); Mean Corpuscular Hemoglobin 30.3 pg (28.0-33.3); Mean Corpuscular Volume 96.6 fL (83.0-100.0); Mean Platelet Volume 10.6 fL (9.4-12.4); Platelet Count 269 K/mcL (140-400); Red Cell Distribution Width 16.2 % (11.5-14.5); White Blood Count 7.7 K/mcL (4.3-11.1)
[2020-07-30 06:08] LABS: Prothrombin Time 33.8 Seconds (9.4-12.1)
[2020-07-30 06:18] LABS: Calcium 8.7 mg/dL (8.6-10.3); Potassium 4.5 mEq/L (3.5-5.1)
[2020-07-30] MEDS ORDERED: Ipratropium/Albuterol Neb 3 ML IH PRN (08:02)
[2020-07-30] MEDS: Furosemide 40 MG/4 ML VIAL IVP SCH (08:33)
[2020-07-30] MEDS: *HR* Amiodarone 200 MG TABLET PO SCH (08:33)
[2020-07-30] MEDS: clonazePAM 1 MG TABLET PO SCH ×2 (08:33→21:06)
[2020-07-30] MEDS: Metoprolol XL (24 HR) Succ 50 MG TAB.ER.24H PO SCH ×2 (08:33→21:06)
[2020-07-30] MEDS: Tiotropium 10 INH DOSE IH SCH (09:46)
[2020-07-30] MEDS ORDERED: *HR* Warfarin 1 MG TABLET PO ONE (18:00)
[2020-07-30] MEDS: Melatonin 3 MG TABLET PO PRN (21:06)
[2020-07-31 01:37] LABS: Hematocrit 30.3 % (35.3-44.9); Hemoglobin 9.6 g/dL (11.5-15.4); Mean Corpuscular HGB Conc 31.7 g/dL (31.6-35.5); Mean Corpuscular Volume 97.7 fL (83.0-100.0); Mean Platelet Volume 10.5 fL (9.4-12.4); Platelet Count 256 K/mcL (140-400); Red Cell Distribution Width 16.2 % (11.5-14.5); White Blood Count 6.2 K/mcL (4.3-11.1)
[2020-07-31 01:55] LABS: % Iron Saturation 6 % (15-50); Iron 21 mcg/dL (50-170); Transferrin 265 mg/dL (203-362)
[2020-07-31 01:57] LABS: Calcium 8.3 mg/dL (8.6-10.3); Potassium 3.6 mEq/L (3.5-5.1)
[2020-07-31 02:21] LABS: Folate 8.1 ng/mL (3.0-16.0)
[2020-07-31] MEDS: Tiotropium 10 INH DOSE IH SCH (07:59)
[2020-07-31] MEDS: *HR* Amiodarone 200 MG TABLET PO SCH (08:27)
[2020-07-31] MEDS: Furosemide 40 MG/4 ML VIAL IVP SCH (08:27)
[2020-07-31] MEDS: clonazePAM 1 MG TABLET PO SCH (08:27)
[2020-07-31] MEDS: Metoprolol XL (24 HR) Succ 50 MG TAB.ER.24H PO SCH (08:27)
[2020-07-31 10:05] LABS: INR 2.5
[2020-07-31 10:52] VITALS: BP 116/56
[2020-07-31] MEDS ORDERED: *HR* Warfarin 2.5 MG TABLET PO ONE (18:00)
== END 2020-07-31 14:18 | disposition home or self-care (01) ==
LOC: 3BNU 11:47 → EMEROOARM 11:47 → SUATTDRO 15:18 → 3BNU 16:13
PROVIDERS: ADMIT General Practice; ATTEND Registered Nurse

== ENCOUNTER 2020-08-06 06:23 | Observation (INO) ==
[2020-08-06] MEDS ORDERED: Ondansetron 4 MG/2 ML VIAL IVP ONE (07:07)
[2020-08-06] MEDS ORDERED: 0.9 % Sodium Chloride 1,000 ML IVC SCH (07:15)
[2020-08-06 08:07] LABS: Basophils % 0.3 %; Immature Granulocytes % 0.7 % (0-4); Lymphocytes % 14.2 %; Mean Corpuscular HGB Conc 30.8 g/dL (31.6-35.5); Mean Corpuscular Hemoglobin 30.5 pg (28.0-33.3); Mean Platelet Volume 11.1 fL (9.4-12.4); Monocytes # 0.7 K/mcL (0.0-1.3); Neutrophils # 5.3 K/mcL (1.6-8.9); Platelet Count 354 K/mcL (140-400); Red Blood Count 3.84 M/mcL (3.82-4.97); Red Cell Distribution Width 16.1 % (11.5-14.5); Segmented Neutrophils % 74.8 %
[2020-08-06 08:10] LABS: Hemoglobin 11.7 g/dL (11.5-15.4)
[2020-08-06 08:16] LABS: Prothrombin Time 44.8 Seconds (9.4-12.1)
[2020-08-06 08:29] LABS: Albumin 4.5 g/dL (3.5-5.7); Albumin/Globulin Ratio 1.2 (1.1-2.2); Bilirubin,Direct 0.2 mg/dL (0.0-0.2); Bilirubin,Indirect 0.9 mg/dL (0.0-1.0); Bilirubin,Total 1.1 mg/dL (0.3-1.0); Calcium 9.8 mg/dL (8.6-10.3); Globulin 3.7 g/dL (2.4-3.5); Magnesium 2.5 mg/dL (1.6-2.6); Total Protein 8.2 g/dL (6.4-8.9); Troponin I 0.03 ng/mL (< 0.04)
[2020-08-06 08:42] LABS: Thyroid Stimulating Hormone 0.914 mcIU/mL (0.340-5.600)
[2020-08-06] MEDS ORDERED: Calcium Gluconate 1,000 MG/10 ML VIAL IVP STA (09:05)
[2020-08-06] MEDS ORDERED: *HR* Dextrose 50 % in Water (Vial) 50 ML VIAL IVP ONE (09:06)
[2020-08-06] MEDS ORDERED: Insulin Human Regular 10 UNIT in 0.9 % Sodium Chloride 10 ML IV ONE (09:07)
[2020-08-06] MEDS ORDERED: Calcium Gluconate 1gm/50mL 1 GM/50 ML BAG IVPB ONE (09:08)
[2020-08-06] MEDS ORDERED: Albuterol 2.5 MG/3 ML NEBULIZER IH ONE (09:08)
[2020-08-06] MEDS ORDERED: Naloxone 0.4 MG/ML INJ IVP PRN (09:29)
[2020-08-06] MEDS: D5% in 0.9% NACL 1,000 ML IVC SCH ×2 (09:45→15:56)
[2020-08-06 10:15] LABS: Bilirubin,Urine Negative (Negative); Blood,Urine Negative (Negative); Clarity,Urine Clear (Clear); Color,Urine Light-Yellow (Yellow); Glucose,Urine (UA) Normal (Normal); Hyaline Casts,Urine Many per lpf (None Seen); Ketones,Urine Negative (Negative); Leukocyte Esterase,Urine Negative (Negative); Mucus,Urine Few per lpf (None-Few); Nitrite,Urine Negative (Negative); PH,Urine 5.5 pH Units (5.0-8.0); Protein,Urine 30 mg/dL (Neg-Trace); RBC,Urine 0-3 per hpf (0-3); Specific Gravity,Urine 1.022 (1.010-1.025); Squamous Epithelial Cell,Urine Few per hpf (None-Few); Urobilinogen,Urine Normal (Normal); WBC,Urine 0-3 per hpf (0-3)
[2020-08-06] MEDS ORDERED: SODIUM ZIRCONIUM CYCLOSILICATE 5 GM POWD.PACK PO STA (11:39)
[2020-08-06] MEDS ORDERED: Furosemide 40 MG/4 ML VIAL IVP ONE (12:51)
[2020-08-06] MEDS ORDERED: Albumin 25% 25gram/100mL 25 GM/100 ML IV.SOLN IVPB ONE (12:52)
[2020-08-06 13:09] LABS: ABG Base Excess -5 mEq/L (-2 to 3); ABG HCO3 19 mEq/L (21-27); ABG Oxygen Saturation 92 % (95-98); ABG PCO2 32 mmHg (35-45); ABG PH 7.39 pH Units (7.32-7.45); ABG PO2 62 mmHg (85-104); ABG TCO2 20 mEq/L (20-26)
[2020-08-06] MEDS ORDERED: Ipratropium/Albuterol Neb 3 ML IH PRN (13:48)
[2020-08-06] MEDS ORDERED: *HR* Dextrose 50 % in Water (Vial) 50 ML VIAL IVP PRN (14:20)
[2020-08-06] MEDS ORDERED: Dextrose Gel 15 GM/37.5 ML TUBE PO PRN ×2 (14:20)
[2020-08-06] MEDS ORDERED: D5% in Water 1,000 ML IVC PRN (14:20)
[2020-08-06] MEDS: *HR* Amiodarone 200 MG TABLET PO SCH (14:25)
[2020-08-06] MEDS: Insulin LISPRO 300 UNITS/3 ML VIAL SUBQ SCH ×3 (14:37→19:50)
[2020-08-06] MEDS ORDERED: SODIUM ZIRCONIUM CYCLOSILICATE 5 GM POWD.PACK PO ONE (15:00)
[2020-08-06 16:09] LABS: Calcium 9.4 mg/dL (8.6-10.3); Potassium 4.8 mEq/L (3.5-5.1)
[2020-08-06] MEDS: Metoprolol XL (24 HR) Succ 50 MG TAB.ER.24H PO SCH (16:34)
[2020-08-06] MEDS: clonazePAM 1 MG TABLET PO SCH (19:55)
[2020-08-06] MEDS ORDERED: Metoprolol XL (24 HR) Succ 50 MG TAB.ER.24H PO SCH (21:00)
[2020-08-07 03:56] LABS: Estimated Average Glucose 137 mg/dl; Hemoglobin A1C 6.4 %
[2020-08-07 03:59] LABS: Calcium 8.5 mg/dL (8.6-10.3); Magnesium 2.3 mg/dL (1.6-2.6); Phosphorous 4.7 mg/dL (2.7-4.5); Potassium 4.1 mEq/L (3.5-5.1)
[2020-08-07 04:05] LABS: INR 4.4; Prothrombin Time 48.8 Seconds (9.4-12.1)
[2020-08-07] MEDS: D5% in 0.9% NACL 1,000 ML IVC SCH ×3 (05:02→16:56)
[2020-08-07] MEDS: Insulin LISPRO 300 UNITS/3 ML VIAL SUBQ SCH ×4 (08:01→19:29)
[2020-08-07] MEDS: Aspirin 325 MG TABLET PO SCH (08:04)
[2020-08-07] MEDS: *HR* Amiodarone 200 MG TABLET PO SCH (08:04)
[2020-08-07] MEDS: clonazePAM 1 MG TABLET PO SCH ×2 (08:04→21:08)
[2020-08-07] MEDS: Metoprolol XL (24 HR) Succ 50 MG TAB.ER.24H PO SCH ×2 (08:04→21:08)
[2020-08-07] MEDS ORDERED: Spironolactone 12.5 MG TABLET PO SCH (09:00)
[2020-08-07] MEDS ORDERED: *HR* Amiodarone 200 MG TABLET PO SCH (09:00)
[2020-08-07] MEDS: Tiotropium 10 INH DOSE IH SCH (09:56)
[2020-08-07] MEDS ORDERED: Furosemide 40 MG/4 ML VIAL IVP ONE (13:56)
[2020-08-08 02:13] LABS: Hematocrit 27.3 % (35.3-44.9); Mean Corpuscular HGB Conc 31.5 g/dL (31.6-35.5); Mean Corpuscular Hemoglobin 30.1 pg (28.0-33.3); Mean Corpuscular Volume 95.5 fL (83.0-100.0); Mean Platelet Volume 10.6 fL (9.4-12.4); Platelet Count 261 K/mcL (140-400); Red Blood Count 2.86 M/mcL (3.82-4.97); Red Cell Distribution Width 15.5 % (11.5-14.5); White Blood Count 6.5 K/mcL (4.3-11.1)
[2020-08-08 02:14] LABS: Hemoglobin 8.6 g/dL (11.5-15.4)
[2020-08-08 03:01] LABS: Calcium 8.2 mg/dL (8.6-10.3); Magnesium 2.1 mg/dL (1.6-2.6); Phosphorous 3.1 mg/dL (2.7-4.5); Potassium 2.9 mEq/L (3.5-5.1)
[2020-08-08] MEDS: D5% in 0.9% NACL 1,000 ML IVC SCH ×3 (04:58→10:44)
[2020-08-08] MEDS: Tiotropium 10 INH DOSE IH SCH (07:40)
[2020-08-08] MEDS: Insulin LISPRO 300 UNITS/3 ML VIAL SUBQ SCH ×4 (08:03→20:12)
[2020-08-08] MEDS: clonazePAM 1 MG TABLET PO SCH ×2 (08:05→20:12)
[2020-08-08] MEDS: *HR* Amiodarone 200 MG TABLET PO SCH (08:05)
[2020-08-08] MEDS: Metoprolol XL (24 HR) Succ 50 MG TAB.ER.24H PO SCH ×2 (08:05→20:12)
[2020-08-08] MEDS: Aspirin 325 MG TABLET PO SCH (08:06)
[2020-08-08] MEDS ORDERED: Potassium Chloride 40 MEQ, Lidocaine 1% 2 ML in 0.9 % Sodium Chloride 500 ML IVPB ONE (08:35)
[2020-08-08 08:38] LABS: Hemoglobin 9.3 g/dL (11.5-15.4)
[2020-08-08] MEDS ORDERED: Furosemide 40 MG/4 ML VIAL IVP ONE (13:47)
[2020-08-08] MEDS ORDERED: *HR* LORazepam 2 MG/ML VIAL IVP ONE (14:23)
[2020-08-08 16:25] LABS: Calcium 8.2 mg/dL (8.6-10.3); Potassium 3.2 mEq/L (3.5-5.1)
[2020-08-08] MEDS ORDERED: MOM Conc 10 ML UD.LIQ PO PRN (17:35)
[2020-08-09 07:16] LABS: Hematocrit 28.4 % (35.3-44.9); Hemoglobin 8.8 g/dL (11.5-15.4); INR 2.7; Mean Corpuscular Hemoglobin 30.1 pg (28.0-33.3); Mean Corpuscular Volume 97.3 fL (83.0-100.0); Mean Platelet Volume 10.8 fL (9.4-12.4); Platelet Count 259 K/mcL (140-400); Prothrombin Time 30.3 Seconds (9.4-12.1); Red Blood Count 2.92 M/mcL (3.82-4.97); Red Cell Distribution Width 15.9 % (11.5-14.5); White Blood Count 5.6 K/mcL (4.3-11.1)
[2020-08-09 07:20] VITALS: BP 145/77
[2020-08-09] MEDS: Insulin LISPRO 300 UNITS/3 ML VIAL SUBQ SCH (07:48)
[2020-08-09 08:06] LABS: Magnesium 2.4 mg/dL (1.6-2.6); Phosphorous 1.7 mg/dL (2.7-4.5)
[2020-08-09] MEDS: *HR* Amiodarone 200 MG TABLET PO SCH (08:33)
[2020-08-09] MEDS: Aspirin 325 MG TABLET PO SCH (08:33)
[2020-08-09] MEDS: Metoprolol XL (24 HR) Succ 50 MG TAB.ER.24H PO SCH (08:33)
[2020-08-09] MEDS: clonazePAM 1 MG TABLET PO SCH (08:33)
[2020-08-09] MEDS ORDERED: Tiotropium 10 INH DOSE IH SCH (10:00)
== END 2020-08-09 11:02 | disposition home or self-care (01) ==
LOC: CDU 06:23 → EMEROOARM 06:23 → SUATTDRO 10:15 → CDU 10:36 → 2ANU 14:48
PROVIDERS: ADMIT Internal Medicine; ATTEND Internal Medicine

== ENCOUNTER 2020-08-18 20:31 | Observation (INO) ==
[2020-08-18 21:29] LABS: Basophils % 0.3 %; Hematocrit 30.2 % (35.3-44.9); Hemoglobin 9.3 g/dL (11.5-15.4); Immature Granulocytes % 0.3 % (0-4); Lymphocytes # 0.9 K/mcL (0.6-4.6); Lymphocytes % 11.5 %; Mean Corpuscular HGB Conc 30.8 g/dL (31.6-35.5); Mean Corpuscular Hemoglobin 29.9 pg (28.0-33.3); Mean Corpuscular Volume 97.1 fL (83.0-100.0); Mean Platelet Volume 10.1 fL (9.4-12.4); Monocytes # 0.6 K/mcL (0.0-1.3); Monocytes % 8.5 %; Neutrophils # 5.9 K/mcL (1.6-8.9); Platelet Count 324 K/mcL (140-400); Red Blood Count 3.11 M/mcL (3.82-4.97); Red Cell Distribution Width 16.8 % (11.5-14.5); Segmented Neutrophils % 79.4 %; White Blood Count 7.4 K/mcL (4.3-11.1)
[2020-08-18 21:49] LABS: BUN/Creatinine Ratio 19 (6-26); Blood Urea Nitrogen 35 mg/dL (8-23); Calcium 8.6 mg/dL (8.6-10.3); Carbon Dioxide 23 mEq/L (23-29); Chloride 101 mEq/L (98-107); Glucose 129 mg/dL (70-105); Osmolality,Calculated 286 (280-300); Potassium 4.8 mEq/L (3.5-5.1); Sodium 133 mEq/L (136-145); Troponin I < 0.03 ng/mL (< 0.04); eGFR For African Americans 32 (> 60); eGFR For Non-African Americans 26 (> 60)
[2020-08-18] MEDS ORDERED: DiphenhydraMINE CREAM 28.4 GM TUBE TP ONE (22:22)
[2020-08-18 22:27] LABS: INR 3.3; Prothrombin Time 36.7 Seconds (9.4-12.1)
[2020-08-18] MEDS ORDERED: Naloxone 0.4 MG/ML INJ IVP PRN (22:49)
[2020-08-18] MEDS ORDERED: Furosemide 40 MG/4 ML VIAL IVP ONE (23:55)
[2020-08-19 02:40] LABS: INR 3.5; Prothrombin Time 38.8 Seconds (9.4-12.1)
[2020-08-19 02:43] LABS: Activated Partial Thrombo Time 36.1 Seconds (26.0-36.0)
[2020-08-19 02:47] LABS: Potassium 4.7 mEq/L (3.5-5.1)
[2020-08-19] MEDS ORDERED: DiphenhydraMINE CREAM 28.4 GM TUBE TP PRN (04:50)
[2020-08-19] MEDS ORDERED: Ipratropium/Albuterol Neb 3 ML IH PRN (05:20)
[2020-08-19 06:02] LABS: VBG HCO3 23 mEq/L (21-27); VBG PCO2 35 mmHg (41-51); VBG PH 7.42 pH Units (7.32-7.42); VBG PO2 134 mmHg (25-50)
[2020-08-19 06:05] LABS: Bilirubin,Urine Negative (Negative); Blood,Urine Negative (Negative); Clarity,Urine Clear (Clear); Color,Urine Colorless (Yellow); Glucose,Urine (UA) Normal (Normal); Ketones,Urine Negative (Negative); Leukocyte Esterase,Urine Negative (Negative); Nitrite,Urine Negative (Negative); PH,Urine 6.5 pH Units (5.0-8.0); Protein,Urine Negative (Neg-Trace); Specific Gravity,Urine 1.009 (1.010-1.025); Urobilinogen,Urine Normal (Normal)
[2020-08-19 06:09] LABS: Basophils % 0.3 %; Hematocrit 29.8 % (35.3-44.9); Hemoglobin 9.3 g/dL (11.5-15.4); Immature Granulocytes % 0.4 % (0-4); Lymphocytes # 0.9 K/mcL (0.6-4.6); Lymphocytes % 13.1 %; Mean Corpuscular HGB Conc 31.2 g/dL (31.6-35.5); Mean Corpuscular Hemoglobin 30.3 pg (28.0-33.3); Mean Corpuscular Volume 97.1 fL (83.0-100.0); Mean Platelet Volume 10.5 fL (9.4-12.4); Monocytes # 0.6 K/mcL (0.0-1.3); Monocytes % 8.7 %; Neutrophils # 5.5 K/mcL (1.6-8.9); Platelet Count 312 K/mcL (140-400); Red Blood Count 3.07 M/mcL (3.82-4.97); Red Cell Distribution Width 16.7 % (11.5-14.5); Segmented Neutrophils % 77.5 %; White Blood Count 7.2 K/mcL (4.3-11.1)
[2020-08-19 06:58] LABS: Calcium 8.9 mg/dL (8.6-10.3); Potassium 4.4 mEq/L (3.5-5.1)
[2020-08-19 07:21] VITALS: BP 158/78
[2020-08-19] MEDS ORDERED: clonazePAM 1 MG TABLET PO SCH (09:00)
[2020-08-19] MEDS ORDERED: Tiotropium 10 INH DOSE IH SCH (09:00)
[2020-08-19] MEDS ORDERED: lisinopriL 20 MG TABLET PO SCH (09:00)
[2020-08-19] MEDS ORDERED: Furosemide 40 MG TABLET PO SCH (09:00)
[2020-08-19] MEDS ORDERED: Metoprolol XL (24 HR) Succ 50 MG TAB.ER.24H PO SCH (09:00)
[2020-08-19] MEDS ORDERED: *HR* Amiodarone 200 MG TABLET PO SCH (09:00)
[2020-08-19] MEDS ORDERED: Furosemide 40 MG/4 ML VIAL IVP SCH (09:00)
[2020-08-19] MEDS ORDERED: Aspirin 325 MG TABLET PO SCH (09:00)
== END 2020-08-19 11:20 | disposition home or self-care (01) ==
LOC: 3BNU 20:31 → EMEROOARM 20:31 → SUATTDRO 22:44 → 3BNU 23:50
PROVIDERS: ADMIT Family Medicine; ATTEND Internal Medicine

== ENCOUNTER 2020-09-24 19:59 | Observation (INO) ==
[2020-09-24 21:06] LABS: Basophils % 0.3 %; Eosinophils % 0.1 %; Hematocrit 32.3 % (35.3-44.9); Hemoglobin 10.2 g/dL (11.5-15.4); Immature Granulocytes % 0.4 % (0-4); Lymphocytes # 0.5 K/mcL (0.6-4.6); Lymphocytes % 5.4 %; Mean Corpuscular HGB Conc 31.6 g/dL (31.6-35.5); Mean Corpuscular Hemoglobin 29.6 pg (28.0-33.3); Mean Corpuscular Volume 93.6 fL (83.0-100.0); Mean Platelet Volume 10.7 fL (9.4-12.4); Monocytes # 0.8 K/mcL (0.0-1.3); Platelet Count 268 K/mcL (140-400); Red Blood Count 3.45 M/mcL (3.82-4.97); Segmented Neutrophils % 85.8 %; White Blood Count 9.4 K/mcL (4.3-11.1)
[2020-09-24 21:12] LABS: INR 2.4; Prothrombin Time 27.4 Seconds (9.4-12.1)
[2020-09-24 21:33] LABS: Troponin I 0.04 ng/mL (< 0.04)
[2020-09-24 21:44] LABS: Thyroid Stimulating Hormone 0.932 mcIU/mL (0.340-5.600)
[2020-09-24 21:56] LABS: Calcium 8.9 mg/dL (8.6-10.3); Magnesium 2.1 mg/dL (1.6-2.6); Potassium 5.4 mEq/L (3.5-5.1)
[2020-09-24] MEDS ORDERED: Acetaminophen 325 MG TABLET PO ONE (22:56)
[2020-09-24] MEDS ORDERED: Aspirin 325 MG TABLET PO ONE (22:58)
[2020-09-24] MEDS ORDERED: Magnesium Sulfate 1 GM/102 ML PIGGYBACK IVPB ONE (23:41)
[2020-09-24] MEDS ORDERED: Calcium Chloride 1,000 MG in 0.9 % Sodium Chloride 100 ML IVPB ONE (23:43)
[2020-09-25] MEDS ORDERED: Naloxone 0.4 MG/ML INJ IVP PRN (01:26)
[2020-09-25] MEDS ORDERED: Melatonin 3 MG TABLET PO PRN (01:26)
[2020-09-25] MEDS ORDERED: Ondansetron 4 MG/2 ML VIAL IVP PRN (01:26)
[2020-09-25 07:03] LABS: Basophils % 0.4 %; Eosinophils % 0.1 %; Hematocrit 29.7 % (35.3-44.9); Hemoglobin 9.3 g/dL (11.5-15.4); Immature Granulocytes % 0.5 % (0-4); Lymphocytes # 1.6 K/mcL (0.6-4.6); Lymphocytes % 20.5 %; Mean Corpuscular HGB Conc 31.3 g/dL (31.6-35.5); Mean Corpuscular Hemoglobin 29.6 pg (28.0-33.3); Mean Corpuscular Volume 94.6 fL (83.0-100.0); Mean Platelet Volume 10.8 fL (9.4-12.4); Monocytes # 0.7 K/mcL (0.0-1.3); Monocytes % 8.6 %; Neutrophils # 5.3 K/mcL (1.6-8.9); Platelet Count 251 K/mcL (140-400); Red Blood Count 3.14 M/mcL (3.82-4.97); Red Cell Distribution Width 18.3 % (11.5-14.5); Segmented Neutrophils % 69.9 %; White Blood Count 7.6 K/mcL (4.3-11.1)
[2020-09-25 07:24] LABS: Troponin I 0.12 ng/mL (< 0.04)
[2020-09-25 07:31] LABS: Albumin 3.5 g/dL (3.5-5.7); Albumin/Globulin Ratio 1.2 (1.1-2.2); Bilirubin,Total 0.9 mg/dL (0.3-1.0); Calcium 9.6 mg/dL (8.6-10.3); Magnesium 2.4 mg/dL (1.6-2.6); Phosphorous 3.9 mg/dL (2.7-4.5); Potassium 4.5 mEq/L (3.5-5.1); Total Protein 6.5 g/dL (6.4-8.9)
[2020-09-25] MEDS: Acetaminophen 325 MG TABLET PO PRN ×2 (08:26→16:09)
[2020-09-25 08:38] LABS: INR 1.7; Prothrombin Time 19.5 Seconds (9.4-12.1)
[2020-09-25] MEDS ORDERED: Furosemide 20 MG/2 ML VIAL IVP ONE ×2 (08:54→18:00)
[2020-09-25] MEDS ORDERED: lisinopriL 20 MG TABLET PO SCH (09:00)
[2020-09-25] MEDS ORDERED: Tiotropium 10 INH DOSE IH SCH (09:00)
[2020-09-25] MEDS ORDERED: Metoprolol XL (24 HR) Succ 50 MG TAB.ER.24H PO SCH (09:00)
[2020-09-25] MEDS: Aspirin 325 MG TABLET PO SCH (10:02)
[2020-09-25] MEDS: Benzonatate 100 MG CAPSULE PO PRN (10:03)
[2020-09-25] MEDS: clonazePAM 1 MG TABLET PO SCH ×2 (10:03→20:56)
[2020-09-25] MEDS: *HR* Amiodarone 200 MG TABLET PO SCH (10:03)
[2020-09-25] MEDS: Tiotropium 10 INH DOSE IH SCH (11:02)
[2020-09-25] MEDS ORDERED: Warfarin perPT PO PRN (18:00)
[2020-09-25] MEDS ORDERED: *HR* Warfarin 0.5 MG TABLET PO ONE (18:00)
[2020-09-25] MEDS ORDERED: *HR* Warfarin 1 MG TABLET PO ONE (18:00)
[2020-09-25] MEDS: Metoprolol XL (24 HR) Succ 50 MG TAB.ER.24H PO SCH (20:55)
[2020-09-25] MEDS: Doxycycline 100 MG CAPSULE PO SCH (20:56)
[2020-09-26 02:35] LABS: INR 1.9; Prothrombin Time 21.5 Seconds (9.4-12.1)
[2020-09-26 02:48] LABS: Magnesium 2.1 mg/dL (1.6-2.6); Potassium 4.1 mEq/L (3.5-5.1)
[2020-09-26] MEDS: Tiotropium 10 INH DOSE IH SCH (07:51)
[2020-09-26 08:10] VITALS: BP 163/71
[2020-09-26] MEDS: Doxycycline 100 MG CAPSULE PO SCH (08:25)
[2020-09-26] MEDS: Benzonatate 100 MG CAPSULE PO PRN (08:35)
[2020-09-26] MEDS: Aspirin 325 MG TABLET PO SCH (08:35)
[2020-09-26] MEDS: clonazePAM 1 MG TABLET PO SCH (08:36)
[2020-09-26] MEDS: Metoprolol XL (24 HR) Succ 50 MG TAB.ER.24H PO SCH (08:36)
[2020-09-26] MEDS: *HR* Amiodarone 200 MG TABLET PO SCH (08:36)
[2020-09-26] MEDS: Acetaminophen 325 MG TABLET PO PRN (08:36)
[2020-09-26] MEDS ORDERED: Furosemide 40 MG TABLET PO SCH (09:00)
[2020-09-26] MEDS ORDERED: Spironolactone 25 MG TABLET PO SCH (09:00)
[2020-09-26] MEDS ORDERED: lisinopriL 20 MG TABLET PO SCH (09:00)
[2020-09-26 09:53] LABS: Adenovirus Not Detected (Not Detect); Bordetella Pertussis Not Detected (Not Detect); Chlamydophila pneumoniae Not Detected (Not Detect); Coronavirus 229E Not Detected (Not Detect); Coronavirus HKU1 Not Detected (Not Detect); Coronavirus NL63 Not Detected (Not Detect); Coronavirus OC43 Not Detected (Not Detect); Human Metapneumovirus Not Detected (Not Detect); Human Rhinovirus/Enterovirus Not Detected (Not Detect); Influenza A Subtype 2009 H1 Not Detected (Not Detect); Influenza B Not Detected (Not Detect); Mycoplasma pneumoniae Not Detected (Not Detect); Parainfluenza Virus 1 Not Detected (Not Detect); Parainfluenza Virus 2 Not Detected (Not Detect); Parainfluenza Virus 3 Not Detected (Not Detect); Parainfluenza Virus 4 Not Detected (Not Detect); Respiratory Syncytial Virus Not Detected (Not Detect); SARS-CoV-2 Not Detected (Not Detect)
[2020-09-26] MEDS ORDERED: *HR* Warfarin 2.5 MG TABLET PO ONE (18:00)
[2020-09-26] MEDS ORDERED: Furosemide 20 MG TABLET PO SCH (18:00)
== END 2020-09-26 12:33 | disposition home or self-care (01) ==
LOC: EMEROOARM 19:59 → 2ANU 19:59 → SUATTDRO 09-25 00:32 → 2ANU 09-25 00:52
PROVIDERS: ADMIT Family Medicine; ATTEND Internal Medicine

== ENCOUNTER 2020-11-03 07:36 | Inpatient (IN) ==
[2020-11-03 09:50] LABS: INR 2.6; Prothrombin Time 29.4 Seconds (9.4-12.1)
[2020-11-03 09:52] LABS: Activated Partial Thrombo Time 37.1 Seconds (26.0-36.0)
[2020-11-03 10:08] LABS: Alanine Aminotransferase 13 Units/L (7-52); Albumin 3.9 g/dL (3.5-5.7); Albumin/Globulin Ratio 1.3 (1.1-2.2); Alkaline Phosphatase 53 Units/L (34-104); Aspartate Amino Transferase 19 Units/L (13-39); BUN/Creatinine Ratio 16 (6-26); Blood Urea Nitrogen 17 mg/dL (8-23); Calcium 8.4 mg/dL (8.6-10.3); Carbon Dioxide 21 mEq/L (23-29); Chloride 102 mEq/L (98-107); Creatine Kinase 50 Units/L (30-223); Glucose 107 mg/dL (70-105); Lipase 47 Units/L (11-82); Magnesium 2.1 mg/dL (1.6-2.6); Osmolality,Calculated 276 (280-300); Potassium 4.2 mEq/L (3.5-5.1); Sodium 132 mEq/L (136-145); Total Protein 6.9 g/dL (6.4-8.9); Troponin I < 0.03 ng/mL (< 0.04); eGFR For African Americans 59 (> 60); eGFR For Non-African Americans 48 (> 60)
[2020-11-03 10:21] LABS: Thyroid Stimulating Hormone 1.325 mcIU/mL (0.340-5.600)
[2020-11-03 10:37] LABS: Bilirubin,Urine Negative (Negative); Blood,Urine Negative (Negative); Clarity,Urine Clear (Clear); Color,Urine Light-Yellow (Yellow); Glucose,Urine (UA) Normal (Normal); Hyaline Casts,Urine Moderate per lpf (None Seen); Ketones,Urine Trace mg/dL (Negative); Leukocyte Esterase,Urine Negative (Negative); Mucus,Urine Few per lpf (None-Few); Nitrite,Urine Negative (Negative); PH,Urine 6.5 pH Units (5.0-8.0); Protein,Urine 50 mg/dL (Neg-Trace); RBC,Urine 0-3 per hpf (0-3); Specific Gravity,Urine 1.015 (1.010-1.025); Squamous Epithelial Cell,Urine Few per hpf (None-Few); Urobilinogen,Urine Normal (Normal); WBC,Urine 0-3 per hpf (0-3)
[2020-11-03 10:48] LABS: Basophils # 0.1 K/mcL (0.0-0.2); Basophils % 0.6 %; Eosinophils % 0.1 %; Hematocrit 34.9 % (35.3-44.9); Hemoglobin 10.9 g/dL (11.5-15.4); Immature Granulocytes % 0.5 % (0-4); Lymphocytes # 1.2 K/mcL (0.6-4.6); Lymphocytes % 14.4 %; Mean Corpuscular HGB Conc 31.2 g/dL (31.6-35.5); Mean Corpuscular Hemoglobin 30.2 pg (28.0-33.3); Mean Corpuscular Volume 96.7 fL (83.0-100.0); Mean Platelet Volume 10.5 fL (9.4-12.4); Monocytes # 0.8 K/mcL (0.0-1.3); Monocytes % 9.7 %; Neutrophils # 6.1 K/mcL (1.6-8.9); Platelet Count 301 K/mcL (140-400); Red Blood Count 3.61 M/mcL (3.82-4.97); Red Cell Distribution Width 18.6 % (11.5-14.5); Segmented Neutrophils % 74.7 %; White Blood Count 8.2 K/mcL (4.3-11.1)
[2020-11-03] MEDS ORDERED: Naloxone 0.4 MG/ML INJ IVP PRN ×2 (11:20→11:27)
[2020-11-03] MEDS ORDERED: Ondansetron 4 MG/2 ML VIAL IVP PRN (11:27)
[2020-11-03] MEDS ORDERED: Acetaminophen 325 MG TABLET PO PRN (11:27)
[2020-11-03] MEDS ORDERED: Aspirin 325 MG TABLET PO ONE (11:34)
[2020-11-03 12:04] LABS: Chol/HDL Ratio 3.9 (0-4.9); Cholesterol 201 mg/dL (< 200); HDL Cholesterol 51 mg/dL (40-59); LDL Cholesterol,Calculated 132 mg/dL (< 100); Triglycerides 92 mg/dL (< 150)
[2020-11-03] MEDS: Magnesium Oxide 400 MG TABLET PO SCH (17:05)
[2020-11-03] MEDS: lisinopriL 20 MG TABLET PO SCH (17:59)
[2020-11-03] MEDS: Spironolactone 12.5 MG TABLET PO SCH (17:59)
[2020-11-03] MEDS: *HR* Amiodarone 200 MG TABLET PO SCH (17:59)
[2020-11-03] MEDS ORDERED: *HR* Warfarin 2.5 MG TABLET PO ONE (18:00)
[2020-11-03] MEDS ORDERED: Furosemide 20 MG TABLET PO SCH (18:00)
[2020-11-03] MEDS ORDERED: Warfarin perPT PO PRN (18:00)
[2020-11-03] MEDS ORDERED: lisinopriL 20 MG TABLET PO SCH (21:00)
[2020-11-03] MEDS: Metoprolol XL (24 HR) Succ 50 MG TAB.ER.24H PO SCH (22:06)
[2020-11-03] MEDS: cephALEXin 500 MG CAPSULE PO SCH (22:06)
[2020-11-04 07:27] LABS: Hematocrit 31.6 % (35.3-44.9); Hemoglobin 10.1 g/dL (11.5-15.4); Mean Corpuscular Hemoglobin 30.5 pg (28.0-33.3); Mean Corpuscular Volume 95.5 fL (83.0-100.0); Mean Platelet Volume 10.7 fL (9.4-12.4); Platelet Count 289 K/mcL (140-400); Red Blood Count 3.31 M/mcL (3.82-4.97); Red Cell Distribution Width 18.5 % (11.5-14.5); White Blood Count 8.1 K/mcL (4.3-11.1)
[2020-11-04] MEDS: Tiotropium 10 INH DOSE IH SCH (07:35)
[2020-11-04 07:50] LABS: INR 3.3; Prothrombin Time 37.1 Seconds (9.4-12.1)
[2020-11-04 07:53] LABS: BUN/Creatinine Ratio 18 (6-26); Blood Urea Nitrogen 17 mg/dL (8-23); Calcium 8.5 mg/dL (8.6-10.3); Carbon Dioxide 19 mEq/L (23-29); Chloride 99 mEq/L (98-107); Glucose 139 mg/dL (70-105); Osmolality,Calculated 266 (280-300); Potassium 4.1 mEq/L (3.5-5.1); Sodium 126 mEq/L (136-145); eGFR For African Americans > 60 (> 60); eGFR For Non-African Americans 56 (> 60)
[2020-11-04] MEDS: *HR* Amiodarone 200 MG TABLET PO SCH (07:56)
[2020-11-04] MEDS: cephALEXin 500 MG CAPSULE PO SCH (07:56)
[2020-11-04] MEDS: lisinopriL 20 MG TABLET PO SCH (07:57)
[2020-11-04] MEDS: Magnesium Oxide 400 MG TABLET PO SCH (07:58)
[2020-11-04] MEDS: Furosemide 40 MG TABLET PO SCH (07:58)
[2020-11-04] MEDS: Metoprolol XL (24 HR) Succ 50 MG TAB.ER.24H PO SCH ×2 (07:58→22:11)
[2020-11-04] MEDS: Spironolactone 12.5 MG TABLET PO SCH (07:59)
[2020-11-04] MEDS: Aspirin 81 MG TAB.CHEW PO SCH (07:59)
[2020-11-04] MEDS ORDERED: *HR* Amiodarone 200 MG TABLET PO SCH (09:00)
[2020-11-04] MEDS ORDERED: Spironolactone 12.5 MG TABLET PO SCH (09:00)
[2020-11-04] MEDS ORDERED: Furosemide 40 MG/4 ML VIAL IVP ONE (13:18)
[2020-11-04] MEDS ORDERED: Metoclopramide 10 MG/2 ML VIAL IVP ONE (17:07)
[2020-11-04] MEDS ORDERED: *HR* Warfarin 0.5 MG TABLET PO ONE (18:00)
[2020-11-05 05:08] LABS: INR 4.3
[2020-11-05 05:09] LABS: BUN/Creatinine Ratio 17 (6-26); Blood Urea Nitrogen 15 mg/dL (8-23); Calcium 8.5 mg/dL (8.6-10.3); Carbon Dioxide 21 mEq/L (23-29); Chloride 93 mEq/L (98-107); Glucose 119 mg/dL (70-105); Osmolality,Calculated 262 (280-300); Sodium 125 mEq/L (136-145); eGFR For African Americans > 60 (> 60); eGFR For Non-African Americans > 60 (> 60)
[2020-11-05 05:10] LABS: Prothrombin Time 47.3 Seconds (9.4-12.1)
[2020-11-05 07:00] VITALS: BP 155/90
[2020-11-05] MEDS: Tiotropium 10 INH DOSE IH SCH (08:10)
[2020-11-05] MEDS: Aspirin 81 MG TAB.CHEW PO SCH (10:02)
[2020-11-05] MEDS: Magnesium Oxide 400 MG TABLET PO SCH (10:03)
[2020-11-05] MEDS: Spironolactone 12.5 MG TABLET PO SCH (10:03)
[2020-11-05] MEDS: Metoprolol XL (24 HR) Succ 50 MG TAB.ER.24H PO SCH (10:03)
[2020-11-05] MEDS: *HR* Amiodarone 200 MG TABLET PO SCH (10:03)
[2020-11-05] MEDS: Furosemide 40 MG TABLET PO SCH (10:04)
[2020-11-05] MEDS: lisinopriL 20 MG TABLET PO SCH (10:04)
[2020-11-05] MEDS ORDERED: Furosemide 40 MG/4 ML VIAL IVP ONE ×2 (10:16→13:05)
[2020-11-05 14:38] LABS: Estimated Average Glucose 137 mg/dl; Hemoglobin A1C 6.4 %
== END 2020-11-05 14:45 | disposition home or self-care (01) | DRG 69 ==
LOC: EMEROOARM 07:36 → 2NENU 07:36 → SUATTDRO 13:25
PROVIDERS: ADMIT Internal Medicine; ATTEND Internal Medicine

== ENCOUNTER 2020-11-06 12:24 | Inpatient (IN) ==
[2020-11-06 14:17] LABS: Hematocrit 28.9 % (35.3-44.9); Hemoglobin 9.6 g/dL (11.5-15.4); Immature Granulocytes % 1.1 % (0-4); Lymphocytes # 0.7 K/mcL (0.6-4.6); Mean Corpuscular HGB Conc 33.2 g/dL (31.6-35.5); Mean Corpuscular Hemoglobin 31.1 pg (28.0-33.3); Mean Corpuscular Volume 93.5 fL (83.0-100.0); Mean Platelet Volume 10.9 fL (9.4-12.4); Monocytes # 1.5 K/mcL (0.0-1.3); Monocytes % 9.3 %; Neutrophils # 13.9 K/mcL (1.6-8.9); Platelet Count 261 K/mcL (140-400); Red Blood Count 3.09 M/mcL (3.82-4.97); Red Cell Distribution Width 18.4 % (11.5-14.5); Segmented Neutrophils % 85.6 %
[2020-11-06 14:22] LABS: White Blood Count 16.2 K/mcL (4.3-11.1)
[2020-11-06 14:29] LABS: INR 4.4; Prothrombin Time 48.8 Seconds (9.4-12.1)
[2020-11-06] MEDS ORDERED: *HR* FentaNYL (PF) 100 MCG/2 ML VIAL IVP ONE (14:30)
[2020-11-06 14:39] LABS: Bilirubin,Urine Negative (Negative); Blood,Urine Negative (Negative); Clarity,Urine Clear (Clear); Color,Urine Light-Yellow (Yellow); Glucose,Urine (UA) Normal (Normal); Ketones,Urine 10 mg/dL (Negative); Leukocyte Esterase,Urine Negative (Negative); Nitrite,Urine Negative (Negative); PH,Urine 5.5 pH Units (5.0-8.0); Protein,Urine Trace mg/dL (Neg-Trace); Specific Gravity,Urine 1.017 (1.010-1.025); Urobilinogen,Urine Normal (Normal)
[2020-11-06 14:40] LABS: Alanine Aminotransferase 14 Units/L (7-52); Albumin 3.7 g/dL (3.5-5.7); Albumin/Globulin Ratio 1.2 (1.1-2.2); Alkaline Phosphatase 54 Units/L (34-104); Aspartate Amino Transferase 21 Units/L (13-39); BUN/Creatinine Ratio 22 (6-26); Bilirubin,Total 1.2 mg/dL (0.3-1.0); Blood Urea Nitrogen 20 mg/dL (8-23); Calcium 8.4 mg/dL (8.6-10.3); Carbon Dioxide 23 mEq/L (23-29); Chloride 90 mEq/L (98-107); Glucose 109 mg/dL (70-105); Osmolality,Calculated 259 (280-300); Potassium 3.9 mEq/L (3.5-5.1); Sodium 123 mEq/L (136-145); Total Protein 6.7 g/dL (6.4-8.9); Troponin I 0.03 ng/mL (< 0.04); eGFR For African Americans > 60 (> 60); eGFR For Non-African Americans 59 (> 60)
[2020-11-06] MEDS ORDERED: Sucralfate 1 GM TABLET PO PRN (17:23)
[2020-11-06] MEDS ORDERED: Naloxone 0.4 MG/ML INJ IVP PRN (17:31)
[2020-11-06] MEDS ORDERED: Melatonin 3 MG TABLET PO PRN (17:31)
[2020-11-06] MEDS ORDERED: Ondansetron 4 MG/2 ML VIAL IVP PRN (17:31)
[2020-11-06] MEDS ORDERED: Furosemide 20 MG TABLET PO SCH (18:00)
[2020-11-06] MEDS: Metoprolol XL (24 HR) Succ 50 MG TAB.ER.24H PO SCH (20:16)
[2020-11-06] MEDS: cefTRIAXone 1,000 MG in Water for inj. (sterile) 10 ML IVP SCH (20:17)
[2020-11-06] MEDS ORDERED: Ketorolac 30 MG/ML VIAL IVP ONE (20:23)
[2020-11-06] MEDS ORDERED: *HR* HYDROcodone/Acet 5/325 mg TABLET PO PRN (20:23)
[2020-11-06] MEDS: Tiotropium 10 INH DOSE IH SCH (21:45)
[2020-11-07 04:45] LABS: Hematocrit 25.3 % (35.3-44.9); Hemoglobin 8.7 g/dL (11.5-15.4); Mean Corpuscular HGB Conc 34.4 g/dL (31.6-35.5); Mean Corpuscular Hemoglobin 31.6 pg (28.0-33.3); Mean Platelet Volume 11.1 fL (9.4-12.4); Platelet Count 223 K/mcL (140-400); Red Blood Count 2.75 M/mcL (3.82-4.97); Red Cell Distribution Width 18.4 % (11.5-14.5); White Blood Count 10.5 K/mcL (4.3-11.1)
[2020-11-07 04:50] LABS: INR 1.4; Prothrombin Time 15.7 Seconds (9.4-12.1)
[2020-11-07 04:58] LABS: Alanine Aminotransferase 12 Units/L (7-52); Albumin 3.2 g/dL (3.5-5.7); Albumin/Globulin Ratio 1.2 (1.1-2.2); Alkaline Phosphatase 45 Units/L (34-104); Aspartate Amino Transferase 18 Units/L (13-39); BUN/Creatinine Ratio 22 (6-26); Bilirubin,Direct 0.3 mg/dL (0.0-0.2); Bilirubin,Indirect 0.6 mg/dL (0.0-1.0); Bilirubin,Total 0.9 mg/dL (0.3-1.0); Blood Urea Nitrogen 23 mg/dL (8-23); Carbon Dioxide 25 mEq/L (23-29); Chloride 91 mEq/L (98-107); Globulin 2.7 g/dL (2.4-3.5); Glucose 88 mg/dL (70-105); Magnesium 2.2 mg/dL (1.6-2.6); Osmolality,Calculated 259 (280-300); Potassium 3.9 mEq/L (3.5-5.1); Sodium 123 mEq/L (136-145); Total Protein 5.9 g/dL (6.4-8.9); eGFR For African Americans > 60 (> 60); eGFR For Non-African Americans 51 (> 60)
[2020-11-07] MEDS: Tiotropium 10 INH DOSE IH SCH (08:00)
[2020-11-07] MEDS ORDERED: Calcium Gluconate 1gm/50mL 1 GM/50 ML BAG IVPB SCH (08:00)
[2020-11-07] MEDS ORDERED: Furosemide 20 MG TABLET PO SCH (09:00)
[2020-11-07] MEDS ORDERED: lisinopriL 20 MG TABLET PO SCH (09:00)
[2020-11-07] MEDS ORDERED: *HR* Amiodarone 200 MG TABLET PO SCH (09:00)
[2020-11-07] MEDS ORDERED: Spironolactone 12.5 MG TABLET PO SCH (09:00)
[2020-11-07] MEDS ORDERED: Multivit/Ca/Min/Fe/FA 1 TAB TABLET PO SCH (09:00)
[2020-11-07] MEDS ORDERED: Aspirin 81 MG TAB.CHEW PO SCH (09:00)
[2020-11-07] MEDS: Metoprolol XL (24 HR) Succ 50 MG TAB.ER.24H PO SCH ×2 (10:52→21:22)
[2020-11-07] MEDS ORDERED: Ondansetron 4 MG/2 ML VIAL IVP PRN ×2 (11:35→19:46)
[2020-11-07] MEDS ORDERED: *HR* HYDROmorphone PF 0.5 MG/0.5 ML SYRINGE IVP PRN (11:35)
[2020-11-07] MEDS ORDERED: *HR* FentaNYL (PF) 100 MCG/2 ML VIAL ONE (11:36)
[2020-11-07] MEDS ORDERED: *HR* Propofol 200 MG/20 ML VIAL IVP ONE (11:36)
[2020-11-07] MEDS ORDERED: Lidocaine HCL 4 ML Topical Solution (Laryng-O-Jet Kit Sterile Pak) TP ONE (11:38)
[2020-11-07] MEDS ORDERED: Lidocaine -MPF 2% 2 ML VIAL ONE (11:38)
[2020-11-07] MEDS ORDERED: *HR* Succinylcholine 200 MG/10 ML VIAL IVP ONE (11:38)
[2020-11-07] MEDS ORDERED: *HR* Rocuronium Bromide 50 MG/5 ML VIAL ONE (11:38)
[2020-11-07] MEDS ORDERED: EPHEDrine 50 MG/ML VIAL ONE (11:41)
[2020-11-07] MEDS ORDERED: *HR* Etomidate 40 MG/20 ML VIAL IVP ONE (11:54)
[2020-11-07] MEDS ORDERED: Albumin Human 5% 25.0 GM/500 ML IV.SOLN ONE (11:56)
[2020-11-07] MEDS ORDERED: *HR* Vasopressin 20 UNIT/ML VIAL ONE (11:57)
[2020-11-07] MEDS ORDERED: CeFAZolin Syr 2,000MG/20 ML 2,000 MG/20 ML SYRINGE IVPB ONE (13:11)
[2020-11-07] MEDS ORDERED: *HR* HYDROMORPHONE 2 MG/ML VIAL ONE (13:55)
[2020-11-07] MEDS ORDERED: *HR* HYDROcodone/Acet 5/325 mg TABLET PO PRN ×2 (14:28→19:46)
[2020-11-07] MEDS ORDERED: CeFAZolin 2 GM/120 ML BAG IVPB SCH (16:00)
[2020-11-07] MEDS: cefTRIAXone 1,000 MG in Water for inj. (sterile) 10 ML IVP SCH (17:33)
[2020-11-07] MEDS ORDERED: Warfarin perPT PO PRN (18:00)
[2020-11-07] MEDS ORDERED: Naloxone 0.4 MG/ML INJ IVP PRN (19:46)
[2020-11-07] MEDS ORDERED: Sucralfate 1 GM TABLET PO PRN (19:46)
[2020-11-08] MEDS ORDERED: CeFAZolin 2 GM/120 ML BAG IVPB SCH
[2020-11-08] MEDS: Melatonin 3 MG TABLET PO PRN (03:09)
[2020-11-08 03:18] LABS: Hematocrit 26.2 % (35.3-44.9); Hemoglobin 8.4 g/dL (11.5-15.4); Mean Corpuscular HGB Conc 32.1 g/dL (31.6-35.5); Mean Corpuscular Hemoglobin 30.4 pg (28.0-33.3); Mean Corpuscular Volume 94.9 fL (83.0-100.0); Mean Platelet Volume 11.3 fL (9.4-12.4); Platelet Count 228 K/mcL (140-400); Red Blood Count 2.76 M/mcL (3.82-4.97); Red Cell Distribution Width 18.6 % (11.5-14.5)
[2020-11-08 03:24] LABS: INR 1.2; Prothrombin Time 13.8 Seconds (9.4-12.1)
[2020-11-08 03:42] LABS: % Iron Saturation 4 % (15-50); BUN/Creatinine Ratio 24 (6-26); Blood Urea Nitrogen 21 mg/dL (8-23); Calcium 8.1 mg/dL (8.6-10.3); Carbon Dioxide 22 mEq/L (23-29); Chloride 94 mEq/L (98-107); Glucose 122 mg/dL (70-105); Iron 14 mcg/dL (50-170); Osmolality,Calculated 268 (280-300); Phosphorous 3.1 mg/dL (2.7-4.5); Sodium 127 mEq/L (136-145); Transferrin 245 mg/dL (203-362); eGFR For African Americans > 60 (> 60); eGFR For Non-African Americans > 60 (> 60)
[2020-11-08 03:54] LABS: Ferritin 179 ng/mL (10-120)
[2020-11-08 04:00] LABS: Folate 8.4 ng/mL (3.0-16.0)
[2020-11-08] MEDS: *HR* HYDROcodone/Acet 5/325 mg TABLET PO PRN ×2 (04:16→11:26)
[2020-11-08] MEDS ORDERED: Ketorolac 30 MG/ML VIAL IVP ONE (05:23)
[2020-11-08] MEDS: *HR* OxyCODONE/APAP 5/325 TABLET PO PRN (05:57)
[2020-11-08] MEDS: *HR* Amiodarone 200 MG TABLET PO SCH (08:58)
[2020-11-08] MEDS: Metoprolol XL (24 HR) Succ 50 MG TAB.ER.24H PO SCH ×2 (08:58→20:57)
[2020-11-08] MEDS: lisinopriL 20 MG TABLET PO SCH (08:58)
[2020-11-08] MEDS: Aspirin 81 MG TAB.CHEW PO SCH (08:59)
[2020-11-08] MEDS: Spironolactone 12.5 MG TABLET PO SCH (08:59)
[2020-11-08] MEDS: Furosemide 20 MG TABLET PO SCH (08:59)
[2020-11-08] MEDS: Multivit/Ca/Min/Fe/FA 1 TAB TABLET PO SCH (09:05)
[2020-11-08] MEDS: Tiotropium 10 INH DOSE IH SCH (10:07)
[2020-11-08] MEDS ORDERED: *HR* Warfarin 0.5 MG TABLET PO ONE (18:00)
[2020-11-08] MEDS ORDERED: cefTRIAXone 1,000 MG in Water for inj. (sterile) 10 ML IVP SCH (18:00)
[2020-11-08] MEDS ORDERED: Warfarin perPT PO PRN (18:00)
[2020-11-08] MEDS: *HR* Warfarin 1 MG TABLET PO ONE ×2 (18:53→19:00)
[2020-11-08] MEDS ORDERED: *HR* Warfarin 1 MG TABLET PO ONE ×2 (20:00→20:45)
[2020-11-08] MEDS ORDERED: *HR* LORazepam 2 MG/ML VIAL IVP ONE (20:26)
[2020-11-09] MEDS: *HR* OxyCODONE/APAP 5/325 TABLET PO PRN ×2 (03:09→16:45)
[2020-11-09] MEDS: Melatonin 3 MG TABLET PO PRN (03:09)
[2020-11-09 05:53] LABS: Hematocrit 23.9 % (35.3-44.9); Hemoglobin 7.6 g/dL (11.5-15.4); Mean Corpuscular HGB Conc 31.8 g/dL (31.6-35.5); Mean Corpuscular Hemoglobin 30.6 pg (28.0-33.3); Mean Corpuscular Volume 96.4 fL (83.0-100.0); Mean Platelet Volume 10.4 fL (9.4-12.4); Platelet Count 208 K/mcL (140-400); Red Blood Count 2.48 M/mcL (3.82-4.97); Red Cell Distribution Width 19.2 % (11.5-14.5); White Blood Count 11.8 K/mcL (4.3-11.1)
[2020-11-09 05:57] LABS: Bilirubin,Urine Negative (Negative); Blood,Urine Negative (Negative); Clarity,Urine Clear (Clear); Color,Urine Light-Yellow (Yellow); Glucose,Urine (UA) Normal (Normal); Ketones,Urine Trace mg/dL (Negative); Leukocyte Esterase,Urine Negative (Negative); Nitrite,Urine Negative (Negative); PH,Urine 5.5 pH Units (5.0-8.0); Protein,Urine Trace mg/dL (Neg-Trace); Urobilinogen,Urine Normal (Normal)
[2020-11-09 05:59] LABS: INR 1.3; Prothrombin Time 14.8 Seconds (9.4-12.1)
[2020-11-09 06:11] LABS: Calcium 7.9 mg/dL (8.6-10.3); Magnesium 2.3 mg/dL (1.6-2.6); Phosphorous 3.3 mg/dL (2.7-4.5); Potassium 3.8 mEq/L (3.5-5.1)
[2020-11-09] MEDS ORDERED: 0.9 % Sodium Chloride 250 ML IVC ONE (08:08)
[2020-11-09] MEDS: Tiotropium 10 INH DOSE IH SCH (10:14)
[2020-11-09] MEDS: Furosemide 20 MG TABLET PO SCH (10:40)
[2020-11-09] MEDS: Metoprolol XL (24 HR) Succ 50 MG TAB.ER.24H PO SCH ×2 (10:41→21:39)
[2020-11-09] MEDS: *HR* Amiodarone 200 MG TABLET PO SCH (10:41)
[2020-11-09] MEDS: Aspirin 81 MG TAB.CHEW PO SCH (10:41)
[2020-11-09] MEDS: Multivit/Ca/Min/Fe/FA 1 TAB TABLET PO SCH (10:41)
[2020-11-09] MEDS: Spironolactone 12.5 MG TABLET PO SCH (10:41)
[2020-11-09] MEDS: 0.9 % Sodium Chloride 1,000 ML IVC SCH (10:42)
[2020-11-09] MEDS: lisinopriL 20 MG TABLET PO SCH (10:43)
[2020-11-09] MEDS ORDERED: *HR* Warfarin 2.5 MG TABLET PO ONE (18:00)
[2020-11-09] MEDS: QUEtiapine Fumarate 25 MG TABLET PO SCH (21:39)
[2020-11-10] MEDS: 0.9 % Sodium Chloride 1,000 ML IVC SCH (05:37)
[2020-11-10 05:39] LABS: Hemoglobin 7.5 g/dL (11.5-15.4); Mean Corpuscular HGB Conc 31.3 g/dL (31.6-35.5); Mean Corpuscular Hemoglobin 30.7 pg (28.0-33.3); Mean Corpuscular Volume 98.4 fL (83.0-100.0); Mean Platelet Volume 10.1 fL (9.4-12.4); Platelet Count 181 K/mcL (140-400); Red Blood Count 2.44 M/mcL (3.82-4.97); Red Cell Distribution Width 19.3 % (11.5-14.5); White Blood Count 7.7 K/mcL (4.3-11.1)
[2020-11-10 05:46] LABS: INR 1.5; Prothrombin Time 17.5 Seconds (9.4-12.1)
[2020-11-10 06:00] LABS: BUN/Creatinine Ratio 31 (6-26); Blood Urea Nitrogen 30 mg/dL (8-23); Calcium 7.7 mg/dL (8.6-10.3); Carbon Dioxide 26 mEq/L (23-29); Chloride 98 mEq/L (98-107); Glucose 100 mg/dL (70-105); Magnesium 2.3 mg/dL (1.6-2.6); Osmolality,Calculated 274 (280-300); Phosphorous 2.4 mg/dL (2.7-4.5); Potassium 3.9 mEq/L (3.5-5.1); Sodium 129 mEq/L (136-145); eGFR For African Americans > 60 (> 60); eGFR For Non-African Americans 56 (> 60)
[2020-11-10] MEDS: Tiotropium 10 INH DOSE IH SCH (07:14)
[2020-11-10] MEDS: *HR* Amiodarone 200 MG TABLET PO SCH (08:17)
[2020-11-10] MEDS: Furosemide 20 MG TABLET PO SCH (08:17)
[2020-11-10] MEDS: *HR* HYDROcodone/Acet 5/325 mg TABLET PO PRN (08:18)
[2020-11-10] MEDS: Multivit/Ca/Min/Fe/FA 1 TAB TABLET PO SCH (08:18)
[2020-11-10] MEDS: Aspirin 81 MG TAB.CHEW PO SCH (08:18)
[2020-11-10] MEDS: Metoprolol XL (24 HR) Succ 50 MG TAB.ER.24H PO SCH ×2 (08:18→20:37)
[2020-11-10] MEDS: lisinopriL 20 MG TABLET PO SCH (08:18)
[2020-11-10] MEDS: Spironolactone 12.5 MG TABLET PO SCH (08:18)
[2020-11-10] MEDS: *HR* OxyCODONE/APAP 5/325 TABLET PO PRN (12:18)
[2020-11-10] MEDS ORDERED: *HR* Warfarin 2.5 MG TABLET PO ONE (18:00)
[2020-11-10] MEDS: QUEtiapine Fumarate 25 MG TABLET PO SCH (20:37)
[2020-11-10] MEDS: Melatonin 3 MG TABLET PO PRN (20:37)
[2020-11-11 06:53] LABS: Hematocrit 22.2 % (35.3-44.9); Hemoglobin 6.8 g/dL (11.5-15.4); Mean Corpuscular HGB Conc 30.6 g/dL (31.6-35.5); Mean Corpuscular Hemoglobin 30.6 pg (28.0-33.3); Mean Platelet Volume 10.3 fL (9.4-12.4); Platelet Count 196 K/mcL (140-400); Red Blood Count 2.22 M/mcL (3.82-4.97); Red Cell Distribution Width 19.1 % (11.5-14.5); White Blood Count 7.9 K/mcL (4.3-11.1)
[2020-11-11 07:02] LABS: INR 1.7; Prothrombin Time 19.9 Seconds (9.4-12.1)
[2020-11-11 07:13] LABS: BUN/Creatinine Ratio 27 (6-26); Blood Urea Nitrogen 25 mg/dL (8-23); Calcium 7.6 mg/dL (8.6-10.3); Carbon Dioxide 25 mEq/L (23-29); Chloride 99 mEq/L (98-107); Glucose 99 mg/dL (70-105); Osmolality,Calculated 272 (280-300); Sodium 129 mEq/L (136-145); eGFR For African Americans > 60 (> 60); eGFR For Non-African Americans 57 (> 60)
[2020-11-11] MEDS: Tiotropium 10 INH DOSE IH SCH (07:39)
[2020-11-11] MEDS: Metoprolol XL (24 HR) Succ 50 MG TAB.ER.24H PO SCH ×2 (08:42→20:32)
[2020-11-11] MEDS: lisinopriL 20 MG TABLET PO SCH (08:42)
[2020-11-11] MEDS: Aspirin 81 MG TAB.CHEW PO SCH (08:42)
[2020-11-11] MEDS: Furosemide 20 MG TABLET PO SCH (08:42)
[2020-11-11] MEDS: *HR* Amiodarone 200 MG TABLET PO SCH (08:43)
[2020-11-11] MEDS: Multivit/Ca/Min/Fe/FA 1 TAB TABLET PO SCH (08:43)
[2020-11-11] MEDS: Spironolactone 12.5 MG TABLET PO SCH (08:43)
[2020-11-11] MEDS: *HR* OxyCODONE/APAP 5/325 TABLET PO PRN ×2 (08:59→20:32)
[2020-11-11] MEDS ORDERED: 0.9 % Sodium Chloride 250 ML ONE (15:33)
[2020-11-11] MEDS ORDERED: Warfarin 1 MG, Warfarin 0.5 MG PO ONE (18:00)
[2020-11-11] MEDS: QUEtiapine Fumarate 25 MG TABLET PO SCH (20:32)
[2020-11-11 22:45] LABS: Hematocrit 28.9 % (35.3-44.9); Mean Corpuscular HGB Conc 32.2 g/dL (31.6-35.5); Mean Corpuscular Hemoglobin 30.9 pg (28.0-33.3); Mean Platelet Volume 9.9 fL (9.4-12.4); Platelet Count 206 K/mcL (140-400); Red Blood Count 3.01 M/mcL (3.82-4.97); Red Cell Distribution Width 18.3 % (11.5-14.5); White Blood Count 9.4 K/mcL (4.3-11.1)
[2020-11-11 22:46] LABS: Hemoglobin 9.3 g/dL (11.5-15.4)
[2020-11-12 06:40] LABS: Hematocrit 27.4 % (35.3-44.9); Hemoglobin 8.9 g/dL (11.5-15.4); Mean Corpuscular HGB Conc 32.5 g/dL (31.6-35.5); Mean Corpuscular Hemoglobin 30.8 pg (28.0-33.3); Mean Corpuscular Volume 94.8 fL (83.0-100.0); Platelet Count 196 K/mcL (140-400); Red Blood Count 2.89 M/mcL (3.82-4.97); Red Cell Distribution Width 18.4 % (11.5-14.5); White Blood Count 8.2 K/mcL (4.3-11.1)
[2020-11-12 06:52] LABS: INR 1.9; Prothrombin Time 21.7 Seconds (9.4-12.1)
[2020-11-12 07:05] LABS: BUN/Creatinine Ratio 26 (6-26); Blood Urea Nitrogen 18 mg/dL (8-23); Calcium 7.9 mg/dL (8.6-10.3); Carbon Dioxide 26 mEq/L (23-29); Chloride 100 mEq/L (98-107); Glucose 98 mg/dL (70-105); Osmolality,Calculated 272 (280-300); Potassium 4.2 mEq/L (3.5-5.1); Sodium 130 mEq/L (136-145); eGFR For African Americans > 60 (> 60); eGFR For Non-African Americans > 60 (> 60)
[2020-11-12] MEDS: Aspirin 81 MG TAB.CHEW PO SCH (08:00)
[2020-11-12] MEDS: *HR* OxyCODONE/APAP 5/325 TABLET PO PRN (08:00)
[2020-11-12] MEDS: lisinopriL 20 MG TABLET PO SCH (08:00)
[2020-11-12] MEDS: Multivit/Ca/Min/Fe/FA 1 TAB TABLET PO SCH (08:00)
[2020-11-12] MEDS: Metoprolol XL (24 HR) Succ 50 MG TAB.ER.24H PO SCH ×2 (08:01→20:13)
[2020-11-12] MEDS: Furosemide 20 MG TABLET PO SCH (08:01)
[2020-11-12] MEDS: *HR* Amiodarone 200 MG TABLET PO SCH (08:01)
[2020-11-12] MEDS: Spironolactone 12.5 MG TABLET PO SCH (08:01)
[2020-11-12] MEDS: Tiotropium 10 INH DOSE IH SCH (09:56)
[2020-11-12] MEDS: Calcium Gluconate 1gm/50mL 1 GM/50 ML BAG IVPB SCH ×2 (10:25→12:33)
[2020-11-12] MEDS ORDERED: Iron Sucrose Complex 400 MG in 0.9 % Sodium Chloride 250 ML IVPB ONE (17:03)
[2020-11-12] MEDS ORDERED: *HR* Warfarin 2.5 MG TABLET PO ONE (18:00)
[2020-11-12] MEDS ORDERED: Warfarin 1 MG, Warfarin 0.5 MG PO ONE (18:00)
[2020-11-12] MEDS: QUEtiapine Fumarate 25 MG TABLET PO SCH (20:13)
[2020-11-12] MEDS: *HR* HYDROcodone/Acet 5/325 mg TABLET PO PRN (23:02)
[2020-11-13 05:17] LABS: Hematocrit 30.8 % (35.3-44.9); Hemoglobin 9.6 g/dL (11.5-15.4); Mean Corpuscular HGB Conc 31.2 g/dL (31.6-35.5); Mean Corpuscular Hemoglobin 29.9 pg (28.0-33.3); Mean Platelet Volume 9.9 fL (9.4-12.4); Platelet Count 236 K/mcL (140-400); Red Blood Count 3.21 M/mcL (3.82-4.97); Red Cell Distribution Width 18.3 % (11.5-14.5); White Blood Count 10.9 K/mcL (4.3-11.1)
[2020-11-13 05:28] LABS: INR 2.2; Prothrombin Time 24.9 Seconds (9.4-12.1)
[2020-11-13 05:44] LABS: BUN/Creatinine Ratio 22 (6-26); Blood Urea Nitrogen 14 mg/dL (8-23); Calcium 8.1 mg/dL (8.6-10.3); Carbon Dioxide 26 mEq/L (23-29); Chloride 99 mEq/L (98-107); Glucose 97 mg/dL (70-105); Osmolality,Calculated 272 (280-300); Phosphorous 2.1 mg/dL (2.7-4.5); Potassium 4.2 mEq/L (3.5-5.1); Sodium 131 mEq/L (136-145); eGFR For African Americans > 60 (> 60); eGFR For Non-African Americans > 60 (> 60)
[2020-11-13] MEDS ORDERED: Calcium Gluconate 1gm/50mL 1 GM/50 ML BAG IVPB SCH (09:30)
[2020-11-13] MEDS: Aspirin 81 MG TAB.CHEW PO SCH (10:13)
[2020-11-13] MEDS: Metoprolol XL (24 HR) Succ 50 MG TAB.ER.24H PO SCH ×2 (10:14→20:00)
[2020-11-13] MEDS: Furosemide 20 MG TABLET PO SCH (10:14)
[2020-11-13] MEDS: Spironolactone 12.5 MG TABLET PO SCH (10:14)
[2020-11-13] MEDS: *HR* Amiodarone 200 MG TABLET PO SCH (10:14)
[2020-11-13] MEDS: lisinopriL 20 MG TABLET PO SCH (10:14)
[2020-11-13] MEDS: Tiotropium 10 INH DOSE IH SCH (10:15)
[2020-11-13] MEDS: Multivit/Ca/Min/Fe/FA 1 TAB TABLET PO SCH (10:15)
[2020-11-13] MEDS: *HR* HYDROcodone/Acet 5/325 mg TABLET PO PRN ×2 (16:34→23:43)
[2020-11-13] MEDS ORDERED: Warfarin 1 MG, Warfarin 0.5 MG PO ONE (18:00)
[2020-11-13 19:19] VITALS: PULSE 62
[2020-11-13] MEDS: QUEtiapine Fumarate 25 MG TABLET PO SCH (20:00)
[2020-11-13] MEDS: Sennosides/Docusate Sodium TABLET PO SCH (20:00)
[2020-11-14 00:29] VITALS: BP 125/61; TEMP 98.1; O2SAT 91
[2020-11-14 06:29] LABS: Hematocrit 30.3 % (35.3-44.9); Hemoglobin 9.5 g/dL (11.5-15.4)
[2020-11-14 06:43] LABS: INR 2.5; Prothrombin Time 28.7 Seconds (9.4-12.1)
[2020-11-14] MEDS: Tiotropium 10 INH DOSE IH SCH (07:42)
[2020-11-14] MEDS: Sennosides/Docusate Sodium TABLET PO SCH (08:21)
[2020-11-14] MEDS: Metoprolol XL (24 HR) Succ 50 MG TAB.ER.24H PO SCH (08:22)
[2020-11-14] MEDS: Aspirin 81 MG TAB.CHEW PO SCH (08:22)
[2020-11-14] MEDS: *HR* Amiodarone 200 MG TABLET PO SCH (08:22)
[2020-11-14] MEDS: lisinopriL 20 MG TABLET PO SCH (08:22)
[2020-11-14] MEDS: Furosemide 20 MG TABLET PO SCH (08:23)
[2020-11-14] MEDS: Multivit/Ca/Min/Fe/FA 1 TAB TABLET PO SCH (08:23)
[2020-11-14] MEDS: Spironolactone 12.5 MG TABLET PO SCH (08:23)
[2020-11-14] MEDS ORDERED: polyethylene glycoL 3350 17 GM POWD.PACK PO SCH (09:00)
[2020-11-14] MEDS ORDERED: *HR* Warfarin 1 MG TABLET PO ONE (18:00)
== END 2020-11-14 12:56 | DRG 480 ==
LOC: 3NENU 12:24 → EMEROOARM 12:24 → 3NENU 17:34 → SUATTDRO 17:47 → 3NENU 11-08 00:45
PROVIDERS: ADMIT Internal Medicine; ATTEND Internal Medicine

== ENCOUNTER 2020-12-29 08:42 | Observation (INO) ==
[2020-12-29 10:07] LABS: Basophils % 0.5 %; Eosinophils % 0.5 %; Hematocrit 29.7 % (35.3-44.9); Hemoglobin 9.8 g/dL (11.5-15.4); Immature Granulocytes % 0.8 % (0-4); Lymphocytes # 0.7 K/mcL (0.6-4.6); Lymphocytes % 11.7 %; Mean Corpuscular Hemoglobin 34.3 pg (28.0-33.3); Mean Corpuscular Volume 103.8 fL (83.0-100.0); Mean Platelet Volume 9.4 fL (9.4-12.4); Monocytes # 0.4 K/mcL (0.0-1.3); Monocytes % 6.1 %; Platelet Count 307 K/mcL (140-400); Red Blood Count 2.86 M/mcL (3.82-4.97); Red Cell Distribution Width 19.4 % (11.5-14.5); Segmented Neutrophils % 80.4 %; White Blood Count 6.2 K/mcL (4.3-11.1)
[2020-12-29 10:29] LABS: BUN/Creatinine Ratio 15 (6-26); Blood Urea Nitrogen 15 mg/dL (8-23); Carbon Dioxide 27 mEq/L (23-29); Chloride 99 mEq/L (98-107); Glucose 92 mg/dL (70-105); Osmolality,Calculated 280 (280-300); Potassium 4.4 mEq/L (3.5-5.1); Sodium 135 mEq/L (136-145); Troponin I < 0.03 ng/mL (< 0.04); eGFR For African Americans > 60 (> 60); eGFR For Non-African Americans 53 (> 60)
[2020-12-29] MEDS ORDERED: Furosemide 40 MG/4 ML VIAL IVP ONE (11:18)
[2020-12-29 11:22] LABS: Calcium 8.8 mg/dL (8.6-10.3)
[2020-12-29 12:45] LABS: INR 3.2
[2020-12-29 13:22] LABS: Influenza A PCR Negative (Negative); Influenza B PCR Negative (Negative); Resp. Syncytial Virus PCR Negative (Negative)
[2020-12-29 13:23] LABS: SARS-CoV-2 by PCR (In House) Negative (Negative)
[2020-12-29 15:10] VITALS: PULSE 60
[2020-12-29] MEDS ORDERED: Warfarin perPT PO PRN (18:00)
[2020-12-29] MEDS: Furosemide 40 MG/4 ML VIAL IVP SCH (20:00)
[2020-12-29] MEDS ORDERED: *HR* HYDROcodone/Acet 5/325 mg TABLET PO ONE (21:18)
[2020-12-30 01:36] LABS: INR 3.4; Prothrombin Time 38.1 Seconds (9.4-12.1)
[2020-12-30 01:43] LABS: Calcium 8.2 mg/dL (8.6-10.3)
[2020-12-30 02:22] LABS: Basophils % 0.5 %; Eosinophils # 0.1 K/mcL (0.0-0.6); Eosinophils % 1.3 %; Hematocrit 27.3 % (35.3-44.9); Hemoglobin 8.8 g/dL (11.5-15.4); Immature Granulocytes % 0.2 % (0-4); Lymphocytes # 0.9 K/mcL (0.6-4.6); Lymphocytes % 14.8 %; Mean Corpuscular HGB Conc 32.2 g/dL (31.6-35.5); Mean Corpuscular Hemoglobin 33.5 pg (28.0-33.3); Mean Corpuscular Volume 103.8 fL (83.0-100.0); Mean Platelet Volume 9.5 fL (9.4-12.4); Monocytes # 0.5 K/mcL (0.0-1.3); Neutrophils # 4.8 K/mcL (1.6-8.9); Platelet Count 274 K/mcL (140-400); Red Blood Count 2.63 M/mcL (3.82-4.97); Red Cell Distribution Width 19.5 % (11.5-14.5); Segmented Neutrophils % 75.2 %; White Blood Count 6.4 K/mcL (4.3-11.1)
[2020-12-30 06:49] VITALS: BP 158/78; TEMP 98; O2SAT 94
[2020-12-30] MEDS: Furosemide 40 MG/4 ML VIAL IVP SCH (08:08)
== END 2020-12-30 10:58 | disposition home health service (06) ==
LOC: 3BNU 08:42 → EMEROOARM 08:42 → 3BNU 15:11
PROVIDERS: ADMIT Internal Medicine; ATTEND Internal Medicine

== ENCOUNTER 2021-01-26 05:18 | Observation (INO) ==
[2021-01-26 06:32] LABS: Basophils % 0.5 %; Eosinophils # 0.1 K/mcL (0.0-0.6); Eosinophils % 0.7 %; Hematocrit 30.1 % (35.3-44.9); Hemoglobin 9.7 g/dL (11.5-15.4); Immature Granulocytes % 0.6 % (0-4); Lymphocytes # 0.7 K/mcL (0.6-4.6); Lymphocytes % 8.2 %; Mean Corpuscular HGB Conc 32.2 g/dL (31.6-35.5); Mean Corpuscular Hemoglobin 34.8 pg (28.0-33.3); Mean Corpuscular Volume 107.9 fL (83.0-100.0); Mean Platelet Volume 10.4 fL (9.4-12.4); Monocytes # 0.9 K/mcL (0.0-1.3); Monocytes % 10.3 %; Neutrophils # 6.7 K/mcL (1.6-8.9); Platelet Count 279 K/mcL (140-400); Red Blood Count 2.79 M/mcL (3.82-4.97); Red Cell Distribution Width 17.2 % (11.5-14.5); Segmented Neutrophils % 79.7 %; White Blood Count 8.4 K/mcL (4.3-11.1)
[2021-01-26 06:54] LABS: BUN/Creatinine Ratio 20 (6-26); Blood Urea Nitrogen 20 mg/dL (8-23); Calcium 8.6 mg/dL (8.6-10.3); Carbon Dioxide 27 mEq/L (23-29); Chloride 101 mEq/L (98-107); Glucose 112 mg/dL (70-105); Osmolality,Calculated 287 (280-300); Potassium 4.1 mEq/L (3.5-5.1); Sodium 137 mEq/L (136-145); Troponin I 0.03 ng/mL (< 0.04); eGFR For African Americans > 60 (> 60); eGFR For Non-African Americans 54 (> 60)
[2021-01-26] MEDS ORDERED: Furosemide 20 MG/2 ML VIAL IVP ONE (07:07)
[2021-01-26 08:04] LABS: Adenovirus Not Detected (Not Detect); Bordetella Pertussis Not Detected (Not Detect); Chlamydophila pneumoniae Not Detected (Not Detect); Coronavirus 229E Not Detected (Not Detect); Coronavirus HKU1 Not Detected (Not Detect); Coronavirus NL63 Not Detected (Not Detect); Coronavirus OC43 Not Detected (Not Detect); Human Metapneumovirus Not Detected (Not Detect); Human Rhinovirus/Enterovirus Not Detected (Not Detect); Influenza A Subtype 2009 H1 Not Detected (Not Detect); Influenza B Not Detected (Not Detect); Mycoplasma pneumoniae Not Detected (Not Detect); Parainfluenza Virus 1 Not Detected (Not Detect); Parainfluenza Virus 2 Not Detected (Not Detect); Parainfluenza Virus 3 Not Detected (Not Detect); Parainfluenza Virus 4 Not Detected (Not Detect); Respiratory Syncytial Virus Not Detected (Not Detect); SARS-CoV-2 Not Detected (Not Detect)
[2021-01-26] MEDS ORDERED: Naloxone 0.4 MG/ML INJ IVP PRN (09:26)
[2021-01-26] MEDS ORDERED: Ondansetron 4 MG/2 ML VIAL IVP PRN (09:26)
[2021-01-26] MEDS ORDERED: methylPREDNISolone 125 MG/2 ML VIAL IVP ONE (09:32)
[2021-01-26] MEDS ORDERED: Aspirin 81 MG TAB.CHEW PO SCH (09:45)
[2021-01-26] MEDS ORDERED: *HR* Amiodarone 200 MG TABLET PO SCH ×2 (09:45→15:00)
[2021-01-26] MEDS ORDERED: Azithromycin 500 MG in D5% in Water 250 ML IVPB SCH (10:00)
[2021-01-26] MEDS: Ipratropium/Albuterol Neb 3 ML IH SCH ×3 (10:31→22:15)
[2021-01-26] MEDS: cefTRIAXone 1,000 MG in Water for inj. (sterile) 10 ML IVP SCH (11:13)
[2021-01-26] MEDS ORDERED: Azithromycin 500 MG in 0.9 % Sodium Chloride 250 ML IVPB SCH (12:00)
[2021-01-26 13:26] LABS: INR 1.6; Prothrombin Time 17.7 Seconds (9.4-12.1)
[2021-01-26 13:28] LABS: Activated Partial Thrombo Time 31.7 Seconds (26.0-36.0)
[2021-01-26] MEDS: Aspirin 81 MG TAB.CHEW PO SCH (15:06)
[2021-01-26] MEDS: *HR* Amiodarone 200 MG TABLET PO SCH (15:06)
[2021-01-26] MEDS: MethylPREDNISolone 40 MG/ML VIAL IVP SCH ×2 (15:14→23:46)
[2021-01-26] MEDS ORDERED: Warfarin perPT PO PRN (18:00)
[2021-01-26] MEDS ORDERED: *HR* Warfarin 0.5 MG TABLET PO ONE (18:00)
[2021-01-26] MEDS ORDERED: *HR* Warfarin 1 MG TABLET PO ONE (18:00)
[2021-01-26] MEDS ORDERED: Melatonin 3 MG TABLET PO ONE (22:40)
[2021-01-26] MEDS ORDERED: Acetaminophen 325 MG TABLET PO ONE (23:30)
[2021-01-27 02:56] LABS: Hematocrit 28.6 % (35.3-44.9); Hemoglobin 9.3 g/dL (11.5-15.4); Immature Granulocytes % 0.6 % (0-4); Lymphocytes # 0.2 K/mcL (0.6-4.6); Lymphocytes % 3.4 %; Mean Corpuscular HGB Conc 32.5 g/dL (31.6-35.5); Mean Corpuscular Hemoglobin 34.4 pg (28.0-33.3); Mean Corpuscular Volume 105.9 fL (83.0-100.0); Monocytes # 0.1 K/mcL (0.0-1.3); Platelet Count 275 K/mcL (140-400); Red Cell Distribution Width 16.4 % (11.5-14.5); White Blood Count 6.4 K/mcL (4.3-11.1)
[2021-01-27 03:03] LABS: INR 1.5; Prothrombin Time 16.8 Seconds (9.4-12.1)
[2021-01-27 03:15] LABS: Alanine Aminotransferase 7 Units/L (7-52); Albumin 3.8 g/dL (3.5-5.7); Albumin/Globulin Ratio 1.2 (1.1-2.2); Alkaline Phosphatase 69 Units/L (34-104); Aspartate Amino Transferase 12 Units/L (13-39); BUN/Creatinine Ratio 22 (6-26); Bilirubin,Total 0.6 mg/dL (0.3-1.0); Blood Urea Nitrogen 20 mg/dL (8-23); Calcium 9.1 mg/dL (8.6-10.3); Carbon Dioxide 22 mEq/L (23-29); Chloride 98 mEq/L (98-107); Globulin 3.2 g/dL (2.4-3.5); Glucose 179 mg/dL (70-105); Osmolality,Calculated 279 (280-300); Potassium 3.8 mEq/L (3.5-5.1); Sodium 131 mEq/L (136-145); eGFR For African Americans > 60 (> 60); eGFR For Non-African Americans 59 (> 60)
[2021-01-27] MEDS: Ipratropium/Albuterol Neb 3 ML IH SCH ×2 (04:49→09:31)
[2021-01-27] MEDS ORDERED: Furosemide 40 MG/4 ML VIAL IVP SCH (09:00)
[2021-01-27] MEDS ORDERED: Spironolactone 12.5 MG TABLET PO SCH (09:00)
[2021-01-27] MEDS: Aspirin 81 MG TAB.CHEW PO SCH (10:35)
[2021-01-27] MEDS: *HR* Amiodarone 200 MG TABLET PO SCH (10:36)
[2021-01-27] MEDS: MethylPREDNISolone 40 MG/ML VIAL IVP SCH (10:37)
[2021-01-27] MEDS: cefTRIAXone 1,000 MG in Water for inj. (sterile) 10 ML IVP SCH (10:43)
[2021-01-27 11:52] VITALS: BP 158/80; PULSE 70; TEMP 97.7; O2SAT 97
[2021-01-27] MEDS ORDERED: Warfarin 1 MG, Warfarin 0.5 MG PO ONE (18:00)
== END 2021-01-27 14:13 | disposition home or self-care (01) ==
LOC: 2ANU 05:18 → EMEROOARM 05:18 → SUATTDRO 08:12 → 2ANU 09:35
PROVIDERS: ADMIT General Practice; ATTEND Family Medicine

== ENCOUNTER 2021-02-24 06:25 | Observation (INO) ==
[2021-02-24 06:59] LABS: Basophils # 0.1 K/mcL (0.0-0.2); Eosinophils # 0.2 K/mcL (0.0-0.6); Eosinophils % 2.6 %; Hematocrit 39.9 % (35.3-44.9); Hemoglobin 12.6 g/dL (11.5-15.4); Immature Granulocytes % 0.3 % (0-4); Lymphocytes % 17.3 %; Mean Corpuscular HGB Conc 31.6 g/dL (31.6-35.5); Mean Corpuscular Hemoglobin 34.1 pg (28.0-33.3); Mean Corpuscular Volume 107.8 fL (83.0-100.0); Mean Platelet Volume 9.9 fL (9.4-12.4); Monocytes # 0.7 K/mcL (0.0-1.3); Monocytes % 11.8 %; Neutrophils # 3.9 K/mcL (1.6-8.9); Platelet Count 343 K/mcL (140-400); Red Cell Distribution Width 14.1 % (11.5-14.5); White Blood Count 5.8 K/mcL (4.3-11.1)
[2021-02-24 07:20] LABS: Calcium 9.1 mg/dL (8.6-10.3); Potassium 4.5 mEq/L (3.5-5.1)
[2021-02-24 07:22] LABS: Troponin I 0.03 ng/mL (< 0.04)
[2021-02-24] MEDS ORDERED: Isovue-370 500 ML BOTTLE IVP ONE (07:38)
[2021-02-24] MEDS ORDERED: *HR* Heparin 5,000 UNIT/ML VIAL IVP PRN ×2 (07:49)
[2021-02-24] MEDS ORDERED: *HR* Heparin 5,000 UNIT/ML VIAL IVP ONE (07:49)
[2021-02-24] MEDS ORDERED: Heparin 25,000UNIT/250ML 1/2NS 25,000 UNIT/250 ML IV.SOLN IVC SCH (08:00)
[2021-02-24] MEDS ORDERED: Mag Hydrox/Al Hydrox/Simeth 30 ML UDC PO PRN (08:02)
[2021-02-24] MEDS ORDERED: Melatonin 3 MG TABLET PO PRN (08:02)
[2021-02-24] MEDS ORDERED: *HR* OxyCODONE Immed Rel 5 MG TABLET PO PRN (08:02)
[2021-02-24] MEDS ORDERED: Naloxone 0.4 MG/ML INJ IVP PRN (08:02)
[2021-02-24] MEDS ORDERED: Ondansetron ODT 4 MG TAB.RAPDIS SL PRN (08:02)
[2021-02-24] MEDS ORDERED: Perflutren Lipid Microsphere 1.3 ML in 0.9 % Sodium Chloride 8.7 ML IVP PRN (08:07)
[2021-02-24 08:33] LABS: Hematocrit 38.2 % (35.3-44.9); Mean Corpuscular HGB Conc 31.4 g/dL (31.6-35.5); Mean Corpuscular Hemoglobin 33.9 pg (28.0-33.3); Mean Corpuscular Volume 107.9 fL (83.0-100.0); Platelet Count 324 K/mcL (140-400); Red Blood Count 3.54 M/mcL (3.82-4.97); Red Cell Distribution Width 14.2 % (11.5-14.5); White Blood Count 6.4 K/mcL (4.3-11.1)
[2021-02-24 08:47] LABS: Heparin anti-factor XA UFH 0.05 IU/mL (0.30-0.70); INR 1.9; Prothrombin Time 21.2 Seconds (9.4-12.1)
[2021-02-24 08:49] LABS: Magnesium 2.8 mg/dL (1.6-2.6); Phosphorous 3.5 mg/dL (2.7-4.5)
[2021-02-24 09:06] LABS: Influenza A PCR Negative (Negative); Influenza B PCR Negative (Negative); Resp. Syncytial Virus PCR Negative (Negative)
[2021-02-24 09:20] LABS: Bilirubin,Urine Negative (Negative); Blood,Urine Negative (Negative); Clarity,Urine Clear (Clear); Color,Urine Colorless (Yellow); Glucose,Urine (UA) Normal (Normal); Ketones,Urine Negative (Negative); Leukocyte Esterase,Urine Negative (Negative); Nitrite,Urine Negative (Negative); Protein,Urine Negative (Neg-Trace); Urobilinogen,Urine Normal (Normal)
[2021-02-24] MEDS ORDERED: Ipratropium/Albuterol Neb 3 ML IH PRN (09:21)
[2021-02-24 09:34] LABS: SARS-CoV-2 by PCR (In House) Negative (Negative)
[2021-02-24 11:37] LABS: Sodium, Urine 100.9 mEq/L
[2021-02-24] MEDS: Metoprolol XL (24 HR) Succ 50 MG TAB.ER.24H PO SCH (20:35)
[2021-02-25] MEDS: Acetaminophen 325 MG TABLET PO PRN ×2 (00:25→10:18)
[2021-02-25 02:05] LABS: Hematocrit 32.7 % (35.3-44.9); Mean Corpuscular HGB Conc 31.5 g/dL (31.6-35.5); Mean Corpuscular Hemoglobin 33.9 pg (28.0-33.3); Mean Corpuscular Volume 107.6 fL (83.0-100.0); Mean Platelet Volume 10.1 fL (9.4-12.4); Platelet Count 283 K/mcL (140-400); Red Blood Count 3.04 M/mcL (3.82-4.97); Red Cell Distribution Width 14.1 % (11.5-14.5); White Blood Count 6.3 K/mcL (4.3-11.1)
[2021-02-25 02:08] LABS: Hemoglobin 10.3 g/dL (11.5-15.4)
[2021-02-25 02:13] LABS: INR 1.9; Prothrombin Time 20.8 Seconds (9.4-12.1)
[2021-02-25 02:23] LABS: Calcium 8.6 mg/dL (8.6-10.3); Potassium 4.4 mEq/L (3.5-5.1)
[2021-02-25] MEDS ORDERED: *HR* Amiodarone 200 MG TABLET PO SCH (09:00)
[2021-02-25] MEDS ORDERED: Aspirin 325 MG TABLET PO SCH (09:00)
[2021-02-25] MEDS: Metoprolol XL (24 HR) Succ 50 MG TAB.ER.24H PO SCH (10:15)
[2021-02-25 10:23] VITALS: BP 144/67; PULSE 64; TEMP 98.5; O2SAT 95
[2021-02-25] MEDS ORDERED: FLU Vac QV 21-22 (6Month+)/PF 0.5 ML SYRINGE IM ONE (12:13)
== END 2021-02-25 14:30 | disposition home or self-care (01) ==
LOC: 2ANU 06:25 → EMEROOARM 06:25 → SUATTDRO 09:36 → 2ANU 10:23
PROVIDERS: ADMIT Family Medicine; ATTEND Student in an Organized Health Care Education/Training Program

== ENCOUNTER 2021-03-11 13:34 | Observation (INO) ==
[2021-03-11] MEDS ORDERED: 0.9 % Sodium Chloride 500 ML IV ONE (14:32)
[2021-03-11] MEDS ORDERED: Ondansetron 4 MG/2 ML VIAL IVP ONE (14:32)
[2021-03-11 14:58] LABS: Basophils % 0.5 %; Eosinophils # 0.1 K/mcL (0.0-0.6); Hematocrit 37.9 % (35.3-44.9); Hemoglobin 12.4 g/dL (11.5-15.4); Immature Granulocytes % 0.3 % (0-4); Lymphocytes % 12.1 %; Mean Corpuscular HGB Conc 32.7 g/dL (31.6-35.5); Mean Corpuscular Hemoglobin 34.4 pg (28.0-33.3); Mean Corpuscular Volume 105.3 fL (83.0-100.0); Monocytes # 0.7 K/mcL (0.0-1.3); Monocytes % 8.7 %; Neutrophils # 6.1 K/mcL (1.6-8.9); Platelet Count 304 K/mcL (140-400); Red Cell Distribution Width 13.4 % (11.5-14.5); Segmented Neutrophils % 77.4 %; White Blood Count 7.9 K/mcL (4.3-11.1)
[2021-03-11 15:06] LABS: INR 2.7; Prothrombin Time 30.1 Seconds (9.4-12.1)
[2021-03-11 15:32] LABS: Albumin 4.1 g/dL (3.5-5.7); Albumin/Globulin Ratio 1.3 (1.1-2.2); Bilirubin,Total 0.4 mg/dL (0.3-1.0); Calcium 9.2 mg/dL (8.6-10.3); Globulin 3.2 g/dL (2.4-3.5); Potassium 4.2 mEq/L (3.5-5.1); Total Protein 7.3 g/dL (6.4-8.9); Troponin I 0.03 ng/mL (< 0.04)
[2021-03-11] MEDS ORDERED: Furosemide 40 MG/4 ML VIAL IVP ONE (18:49)
[2021-03-11 20:10] LABS: Bilirubin,Urine Negative (Negative); Blood,Urine Negative (Negative); Clarity,Urine Clear (Clear); Color,Urine Light-Yellow (Yellow); Glucose,Urine (UA) Normal (Normal); Hyaline Casts,Urine Few per lpf (None Seen); Ketones,Urine Negative (Negative); Leukocyte Esterase,Urine Small (Negative); Mucus,Urine Few per lpf (None-Few); Nitrite,Urine Negative (Negative); PH,Urine 6.5 pH Units (5.0-8.0); Protein,Urine Trace mg/dL (Neg-Trace); RBC,Urine 0-3 per hpf (0-3); Specific Gravity,Urine 1.018 (1.010-1.025); Squamous Epithelial Cell,Urine Few per hpf (None-Few); Urobilinogen,Urine Normal (Normal); WBC,Urine 0-3 per hpf (0-3)
[2021-03-11 22:09] LABS: Influenza A PCR Negative (Negative); Influenza B PCR Negative (Negative); Resp. Syncytial Virus PCR Negative (Negative)
[2021-03-11 22:10] LABS: SARS-CoV-2 by PCR (In House) Negative (Negative)
[2021-03-11] MEDS ORDERED: Naloxone 0.4 MG/ML INJ IVP PRN (23:38)
[2021-03-12 03:54] LABS: Basophils % 0.5 %; Eosinophils # 0.1 K/mcL (0.0-0.6); Eosinophils % 1.4 %; Immature Granulocytes % 0.2 % (0-4); Lymphocytes # 1.1 K/mcL (0.6-4.6); Lymphocytes % 13.9 %; Mean Corpuscular HGB Conc 32.9 g/dL (31.6-35.5); Mean Corpuscular Hemoglobin 34.9 pg (28.0-33.3); Mean Corpuscular Volume 106.2 fL (83.0-100.0); Mean Platelet Volume 10.2 fL (9.4-12.4); Monocytes # 0.8 K/mcL (0.0-1.3); Monocytes % 10.2 %; Platelet Count 270 K/mcL (140-400); Red Blood Count 2.92 M/mcL (3.82-4.97); Red Cell Distribution Width 13.3 % (11.5-14.5); Segmented Neutrophils % 73.8 %; White Blood Count 8.1 K/mcL (4.3-11.1)
[2021-03-12 03:55] LABS: Hemoglobin 10.2 g/dL (11.5-15.4)
[2021-03-12 03:57] LABS: Albumin 3.4 g/dL (3.5-5.7); Albumin/Globulin Ratio 1.2 (1.1-2.2); Bilirubin,Total 0.3 mg/dL (0.3-1.0); Calcium 8.3 mg/dL (8.6-10.3); Globulin 2.8 g/dL (2.4-3.5); Potassium 3.5 mEq/L (3.5-5.1); Total Protein 6.2 g/dL (6.4-8.9)
[2021-03-12] MEDS: Acetaminophen 325 MG TABLET PO PRN ×2 (03:59→14:47)
[2021-03-12] MEDS: Furosemide 40 MG/4 ML VIAL IVP SCH ×2 (07:47→19:55)
[2021-03-12] MEDS ORDERED: Tiotropium 10 INH DOSE IH PRN (08:35)
[2021-03-12] MEDS ORDERED: *HR* Warfarin 2.5 MG TABLET PO SCH (08:45)
[2021-03-12 09:50] LABS: Prothrombin Time 22.4 Seconds (9.4-12.1)
[2021-03-12] MEDS: *HR* Amiodarone 200 MG TABLET PO SCH (10:26)
[2021-03-12] MEDS: lisinopriL 20 MG TABLET PO SCH (10:27)
[2021-03-12] MEDS: Metoprolol XL (24 HR) Succ 50 MG TAB.ER.24H PO SCH ×2 (10:27→19:55)
[2021-03-12] MEDS: Aspirin 325 MG TABLET PO SCH (10:27)
[2021-03-12] MEDS ORDERED: *HR* Warfarin 2.5 MG TABLET PO ONE (18:00)
[2021-03-12] MEDS ORDERED: Warfarin perPT PO PRN (18:00)
[2021-03-13 02:52] LABS: INR 1.7; Prothrombin Time 18.7 Seconds (9.4-12.1)
[2021-03-13 04:29] VITALS: TEMP 98.4
[2021-03-13 07:46] VITALS: BP 154/68; PULSE 62; O2SAT 96
[2021-03-13] MEDS ORDERED: *HR* Warfarin 2.5 MG TABLET PO SCH (08:35)
[2021-03-13] MEDS: Aspirin 325 MG TABLET PO SCH (11:36)
[2021-03-13] MEDS: Metoprolol XL (24 HR) Succ 50 MG TAB.ER.24H PO SCH (11:37)
[2021-03-13] MEDS: lisinopriL 20 MG TABLET PO SCH (11:37)
[2021-03-13] MEDS: *HR* Amiodarone 200 MG TABLET PO SCH (11:38)
[2021-03-13] MEDS: Furosemide 40 MG/4 ML VIAL IVP SCH (11:38)
[2021-03-13 12:52] LABS: Adenovirus Not Detected (Not Detect); Bordetella Pertussis Not Detected (Not Detect); Chlamydophila pneumoniae Not Detected (Not Detect); Coronavirus 229E Not Detected (Not Detect); Coronavirus HKU1 Not Detected (Not Detect); Coronavirus NL63 Not Detected (Not Detect); Coronavirus OC43 Not Detected (Not Detect); Human Metapneumovirus Not Detected (Not Detect); Human Rhinovirus/Enterovirus Not Detected (Not Detect); Influenza A Subtype 2009 H1 Not Detected (Not Detect); Influenza B Not Detected (Not Detect); Mycoplasma pneumoniae Not Detected (Not Detect); Parainfluenza Virus 1 Not Detected (Not Detect); Parainfluenza Virus 2 Not Detected (Not Detect); Parainfluenza Virus 3 Not Detected (Not Detect); Parainfluenza Virus 4 Not Detected (Not Detect); Respiratory Syncytial Virus Not Detected (Not Detect)
[2021-03-13 12:59] LABS: SARS-CoV-2 DETECTED (Not Detect)
[2021-03-13] MEDS ORDERED: *HR* Warfarin 2.5 MG TABLET PO ONE (18:00)
== END 2021-03-13 16:55 | disposition home health service (06) ==
LOC: SUATTDRO → EMEROOARM 13:34 → 2ANU 13:34 → SUATTDRO 20:46 → 3NENU 22:33
PROVIDERS: ADMIT Internal Medicine; ATTEND Hospitalist

== ENCOUNTER 2021-03-22 06:52 | Inpatient (IN) ==
[2021-03-22] MEDS ORDERED: 0.9 % Sodium Chloride 500 ML IV ONE (07:11)
[2021-03-22 08:19] LABS: ABG Base Excess -1 mEq/L (-2 to 3); ABG HCO3 23 mEq/L (21-27); ABG Oxygen Saturation 83 % (95-98); ABG PCO2 34 mmHg (35-45); ABG PH 7.44 pH Units (7.32-7.45); ABG PO2 45 mmHg (85-104); ABG TCO2 24 mEq/L (20-26)
[2021-03-22 08:38] LABS: Basophils % 0.1 %; Hematocrit 37.8 % (35.3-44.9); Hemoglobin 12.5 g/dL (11.5-15.4); Immature Granulocytes % 0.3 % (0-4); Lymphocytes # 0.6 K/mcL (0.6-4.6); Lymphocytes % 6.4 %; Mean Corpuscular HGB Conc 33.1 g/dL (31.6-35.5); Mean Corpuscular Hemoglobin 34.2 pg (28.0-33.3); Mean Corpuscular Volume 103.3 fL (83.0-100.0); Monocytes # 0.3 K/mcL (0.0-1.3); Monocytes % 3.1 %; Neutrophils # 8.1 K/mcL (1.6-8.9); Platelet Count 236 K/mcL (140-400); Red Blood Count 3.66 M/mcL (3.82-4.97); Red Cell Distribution Width 13.4 % (11.5-14.5); Segmented Neutrophils % 90.1 %
[2021-03-22 08:59] LABS: BUN/Creatinine Ratio 27 (6-26); Blood Urea Nitrogen 27 mg/dL (8-23); Calcium 8.9 mg/dL (8.6-10.3); Carbon Dioxide 26 mEq/L (23-29); Chloride 97 mEq/L (98-107); Glucose 91 mg/dL (70-105); Osmolality,Calculated 279 (280-300); Potassium 4.5 mEq/L (3.5-5.1); Sodium 132 mEq/L (136-145); eGFR For African Americans > 60 (> 60); eGFR For Non-African Americans 53 (> 60)
[2021-03-22 09:05] LABS: Troponin I 0.05 ng/mL (< 0.04)
[2021-03-22] MEDS ORDERED: Isovue-370 500 ML BOTTLE IVP ONE (09:06)
[2021-03-22] MEDS ORDERED: Furosemide 60 MG in 0.9 % Sodium Chloride 50 ML IVPB ONE (11:02)
[2021-03-22] MEDS ORDERED: Aspirin 325 MG TABLET PO ONE (11:04)
[2021-03-22] MEDS: Ipratropium 1 PUFF INHALER IH SCH ×3 (12:23→20:06)
[2021-03-22 12:54] LABS: INR 2.4; Prothrombin Time 26.4 Seconds (9.4-12.1)
[2021-03-22] MEDS ORDERED: Remdesivir 200 MG in 0.9 % Sodium Chloride 100 ML IVPB ONE (13:01)
[2021-03-22] MEDS: Furosemide 40 MG/4 ML VIAL IVP SCH (15:52)
[2021-03-22] MEDS: Metoprolol XL (24 HR) Succ 50 MG TAB.ER.24H PO SCH ×2 (15:52→20:46)
[2021-03-22] MEDS ORDERED: Warfarin perPT PO PRN (18:00)
[2021-03-22] MEDS ORDERED: *HR* Warfarin 2 MG TABLET PO ONE (18:00)
[2021-03-23] MEDS: Ipratropium 1 PUFF INHALER IH SCH ×6 (00:13→20:02)
[2021-03-23 02:52] LABS: Hematocrit 32.3 % (35.3-44.9); Mean Corpuscular HGB Conc 32.5 g/dL (31.6-35.5); Mean Corpuscular Hemoglobin 33.5 pg (28.0-33.3); Mean Corpuscular Volume 103.2 fL (83.0-100.0); Mean Platelet Volume 11.4 fL (9.4-12.4); Platelet Count 179 K/mcL (140-400); Red Blood Count 3.13 M/mcL (3.82-4.97); Red Cell Distribution Width 13.7 % (11.5-14.5); White Blood Count 6.8 K/mcL (4.3-11.1)
[2021-03-23 02:55] LABS: Hemoglobin 10.5 g/dL (11.5-15.4)
[2021-03-23 03:00] LABS: INR 2.6; Prothrombin Time 28.6 Seconds (9.4-12.1)
[2021-03-23 03:13] LABS: Calcium 7.8 mg/dL (8.6-10.3); Potassium 3.8 mEq/L (3.5-5.1)
[2021-03-23 03:26] LABS: Albumin 3.1 g/dL (3.5-5.7); Albumin/Globulin Ratio 1.2 (1.1-2.2); Bilirubin,Direct 0.2 mg/dL (0.0-0.2); Bilirubin,Indirect 0.3 mg/dL (0.0-1.0); Bilirubin,Total 0.5 mg/dL (0.3-1.0); Globulin 2.6 g/dL (2.4-3.5); Total Protein 5.7 g/dL (6.4-8.9)
[2021-03-23] MEDS: Metoprolol XL (24 HR) Succ 50 MG TAB.ER.24H PO SCH ×2 (09:42→21:35)
[2021-03-23] MEDS: Aspirin 81 MG TAB.CHEW PO SCH (09:42)
[2021-03-23] MEDS: Furosemide 40 MG/4 ML VIAL IVP SCH ×2 (09:43→16:57)
[2021-03-23] MEDS: *HR* Amiodarone 200 MG TABLET PO SCH (12:14)
[2021-03-23] MEDS: Acetaminophen 325 MG TABLET PO PRN ×2 (13:52→23:12)
[2021-03-23] MEDS ORDERED: Remdesivir 100 MG in 0.9 % Sodium Chloride 100 ML IVPB SCH (14:00)
[2021-03-23] MEDS ORDERED: *HR* Warfarin 1 MG TABLET PO ONE (18:00)
[2021-03-24] MEDS: Ipratropium 1 PUFF INHALER IH SCH ×7 (00:31→23:01)
[2021-03-24] MEDS: Ondansetron 4 MG/2 ML VIAL IVP PRN (04:00)
[2021-03-24 07:51] LABS: INR 3.2; Prothrombin Time 35.2 Seconds (9.4-12.1)
[2021-03-24] MEDS: Furosemide 40 MG/4 ML VIAL IVP SCH ×2 (09:32→16:51)
[2021-03-24] MEDS: Aspirin 81 MG TAB.CHEW PO SCH (09:34)
[2021-03-24] MEDS: *HR* Amiodarone 200 MG TABLET PO SCH (09:34)
[2021-03-24] MEDS: Metoprolol XL (24 HR) Succ 50 MG TAB.ER.24H PO SCH ×2 (09:34→20:17)
[2021-03-24] MEDS: lisinopriL 20 MG TABLET PO SCH (09:34)
[2021-03-24] MEDS: Acetaminophen 325 MG TABLET PO PRN ×2 (13:39→23:26)
[2021-03-24 17:51] LABS: Basophils % 0.1 %; Hematocrit 33.1 % (35.3-44.9); Immature Granulocytes % 0.3 % (0-4); Lymphocytes # 0.3 K/mcL (0.6-4.6); Lymphocytes % 3.5 %; Mean Corpuscular HGB Conc 33.2 g/dL (31.6-35.5); Mean Corpuscular Hemoglobin 33.5 pg (28.0-33.3); Mean Corpuscular Volume 100.9 fL (83.0-100.0); Mean Platelet Volume 12.3 fL (9.4-12.4); Monocytes # 0.2 K/mcL (0.0-1.3); Monocytes % 2.2 %; Neutrophils # 8.4 K/mcL (1.6-8.9); Platelet Count 142 K/mcL (140-400); Red Blood Count 3.28 M/mcL (3.82-4.97); Red Cell Distribution Width 13.6 % (11.5-14.5); Segmented Neutrophils % 93.9 %
[2021-03-24] MEDS: Melatonin 3 MG TABLET PO PRN (21:43)
[2021-03-24 23:26] LABS: Alanine Aminotransferase 458 Units/L (7-52); Albumin 2.9 g/dL (3.5-5.7); Albumin/Globulin Ratio 1.1 (1.1-2.2); Alkaline Phosphatase 79 Units/L (34-104); Aspartate Amino Transferase 290 Units/L (13-39); BUN/Creatinine Ratio 29 (6-26); Bilirubin,Total 0.8 mg/dL (0.3-1.0); Blood Urea Nitrogen 27 mg/dL (8-23); Calcium 7.7 mg/dL (8.6-10.3); Carbon Dioxide 27 mEq/L (23-29); Chloride 98 mEq/L (98-107); Globulin 2.6 g/dL (2.4-3.5); Glucose 178 mg/dL (70-105); Lactate Dehydrogenase 649 Units/L (140-271); Osmolality,Calculated 290 (280-300); Potassium 3.4 mEq/L (3.5-5.1); Sodium 135 mEq/L (136-145); Total Protein 5.5 g/dL (6.4-8.9); eGFR For African Americans > 60 (> 60); eGFR For Non-African Americans 58 (> 60)
[2021-03-25 00:15] LABS: Ferritin > 1500 ng/mL (10-120)
[2021-03-25] MEDS: Ipratropium 1 PUFF INHALER IH SCH ×6 (03:10→23:59)
[2021-03-25 06:15] LABS: INR 3.1
[2021-03-25] MEDS: Metoprolol XL (24 HR) Succ 50 MG TAB.ER.24H PO SCH ×2 (09:01→19:59)
[2021-03-25] MEDS: Aspirin 81 MG TAB.CHEW PO SCH (09:01)
[2021-03-25] MEDS: *HR* Amiodarone 200 MG TABLET PO SCH (09:01)
[2021-03-25] MEDS: lisinopriL 20 MG TABLET PO SCH (09:01)
[2021-03-25] MEDS: Furosemide 40 MG/4 ML VIAL IVP SCH ×2 (09:01→16:07)
[2021-03-25 09:33] LABS: Hematocrit 32.8 % (35.3-44.9); Hemoglobin 10.7 g/dL (11.5-15.4); Immature Granulocytes % 0.7 % (0-4); Mean Corpuscular HGB Conc 32.6 g/dL (31.6-35.5); Red Cell Distribution Width 13.5 % (11.5-14.5)
[2021-03-25 09:35] LABS: Basophils % 0.1 %; Immature Platelets 8.9 % (1.1-6.1); Lymphocytes # 0.5 K/mcL (0.6-4.6); Lymphocytes % 4.4 %; Mean Corpuscular Hemoglobin 33.9 pg (28.0-33.3); Mean Corpuscular Volume 103.8 fL (83.0-100.0); Mean Platelet Volume 11.6 fL (9.4-12.4); Monocytes # 0.4 K/mcL (0.0-1.3); Monocytes % 3.6 %; Neutrophils # 9.7 K/mcL (1.6-8.9); Platelet Count 131 K/mcL (140-400); Red Blood Count 3.16 M/mcL (3.82-4.97); Segmented Neutrophils % 91.2 %; White Blood Count 10.6 K/mcL (4.3-11.1)
[2021-03-25 10:06] LABS: BUN/Creatinine Ratio 29 (6-26); Blood Urea Nitrogen 30 mg/dL (8-23); Carbon Dioxide 26 mEq/L (23-29); Chloride 98 mEq/L (98-107); Glucose 193 mg/dL (70-105); Osmolality,Calculated 291 (280-300); Potassium 3.7 mEq/L (3.5-5.1); Sodium 135 mEq/L (136-145); eGFR For African Americans > 60 (> 60); eGFR For Non-African Americans 52 (> 60)
[2021-03-25] MEDS: Acetaminophen 325 MG TABLET PO PRN ×2 (11:55→23:45)
[2021-03-26] MEDS: Ipratropium 1 PUFF INHALER IH SCH ×5 (04:04→20:30)
[2021-03-26 05:36] LABS: Hematocrit 30.2 % (35.3-44.9); Hemoglobin 10.3 g/dL (11.5-15.4); Immature Granulocytes % 0.6 % (0-4); Lymphocytes # 0.3 K/mcL (0.6-4.6); Mean Corpuscular HGB Conc 34.1 g/dL (31.6-35.5); Mean Corpuscular Hemoglobin 34.7 pg (28.0-33.3); Mean Corpuscular Volume 101.7 fL (83.0-100.0); Mean Platelet Volume 11.4 fL (9.4-12.4); Monocytes # 0.4 K/mcL (0.0-1.3); Monocytes % 5.8 %; Neutrophils # 6.1 K/mcL (1.6-8.9); Platelet Count 122 K/mcL (140-400); Red Blood Count 2.97 M/mcL (3.82-4.97); Red Cell Distribution Width 13.3 % (11.5-14.5); Segmented Neutrophils % 89.6 %; White Blood Count 6.8 K/mcL (4.3-11.1)
[2021-03-26 05:45] LABS: INR 3.2; Prothrombin Time 35.9 Seconds (9.4-12.1)
[2021-03-26 05:57] LABS: Alanine Aminotransferase 274 Units/L (7-52); Albumin 2.8 g/dL (3.5-5.7); Alkaline Phosphatase 75 Units/L (34-104); Aspartate Amino Transferase 59 Units/L (13-39); BUN/Creatinine Ratio 39 (6-26); Bilirubin,Total 0.9 mg/dL (0.3-1.0); Blood Urea Nitrogen 31 mg/dL (8-23); C-Reactive Protein 46 mg/L (Less than 10); Calcium 7.9 mg/dL (8.6-10.3); Carbon Dioxide 30 mEq/L (23-29); Chloride 98 mEq/L (98-107); Globulin 2.7 g/dL (2.4-3.5); Glucose 166 mg/dL (70-105); Lactate Dehydrogenase 461 Units/L (140-271); Osmolality,Calculated 292 (280-300); Potassium 3.2 mEq/L (3.5-5.1); Sodium 136 mEq/L (136-145); Total Protein 5.5 g/dL (6.4-8.9); eGFR For African Americans > 60 (> 60); eGFR For Non-African Americans > 60 (> 60)
[2021-03-26 06:34] LABS: Ferritin > 1500 ng/mL (10-120)
[2021-03-26] MEDS: lisinopriL 20 MG TABLET PO SCH (08:15)
[2021-03-26] MEDS: Metoprolol XL (24 HR) Succ 50 MG TAB.ER.24H PO SCH ×2 (08:15→20:03)
[2021-03-26] MEDS: *HR* Amiodarone 200 MG TABLET PO SCH (08:16)
[2021-03-26] MEDS: Aspirin 81 MG TAB.CHEW PO SCH (08:16)
[2021-03-26] MEDS: Furosemide 40 MG/4 ML VIAL IVP SCH ×2 (08:16→17:04)
[2021-03-26] MEDS: Acetaminophen 325 MG TABLET PO PRN ×2 (10:58→17:03)
[2021-03-26] MEDS: Ondansetron 4 MG/2 ML VIAL IVP PRN (14:31)
[2021-03-27] MEDS: Ipratropium 1 PUFF INHALER IH SCH ×7 (00:16→23:54)
[2021-03-27] MEDS: Ondansetron 4 MG/2 ML VIAL IVP PRN (03:16)
[2021-03-27] MEDS: Aspirin 81 MG TAB.CHEW PO SCH (08:48)
[2021-03-27] MEDS: *HR* Amiodarone 200 MG TABLET PO SCH (08:48)
[2021-03-27] MEDS: lisinopriL 20 MG TABLET PO SCH (08:48)
[2021-03-27] MEDS: Metoprolol XL (24 HR) Succ 50 MG TAB.ER.24H PO SCH ×2 (08:49→20:18)
[2021-03-27] MEDS: Furosemide 40 MG/4 ML VIAL IVP SCH ×2 (09:19→16:17)
[2021-03-27 12:16] LABS: INR 2.6; Prothrombin Time 29.3 Seconds (9.4-12.1)
[2021-03-27] MEDS ORDERED: *HR* Warfarin 0.5 MG TABLET PO ONE (18:00)
[2021-03-27] MEDS: Melatonin 3 MG TABLET PO PRN (20:17)
[2021-03-27] MEDS: Acetaminophen 325 MG TABLET PO PRN (22:06)
[2021-03-28] MEDS: Ipratropium 1 PUFF INHALER IH SCH ×5 (03:36→20:09)
[2021-03-28 05:40] LABS: INR 2.3; Prothrombin Time 25.5 Seconds (9.4-12.1)
[2021-03-28] MEDS: Metoprolol XL (24 HR) Succ 50 MG TAB.ER.24H PO SCH ×2 (09:01→21:21)
[2021-03-28] MEDS: Furosemide 40 MG/4 ML VIAL IVP SCH ×2 (09:01→17:19)
[2021-03-28] MEDS: Aspirin 81 MG TAB.CHEW PO SCH (09:01)
[2021-03-28] MEDS: lisinopriL 20 MG TABLET PO SCH (09:02)
[2021-03-28] MEDS: *HR* Amiodarone 200 MG TABLET PO SCH (09:02)
[2021-03-28] MEDS: Acetaminophen 325 MG TABLET PO PRN (13:20)
[2021-03-28] MEDS: Oxymetazoline Nasal SPRAY BOTTLE 15ML NS PRN (13:20)
[2021-03-28] MEDS ORDERED: Warfarin 1 MG, Warfarin 0.5 MG PO ONE (18:00)
[2021-03-28] MEDS ORDERED: *HR* Warfarin 1 MG TABLET PO ONE (18:00)
[2021-03-28] MEDS: Melatonin 3 MG TABLET PO PRN (21:26)
[2021-03-28] MEDS: Magic Mouthwash 10 ML UD Cup PO SCH (22:24)
[2021-03-29] MEDS: Ipratropium 1 PUFF INHALER IH SCH ×6 (00:22→19:55)
[2021-03-29 05:49] LABS: Hematocrit 30.6 % (35.3-44.9); Hemoglobin 10.1 g/dL (11.5-15.4); Mean Corpuscular Hemoglobin 33.1 pg (28.0-33.3); Mean Corpuscular Volume 100.3 fL (83.0-100.0); Mean Platelet Volume 11.6 fL (9.4-12.4); Platelet Count 146 K/mcL (140-400); Red Blood Count 3.05 M/mcL (3.82-4.97); Red Cell Distribution Width 13.2 % (11.5-14.5); White Blood Count 9.1 K/mcL (4.3-11.1)
[2021-03-29 05:57] LABS: Prothrombin Time 22.2 Seconds (9.4-12.1)
[2021-03-29] MEDS ORDERED: Chlorhexidine Rinse 15 ML MOUTHWASH MM PRN (06:07)
[2021-03-29 06:11] LABS: BUN/Creatinine Ratio 41 (6-26); Blood Urea Nitrogen 33 mg/dL (8-23); Calcium 7.9 mg/dL (8.6-10.3); Carbon Dioxide 33 mEq/L (23-29); Chloride 93 mEq/L (98-107); Glucose 162 mg/dL (70-105); Lactate Dehydrogenase 390 Units/L (140-271); Osmolality,Calculated 285 (280-300); Potassium 3.5 mEq/L (3.5-5.1); Sodium 132 mEq/L (136-145); eGFR For African Americans > 60 (> 60); eGFR For Non-African Americans > 60 (> 60)
[2021-03-29 06:28] LABS: Ferritin 877 ng/mL (10-120)
[2021-03-29] MEDS: Metoprolol XL (24 HR) Succ 50 MG TAB.ER.24H PO SCH ×2 (09:14→22:16)
[2021-03-29] MEDS: *HR* Amiodarone 200 MG TABLET PO SCH (09:14)
[2021-03-29] MEDS: Aspirin 81 MG TAB.CHEW PO SCH (09:14)
[2021-03-29] MEDS: lisinopriL 20 MG TABLET PO SCH (09:14)
[2021-03-29] MEDS: Furosemide 40 MG/4 ML VIAL IVP SCH ×2 (09:15→16:09)
[2021-03-29] MEDS: Magic Mouthwash 10 ML UD Cup PO SCH ×3 (09:15→16:09)
[2021-03-29] MEDS: Acetaminophen 325 MG TABLET PO PRN ×2 (10:41→22:23)
[2021-03-29 12:13] LABS: C-Reactive Protein 14 mg/L (Less than 10)
[2021-03-29] MEDS ORDERED: *HR* Warfarin 1 MG TABLET PO ONE (18:00)
[2021-03-29] MEDS: Melatonin 3 MG TABLET PO PRN (22:16)
[2021-03-30] MEDS: Ipratropium 1 PUFF INHALER IH SCH ×4 (00:06→08:16)
[2021-03-30] MEDS: Oxymetazoline Nasal SPRAY BOTTLE 15ML NS PRN (08:23)
[2021-03-30] MEDS: Aspirin 81 MG TAB.CHEW PO SCH (08:25)
[2021-03-30] MEDS: Metoprolol XL (24 HR) Succ 50 MG TAB.ER.24H PO SCH (08:25)
[2021-03-30] MEDS: Magic Mouthwash 10 ML UD Cup PO SCH ×2 (08:25→12:03)
[2021-03-30] MEDS: *HR* Amiodarone 200 MG TABLET PO SCH (08:25)
[2021-03-30] MEDS: Furosemide 40 MG/4 ML VIAL IVP SCH (08:25)
[2021-03-30] MEDS: lisinopriL 20 MG TABLET PO SCH (08:25)
[2021-03-30 10:33] VITALS: BP 155/66; PULSE 65; TEMP 97.8
[2021-03-30 10:49] LABS: INR 1.8; Prothrombin Time 19.9 Seconds (9.4-12.1)
[2021-03-30 11:46] VITALS: O2SAT 94
[2021-03-30] MEDS ORDERED: Warfarin 0.5 MG, Warfarin 1 MG PO ONE (18:00)
== END 2021-03-30 16:34 | disposition home health service (06) | DRG 177 ==
LOC: EMEROOARM 06:52 → 2NENU 06:52 → SUATTDRO 11:37 → 2NENU 12:00
PROVIDERS: ADMIT Internal Medicine; ATTEND Internal Medicine

== ENCOUNTER 2021-04-04 02:12 | Observation (INO) ==
[2021-04-04 02:54] LABS: Basophils % 0.2 %; Eosinophils % 0.2 %; Hematocrit 34.2 % (35.3-44.9); Hemoglobin 10.9 g/dL (11.5-15.4); Immature Granulocytes % 1.6 % (0-4); Lymphocytes # 0.8 K/mcL (0.6-4.6); Lymphocytes % 6.4 %; Mean Corpuscular HGB Conc 31.9 g/dL (31.6-35.5); Mean Corpuscular Hemoglobin 33.5 pg (28.0-33.3); Mean Corpuscular Volume 105.2 fL (83.0-100.0); Mean Platelet Volume 10.5 fL (9.4-12.4); Monocytes # 1.2 K/mcL (0.0-1.3); Neutrophils # 9.9 K/mcL (1.6-8.9); Platelet Count 243 K/mcL (140-400); Red Blood Count 3.25 M/mcL (3.82-4.97); Segmented Neutrophils % 81.6 %; White Blood Count 12.2 K/mcL (4.3-11.1)
[2021-04-04 03:35] LABS: Alanine Aminotransferase 43 Units/L (7-52); Albumin 3.2 g/dL (3.5-5.7); Albumin/Globulin Ratio 1.1 (1.1-2.2); Alkaline Phosphatase 63 Units/L (34-104); Aspartate Amino Transferase 21 Units/L (13-39); BUN/Creatinine Ratio 26 (6-26); Bilirubin,Direct 0.2 mg/dL (0.0-0.2); Bilirubin,Indirect 0.5 mg/dL (0.0-1.0); Bilirubin,Total 0.7 mg/dL (0.3-1.0); Blood Urea Nitrogen 24 mg/dL (8-23); Calcium 8.3 mg/dL (8.6-10.3); Carbon Dioxide 29 mEq/L (23-29); Chloride 101 mEq/L (98-107); Globulin 2.9 g/dL (2.4-3.5); Glucose 91 mg/dL (70-105); Osmolality,Calculated 286 (280-300); Potassium 4.9 mEq/L (3.5-5.1); Sodium 136 mEq/L (136-145); Total Protein 6.1 g/dL (6.4-8.9); Troponin I 0.12 ng/mL (< 0.04); eGFR For African Americans > 60 (> 60); eGFR For Non-African Americans 57 (> 60)
[2021-04-04] MEDS ORDERED: Furosemide 40 MG/4 ML VIAL IVP ONE (03:42)
[2021-04-04] MEDS ORDERED: *HR* FentaNYL (PF) 100 MCG/2 ML VIAL IVP ONE (04:01)
[2021-04-04] MEDS ORDERED: Aspirin 81 MG TAB.CHEW PO ONE (04:04)
[2021-04-04] MEDS ORDERED: Naloxone 0.4 MG/ML INJ IVP PRN ×2 (06:25→08:47)
[2021-04-04 06:51] LABS: INR 2.6; Prothrombin Time 28.6 Seconds (9.4-12.1)
[2021-04-04] MEDS ORDERED: levoFLOXacin 750 MG/150 ML 750 MG/150 ML BAG IVPB SCH (10:00)
[2021-04-04] MEDS ORDERED: Ipratropium/Albuterol Neb 3 ML IH PRN (10:03)
[2021-04-04] MEDS ORDERED: Dextrose Gel 15 GM/37.5 ML TUBE PO PRN ×2 (10:04)
[2021-04-04] MEDS ORDERED: D5% in Water 1,000 ML IVC PRN (10:04)
[2021-04-04] MEDS ORDERED: *HR* Dextrose 50 % in Water (Syg) 50 ML SYRINGE IVP PRN (10:04)
[2021-04-04] MEDS: Insulin LISPRO 300 UNITS/3 ML VIAL SUBQ SCH ×2 (13:59→16:32)
[2021-04-04] MEDS ORDERED: Insulin LISPRO 300 UNITS/3 ML VIAL SUBQ SCH (21:00)
[2021-04-04] MEDS ORDERED: Melatonin 3 MG TABLET PO SCH (22:45)
[2021-04-05 04:50] VITALS: BP 161/60; PULSE 58; TEMP 97.9; O2SAT 98
[2021-04-05] MEDS ORDERED: Furosemide 40 MG/4 ML VIAL IVP SCH (09:00)
[2021-04-05] MEDS ORDERED: Tiotropium 10 INH DOSE IH PRN (10:02)
[2021-04-05] MEDS ORDERED: lisinopriL 20 MG TABLET PO SCH (10:15)
[2021-04-05] MEDS ORDERED: *HR* Amiodarone 200 MG TABLET PO SCH (10:15)
[2021-04-05] MEDS ORDERED: Furosemide 20 MG TABLET PO SCH (10:15)
[2021-04-05] MEDS ORDERED: Metoprolol XL (24 HR) Succ 50 MG TAB.ER.24H PO SCH (10:15)
[2021-04-05] MEDS ORDERED: Warfarin perPT PO PRN (11:00)
[2021-04-05] MEDS: Insulin LISPRO 300 UNITS/3 ML VIAL SUBQ SCH ×2 (11:04→12:03)
[2021-04-05] MEDS ORDERED: levoFLOXacin 750 MG TABLET PO ONE (11:52)
[2021-04-05] MEDS ORDERED: *HR* Warfarin 2.5 MG TABLET PO ONE (18:00)
[2021-04-05] MEDS ORDERED: *HR* Warfarin 2.5 MG TABLET PO SCH (18:00)
[2021-04-06] MEDS ORDERED: Aspirin 325 MG TABLET PO SCH (09:00)
[2021-04-06] MEDS ORDERED: *HR* Warfarin 2.5 MG TABLET PO SCH (10:02)
== END 2021-04-05 14:10 | disposition home or self-care (01) ==
LOC: 3NENU 02:12 → EMEROOARM 02:12 → SUATTDRO 04:41 → 3NENU 06:05
PROVIDERS: ADMIT Pharmacist; ATTEND Internal Medicine

== ENCOUNTER 2021-05-22 23:33 | Inpatient (IN) ==
[2021-05-22] MEDS ORDERED: methylPREDNISolone 125 MG/2 ML VIAL IVP ONE (23:51)
[2021-05-22] MEDS ORDERED: Ipratropium/Albuterol Neb 3 ML IH ONE (23:51)
[2021-05-23 00:40] LABS: Alanine Aminotransferase 10 Units/L (7-52); Albumin 3.8 g/dL (3.5-5.7); Albumin/Globulin Ratio 1.2 (1.1-2.2); Alkaline Phosphatase 62 Units/L (34-104); Aspartate Amino Transferase 22 Units/L (13-39); BUN/Creatinine Ratio 22 (6-26); Bilirubin,Direct 0.2 mg/dL (0.0-0.2); Bilirubin,Indirect 0.5 mg/dL (0.0-1.0); Bilirubin,Total 0.7 mg/dL (0.3-1.0); Blood Urea Nitrogen 22 mg/dL (8-23); Calcium 8.9 mg/dL (8.6-10.3); Carbon Dioxide 23 mEq/L (23-29); Chloride 104 mEq/L (98-107); Globulin 3.3 g/dL (2.4-3.5); Glucose 217 mg/dL (70-105); Osmolality,Calculated 294 (280-300); Potassium 4.7 mEq/L (3.5-5.1); Sodium 137 mEq/L (136-145); Total Protein 7.1 g/dL (6.4-8.9); eGFR For African Americans > 60 (> 60); eGFR For Non-African Americans 53 (> 60)
[2021-05-23 00:54] LABS: Troponin I 0.04 ng/mL (< 0.04)
[2021-05-23 00:57] LABS: Basophils % 0.2 %; Hematocrit 33.7 % (35.3-44.9); Hemoglobin 10.7 g/dL (11.5-15.4); Immature Granulocytes % 0.7 % (0-4); Lymphocytes # 1.1 K/mcL (0.6-4.6); Lymphocytes % 4.7 %; Mean Corpuscular HGB Conc 31.8 g/dL (31.6-35.5); Mean Corpuscular Hemoglobin 34.7 pg (28.0-33.3); Mean Corpuscular Volume 109.4 fL (83.0-100.0); Mean Platelet Volume 10.8 fL (9.4-12.4); Monocytes # 2.2 K/mcL (0.0-1.3); Monocytes % 9.6 %; Neutrophils # 19.1 K/mcL (1.6-8.9); Platelet Count 426 K/mcL (140-400); Red Blood Count 3.08 M/mcL (3.82-4.97); Red Cell Distribution Width 14.9 % (11.5-14.5); Segmented Neutrophils % 84.8 %; White Blood Count 22.5 K/mcL (4.3-11.1)
[2021-05-23] MEDS ORDERED: cefTRIAXone 1,000 MG in Water for inj. (sterile) 10 ML IVP ONE (01:05)
[2021-05-23] MEDS ORDERED: Azithromycin 500 MG in 0.9 % Sodium Chloride 250 ML IVPB ONE (01:05)
[2021-05-23 02:25] LABS: Influenza A PCR Negative (Negative); Influenza B PCR Negative (Negative); Resp. Syncytial Virus PCR Negative (Negative); SARS-CoV-2 by PCR (In House) Negative (Negative)
[2021-05-23] MEDS ORDERED: Naloxone 0.4 MG/ML INJ IVP PRN (04:23)
[2021-05-23] MEDS ORDERED: Melatonin 3 MG TABLET PO PRN (04:23)
[2021-05-23] MEDS ORDERED: *HR* Labetalol 20 MG/4 ML SYRINGE IVP ONE (04:27)
[2021-05-23] MEDS ORDERED: Furosemide 40 MG/4 ML VIAL IVP SCH ×2 (04:56→09:00)
[2021-05-23] MEDS: Acetaminophen 325 MG TABLET PO PRN ×3 (05:13→20:06)
[2021-05-23] MEDS ORDERED: Albuterol 2.5 MG/3 ML NEBULIZER IH PRN (06:35)
[2021-05-23] MEDS ORDERED: 0.9 % Sodium Chloride 250 ML IVC ONE (08:11)
[2021-05-23 08:33] LABS: INR 1.9; Prothrombin Time 21.4 Seconds (9.4-12.1)
[2021-05-23] MEDS: predniSONE 20 MG TABLET PO SCH (08:41)
[2021-05-23] MEDS: Metoprolol XL (24 HR) Succ 50 MG TAB.ER.24H PO SCH ×2 (08:42→20:06)
[2021-05-23] MEDS: *HR* Amiodarone 200 MG TABLET PO SCH (08:42)
[2021-05-23] MEDS: Aspirin 325 MG TABLET PO SCH (08:42)
[2021-05-23] MEDS: Piperacillin/Tazobactam 3.375 GM in 0.9 % Sodium Chloride Mini Bag 100 ML IVPB SCH ×2 (08:42→16:00)
[2021-05-23] MEDS: lisinopriL 20 MG TABLET PO SCH (08:42)
[2021-05-23] MEDS: Ipratropium/Albuterol Neb 3 ML IH SCH ×3 (11:20→20:43)
[2021-05-23] MEDS ORDERED: 0.9 % Sodium Chloride 1,000 ML IVC SCH (11:30)
[2021-05-23] MEDS ORDERED: Warfarin 1 MG, Warfarin 0.5 MG PO ONE (18:00)
[2021-05-23] MEDS ORDERED: Warfarin perPT PO PRN (18:00)
[2021-05-23] MEDS ORDERED: traZODone 50 MG TABLET PO PRN (23:41)
[2021-05-24] MEDS: Piperacillin/Tazobactam 3.375 GM in 0.9 % Sodium Chloride Mini Bag 100 ML IVPB SCH ×4 (00:20→23:24)
[2021-05-24] MEDS: Ipratropium/Albuterol Neb 3 ML IH SCH ×4 (03:37→22:47)
[2021-05-24] MEDS ORDERED: Furosemide 40 MG/4 ML VIAL IVP ONE (03:43)
[2021-05-24 04:38] LABS: VBG HCO3 26 mEq/L (21-27); VBG PCO2 58 mmHg (41-51); VBG PH 7.26 pH Units (7.32-7.42); VBG PO2 39 mmHg (25-50)
[2021-05-24 04:42] LABS: Basophils % 0.1 %; Hematocrit 27.9 % (35.3-44.9); Immature Granulocytes % 1.1 % (0-4); Lymphocytes # 0.5 K/mcL (0.6-4.6); Lymphocytes % 2.2 %; Mean Corpuscular HGB Conc 31.9 g/dL (31.6-35.5); Mean Corpuscular Hemoglobin 34.2 pg (28.0-33.3); Mean Corpuscular Volume 107.3 fL (83.0-100.0); Mean Platelet Volume 10.4 fL (9.4-12.4); Monocytes # 1.2 K/mcL (0.0-1.3); Monocytes % 5.3 %; Neutrophils # 19.8 K/mcL (1.6-8.9); Platelet Count 336 K/mcL (140-400); Red Cell Distribution Width 14.8 % (11.5-14.5); Segmented Neutrophils % 91.3 %; White Blood Count 21.7 K/mcL (4.3-11.1)
[2021-05-24 04:44] LABS: Hemoglobin 8.9 g/dL (11.5-15.4)
[2021-05-24 04:49] LABS: INR 1.8; Prothrombin Time 20.5 Seconds (9.4-12.1)
[2021-05-24 04:59] LABS: BUN/Creatinine Ratio 28 (6-26); Blood Urea Nitrogen 29 mg/dL (8-23); Calcium 8.8 mg/dL (8.6-10.3); Carbon Dioxide 25 mEq/L (23-29); Chloride 106 mEq/L (98-107); Glucose 239 mg/dL (70-105); Magnesium 2.1 mg/dL (1.6-2.6); Osmolality,Calculated 290 (280-300); Potassium 3.9 mEq/L (3.5-5.1); Sodium 133 mEq/L (136-145); eGFR For African Americans > 60 (> 60); eGFR For Non-African Americans 52 (> 60)
[2021-05-24] MEDS: Acetaminophen 325 MG TABLET PO PRN ×2 (04:59→19:12)
[2021-05-24] MEDS: Azithromycin 500 MG in D5% in Water 250 ML IVPB SCH (04:59)
[2021-05-24] MEDS: Aspirin 325 MG TABLET PO SCH ×2 (08:11→08:40)
[2021-05-24] MEDS: lisinopriL 20 MG TABLET PO SCH ×3 (08:11→11:01)
[2021-05-24] MEDS: Metoprolol XL (24 HR) Succ 50 MG TAB.ER.24H PO SCH ×4 (08:12→19:35)
[2021-05-24] MEDS: predniSONE 20 MG TABLET PO SCH ×3 (08:12→11:01)
[2021-05-24] MEDS: *HR* Amiodarone 200 MG TABLET PO SCH (08:12)
[2021-05-24] MEDS ORDERED: cefTRIAXone 1,000 MG in 0.9 % Sodium Chloride Mini Bag 100 ML IVPB SCH (09:00)
[2021-05-24 10:41] LABS: Hematocrit 27.9 % (35.3-44.9); Hemoglobin 8.9 g/dL (11.5-15.4)
[2021-05-24 10:53] LABS: Bilirubin,Urine Negative (Negative); Blood,Urine Negative (Negative); Clarity,Urine Clear (Clear); Color,Urine Light-Yellow (Yellow); Glucose,Urine (UA) Normal (Normal); Hyaline Casts,Urine Many per lpf (None Seen); Ketones,Urine Negative (Negative); Leukocyte Esterase,Urine Negative (Negative); Mucus,Urine Few per lpf (None-Few); Nitrite,Urine Negative (Negative); PH,Urine 5.5 pH Units (5.0-8.0); Protein,Urine 30 mg/dL (Neg-Trace); RBC,Urine 0-3 per hpf (0-3); Specific Gravity,Urine 1.017 (1.010-1.025); Squamous Epithelial Cell,Urine Few per hpf (None-Few); Urobilinogen,Urine Normal (Normal); WBC,Urine 0-3 per hpf (0-3)
[2021-05-24] MEDS ORDERED: *HR* Metoprolol 5 MG/5 ML VIAL IVP ONE (10:54)
[2021-05-24 13:26] LABS: VBG HCO3 29 mEq/L (21-27); VBG PCO2 60 mmHg (41-51); VBG PH 7.29 pH Units (7.32-7.42); VBG PO2 37 mmHg (25-50)
[2021-05-24] MEDS: MethylPREDNISolone 40 MG/ML VIAL IVP SCH (13:56)
[2021-05-24] MEDS ORDERED: Furosemide 20 MG/2 ML VIAL IVP ONE (14:35)
[2021-05-24 15:01] LABS: Adenovirus Not Detected (Not Detect); Bordetella Pertussis Not Detected (Not Detect); Chlamydophila pneumoniae Not Detected (Not Detect); Coronavirus 229E Not Detected (Not Detect); Coronavirus HKU1 Not Detected (Not Detect); Coronavirus NL63 Not Detected (Not Detect); Coronavirus OC43 Not Detected (Not Detect); Human Metapneumovirus Not Detected (Not Detect); Human Rhinovirus/Enterovirus Not Detected (Not Detect); Influenza A Subtype 2009 H1 Not Detected (Not Detect); Influenza B Not Detected (Not Detect); Mycoplasma pneumoniae Not Detected (Not Detect); Parainfluenza Virus 1 Not Detected (Not Detect); Parainfluenza Virus 2 Not Detected (Not Detect); Parainfluenza Virus 3 Not Detected (Not Detect); Parainfluenza Virus 4 Not Detected (Not Detect); Respiratory Syncytial Virus Not Detected (Not Detect); SARS-CoV-2 Not Detected (Not Detect)
[2021-05-24] MEDS ORDERED: traZODone 50 MG TABLET PO PRN (17:10)
[2021-05-24] MEDS ORDERED: *HR* Warfarin 2 MG TABLET PO ONE (18:00)
[2021-05-24 18:05] LABS: VBG HCO3 28 mEq/L (21-27); VBG PCO2 51 mmHg (41-51); VBG PH 7.34 pH Units (7.32-7.42); VBG PO2 34 mmHg (25-50)
[2021-05-25] MEDS: Ondansetron 4 MG/2 ML VIAL IVP PRN (02:33)
[2021-05-25] MEDS: Ipratropium/Albuterol Neb 3 ML IH SCH ×4 (04:33→19:25)
[2021-05-25] MEDS: Azithromycin 500 MG in D5% in Water 250 ML IVPB SCH (04:47)
[2021-05-25] MEDS: Acetaminophen 325 MG TABLET PO PRN (06:22)
[2021-05-25 06:59] LABS: Basophils % 0.1 %; Hematocrit 29.1 % (35.3-44.9); Immature Granulocytes % 0.9 % (0-4); Lymphocytes # 0.4 K/mcL (0.6-4.6); Lymphocytes % 2.3 %; Mean Corpuscular HGB Conc 30.9 g/dL (31.6-35.5); Mean Corpuscular Hemoglobin 33.6 pg (28.0-33.3); Mean Corpuscular Volume 108.6 fL (83.0-100.0); Mean Platelet Volume 10.5 fL (9.4-12.4); Monocytes % 6.3 %; Neutrophils # 14.4 K/mcL (1.6-8.9); Nucleated Red Blood Cells 0.3 /100 WBC (0); Platelet Count 316 K/mcL (140-400); Red Blood Count 2.68 M/mcL (3.82-4.97); Red Cell Distribution Width 14.9 % (11.5-14.5); Segmented Neutrophils % 90.4 %
[2021-05-25 07:00] LABS: VBG HCO3 25 mEq/L (21-27); VBG PCO2 45 mmHg (41-51); VBG PH 7.35 pH Units (7.32-7.42); VBG PO2 39 mmHg (25-50)
[2021-05-25 07:08] LABS: INR 2.6; Prothrombin Time 28.5 Seconds (9.4-12.1)
[2021-05-25 07:22] LABS: BUN/Creatinine Ratio 36 (6-26); Blood Urea Nitrogen 36 mg/dL (8-23); Calcium 8.8 mg/dL (8.6-10.3); Carbon Dioxide 25 mEq/L (23-29); Chloride 101 mEq/L (98-107); Glucose 236 mg/dL (70-105); Magnesium 2.2 mg/dL (1.6-2.6); Osmolality,Calculated 300 (280-300); Potassium 3.5 mEq/L (3.5-5.1); Sodium 137 mEq/L (136-145); eGFR For African Americans > 60 (> 60); eGFR For Non-African Americans 53 (> 60)
[2021-05-25] MEDS: Piperacillin/Tazobactam 3.375 GM in 0.9 % Sodium Chloride Mini Bag 100 ML IVPB SCH ×2 (07:45→16:16)
[2021-05-25] MEDS: MethylPREDNISolone 40 MG/ML VIAL IVP SCH (07:46)
[2021-05-25] MEDS: Metoprolol XL (24 HR) Succ 50 MG TAB.ER.24H PO SCH ×2 (07:59→21:07)
[2021-05-25] MEDS: Aspirin 325 MG TABLET PO SCH (07:59)
[2021-05-25] MEDS: lisinopriL 20 MG TABLET PO SCH (07:59)
[2021-05-25] MEDS: *HR* Amiodarone 200 MG TABLET PO SCH (08:00)
[2021-05-25] MEDS ORDERED: Furosemide 40 MG/4 ML VIAL IVP SCH (09:00)
[2021-05-25] MEDS ORDERED: Morphine Sulfate Oral CONC 10 MG/0.5 ML ORAL.SYG SL PRN (10:17)
[2021-05-25] MEDS: *HR* LORazepam Oral Conc 2 MG/ML SL PRN ×2 (16:55→22:50)
[2021-05-25] MEDS: Furosemide 40 MG/4 ML VIAL IVP SCH (21:07)
[2021-05-26] MEDS: Piperacillin/Tazobactam 3.375 GM in 0.9 % Sodium Chloride Mini Bag 100 ML IVPB SCH ×4 (00:31→23:49)
[2021-05-26 00:42] LABS: Basophils % 0.1 %; Hematocrit 27.9 % (35.3-44.9); Hemoglobin 8.4 g/dL (11.5-15.4); Immature Granulocytes % 0.6 % (0-4); Lymphocytes # 0.4 K/mcL (0.6-4.6); Mean Corpuscular HGB Conc 30.1 g/dL (31.6-35.5); Mean Corpuscular Hemoglobin 32.8 pg (28.0-33.3); Mean Platelet Volume 10.4 fL (9.4-12.4); Monocytes # 1.1 K/mcL (0.0-1.3); Monocytes % 7.3 %; Neutrophils # 12.8 K/mcL (1.6-8.9); Nucleated Red Blood Cells 0.3 /100 WBC (0); Platelet Count 225 K/mcL (140-400); Red Blood Count 2.56 M/mcL (3.82-4.97); Red Cell Distribution Width 14.9 % (11.5-14.5); White Blood Count 14.4 K/mcL (4.3-11.1)
[2021-05-26 00:45] LABS: VBG HCO3 29 mEq/L (21-27); VBG PCO2 58 mmHg (41-51); VBG PH 7.31 pH Units (7.32-7.42); VBG PO2 36 mmHg (25-50)
[2021-05-26 00:56] LABS: INR 2.8; Prothrombin Time 30.6 Seconds (9.4-12.1)
[2021-05-26 01:03] LABS: Calcium 8.5 mg/dL (8.6-10.3); Magnesium 2.4 mg/dL (1.6-2.6); Potassium 3.7 mEq/L (3.5-5.1)
[2021-05-26] MEDS: *HR* LORazepam Oral Conc 2 MG/ML SL PRN ×5 (02:52→21:51)
[2021-05-26] MEDS: Ipratropium/Albuterol Neb 3 ML IH SCH ×4 (03:30→23:32)
[2021-05-26] MEDS ORDERED: Haloperidol Lactate 5 MG/ML VIAL IVP ONE (05:02)
[2021-05-26] MEDS: Azithromycin 500 MG in D5% in Water 250 ML IVPB SCH (05:33)
[2021-05-26] MEDS: Furosemide 40 MG/4 ML VIAL IVP SCH ×2 (08:24→20:50)
[2021-05-26] MEDS: MethylPREDNISolone 40 MG/ML VIAL IVP SCH (08:27)
[2021-05-26] MEDS: Aspirin 325 MG TABLET PO SCH (09:35)
[2021-05-26] MEDS: lisinopriL 20 MG TABLET PO SCH (09:36)
[2021-05-26] MEDS: *HR* Amiodarone 200 MG TABLET PO SCH (09:36)
[2021-05-26] MEDS: Metoprolol XL (24 HR) Succ 50 MG TAB.ER.24H PO SCH (09:37)
[2021-05-26] MEDS: Levothyroxine Sodium 100 MCG VIAL IVP SCH (10:10)
[2021-05-26] MEDS: *HR* Metoprolol 5 MG/5 ML VIAL IVP SCH ×3 (12:24→23:48)
[2021-05-26] MEDS ORDERED: *HR* Warfarin 0.5 MG TABLET PO ONE (18:00)
[2021-05-26 20:49] VITALS: PULSE 68; TEMP 98.1
[2021-05-26] MEDS ORDERED: diazePAM 10 MG/2 ML SYRINGE IVP ONE (22:41)
[2021-05-27] MEDS: *HR* LORazepam Oral Conc 2 MG/ML SL PRN (03:37)
[2021-05-27] MEDS: Azithromycin 500 MG in D5% in Water 250 ML IVPB SCH (04:02)
[2021-05-27] MEDS: Ipratropium/Albuterol Neb 3 ML IH SCH ×2 (04:37→11:04)
[2021-05-27] MEDS: Ondansetron 4 MG/2 ML VIAL IVP PRN (05:22)
[2021-05-27] MEDS: *HR* Metoprolol 5 MG/5 ML VIAL IVP SCH ×2 (05:23→11:18)
[2021-05-27 05:24] VITALS: BP 174/96
[2021-05-27 06:00] LABS: Basophils % 0.1 %; Hematocrit 29.8 % (35.3-44.9); Immature Granulocytes % 0.7 % (0-4); Lymphocytes # 0.2 K/mcL (0.6-4.6); Lymphocytes % 1.7 %; Mean Corpuscular HGB Conc 30.2 g/dL (31.6-35.5); Mean Corpuscular Volume 109.2 fL (83.0-100.0); Mean Platelet Volume 10.9 fL (9.4-12.4); Monocytes # 0.8 K/mcL (0.0-1.3); Monocytes % 6.6 %; Neutrophils # 11.6 K/mcL (1.6-8.9); Nucleated Red Blood Cells 0.2 /100 WBC (0); Platelet Count 186 K/mcL (140-400); Red Blood Count 2.73 M/mcL (3.82-4.97); Segmented Neutrophils % 90.9 %; White Blood Count 12.7 K/mcL (4.3-11.1)
[2021-05-27 06:04] LABS: VBG HCO3 33 mEq/L (21-27); VBG PCO2 68 mmHg (41-51); VBG PH 7.29 pH Units (7.32-7.42); VBG PO2 37 mmHg (25-50)
[2021-05-27 06:12] LABS: INR 3.9; Prothrombin Time 42.7 Seconds (9.4-12.1)
[2021-05-27 06:15] LABS: Calcium 8.4 mg/dL (8.6-10.3); Potassium 2.8 mEq/L (3.5-5.1)
[2021-05-27] MEDS: Aspirin 325 MG TABLET PO SCH (08:31)
[2021-05-27] MEDS: *HR* Amiodarone 200 MG TABLET PO SCH (08:32)
[2021-05-27] MEDS: lisinopriL 20 MG TABLET PO SCH (08:32)
[2021-05-27] MEDS ORDERED: *HR* LORazepam 2 MG/ML VIAL IVP PRN (08:40)
[2021-05-27] MEDS: Piperacillin/Tazobactam 3.375 GM in 0.9 % Sodium Chloride Mini Bag 100 ML IVPB SCH (08:40)
[2021-05-27] MEDS: Furosemide 40 MG/4 ML VIAL IVP SCH (09:46)
[2021-05-27] MEDS: MethylPREDNISolone 40 MG/ML VIAL IVP SCH (09:46)
[2021-05-27] MEDS: Levothyroxine Sodium 100 MCG VIAL IVP SCH (09:46)
[2021-05-27] MEDS ORDERED: *HR* LORazepam 2 MG/ML VIAL IVP ONE ×2 (10:58→13:29)
[2021-05-27 11:05] VITALS: O2SAT 97
[2021-05-27] MEDS ORDERED: Morphine Sulfate 2 MG/ML SYRINGE IVP PRN (14:11)
[2021-05-27] MEDS: Morphine Sulfate 2 MG/ML SYRINGE IVP PRN ×4 (14:29→18:14)
[2021-05-27] MEDS: *HR* LORazepam 2 MG/ML VIAL IVP PRN ×2 (14:42→16:49)
== END 2021-05-27 22:18 | disposition expired | DRG 871 ==
LOC: EMEROOARM 23:33 → 3BNU 23:33 → SUATTDRO 05-23 03:25 → 3BNU 05-23 03:53
PROVIDERS: ADMIT Internal Medicine; ATTEND Internal Medicine